=== PATIENT | female | born 1980 | race Two or more races ===

== ENCOUNTER 2019-06-02 17:50 | Emergency (ER) | payer SELFPAY ==
[~2019-06-02] VITALS: Ht 165.1 cm; Wt 113.4 kg
[2019-06-02 18:50] VITALS: BP 181/98
[2019-06-02] MEDS ORDERED: BENZ100C PO (19:03)
--- NOTE | 2019-06-02 19:04 | PHYS DOC ---
Past Medical History Past Medical History: No Pertinent History (KENYA BOYKIN APRN) Past Surgical History: , Other Additional Past Surgical Histo: right foot has hardware (KENYA BOYKIN APRN) Alcohol Use: None Drug Use: None (KENYA BOYKIN APRN) Adult General Chief Complaint Chief Complaint: COUGH HPI HPI Patient is a 39 year old [female] who presents with [cough for the past 4 days. States she has had a dry, unproductive cough for the past few days, states children at home had similar recently. States she has not had any fevers, denies nausea or vomiting. States she has tried some dayquil once and had no improvement. Reports she is more bothered by the coughing than anything else, States she also feels her ears seem a little congested. ] (KENYA BOYKIN APRN) Review of Systems Review of Systems Constitutional: Denies fever or chills [] HENT: reports nasal congestion denies sore throat [] Respiratory: Reports cough, denies shortness of breath [] Cardiovascular: No additional information not addressed in HPI [] GI: Denies abdominal pain, nausea, vomiting, bloody stools or diarrhea [] Musculoskeletal: Denies back pain or joint pain [] Integument: Denies rash or skin lesions [] Neurologic: Denies headache, focal weakness or sensory changes [] Endocrine: Denies polyuria or polydipsia [] All other systems were reviewed and found to be within normal limits, except as documented in this note. (KENYA BOYKIN APRN) Allergies Allergies Allergies Coded Allergies Type Severity Reaction Last Updated Verified No Known Drug Allergies 12/08/13 No (NGHIA HOUSTON MD) Physical Exam Physical Exam Constitutional: Well developed, well nourished, no acute distress, non-toxic appearance. [] HENT: Normocephalic, atraumatic, bilateral external ears normal, oropharynx moist, no oral exudates, nose normal. [] Cardiovascular:Heart rate regular rhythm, no murmur [] Lungs & Thorax: Bilateral breath sounds clear to auscultation, frequent hoarse coughing noted. [] Abdomen: Bowel sounds normal, soft, no tenderness, no masses, no pulsatile masses. [] Skin: Warm, dry, no erythema, no rash. [] Extremities: No tenderness, no cyanosis, no clubbing, ROM intact, no edema. [] Neurologic: Alert and oriented X 3, normal motor function, normal sensory function, no focal deficits noted. [] Psychologic: Affect normal, judgement normal, mood normal. [] (KENYA BOYKIN APRN) Current Patient Data Vital Signs Vital Signs Date Time Temp Pulse Resp B/P (MAP) Pulse Ox O2 Delivery O2 Flow Rate FiO2 06/02/19 18:50 98.3 106 14 181/98 (125) 97 Room Air 98.3 (NGHIA HOUSTON MD) EKG EKG [] (KENYA BOYKIN APRN) Radiology/Procedures Radiology/Procedures [] (KENYA BOYKIN APRN) Course & Med Decision Making Course & Med Decision Making Pertinent Labs and Imaging studies reviewed. (See chart for details) [Discussed findings likely viral URI, as children have similar symptoms. Discussed hydration, rest, follow up, use of tessalon perles. ] (KENYA BOYKIN APRN) Course & Med Decision Making Staff Physician Addendum: I was working in the ER during the course of this patient's visit. I was available for consultation as needed, but I was not directly involved in the care of this patient. (NGHIA HOUSTON MD) Dragon Disclaimer Dragon Disclaimer This electronic medical record was generated, in whole or in part, using a voice recognition dictation system. (KENYA BOYKIN APRN) Departure Departure Impression: Primary Impression: Upper respiratory infection Additional Impression: Cough Disposition: 01 HOME, SELF-CARE Condition: STABLE Referrals: NO PCP (PCP) Patient Instructions: Cough, Adult, Upper Respiratory Infection, Adult, [id number] Additional Instructions: As we discussed, you can continue to take Dayquil at home or at work. Ensure you are drinking plenty of fluids If your ears continue to have pressure, you can try Flonase Nasal spray You can take the Tessalon perles for your cough. You should medication with Dextromethorphan, which will help your cough, and Guaifenasin, which will help you cough out mucous in your chest. These are in several combination products, like Mucinex or Cough and Cold medications, often with Tylenol. You can take these per the package directions. Scripts Benzonatate (TESSALON PERLE) 100 Mg Capsule 100 MG PO TID PRN for COUGH, #15 CAP Prov: KENYA BOYKIN APRN 06/02/19 Problem Qualifiers Primary Impression: Upper respiratory infection URI type: acute nasopharyngitis (common cold) Qualified Codes: J00 - Acute nasopharyngitis [common cold] KENYA BOYKIN APRN Jun 02, 2019 19:04 NGHIA HOUSTON MD Jun 02, 2019 21:21
== END 2019-06-02 19:10 | disposition home or self-care (01) ==
LOC: ER 17:50
DX: J00 Acute nasopharyngitis [common cold] (principal)
CPT/HCPCS: 99283

== ENCOUNTER 2019-06-13 15:53 | Inpatient (IN) | payer SELFPAY ==
[~2019-06-13] VITALS: Ht 162.6 cm; Wt 170.6 kg
[~2019-06-13 15:53] MED LIST: BENZ100C PO
[2019-06-13] MEDS ORDERED: IV NORMAL SALINE 1000ML BAG 1,000 ML IV SCH (16:12)
[2019-06-13] MEDS ORDERED: IPRATRPIUM/ALBUTEROL 0.5/2.5MG 3 ML NEBU. NEB ONE (16:15)
--- NOTE | 2019-06-13 16:26 | EKG ---
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
[2019-06-13 16:31] LABS: BASO # 0.1 x10^3/uL (0.0-0.2); BASO % 0 % (0-3); EOS # 0.2 x10^3/uL (0.0-0.7); EOS % 1 % (0-3); HEMATOCRIT 33.2 % (36.0-47.0); HEMOGLOBIN 10.4 g/dL (12.0-15.5); LYMPH # 1.1 x10^3/uL (1.0-4.8); LYMPH % 3 % (24-48); MEAN CORPUSCULAR HEMOGLOBIN 25 pg (25-35); MEAN CORPUSCULAR HGB CONC 31 g/dL (31-37); MEAN CORPUSCULAR VOLUME 80 fL (79-100); MONO # 1.5 x10^3/uL (0.0-1.1); MONO % 3 % (0-9); NEUT # 41.3 x10^3/uL (1.8-7.7); NEUT % 93 % (31-73); PLATELET COUNT 620 x10^3/uL (140-400); RED BLOOD COUNT 4.14 x10^6/uL (3.50-5.40); RED CELL DISTRIBUTION WIDTH 16.4 % (11.5-14.5)
[2019-06-13 16:36] LABS: BARBITURATES NEG (NEG); BENZODIAZEPINES NEG (NEG); CANNABINOIDS NEG (NEG); COCAINE NEG (NEG); METHADONE NEG (NEG); OPIATES NEG (NEG); PHENCYCLIDINE NEG (NEG); WHITE BLOOD COUNT 44.3 x10^3/uL (4.0-11.0)
[2019-06-13 16:38] LABS: AMPHETAMINE/METHAMPHETAMINE POS (NEG)
[2019-06-13 16:39] LABS: BILIRUBIN,URINE LARGE (NEG); CLARITY,URINE TURBID; COLOR,URINE ORANGE; NITRITE,URINE POSITIVE (NEG); PH,URINE 5.5; PROTEIN,URINE 100 mg/dL (NEG-TRACE)
[2019-06-13 16:43] LABS: CALCIUM 9.1 mg/dL (8.5-10.1); CREATININE 1.8 mg/dL (0.6-1.0); GFR 31.7
[2019-06-13 16:45] LABS: PROTHROMBIN TIME PATIENT 14.2 SEC (11.7-14.0)
[2019-06-13] MEDS ORDERED: VANCOMYCIN 2 GM in IV NORMAL SALINE 500ML BAG 500 ML IV ONE (16:45)
[2019-06-13] MEDS ORDERED: IV NORMAL SALINE 1000ML BAG 1,000 ML IV ONE ×2 (16:45→17:15)
[2019-06-13] MEDS ORDERED: VANCOMYCIN 1GM IVPB FOR OMNI 250 ML IV ONE ×2 (16:45)
[2019-06-13] MEDS ORDERED: PIPERACILLIN/TAZOBACTAM 4.5 GM in IV NORMAL SALINE 100ML 100 ML IV ONE (16:45)
--- NOTE | 2019-06-13 16:45 | PHYS DOC ---
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 Central Line Indications: Monitor CVP Maximal sterile barriers used: Mask, Sterile gown, Sterile gloves, Large sterile drape, Cap Skin Preperation: (Check all: Chlorhexidine gluconate Was skin prep dry at time of s: Yes Patient has documented/known a: Yes Facility restrictions/safety c: No Insertion Site: Jugular Antimicrobial catheter used?: No Central Line catheter type: Non-tunneled Did this insertion attempt res: No (PROSPER ALCANTARA MD) Adult General Chief Complaint Chief Complaint: SHORTNESS OF BREATH HPI HPI Patient is a 39 year old female patient with history of morbid obesity and BMI of more than 60 who presents with complaining of shortness of breath. Patient states she was administered at [facility] 3 days ago because of cellulitis and sepsis and left Hospital last night AMA as she was not happy with their care. Patient states she had shortness of breath since this morning without chest pain, fever and chills, focal neuro deficit. Patient complaining of cough. (MELISSA CHRISTIANSON MD) Review of Systems Review of Systems Constitutional: Denies fever or chills [] Eyes: Denies change in visual acuity, redness, or eye pain [] HENT: Denies nasal congestion or sore throat [] Respiratory: Reports cough and shortness of breath Cardiovascular: No additional information not addressed in HPI [] GI: Denies abdominal pain, nausea, vomiting, bloody stools or diarrhea [] : Denies dysuria or hematuria [] Musculoskeletal: Denies back pain or joint pain [] Integument: Denies rash or skin lesions [] Neurologic: Denies headache, focal weakness or sensory changes [] Endocrine: Denies polyuria or polydipsia [] All other systems were reviewed and found to be within normal limits, except as documented in this note. (MELISSA CHRISTIANSON MD) Current Medications Current Medications Current Medications Medications (Trade) Dose Ordered Sig/Ele Start Time Stop Time Status Last Admin Dose Admin Albuterol/ Ipratropium (Duoneb) 3 ml 1X ONCE 06/13/19 16:15 06/13/19 16:19 DC 06/13/19 16:31 3 ML Sodium Chloride 1,000 ml @ 1,000 mls/hr Q1H 06/13/19 16:12 06/13/19 17:11 DC 06/13/19 16:56 1,000 MLS/HR (PROSPER ALCANTARA MD) Allergies Allergies Allergies Coded Allergies Type Severity Reaction Last Updated Verified No Known Drug Allergies 12/08/13 No (PROSPER ALCANTARA MD) Physical Exam Physical Exam Constitutional: Well nourished, moderate distress, anxious, afebrile] HENT: Normocephalic, atraumatic, dry oral mucosa Eyes: PERRLA, EOMI, conjunctiva normal, no discharge. [] Neck: Normal range of motion, no tenderness, supple, no stridor. [] Cardiovascular: Tachycardia Lungs & Thorax: respiratory distress with hyperventilation, no rales or rhonchi, upper respiratory stridor Abdomen: Bowel sounds normal, soft, no tenderness, no masses, no pulsatile masses. [] Skin: Warm, dry, no erythema, no rash. [] Back: No tenderness, no CVA tenderness. 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 [] Psychologic: Affect anxious (MELISSA CHRISTIANSON MD) Current Patient Data Vital Signs Vital Signs Date Time Temp Pulse Resp B/P (MAP) Pulse Ox O2 Delivery O2 Flow Rate FiO2 06/13/19 16:35 96 Nasal Cannula 4.0 06/13/19 15:54 97.9 124 52 140/72 (94) 97.9 (PROSPER ALCANTARA MD) Lab Values Laboratory Tests Test 06/13/19 16:12 06/13/19 16:16 Prothrombin Time 14.2 SEC (11.7-14.0) H Prothrombin Time INR 1.1 (0.8-1.1) D-Dimer (Janet) 3.80 ug/mlFEU (0.00-0.50) H White Blood Count 44.3 x10^3/uL (4.0-11.0) *H Red Blood Count 4.14 x10^6/uL (3.50-5.40) Hemoglobin 10.4 g/dL (12.0-15.5) L Hematocrit 33.2 % (36.0-47.0) L Mean Corpuscular Volume 80 fL (79-100) Mean Corpuscular Hemoglobin 25 pg (25-35) Mean Corpuscular Hemoglobin Concent 31 g/dL (31-37) Red Cell Distribution Width 16.4 % (11.5-14.5) H Platelet Count 620 x10^3/uL (140-400) H Neutrophils (%) (Auto) 93 % (31-73) H Lymphocytes (%) (Auto) 3 % (24-48) L Monocytes (%) (Auto) 3 % (0-9) Eosinophils (%) (Auto) 1 % (0-3) Basophils (%) (Auto) 0 % (0-3) Neutrophils # (Auto) 41.3 x10^3/uL (1.8-7.7) H Lymphocytes # (Auto) 1.1 x10^3/uL (1.0-4.8) Monocytes # (Auto) 1.5 x10^3/uL (0.0-1.1) H Eosinophils # (Auto) 0.2 x10^3/uL (0.0-0.7) Basophils # (Auto) 0.1 x10^3/uL (0.0-0.2) Platelet Estimate Pending Urine Collection Type U cath Urine Color [place] Urine Clarity Turbid Urine pH 5.5 Urine Specific [place] >=1.030 Urine Protein 100 mg/dL (NEG-TRACE) Urine Glucose (UA) Negative mg/dL (NEG) Urine Ketones (Stick) Trace mg/dL (NEG) Urine Blood Negative (NEG) Urine Nitrite Positive (NEG) Urine Bilirubin Large (NEG) Urine Urobilinogen Dipstick 4.0 mg/dL (0.2 mg/dL) Urine Leukocyte Esterase Small (NEG) Urine RBC 0 /HPF (0-2) Urine WBC 5-10 /HPF (0-4) Urine Squamous Epithelial Cells Occ /LPF Urine Amorphous Sediment Present /HPF Urine Bacteria Few /HPF (0-FEW) Sodium Level 132 mmol/L (136-145) L Potassium Level 3.0 mmol/L (3.5-5.1) L Chloride Level 93 mmol/L (98-107) L Carbon Dioxide Level 18 mmol/L (21-32) L Anion Gap 21 (6-14) H Blood Urea Nitrogen 16 mg/dL (7-20) Creatinine 1.8 mg/dL (0.6-1.0) H Estimated GFR (Cockcroft-Gault) 31.7 BUN/Creatinine Ratio 9 (6-20) Glucose Level 233 mg/dL (70-99) H Lactic Acid Level 10.8 mmol/L (0.4-2.0) *H Calcium Level 9.1 mg/dL (8.5-10.1) Magnesium Level 2.5 mg/dL (1.8-2.4) H Total Bilirubin 2.9 mg/dL (0.2-1.0) H Aspartate Amino Transferase (AST) 158 U/L (15-37) H Alanine Aminotransferase (ALT) 77 U/L (14-59) H Alkaline Phosphatase 346 U/L (46-116) H Creatine Kinase 156 U/L (26-192) Troponin I Quantitative < 0.017 ng/mL (0.000-0.055) NW-Rvy-U-Type Natriuretic Peptide 1110 pg/mL (0-124) H Total Protein 7.8 g/dL (6.4-8.2) Albumin 2.6 g/dL (3.4-5.0) L Albumin/Globulin Ratio 0.5 (1.0-1.7) L Lipase 1861 U/L (73-393) H Urine Opiates Screen Neg (NEG) Urine Methadone Screen Neg (NEG) Urine Barbiturates Neg (NEG) Urine Phencyclidine Screen Neg (NEG) Urine Amphetamine/Methamphetamine Pos (NEG) Urine Benzodiazepines Screen Neg (NEG) Urine Cocaine Screen Neg (NEG) Urine Cannabinoids Screen Neg (NEG) Urine Ethyl Alcohol Neg (NEG) Laboratory Tests 06/13/19 16:16 Laboratory Tests 06/13/19 16:16 (PROSPER ALCANTARA MD) EKG EKG EKG interpreted by me. EKG at 1608 showed sinus tachycardia at rate of 124, no acute distress and T-wave abnormalities. (MELISSA CHRISTIANSON MD) Radiology/Procedures Radiology/Procedures [][facility] [address] [place] [address] IMAGING REPORT Signed PATIENT: JEEVAN LINDSAY ACCOUNT: [id number] : 1980 LOCATION: ER AGE: 39 SEX: F EXAM STATUS: REG ER ORD. PHYSICIAN: MELISSA CHRISTIANSON MD REASON: sepsis PROCEDURE: PORTABLE CHEST 1V EXAM: Chest, single view. HISTORY: Sepsis. COMPARISON: None. FINDINGS: A frontal view of the chest is obtained. There is bilateral central interstitial prominence with suspected superimposed left lower lobe infiltrate. There is no pleural effusion or pneumothorax. The heart is normal in size. There are decreased lung volumes. IMPRESSION: Suspected left lower lobe infiltrate superimposed on diffuse central interstitial prominence. Electronically signed by: Samanta Lunsford MD (06/13/2019 4:59 PM) [facility] DICTATED and SIGNED BY: SAMANTA LUNSFORD MD DATE: 06/13/191658 (MELISSA CHRISTIANSON MD) Course & Med Decision Making Course & Med Decision Making Pertinent Labs and Imaging studies reviewed. (See chart for details) Evaluation of patient in ER showed 39-year-old female patient presented to ER with complaining of chest pain with O2 sat of 88% at room air that increased with the starting nasal cannula. Patient had blood pressure of 140 and tachycardia at arrival with intermittently drop of blood pressure. Sepsis protocol was started. Patient treated with antibiotic and IV fluid. Patient had increase of shortness of breath and intubated at 1744. Patient had coffee-ground material in NG tube that was placed after intubation.. Patient had elevation of d-dimer. Dr Zafar was consulted at 1758 did not recommend treatment for possible PE.Levophed and Versed drip was started.Patient requiring admission for further evaluation and treatment. Discussed with Dr. Mckeon who is in agreement with admission. Discussed findings and plan with patient and family, who acknowledge understanding and agreement. Sign out given to at 1800 for further evaluation and final disposition. Discussed current findings and plan with patient and family, who acknowledge understanding and agreement. (MELISSA CHRISTIANSON MD) Course & Med Decision Making Patient difficult sedation, precedex ordered. Patient given etomidate and sux for sedation until able to titrate precedex and versed as able. BP 130's systolically. Patient will be transferred to ICU (PROSPER ALCANTARA MD) Dragon Disclaimer Dragon Disclaimer This electronic medical record was generated, in whole or in part, using a voice recognition dictation system. (MELISSA CHRISTIANSON MD) Departure Departure Impression: Primary Impression: Severe sepsis Additional Impressions: Acute respiratory failure Elevated liver function tests Renal insufficiency Hypokalemia Elevated lipase Hyponatremia GI bleeding Lower extremity cellulitis Morbid obesity with BMI of 60.0-69.9, adult Metabolic acidosis Hyperglycemia Hypoalbuminemia Hypermagnesuria Methamphetamine abuse Elevated d-dimer Elevated brain natriuretic peptide (BNP) level Disposition: ADMITTED INPATIENT (at 1645) Admitting Physician: BARB (Dr. Mckeon accepted admission at 1644) (MELISSA CHRISTIANSON MD) Condition: CRITICAL Referrals: NO PCP (PCP) Critical Care Time Critical care time was 120 minutes exclusive of procedures. (MELISSA CHRISTIANSON MD) Critical Care Time Additional critical care 40 min (PROSPER ALCANTARA MD) Date and Time of Reassessment Date: Jun 13, 2019 Time: 18:25 (MELISSA CHRISTIANSON MD) Fluid Challenge Is the fluid challenge complet: No IBW Target Volume Used: No BMI > 30: Yes (MELISSA CHRISTIANSON MD) Vital Signs Vital Signs: Vital Signs Date Time Temp Pulse Resp B/P (MAP) Pulse Ox O2 Delivery O2 Flow Rate FiO2 06/13/19 16:35 96 Nasal Cannula 4.0 06/13/19 15:54 97.9 124 52 140/72 (94) 97.9 (PROSPER ALCANTARA MD) Temperature Source: Oral (MELISSA CHRISTIANSON MD) Respirations Respiratory Pattern: Tachypnea (MELISSA CHRISTIANSON MD) Cardiovascular Pulse Rhythm: Regular Heart: Nml S1, S2, no murmurs (MELISSA CHRISTIANSON MD) Lung Sounds Breath Sounds: Crackles (MELISSA CHRISTIANSON MD) Capillary Refil Capillary Refill: Rt Hand > 3 seconds (MELISSA CHRISTIANSON MD) Peripheral Pulse Pulse Location: Radial Pulse Strength: Weak (1+) Pulse Assessment Method: Cuff (manual) (MELISSA CHRISTIANSON MD) Integumentary Skin: Dry Skin Moisture: Dry (MELISSA CHRISTIANSON MD) Intubation Procedure Intubation Procedure Intub Indication: Respiratory failure Consent: Unable to give consent due to emergent nature. Medications Used: see nursing note Procedure: The patient was placed in the appropriate position. Intubation was performed with direct visualization of vocal cords with insertion of 7.5 T tube after giving 20 mg of etomidate and 100 mg of succinylcholine and endotracheal tube was secured with device. Initial confirmation of placement included bilateral breath sounds, tube fogging, adequate chest rise, adequate pulse oximetry reading. A chest x-ray to verify correct placement of the tube showed appropriate tube position. The patient tolerated the procedure well. Complications: none. (MELISSA CHRISTIANSON MD) Problem Qualifiers Additional Impressions: Acute respiratory failure Respiratory failure complication: unspecified whether with hypoxia or hypercapnia Qualified Codes: J96.00 - Acute respiratory failure, unspecifi ed whether with hypoxia or hypercapnia GI bleeding GI bleed type/associated pathology: unspecified gastrointestinal hemorrhage type Qualified Codes: K92.2 - Gastrointestinal hemorrhage, unspecified Lower extremity cellulitis Laterality: left Qualified Codes: L03.116 - Cellulitis of left lower limb MELISSA CHRISTIANSON MD Jun 13, 2019 16:45 PROSPER ALCANTARA MD Jun 13, 2019 18:54
[2019-06-13 16:55] LABS: ALBUMIN 2.6 g/dL (3.4-5.0); ALBUMIN/GLOBULIN RATIO 0.5 (1.0-1.7); MAGNESIUM 2.5 mg/dL (1.8-2.4); TOTAL BILIRUBIN 2.9 mg/dL (0.2-1.0); TOTAL PROTEIN 7.8 g/dL (6.4-8.2)
[2019-06-13 16:56] LABS: D-DIMER 3.8 ug/mlFEU (0.00-0.50)
[2019-06-13 16:58] LABS: AMORPHOUS SEDIMENT,UR PRESENT /HPF; BACTERIA,URINE FEW /HPF (0-FEW); RBC,URINE 0 /HPF (0-2); SQUAMOUS EPITHELIAL CELL,UR OCC /LPF
--- NOTE | 2019-06-13 17:02 | RAD ---
EXAM: Chest, single view. HISTORY: Sepsis. COMPARISON: None. FINDINGS: A frontal view of the chest is obtained. There is bilateral central interstitial prominence with suspected superimposed left lower lobe infiltrate. There is no pleural effusion or pneumothorax. The heart is normal in size. There are decreased lung volumes. IMPRESSION: Suspected left lower lobe infiltrate superimposed on diffuse central interstitial prominence. Electronically signed by: Mona Phillips MD (06/13/2019 4:59 PM) [place] [id number]
[2019-06-13 17:05] LABS: BASE EXCESS ABG -10 mmol/L (-3-3); HCO3 ABG 15 mmol/L (21-28); PCO2 ABG 31 mmHg (35-46); PO2 ABG 68 mmHg (85-108); SAT O2 ABG 92 % (92-99)
[2019-06-13 17:07] LABS: FIO2 ABG 36
[2019-06-13] MEDS ORDERED: MIDAZOLAM 100mg/100ml NS BAG 100 ML IV ONE (17:45)
[2019-06-13] MEDS ORDERED: NOREPINEPHRIN 8MG/250ML PREMIX 250 ML IV ONE (17:45)
[2019-06-13] MEDS ORDERED: fentaNYL PF VIAL 100 MCG/2 ML VIAL ONE (18:06)
[2019-06-13] MEDS ORDERED: PANTOPRAZOLE IV PUSH 40 MG VIAL. IVP ONE (18:15)
[2019-06-13] MEDS ORDERED: fentaNYL PF VIAL 100 MCG/2 ML VIAL IVP ONE (18:15)
[2019-06-13] MEDS ORDERED: PANTOPRAZOLE SODIUM IV DRIP 80 MG in IV NORMAL SALINE 100ML 100 ML IV ONE (18:15)
[2019-06-13] MEDS ORDERED: IV NORMAL SALINE 500ML BAG 500 ML IV PRN ×2 (18:30→21:30)
[2019-06-13] MEDS ORDERED: MIDAZOLAM HCL/PF 5 MG/5 ML VIAL. IV ONE (18:30)
[2019-06-13] MEDS ORDERED: ATROPINE 0.5 MG/5 ML DISP.SYRINGE. IV PRN ×2 (18:30→21:30)
--- NOTE | 2019-06-13 18:31 | RAD ---
PORTABLE CHEST 1V History: Post intubation. Comparison: June 13, 2019 Findings: Interval intubation with endotracheal tube tip 4 cm above the guy. Low lung volumes. Patchy central and bibasilar opacities. Interval placement of enteric tube with tip projecting over the mid gastric body. Surgical clips right upper quadrant. Impression: 1. Interval intubation and placement of enteric tube. 2. Low lung volumes with increased central and bibasilar opacities, may represent atelectasis and/or consolidations. Electronically signed by: Rogelio Michaels DO (06/13/2019 6:28 PM) [facility]
[2019-06-13] MEDS ORDERED: ETOMIDATE 20 MG/10 ML VIAL. IV ONE (18:45)
[2019-06-13] MEDS ORDERED: SUCCINYLCHOLINE 200 MG/10 ML VIAL. IV ONE (18:45)
[2019-06-13 19:05] LABS: % BANDS 3 % (0-9); % LYMPHS 4 % (24-48); % MONOS 4 % (0-10); % SEGS 89 % (35-66); ANISOCYTOSIS SLIGHT; PLT ESTIMATE INCREASED (ADEQUATE); POLYCHROMASIA SLIGHT
--- NOTE | 2019-06-13 19:32 | RAD ---
CHEST AP ONLY History: Post central line placement. Comparison: June 13, 2019. Findings: Interval placement left IJ central line with tip projecting over the cavoatrial junction. Unchanged endotracheal tube and enteric tube. Surgical clips right upper quadrant. Low lung volumes with central and bibasilar opacities, similar compared to prior. No pneumothorax. Impression: 1. Interval placement left IJ central line with tip projecting over the cavoatrial junction. No pneumothorax. Electronically signed by: Rogelio Michaels DO (06/13/2019 7:30 PM) [facility]
[2019-06-13 19:33] LABS: BASE EXCESS ABG -11 mmol/L (-3-3); HCO3 ABG 13 mmol/L (21-28); PCO2 ABG 27 mmHg (35-46); PO2 ABG 259 mmHg (85-108); SAT O2 ABG 99 % (92-99)
[2019-06-13 20:00] VITALS: BP 63/32
[2019-06-13] MEDS: IV NORMAL SALINE 1000ML BAG 1,000 ML IV SCH ×2 (20:00→21:00)
[2019-06-13] MEDS: DEXMEDETOMIDINE 400 MCG in IV NORMAL SALINE 100ML 96 ML IV PRN ×2 (20:00→22:00)
--- NOTE | 2019-06-13 20:27 | HP ---
ADMIT DATE: 06/13/2019 CHIEF COMPLAINT: Lower extremity swelling and shortness of breath. HISTORY OF PRESENT ILLNESS: The patient is a pleasant, morbidly obese female who presented with shortness of breath and swelling. She apparently left [facility] within the past few days. At that time, she was being treated for some cellulitis. Now, the lower extremities are extremely, extremely swollen, very tight. They are red, they are weeping. Her white count is 44,000. She is satting in the 80s. She appears to be quite septic. I discussed the case with the ER physician. We agreed to admit the patient with IV antibiotics and consultation with Infectious Disease. Since then, the patient has now decompensated, had to be intubated as well. She is now being examined in the ER where she is on the vent with 100% FiO2 and on norepinephrine drip. Her prognosis is extremely guarded. She is critically ill. PAST MEDICAL AND SURGICAL HISTORY: Super morbid obesity, cholecystectomy, , previous cellulitis, tonsillectomy, right foot surgery with hardware. ALLERGIES: None. FAMILY HISTORY: Diabetes. SOCIAL HISTORY: She does not drink, smoke, or take drugs. MEDICATIONS: Reviewed. She is on Tessalon Perles. REVIEW OF SYSTEMS: Unable to obtain. The patient is on the ventilator. PHYSICAL EXAMINATION: VITAL SIGNS: Temperature is 97.9, pulse is 110, respirations 20, blood pressure is 110/57, and pulse oximetry is 90%, she is on 100% oxygen. GENERAL: She is sedated. HEENT: Normal cephalic atraumatic, external auditory canals are patent EYES: Extraocular muscles are intact, pupils are equally round and reactive to light and accommodation. MUSCULOSKELETAL: Well developed, well nourished, good range of motion ENDOCRINE: No thyromegaly was palpated LYMPHATICS: No cervical chain or axillary nodes were noted HEMATOPOIETIC: No bruising NECK: Supple, no JVD, no thyromegaly was noted. LUNGS: Coarse. HEART: She is tachycardic. ABDOMEN: Soft, but morbidly obese. EXTREMITIES: 5+ edema with weeping. NEUROLOGIC: Unable to obtain. The patient is sedated. PSYCHIATRIC: Normal affect, normal mood. Stable. SKIN: Very thin ____ skin. VASCULAR: Good capillary refill, neurovascular bundle appears to be intact. RADIOLOGICAL DATA: Chest x-ray shows a left IJ central line placement and a left lower lobe infiltrate. ASSESSMENT AND PLAN: Severe sepsis, respiratory failure, and pneumonia. The patient has been admitted. I have consulted Dr. Tristin Kelly of the Infectious Disease Service. We have started IV antibiotics. Consult Pulmonary Medicine. Norepinephrine drip, IV vancomycin, IV Zosyn. PROGNOSIS: Extremely guarded. TOTAL TIME: 32 minutes. JAVED JASMINE DO DR: DANIELLA/ivet JOB#: [id number] / [id number]
[2019-06-13 20:30] VITALS: BP 72/34
[2019-06-13 21:00] VITALS: BP 64/45
[2019-06-13] MEDS ORDERED: DEXMEDETOMIDINE 400 MCG in IV NORMAL SALINE 100ML 96 ML IV PRN (21:30)
[2019-06-13] MEDS ORDERED: NOREPINEPHRIN 8MG/250ML PREMIX 250 ML IV PRN ×2 (21:30→23:45)
[2019-06-13 22:00] VITALS: BP 80/40
[2019-06-13 23:00] VITALS: BP 96/50
[2019-06-13] MEDS: MIDAZOLAM 100mg/100ml NS BAG 100 ML IV PRN (23:20)
[2019-06-13] MEDS ORDERED: INFLUENZA VAX SCREEN BY RX. MC PRN (23:45)
[2019-06-14] VITALS (25 sets, daily range): BP systolic 80–125; BP diastolic 42–71
[2019-06-14] MEDS ORDERED: PHENYLEPHRINE INJ 20 MG in IV NORMAL SALINE 250ML 250 ML IV PRN ×2
[2019-06-14] MEDS: NORMAL SALINE IV PRN ×3 (00:18→19:45)
[2019-06-14] MEDS: PHENYLEPHRINE IV PRN ×3 (00:18→19:45)
[2019-06-14] MEDS ORDERED: IV NORMAL SALINE 500ML BAG 500 ML IV SCH (01:30)
[2019-06-14] MEDS: VASOPRESSIN 40 UNIT in IV DEXTROSE 5% 100ML 100 ML IV PRN ×2 (02:08→15:48)
[2019-06-14] MEDS: SODIUM BICARBONATE VIAL 150 MEQ in IV DEXTROSE 5% 1,000 ML IV SCH ×2 (02:08→15:47)
[2019-06-14] MEDS: DEXMEDETOMIDINE 400 MCG in IV NORMAL SALINE 100ML 96 ML IV PRN ×11 (02:29→23:40)
[2019-06-14] MEDS: IV NORMAL SALINE 1000ML BAG 1,000 ML IV SCH ×3 (02:29→11:51)
[2019-06-14] MEDS: PANTOPRAZOLE SODIUM IV DRIP 80 MG in IV NORMAL SALINE 100ML 100 ML IV SCH ×2 (03:45→14:59)
[2019-06-14] MEDS: NOREPINEPHRINE VIAL 32 MG in IV NORMAL SALINE 250ML IV PRN ×3 (04:09→23:41)
--- NOTE | 2019-06-14 05:27 | NUR ---
Pt admitted to room 110 at 1940 in obvious distress. All monitors and vent hooked up to patient. NS, Versed, Levo, Protonix, and Precedex started. Unable to obtain NIBP except by manual. Art line placed per SURGICAL TRAINING SPECIALIST at 2250. Levo titrated and kaur started per MD orders. Dr Aiken and Dr Mckeon called and updated on pt condition. Vasopressin started. Pt fighting vent at all times. Fentanyl added to sedation for vent management. Per Dr Zafar's orders, RT attempted to change pt to pressure control due to high peak pressures. Pt did not tolerate and returned to AC mode. Dr Aiken informed of change. Pt now resting comfortable, though continues to overbreathe vent slightly. Peak pressures improved. Pt has had no urine output since admission. Dr Aiken aware. Will see this am. Family updated on pt condition and pts mother is staying in waiting room. The rest of the family opted to go home for the night. Remains critically ill.
[2019-06-14 05:49] LABS: ALBUMIN 1.6 g/dL (3.4-5.0); ALBUMIN/GLOBULIN RATIO 0.4 (1.0-1.7); CALCIUM 7.6 mg/dL (8.5-10.1); CREATININE 2.3 mg/dL (0.6-1.0); GFR 23.9; POTASSIUM 3.3 mmol/L (3.5-5.1); TOTAL BILIRUBIN 3.6 mg/dL (0.2-1.0); TOTAL PROTEIN 5.8 g/dL (6.4-8.2)
[2019-06-14 07:30] LABS: BASE EXCESS ABG -8 mmol/L (-3-3); HCO3 ABG 17 mmol/L (21-28); PCO2 ABG 32 mmHg (35-46); PO2 ABG 85 mmHg (85-108); SAT O2 ABG 96 % (92-99)
[2019-06-14 07:33] LABS: FIO2 ABG 60%
[2019-06-14] MEDS ORDERED: ONDANSETRON PF 4 MG/2 ML VIAL. IVP PRN (08:45)
[2019-06-14] MEDS ORDERED: ACETAMINOPHEN/CODEINE 120/12MG 5 ML SOLUTION. PO PRN (08:45)
[2019-06-14] MEDS: MEROPENEM 1 GM in IV NORMAL SALINE 100ML 100 ML IV SCH ×2 (09:00→21:06)
--- NOTE | 2019-06-14 09:08 | NUR ---
Consult called to Dr. Huang's office.
[2019-06-14] MEDS: MIDAZOLAM 100mg/100ml NS BAG 100 ML IV PRN ×3 (09:14→22:04)
--- NOTE | 2019-06-14 09:29 | CONS ---
DATE OF CONSULTATION: 06/14/2019 REFERRING PHYSICIAN: Thompson Mckeon DO. REASON FOR CONSULTATION: Sepsis. HISTORY OF PRESENT ILLNESS: A 39-year-old female, morbidly obese, intubated and admitted to ICU last evening. History obtained from chart and medical staff. The patient was at [facility] a couple of days prior to admission here at which time she was being treated for cellulitis. She left [facility] as she was not happy with the care there and then per report, she was at [facility] and left there also. She presented due to her lower extremity extremely swollen, tight, weeping lesions, red, especially the left one. White count was elevated at 44,000. She was hypoxic. She was intubated. She is on 3 pressors currently. She received a dose of vancomycin, Zosyn and Levaquin for severe sepsis, lower extremity cellulitis and possible pneumonia. UDS was positive. The patient also had lactic acidosis with lactate of 10.8. Creatinine was elevated at 1.8. BNP was elevated, lipase was 1861, bilirubin of 2.9, LFT elevation, CK of 156. UDS positive for amphetamine. UA positive with 5-10 wbc's, positive nitrite, positive leukocyte esterase. Chest x-ray showed interval placement of left IJ, no pneumothorax. Chest x-ray on admission showed suspected left lower lobe infiltrate superimposed on diffuse central interstitial prominence. This morning, the patient's condition remains unchanged. She is on 3 pressors, sedated. PAST MEDICAL HISTORY: Obesity, right foot surgery with hardware, tonsillectomy, history of previous cellulitis, , cholecystectomy, venous stasis. ALLERGIES: None. FAMILY HISTORY: As per HPI. SOCIAL HISTORY: No smoking, no drinking, no drugs, though UDS is positive. CURRENT MEDICATIONS: One dose of IV vancomycin, Zosyn and Levaquin. Other medications reviewed in medication list. REVIEW OF SYSTEMS: Unable to obtain. PHYSICAL EXAMINATION: VITAL SIGNS: Temperature 98.6, pulse 87, respiratory rate 22, blood pressure 112/61, oxygen saturation 96% on FiO2 100%. GENERAL: Morbidly obese female, sedated and intubated. HEENT: Anicteric, no conjunctival petechiae. NECK: Supple. LUNGS: Decreased breath sounds at the bases. Coarse breath sounds. HEART: S1, S2, tachycardia. Distant heart sounds. No murmurs. ABDOMEN: Soft, morbidly obese, yeast in groin. Bowel sounds present. EXTREMITIES: Chronic venous stasis, edema with weeping lesions, redness, black eschar especially left lower extremity. GENITOURINARY: Gifford in place, left IJ line looks okay. CENTRAL NERVOUS SYSTEM: Intubated. DERMATOLOGIC: Warm, dry. No generalized rash except for above. LABORATORY DATA: WBC 44.3, hemoglobin 10.4, hematocrit 33.2, platelets 620, bands 3. Sodium 131, potassium 3.3, chloride 96, bicarbonate 18, BUN 21, creatinine 2.3, glucose 118. Lactate 4.8, was 10.8. Calcium 7.6, total bilirubin 3.6, AST 166, ALT 58, alkaline phosphatase 297, albumin 1.6. UDS positive for amphetamine, methamphetamine. UA was positive as above. IMAGING: Chest x-ray as above. MICROBIOLOGY: Blood cultures and urine cultures done, pending at this time. IMPRESSION: 1. Severe sepsis. 2. Acute hypoxic respiratory failure with pulmonary infiltrates, intubated. 3. Left lower extremity severe skin and soft tissue infection. 4. Leukocytosis. 5. Lactic acidosis. 6. Acute kidney injury. 7. Severe metabolic acidosis. 8. Hyperbilirubinemia with abnormal liver function tests. 9. Urine drug screen positive. 10. Morbid obesity. RECOMMENDATIONS: 1. We will start the patient on meropenem, daptomycin and micafungin. 2. The patient may need renal dosing. 3. Consult Vascular Surgery. 4. Obtain CT of left lower extremity. 5. Follow up labs and cultures. 6. Condition critical. 7. Prognosis guarded. 8. Discussed with nursing staff. Thank you for allowing me to participate in this patient's care. CCT time 35 minutes. NATE WALL MD DR: GUME/ivet JOB#: [id number] / [id number]
--- NOTE | 2019-06-14 09:30 | NUR ---
MAINTENANCE ASSISTANT for vascular surgery here to see patient. Asked about the SCDs and she instructed to hold on NANCY wraps and SCDs at this time. Is notifying vascular surgery for plan for left leg infection.
--- NOTE | 2019-06-14 10:12 | PDOC2 ---
CONSULT Date of Consult Date of Consult DATE: 06/14/19 TIME: 10:03 Source Source: Caregiver (mother, sister), Chart review, Unable to obtain due to (patient intubated) History of Present Illness Reason for Visit: Lola 39-year-old female admitted to the emergency room last night with severe sepsis. History was obtained from her mother and her sister in via chart review. The report the patient was [facility] on Monday was given antibiotics for cellulitis and left because was not happy with care, the mother was still concerned about the patient's condition and brought her to however they left prior to being seen due to the wait. Presented with a tight, swollen, discolored left lower leg. On arrival her lactic acid is 10.8 and was hypoxic, today lactic acid is 4.8. White blood cell count is 44,000, Cr. 2.3, platelets 620, RN reports she is not producing urine. She is on 3 pressors currently, intubated and sedated. UDS was positive for amphetamines. Her family reports her leg has been red for several days however the patient refused to come in. There may have been a period of time where the patient was sitting in the passenger seat of a car for 2 days, per sister report. Prior to coming in the patient informed the family of chest pain and abdominal pain which is what finally get her to come to the hospitals. Past Medical History Past Medical History obese, Unable to obtain otherwise, pt intubated Past Surgical History Past Surgical History right foot surgery with "3 plates and 19 screws" per mother, tonsillectomy, cholecystectomy, Family History Family History: Family History Unknown Social History Social History positive UDS for amphetamines - unable to obtain with pt intubated Current Problem List Problem List Problems Medical Problems: (1) Acute respiratory failure Status: Acute (2) Elevated brain natriuretic peptide (BNP) level Status: Acute (3) Elevated d-dimer Status: Acute (4) Elevated lipase Status: Acute (5) Elevated liver function tests Status: Acute (6) GI bleeding Status: Acute (7) Hyperglycemia Status: Acute (8) Hypermagnesuria Status: Acute (9) Hypoalbuminemia Status: Acute (10) Hypokalemia Status: Acute (11) Hyponatremia Status: Acute (12) Lower extremity cellulitis Status: Acute (13) Metabolic acidosis Status: Acute (14) Methamphetamine abuse Status: Acute (15) Morbid obesity with BMI of 60.0-69.9, adult Status: Acute (16) Renal insufficiency Status: Acute (17) Sepsis Status: Acute (18) Severe sepsis Status: Acute Current Medications Current Medications Current Medications Sodium Chloride 1,000 ml @ 1,000 mls/hr Q1H IV Last administered on 06/13/19at 16:56; Start 06/13/19 at 16:12; Stop 06/13/19 at 17:11; Status DC Albuterol/ Ipratropium (Duoneb) 3 ml 1X ONCE NEB Last administered on 06/13/19at 16:31; Start 06/13/19 at 16:15; Stop 06/13/19 at 16:19; Status DC Piperacillin Sod/ Tazobactam Sod 4.5 gm/Sodium Chloride 100 ml @ 200 mls/hr 1X ONCE IV Last administered on 06/13/19at 17:13; Start 06/13/19 at 16:45; Stop 06/13/19 at 17:14; Status DC Vancomycin HCl 250 ml @ 250 mls/hr 1X ONCE IV ; Start 06/13/19 at 16:45; Stop 06/13/19 at 17:44; Status UNV Levofloxacin/ Dextrose 150 ml @ 100 mls/hr 1X ONCE IV Last administered on 06/13/19at 18:48; Start 06/13/19 at 16:45; Stop 06/13/19 at 18:14; Status DC Vancomycin HCl 250 ml @ 250 mls/hr 1X ONCE IV ; Start 06/13/19 at 16:45; Stop 06/13/19 at 17:44; Status UNV Sodium Chloride 1,000 ml @ 1,000 mls/hr 1X ONCE IV Last administered on 06/13/19at 16:56; Start 06/13/19 at 16:45; Stop 06/13/19 at 17:44; Status DC Vancomycin HCl 2 gm/Sodium Chloride 500 ml @ 250 mls/hr 1X ONCE IV Last administered on 06/13/19at 21:15; Start 06/13/19 at 16:45; Stop 06/13/19 at 18:44; Status DC Sodium Chloride 1,000 ml @ 1,000 mls/hr 1X ONCE IV ; Start 06/13/19 at 17:15; Stop 06/13/19 at 18:14; Status DC Sodium Chloride 1,000 ml @ 200 mls/hr Q5H IV Last administered on 06/14/19at 07:35; Start 06/13/19 at 17:13; Stop 06/14/19 at 17:12 Lorazepam (Ativan Inj) 1 mg 1X ONCE IVP Last administered on 06/13/19at 17:26; Start 06/13/19 at 17:30; Stop 06/13/19 at 17:31; Status DC Lorazepam (Ativan Inj) 2 mg STK-MED ONCE .ROUTE ; Start 06/13/19 at 17:23; Stop 06/13/19 at 17:24; Status DC Norepinephrine Bitartrate 250 ml @ 29.974 mls/ hr 1X ONCE IV Last administered on 06/13/19at 17:47; Start 06/13/19 at 17:45; Stop 06/14/19 at 02:05; Status DC Midazolam HCl 100 ml @ 0 mls/hr 1X ONCE IV Last administered on 06/13/19at 17:54; Start 06/13/19 at 17:45; Stop 06/13/19 at 17:46; Status DC Fentanyl Citrate (Fentanyl 2ml Vial) 100 mcg STK-MED ONCE .ROUTE ; Start 06/13/19 at 18:06; Stop 06/13/19 at 18:06; Status DC Pantoprazole Sodium 80 mg/ Sodium Chloride 100 ml @ 10 mls/hr 1X ONCE IV Last administered on 06/13/19at 20:00; Start 06/13/19 at 18:15; Stop 06/14/19 at 04:14; Status DC Pantoprazole Sodium (PROTONIX VIAL for IV PUSH) 40 mg 1X ONCE IVP ; Start 06/13/19 at 18:15; Stop 06/13/19 at 18:25; Status DC Fentanyl Citrate (Fentanyl 2ml Vial) 25 mcg 1X ONCE IVP Last administered on 06/13/19at 18:24; Start 06/13/19 at 18:15; Stop 06/13/19 at 18:24; Status DC Midazolam HCl (Versed) 5 mg 1X ONCE IV Last administered on 06/13/19at 18:24; Start 06/13/19 at 18:30; Stop 06/13/19 at 18:31; Status DC Dexmedetomidine HCl 400 mcg/ Sodium Chloride 100 ml @ 0 mls/hr CONT PRN IV PER PROTOCOL Last administered on 06/14/19at 09:15; Start 06/13/19 at 18:30 Sodium Chloride 500 ml @ 500 mls/hr 1X PRN PRN IV HYPOTENSION; Start 06/13/19 at 18:30 Atropine Sulfate (ATROPINE 0.5mg SYRINGE) 0.5 mg PRN Q5MIN PRN IV SEE COMMENTS; Start 06/13/19 at 18:30 Etomidate (Amidate) 20 mg 1X ONCE IV Last administered on 06/13/19at 18:47; Start 06/13/19 at 18:45; Stop 06/13/19 at 18:48; Status DC Succinylcholine Chloride (Anectine) 100 mg 1X ONCE IV Last administered on 06/13/19at 18:47; Start 06/13/19 at 18:45; Stop 06/13/19 at 18:48; Status DC Norepinephrine Bitartrate 250 ml @ 30.495 mls/ hr CONT PRN IV SEE I/O RECORD Last administered on 06/13/19at 23:21; Start 06/13/19 at 21:30; Stop 06/14/19 at 00:00; Status DC Dexmedetomidine HCl 400 mcg/ Sodium Chloride 100 ml @ 0 mls/hr CONT PRN IV SEDATION; Start 06/13/19 at 21:30; Status UNV Sodium Chloride 500 ml @ 500 mls/hr 1X PRN PRN IV SEDATION; Start 06/13/19 at 21:30; Status UNV Atropine Sulfate (ATROPINE 0.5mg SYRINGE) 0.5 mg PRN Q5MIN PRN IV SEE COMMENTS; Start 06/13/19 at 21:30; Status UNV Midazolam HCl 100 ml @ 5 mls/hr CONT PRN IV SEE I/O RECORD Last administered on 06/14/19at 09:14; Start 06/13/19 at 21:45 Info (FLU VACCINE SCREEN per RX) 1 each PRN DAILY PRN MC SEE COMMENTS; Start 06/13/19 at 23:45 Norepinephrine Bitartrate 250 ml @ 30.495 mls/ hr CONT PRN IV SEE I/O RECORD; Start 06/13/19 at 23:45; Stop 06/14/19 at 00:00; Status DC Phenylephrine HCl 20 mg/Sodium Chloride 252 ml @ 61.478 mls/ hr CONT PRN IV SEE I/O RECORD; Start 06/14/19 at 00:00; Status UNV Phenylephrine HCl 80 mg/Sodium Chloride 258 ml @ 15.674 mls/ hr CONT PRN IV SEE I/O RECORD Last administered on 06/14/19at 00:18; Start 06/13/19 at 23:45 Norepinephrine Bitartrate 32 mg/ Sodium Chloride 250 ml @ 7.594 mls/ hr CONT PRN IV SEE I/O RECORD Last administered on 06/14/19at 04:09; Start 06/13/19 at 23:45 Sodium Chloride 500 ml @ 500 mls/hr Q1H IV Last administered on 06/14/19at 01:30; Start 06/14/19 at 01:30; Stop 06/14/19 at 02:29; Status DC Sodium Bicarbonate 150 meq/Dextrose 1,150 ml @ 75 mls/hr [id number] IV Last administered on 06/14/19at 02:08; Start 06/14/19 at 02:00 Vasopressin 40 unit/Dextrose 102 ml @ 6 mls/hr CONT PRN IV SEE I/O RECORD Last administered on 06/14/19at 02:08; Start 06/14/19 at 02:00 Fentanyl Citrate 30 ml @ 0 mls/hr CONT PRN IV SEE PROTOCOL Last administered on 06/14/19at 09:56; Start 06/14/19 at 02:45 Pantoprazole Sodium 80 mg/ Sodium Chloride 100 ml @ 10 mls/hr Q10H IV Last administered on 06/14/19at 03:45; Start 06/14/19 at 04:00 Meropenem 1 gm/ Sodium Chloride 100 ml @ 200 mls/hr Q12HR IV ; Start 06/14/19 at 09:00 Micafungin Sodium 100 mg/Dextrose 100 ml @ 100 mls/hr Q24H IV ; Start 06/14/19 at 10:00 Daptomycin 600 mg/ Sodium Chloride 50 ml @ 100 mls/hr Q24H IV ; Start 06/14/19 at 11:00 Heparin Sodium (Porcine) (Heparin Sodium) 5,000 unit Q8HRS SQ ; Start 06/14/19 at 14:00 Acetaminophen (Tylenol) 650 mg PRN Q6HRS PRN PEG MILD PAIN / TEMP; Start 06/14/19 at 08:45 Acetaminophen/ Codeine Phosphate (Tylenol/Codeine Soln) 5 ml PRN Q6HRS PRN PO MODERATE PAIN; Start 06/14/19 at 08:45 Ondansetron HCl (Zofran) 4 mg PRN Q6HRS PRN IVP NAUSEA/VOMITING; Start 06/14/19 at 08:45 Active Scripts Active Tessalon Perle (Benzonatate) 100 Mg Capsule 100 Mg PO TID PRN Allergies Allergies: Coded Allergies: No Known Drug Allergies (Unverified , 12/08/13) ROS Review of System Unable to obtain, intubated Physical Exam Physical Exam Intubated and sedated Lungs: Other (On ventilator) Extremities: Other (She is severly obese and body habitus makes exam more difficult. Hands in protective mittens. BL lower legs are very large with extensive tissue overlying skin creases. Right leg with minimal scattered red macules. No open wounds or sores. Pedal edema bilaterally. Left lower leg with extensive swelling, ecchymosis and purple discoloration and warmth. She has two small superficial open sores, one lateral lower leg and one medial/posterior lower leg. Cannot extract discharge from these. Leg is taught, there is no areas of fluctuance. She has fairly normal doppler signals present bilateral DP and PT, her feet are warm. Cannot assess motor function or sensation. ) Vitals VITALS Vital Signs Date Time Temp Pulse Resp B/P (MAP) Pulse Ox O2 Delivery O2 Flow Rate FiO2 06/14/19 09:56 25 97 Ventilator 06/14/19 09:00 89 105/54 (71) 06/14/19 07:00 99.6 99.6 06/14/19 04:00 4.0 Labs Labs REVIEWED Laboratory Tests Test 06/13/19 16:12 06/13/19 16:16 06/13/19 16:50 06/13/19 19:30 Prothrombin Time 14.2 SEC (11.7-14.0) Prothromb Time International Ratio 1.1 (0.8-1.1) D-Dimer (Jnaet) 3.80 ug/mlFEU (0.00-0.50) White Blood Count 44.3 x10^3/uL (4.0-11.0) Red Blood Count 4.14 x10^6/uL (3.50-5.40) Hemoglobin 10.4 g/dL (12.0-15.5) Hematocrit 33.2 % (36.0-47.0) Mean Corpuscular Volume 80 fL (79-100) Mean Corpuscular Hemoglobin 25 pg (25-35) Mean Corpuscular Hemoglobin Concent 31 g/dL (31-37) Red Cell Distribution Width 16.4 % (11.5-14.5) Platelet Count 620 x10^3/uL (140-400) Neutrophils (%) (Auto) 93 % (31-73) Lymphocytes (%) (Auto) 3 % (24-48) Monocytes (%) (Auto) 3 % (0-9) Eosinophils (%) (Auto) 1 % (0-3) Basophils (%) (Auto) 0 % (0-3) Neutrophils # (Auto) 41.3 x10^3/uL (1.8-7.7) Lymphocytes # (Auto) 1.1 x10^3/uL (1.0-4.8) Monocytes # (Auto) 1.5 x10^3/uL (0.0-1.1) Eosinophils # (Auto) 0.2 x10^3/uL (0.0-0.7) Basophils # (Auto) 0.1 x10^3/uL (0.0-0.2) Segmented Neutrophils % 89 % (35-66) Band Neutrophils % 3 % (0-9) Lymphocytes % 4 % (24-48) Monocytes % 4 % (0-10) Platelet Estimate Increased (ADEQUATE) Large Platelets Occ Polychromasia Slight Anisocytosis Slight Urine Collection Type U cath Urine Color [place] Urine Clarity Turbid Urine pH 5.5 Urine Specific [place] >=1.030 Urine Protein 100 mg/dL (NEG-TRACE) Urine Glucose (UA) Negative mg/dL (NEG) Urine Ketones (Stick) Trace mg/dL (NEG) Urine Blood Negative (NEG) Urine Nitrite Positive (NEG) Urine Bilirubin Large (NEG) Urine Urobilinogen Dipstick 4.0 mg/dL (0.2 mg/dL) Urine Leukocyte Esterase Small (NEG) Urine RBC 0 /HPF (0-2) Urine WBC 5-10 /HPF (0-4) Urine Squamous Epithelial Cells Occ /LPF Urine Amorphous Sediment Present /HPF Urine Bacteria Few /HPF (0-FEW) Sodium Level 132 mmol/L (136-145) Potassium Level 3.0 mmol/L (3.5-5.1) Chloride Level 93 mmol/L (98-107) Carbon Dioxide Level 18 mmol/L (21-32) Anion Gap 21 (6-14) Blood Urea Nitrogen 16 mg/dL (7-20) Creatinine 1.8 mg/dL (0.6-1.0) Estimated GFR (Cockcroft-Gault) 31.7 BUN/Creatinine Ratio 9 (6-20) Glucose Level 233 mg/dL (70-99) Lactic Acid Level 10.8 mmol/L (0.4-2.0) Calcium Level 9.1 mg/dL (8.5-10.1) Magnesium Level 2.5 mg/dL (1.8-2.4) Total Bilirubin 2.9 mg/dL (0.2-1.0) Aspartate Amino Transf (AST/SGOT) 158 U/L (15-37) Alanine Aminotransferase (ALT/SGPT) 77 U/L (14-59) Alkaline Phosphatase 346 U/L (46-116) Creatine Kinase 156 U/L (26-192) Troponin I Quantitative < 0.017 ng/mL (0.000-0.055) SS-Ayr-T-Type Natriuretic Peptide 1110 pg/mL (0-124) Total Protein 7.8 g/dL (6.4-8.2) Albumin 2.6 g/dL (3.4-5.0) Albumin/Globulin Ratio 0.5 (1.0-1.7) Lipase 1861 U/L (73-393) Urine Opiates Screen Neg (NEG) Urine Methadone Screen Neg (NEG) Urine Barbiturates Neg (NEG) Urine Phencyclidine Screen Neg (NEG) Urine Amphetamine/Methamphetamine Pos (NEG) Urine Benzodiazepines Screen Neg (NEG) Urine Cocaine Screen Neg (NEG) Urine Cannabinoids Screen Neg (NEG) Urine Ethyl Alcohol Neg (NEG) O2 Saturation 92 % (92-99) 99 % (92-99) Arterial Blood pH 7.30 (7.35-7.45) 7.31 (7.35-7.45) Arterial Blood pCO2 at Patient Temp 31 mmHg (35-46) 27 mmHg (35-46) Arterial Blood pO2 at Patient Temp 68 mmHg (85-108) 259 mmHg (85-108) Arterial Blood HCO3 15 mmol/L (21-28) 13 mmol/L (21-28) Arterial Blood Base Excess -10 mmol/L (-3-3) -11 mmol/L (-3-3) FiO2 36 Test 06/13/19 20:00 06/14/19 05:00 06/14/19 07:30 06/14/19 08:10 Lactic Acid Level 6.1 mmol/L (0.4-2.0) 4.8 mmol/L (0.4-2.0) 5.0 mmol/L (0.4-2.0) Sodium Level 131 mmol/L (136-145) Potassium Level 3.3 mmol/L (3.5-5.1) Chloride Level 96 mmol/L (98-107) Carbon Dioxide Level 18 mmol/L (21-32) Anion Gap 17 (6-14) Blood Urea Nitrogen 21 mg/dL (7-20) Creatinine 2.3 mg/dL (0.6-1.0) Estimated GFR (Cockcroft-Gault) 23.9 BUN/Creatinine Ratio 9 (6-20) Glucose Level 118 mg/dL (70-99) Calcium Level 7.6 mg/dL (8.5-10.1) Total Bilirubin 3.6 mg/dL (0.2-1.0) Aspartate Amino Transf (AST/SGOT) 168 U/L (15-37) Alanine Aminotransferase (ALT/SGPT) 58 U/L (14-59) Alkaline Phosphatase 297 U/L (46-116) Total Protein 5.8 g/dL (6.4-8.2) Albumin 1.6 g/dL (3.4-5.0) Albumin/Globulin Ratio 0.4 (1.0-1.7) O2 Saturation 96 % (92-99) Arterial Blood pH 7.33 (7.35-7.45) Arterial Blood pCO2 at Patient Temp 32 mmHg (35-46) Arterial Blood pO2 at Patient Temp 85 mmHg (85-108) Arterial Blood HCO3 17 mmol/L (21-28) Arterial Blood Base Excess -8 mmol/L (-3-3) FiO2 60% Laboratory Tests Test 06/13/19 16:12 06/13/19 16:16 06/13/19 16:50 06/13/19 19:30 Prothrombin Time 14.2 SEC (11.7-14.0) Prothromb Time International Ratio 1.1 (0.8-1.1) D-Dimer (Janet) 3.80 ug/mlFEU (0.00-0.50) White Blood Count 44.3 x10^3/uL (4.0-11.0) Red Blood Count 4.14 x10^6/uL (3.50-5.40) Hemoglobin 10.4 g/dL (12.0-15.5) Hematocrit 33.2 % (36.0-47.0) Mean Corpuscular Volume 80 fL (79-100) Mean Corpuscular Hemoglobin 25 pg (25-35) Mean Corpuscular Hemoglobin Concent 31 g/dL (31-37) Red Cell Distribution Width 16.4 % (11.5-14.5) Platelet Count 620 x10^3/uL (140-400) Neutrophils (%) (Auto) 93 % (31-73) Lymphocytes (%) (Auto) 3 % (24-48) Monocytes (%) (Auto) 3 % (0-9) Eosinophils (%) (Auto) 1 % (0-3) Basophils (%) (Auto) 0 % (0-3) Neutrophils # (Auto) 41.3 x10^3/uL (1.8-7.7) Lymphocytes # (Auto) 1.1 x10^3/uL (1.0-4.8) Monocytes # (Auto) 1.5 x10^3/uL (0.0-1.1) Eosinophils # (Auto) 0.2 x10^3/uL (0.0-0.7) Basophils # (Auto) 0.1 x10^3/uL (0.0-0.2) Segmented Neutrophils % 89 % (35-66) Band Neutrophils % 3 % (0-9) Lymphocytes % 4 % (24-48) Monocytes % 4 % (0-10) Platelet Estimate Increased (ADEQUATE) Large Platelets Occ Polychromasia Slight Anisocytosis Slight Urine Collection Type U cath Urine Color [place] Urine Clarity Turbid Urine pH 5.5 Urine Specific [place] >=1.030 Urine Protein 100 mg/dL (NEG-TRACE) Urine Glucose (UA) Negative mg/dL (NEG) Urine Ketones (Stick) Trace mg/dL (NEG) Urine Blood Negative (NEG) Urine Nitrite Positive (NEG) Urine Bilirubin Large (NEG) Urine Urobilinogen Dipstick 4.0 mg/dL (0.2 mg/dL) Urine Leukocyte Esterase Small (NEG) Urine RBC 0 /HPF (0-2) Urine WBC 5-10 /HPF (0-4) Urine Squamous Epithelial Cells Occ /LPF Urine Amorphous Sediment Present /HPF Urine Bacteria Few /HPF (0-FEW) Sodium Level 132 mmol/L (136-145) Potassium Level 3.0 mmol/L (3.5-5.1) Chloride Level 93 mmol/L (98-107) Carbon Dioxide Level 18 mmol/L (21-32) Anion Gap 21 (6-14) Blood Urea Nitrogen 16 mg/dL (7-20) Creatinine 1.8 mg/dL (0.6-1.0) Estimated GFR (Cockcroft-Gault) 31.7 BUN/Creatinine Ratio 9 (6-20) Glucose Level 233 mg/dL (70-99) Lactic Acid Level 10.8 mmol/L (0.4-2.0) Calcium Level 9.1 mg/dL (8.5-10.1) Magnesium Level 2.5 mg/dL (1.8-2.4) Total Bilirubin 2.9 mg/dL (0.2-1.0) Aspartate Amino Transf (AST/SGOT) 158 U/L (15-37) Alanine Aminotransferase (ALT/SGPT) 77 U/L (14-59) Alkaline Phosphatase 346 U/L (46-116) Creatine Kinase 156 U/L (26-192) Troponin I Quantitative < 0.017 ng/mL (0.000-0.055) [id number]-Type Natriuretic Peptide 1110 pg/mL (0-124) Total Protein 7.8 g/dL (6.4-8.2) Albumin 2.6 g/dL (3.4-5.0) Albumin/Globulin Ratio 0.5 (1.0-1.7) Lipase 1861 U/L (73-393) Urine Opiates Screen Neg (NEG) Urine Methadone Screen Neg (NEG) Urine Barbiturates Neg (NEG) Urine Phencyclidine Screen Neg (NEG) Urine Amphetamine/Methamphetamine Pos (NEG) Urine Benzodiazepines Screen Neg (NEG) Urine Cocaine Screen Neg (NEG) Urine Cannabinoids Screen Neg (NEG) Urine Ethyl Alcohol Neg (NEG) O2 Saturation 92 % (92-99) 99 % (92-99) Arterial Blood pH 7.30 (7.35-7.45) 7.31 (7.35-7.45) Arterial Blood pCO2 at Patient Temp 31 mmHg (35-46) 27 mmHg (35-46) Arterial Blood pO2 at Patient Temp 68 mmHg (85-108) 259 mmHg (85-108) Arterial Blood HCO3 15 mmol/L (21-28) 13 mmol/L (21-28) Arterial Blood Base Excess -10 mmol/L (-3-3) -11 mmol/L (-3-3) FiO2 36 Test 06/13/19 20:00 06/14/19 05:00 06/14/19 07:30 06/14/19 08:10 Lactic Acid Level 6.1 mmol/L (0.4-2.0) 4.8 mmol/L (0.4-2.0) 5.0 mmol/L (0.4-2.0) Sodium Level 131 mmol/L (136-145) Potassium Level 3.3 mmol/L (3.5-5.1) Chloride Level 96 mmol/L (98-107) Carbon Dioxide Level 18 mmol/L (21-32) Anion Gap 17 (6-14) Blood Urea Nitrogen 21 mg/dL (7-20) Creatinine 2.3 mg/dL (0.6-1.0) Estimated GFR (Cockcroft-Gault) 23.9 BUN/Creatinine Ratio 9 (6-20) Glucose Level 118 mg/dL (70-99) Calcium Level 7.6 mg/dL (8.5-10.1) Total Bilirubin 3.6 mg/dL (0.2-1.0) Aspartate Amino Transf (AST/SGOT) 168 U/L (15-37) Alanine Aminotransferase (ALT/SGPT) 58 U/L (14-59) Alkaline Phosphatase 297 U/L (46-116) Total Protein 5.8 g/dL (6.4-8.2) Albumin 1.6 g/dL (3.4-5.0) Albumin/Globulin Ratio 0.4 (1.0-1.7) O2 Saturation 96 % (92-99) Arterial Blood pH 7.33 (7.35-7.45) Arterial Blood pCO2 at Patient Temp 32 mmHg (35-46) Arterial Blood pO2 at Patient Temp 85 mmHg (85-108) Arterial Blood HCO3 17 mmol/L (21-28) Arterial Blood Base Excess -8 mmol/L (-3-3) FiO2 60% Images Images Reviewed venous duplex LLE - Severe lymphedema, without thrombus of what was visualized on US, superficial femoral vein not visualized. Assessment/Plan Assessment/Plan Severe sepsis Severe LLE skin infection Critically ill patient due to septic shock with what appears to be severe skin infection of LLE, unsure if this is sole source. I discussed the case with Dr. Huang who saw pictures of LLE. She has extensive skin changes with ecchymosis and purple discoloration with cellulitis and severe swelling of her lower leg, she does have two small superficial sores on her left leg without drainage or areas of fluctuance. Her distal circulation is intact, no concern for arterial compromise. Do not suspect phlegmasia as much as severe skin infection/fasciitis, venous duplex showed severe lymphedema without DVT's in veins visualized, they were unable to visualize superficial femoral vein on US. We would recommend stat consult to general surg for skin infection. Dr. Huang discussed with Dr. Orozco. A CT of her leg has been ordered, however due to cr itical condition, not sure when this will be obtained. I discussed with RN and with family members, mother and sister. No vascular intervention planned at this time. Vascular surgeon will see patient as well. Pt seen and examined. My impression is that the patient has bilateral lymphedema praecox with lymphangitis, diffuse cellulitis with ecchymosis left leg. The ultrasound exam is limited but no DVT. I could not visualize an abscess. She has adequate arterial flow. I recommend continued pressor support and IV broad spectrum antibx. We will continue to follow but no surgical indications exist presently. ANDERSON LAINEZ Jun 14, 2019 10:12 JESSICA ORDAZ II, MD Jun 14, 2019 16:55
--- NOTE | 2019-06-14 10:17 | PDOC2 ---
CONSULT Date of Consult Date of Consult DATE: 06/14/19 TIME: 10:16 Reason for Consult Reason for Consult: CATY Identification/Chief Complaint Chief Complaint Intubated Source Source: Chart review History of Present Illness Reason for Visit: Pt is 39-year-old CF morbidly obese, intubated and admitted to ICU last evening. History obtained from chart and RN She was at [facility] a couple of days prior to admission here at which time she was being treated for cellulitis , she left AMA as she was not happy with the care there and then per report, she was at [facility] and left there also. (No records found in [facility] by Dr. Saeed) She presented due to her lower extremity extremely swollen, tight, weeping lesions, red, especially the left one, elevated wbc at 44,000. She was hypoxic and intubated. Lactate of 10.8. Currently on 3 pressors ,On Abx for severe sepsis, lower extremity cellulitis and possible pneumonia. UDS was positive for amphetamine. PAST MEDICAL HISTORY: Obesity, right foot surgery with hardware, tonsillectomy,history of previous cellulitis, , cholecystectomy, venous stasis. Family History Family History Unable to obtain as she is intubated on MV Social History Social History Unable to Obtain as pt is Intubated on MV Current Problem List Problem List Problems Medical Problems: (1) Acute respiratory failure Status: Acute (2) Elevated brain natriuretic peptide (BNP) level Status: Acute (3) Elevated d-dimer Status: Acute (4) Elevated lipase Status: Acute (5) Elevated liver function tests Status: Acute (6) GI bleeding Status: Acute (7) Hyperglycemia Status: Acute (8) Hypermagnesuria Status: Acute (9) Hypoalbuminemia Status: Acute (10) Hypokalemia Status: Acute (11) Hyponatremia Status: Acute (12) Lower extremity cellulitis Status: Acute (13) Metabolic acidosis Status: Acute (14) Methamphetamine abuse Status: Acute (15) Morbid obesity with BMI of 60.0-69.9, adult Status: Acute (16) Renal insufficiency Status: Acute (17) Sepsis Status: Acute (18) Severe sepsis Status: Acute Current Medications Current Medications Current Medications Sodium Chloride 1,000 ml @ 1,000 mls/hr Q1H IV Last administered on 06/13/19at 16:56; Start 06/13/19 at 16:12; Stop 06/13/19 at 17:11; Status DC Albuterol/ Ipratropium (Duoneb) 3 ml 1X ONCE NEB Last administered on 06/13/19at 16:31; Start 06/13/19 at 16:15; Stop 06/13/19 at 16:19; Status DC Piperacillin Sod/ Tazobactam Sod 4.5 gm/Sodium Chloride 100 ml @ 200 mls/hr 1X ONCE IV Last administered on 06/13/19at 17:13; Start 06/13/19 at 16:45; Stop 06/13/19 at 17:14; Status DC Vancomycin HCl 250 ml @ 250 mls/hr 1X ONCE IV ; Start 06/13/19 at 16:45; Stop 06/13/19 at 17:44; Status UNV Levofloxacin/ Dextrose 150 ml @ 100 mls/hr 1X ONCE IV Last administered on 06/13/19at 18:48; Start 06/13/19 at 16:45; Stop 06/13/19 at 18:14; Status DC Vancomycin HCl 250 ml @ 250 mls/hr 1X ONCE IV ; Start 06/13/19 at 16:45; Stop 06/13/19 at 17:44; Status UNV Sodium Chloride 1,000 ml @ 1,000 mls/hr 1X ONCE IV Last administered on 06/13/19at 16:56; Start 06/13/19 at 16:45; Stop 06/13/19 at 17:44; Status DC Vancomycin HCl 2 gm/Sodium Chloride 500 ml @ 250 mls/hr 1X ONCE IV Last administered on 06/13/19at 21:15; Start 06/13/19 at 16:45; Stop 06/13/19 at 18:44; Status DC Sodium Chloride 1,000 ml @ 1,000 mls/hr 1X ONCE IV ; Start 06/13/19 at 17:15; Stop 06/13/19 at 18:14; Status DC Sodium Chloride 1,000 ml @ 200 mls/hr Q5H IV Last administered on 06/14/19at 07:35; Start 06/13/19 at 17:13; Stop 06/14/19 at 17:12 Lorazepam (Ativan Inj) 1 mg 1X ONCE IVP Last administered on 06/13/19at 17:26; Start 06/13/19 at 17:30; Stop 06/13/19 at 17:31; Status DC Lorazepam (Ativan Inj) 2 mg STK-MED ONCE .ROUTE ; Start 06/13/19 at 17:23; Stop 06/13/19 at 17:24; Status DC Norepinephrine Bitartrate 250 ml @ 29.974 mls/ hr 1X ONCE IV Last administered on 06/13/19at 17:47; Start 06/13/19 at 17:45; Stop 06/14/19 at 02 :05; Status DC Midazolam HCl 100 ml @ 0 mls/hr 1X ONCE IV Last administered on 06/13/19at 17:54; Start 06/13/19 at 17:45; Stop 06/13/19 at 17:46; Status DC Fentanyl Citrate (Fentanyl 2ml Vial) 100 mcg STK-MED ONCE .ROUTE ; Start 06/13/19 at 18:06; Stop 06/13/19 at 18:06; Status DC Pantoprazole Sodium 80 mg/ Sodium Chloride 100 ml @ 10 mls/hr 1X ONCE IV Last administered on 06/13/19at 20:00; Start 06/13/19 at 18:15; Stop 06/14/19 at 04:14; Status DC Pantoprazole Sodium (PROTONIX VIAL for IV PUSH) 40 mg 1X ONCE IVP ; Start 06/13/19 at 18:15; Stop 06/13/19 at 18:25; Status DC Fentanyl Citrate (Fentanyl 2ml Vial) 25 mcg 1X ONCE IVP Last administered on 06/13/19at 18:24; Start 06/13/19 at 18:15; Stop 06/13/19 at 18:24; Status DC Midazolam HCl (Versed) 5 mg 1X ONCE IV Last administered on 06/13/19at 18:24; Start 06/13/19 at 18:30; Stop 06/13/19 at 18:31; Status DC Dexmedetomidine HCl 400 mcg/ Sodium Chloride 100 ml @ 0 mls/hr CONT PRN IV PER PROTOCOL Last administered on 06/14/19at 09:15; Start 06/13/19 at 18:30 Sodium Chloride 500 ml @ 500 mls/hr 1X PRN PRN IV HYPOTENSION; Start 06/13/19 at 18:30 Atropine Sulfate (ATROPINE 0.5mg SYRINGE) 0.5 mg PRN Q5MIN PRN IV SEE COMMENTS; Start 06/13/19 at 18:30 Etomidate (Amidate) 20 mg 1X ONCE IV Last administered on 06/13/19at 18:47; Start 06/13/19 at 18:45; Stop 06/13/19 at 18:48; Status DC Succinylcholine Chloride (Anectine) 100 mg 1X ONCE IV Last administered on 06/13/19at 18:47; Start 06/13/19 at 18:45; Stop 06/13/19 at 18:48; Status DC Norepinephrine Bitartrate 250 ml @ 30.495 mls/ hr CONT PRN IV SEE I/O RECORD Last administered on 06/13/19at 23:21; Start 06/13/19 at 21:30; Stop 06/14/19 at 00:00; Status DC Dexmedetomidine HCl 400 mcg/ Sodium Chloride 100 ml @ 0 mls/hr CONT PRN IV SEDATION; Start 06/13/19 at 21:30; Status UNV Sodium Chloride 500 ml @ 500 mls/hr 1X PRN PRN IV SEDATION; Start 06/13/19 at 21:30; Status UNV Atropine Sulfate (ATROPINE 0.5mg SYRINGE) 0.5 mg PRN Q5MIN PRN IV SEE COMMENTS; Start 06/13/19 at 21:30; Status UNV Midazolam HCl 100 ml @ 5 mls/hr CONT PRN IV SEE I/O RECORD Last administered on 06/14/19at 09:14; Start 06/13/19 at 21:45 Info (FLU VACCINE SCREEN per RX) 1 each PRN DAILY PRN MC SEE COMMENTS; Start 06/13/19 at 23:45 Norepinephrine Bitartrate 250 ml @ 30.495 mls/ hr CONT PRN IV SEE I/O RECORD; Start 06/13/19 at 23:45; Stop 06/14/19 at 00:00; Status DC Phenylephrine HCl 20 mg/Sodium Chloride 252 ml @ 61.478 mls/ hr CONT PRN IV SEE I/O RECORD; Start 06/14/19 at 00:00; Status UNV Phenylephrine HCl 80 mg/Sodium Chloride 258 ml @ 15.674 mls/ hr CONT PRN IV SEE I/O RECORD Last administered on 06/14/19at 00:18; Start 06/13/19 at 23:45 Norepinephrine Bitartrate 32 mg/ Sodium Chloride 250 ml @ 7.594 mls/ hr CONT PRN IV SEE I/O RECORD Last administered on 06/14/19at 04:09; Start 06/13/19 at 23:45 Sodium Chloride 500 ml @ 500 mls/hr Q1H IV Last administered on 06/14/19at 01:30; Start 06/14/19 at 01:30; Stop 06/14/19 at 02:29; Status DC Sodium Bicarbonate 150 meq/Dextrose 1,150 ml @ 75 mls/hr [id number] IV Last administered on 06/14/19at 02:08; Start 06/14/19 at 02:00 Vasopressin 40 unit/Dextrose 102 ml @ 6 mls/hr CONT PRN IV SEE I/O RECORD Last administered on 06/14/19at 02:08; Start 06/14/19 at 02:00 Fentanyl Citrate 30 ml @ 0 mls/hr CONT PRN IV SEE PROTOCOL Last administered on 06/14/19at 09:56; Start 06/14/19 at 02:45 Pantoprazole Sodium 80 mg/ Sodium Chloride 100 ml @ 10 mls/hr Q10H IV Last a dministered on 06/14/19at 03:45; Start 06/14/19 at 04:00 Meropenem 1 gm/ Sodium Chloride 100 ml @ 200 mls/hr Q12HR IV ; Start 06/14/19 at 09:00 Micafungin Sodium 100 mg/Dextrose 100 ml @ 100 mls/hr Q24H IV ; Start 06/14/19 at 10:00 Daptomycin 600 mg/ Sodium Chloride 50 ml @ 100 mls/hr Q24H IV ; Start 06/14/19 at 11:00 Heparin Sodium (Porcine) (Heparin Sodium) 5,000 unit Q8HRS SQ ; Start 06/14/19 at 14:00 Acetaminophen (Tylenol) 650 mg PRN Q6HRS PRN PEG MILD PAIN / TEMP; Start 06/14/19 at 08:45 Acetaminophen/ Codeine Phosphate (Tylenol/Codeine Soln) 5 ml PRN Q6HRS PRN PO MODERATE PAIN; Start 06/14/19 at 08:45 Ondansetron HCl (Zofran) 4 mg PRN Q6HRS PRN IVP NAUSEA/VOMITING; Start 12/6/19 at 08:45 Active Scripts Active Tessalon Perle (Benzonatate) 100 Mg Capsule 100 Mg PO TID PRN Allergies Allergies: Coded Allergies: No Known Drug Allergies (Unverified , 12/08/13) ROS Review of System Unable to Obtain as pt is Intubated on MV Physical Exam Physical Exam GENERAL: Morbidly obese female, sedated and intubated. HEENT: Anicteric, Intubated NECK: Supple, thick LUNGS: Decreased breath sounds at the bases. HEART: S1, S2, tachycardia. Distant heart sounds. ABDOMEN: Soft, morbidly obese, EXTREMITIES: Chronic venous stasis, edema with weeping lesions, redness, black eschar left lower extremity > Rt GENITOURINARY: G[place] in place CENTRAL NERVOUS SYSTEM: Intubated. Vital Signs Vital Signs Date Time Temp Pulse Resp B/P (MAP) Pulse Ox O2 Delivery O2 Flow Rate FiO2 06/14/19 10:00 89 24 115/59 (77) 97 Ventilator 06/14/19 07:00 99.6 99.6 06/14/19 04:00 4.0 Assessment & Plan CATY- ATN sec to sepsis /Hypotensive Had some uop initially , currently anuric Will Start CRRT if tolerates- as currently on 3 pressors , No UF Hypokalemia- Mild Acute hypoxic respiratory failure with pulmonary infiltrates, intubated. Left lower extremity severe skin and soft tissue infection. On Abx per ID , vascular consulted, US results pending, CT pending Lactic acidosis. Severe metabolic acidosis- sec to sepsis /Lactic acidosis CRRT Abnormal liver function tests. with hyperbilirubinemia Urine drug screen positive for amphetamine Morbid obesity. 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, No family at bedside Labs Labs Laboratory Tests Test 06/13/19 16:12 06/13/19 16:16 06/13/19 16:50 06/13/19 19:30 Prothrombin Time 14.2 SEC (11.7-14.0) Prothromb Time International Ratio 1.1 (0.8-1.1) D-Dimer (Janet) 3.80 ug/mlFEU (0.00-0.50) White Blood Count 44.3 x10^3/uL (4.0-11.0) Red Blood Count 4.14 x10^6/uL (3.50-5.40) Hemoglobin 10.4 g/dL (12.0-15.5) Hematocrit 33.2 % (36.0-47.0) Mean Corpuscular Volume 80 fL (79-100) Mean Corpuscular Hemoglobin 25 pg (25-35) Mean Corpuscular Hemoglobin Concent 31 g/dL (31-37) Red Cell Distribution Width 16.4 % (11.5-14.5) Platelet Count 620 x10^3/uL (140-400) Neutrophils (%) (Auto) 93 % (31-73) Lymphocytes (%) (Auto) 3 % (24-48) Monocytes (%) (Auto) 3 % (0-9) Eosinophils (%) (Auto) 1 % (0-3) Basophils (%) (Auto) 0 % (0-3) Neutrophils # (Auto) 41.3 x10^3/uL (1.8-7.7) Lymphocytes # (Auto) 1.1 x10^3/uL (1.0-4.8) Monocytes # (Auto) 1.5 x10^3/uL (0.0-1.1) Eosinophils # (Auto) 0.2 x10^3/uL (0.0-0.7) Basophils # (Auto) 0.1 x10^3/uL (0.0-0.2) Segmented Neutrophils % 89 % (35-66) Band Neutrophils % 3 % (0-9) Lymphocytes % 4 % (24-48) Monocytes % 4 % (0-10) Platelet Estimate Increased (ADEQUATE) Large Platelets Occ Polychromasia Slight Anisocytosis Slight Urine Collection Type U cath Urine Color [place] Urine Clarity Turbid Urine pH 5.5 Urine Specific [place] >=1.030 Urine Protein 100 mg/dL (NEG-TRACE) Urine Glucose (UA) Negative mg/dL (NEG) Urine Ketones (Stick) Trace mg/dL (NEG) Urine Blood Negative (NEG) Urine Nitrite Positive (NEG) Urine Bilirubin Large (NEG) Urine Urobilinogen Dipstick 4.0 mg/dL (0.2 mg/dL) Urine Leukocyte Esterase Small (NEG) Urine RBC 0 /HPF (0-2) Urine WBC 5-10 /HPF (0-4) Urine Squamous Epithelial Cells Occ /LPF Urine Amorphous Sediment Present /HPF Urine Bacteria Few /HPF (0-FEW) Sodium Level 132 mmol/L (136-145) Potassium Level 3.0 mmol/L (3.5-5.1) Chloride Level 93 mmol/L (98-107) Carbon Dioxide Level 18 mmol/L (21-32) Anion Gap 21 (6-14) Blood Urea Nitrogen 16 mg/dL (7-20) Creatinine 1.8 mg/dL (0.6-1.0) Estimated GFR (Cockcroft-Gault) 31.7 BUN/Creatinine Ratio 9 (6-20) Glucose Level 233 mg/dL (70-99) Lactic Acid Level 10.8 mmol/L (0.4-2.0) Calcium Level 9.1 mg/dL (8.5-10.1) Magnesium Level 2.5 mg/dL (1.8-2.4) Total Bilirubin 2.9 mg/dL (0.2-1.0) Aspartate Amino Transf (AST/SGOT) 158 U/L (15-37) Alanine Aminotransferase (ALT/SGPT) 77 U/L (14-59) Alkaline Phosphatase 346 U/L (46-116) Creatine Kinase 156 U/L (26-192) Troponin I Quantitative < 0.017 ng/mL (0.000-0.055) RA-Wck-O-Type Natriuretic Peptide 1110 pg/mL (0-124) Total Protein 7.8 g/dL (6.4-8.2) Albumin 2.6 g/dL (3.4-5.0) Albumin/Globulin Ratio 0.5 (1.0-1.7) Lipase 1861 U/L (73-393) Urine Opiates Screen Neg (NEG) Urine Methadone Screen Neg (NEG) Urine Barbiturates Neg (NEG) Urine Phencyclidine Screen Neg (NEG) Urine Amphetamine/Methamphetamine Pos (NEG) Urine Benzodiazepines Screen Neg (NEG) Urine Cocaine Screen Neg (NEG) Urine Cannabinoids Screen Neg (NEG) Urine Ethyl Alcohol Neg (NEG) O2 Saturation 92 % (92-99) 99 % (92-99) Arterial Blood pH 7.30 (7.35-7.45) 7.31 (7.35-7.45) Arterial Blood pCO2 at Patient Temp 31 mmHg (35-46) 27 mmHg (35-46) Arterial Blood pO2 at Patient Temp 68 mmHg (85-108) 259 mmHg (85-108) Arterial Blood HCO3 15 mmol/L (21-28) 13 mmol/L (21-28) Arterial Blood Base Excess -10 mmol/L (-3-3) -11 mmol/L (-3-3) FiO2 36 Test 06/13/19 20:00 06/14/19 05:00 06/14/19 07:30 06/14/19 08:10 Lactic Acid Level 6.1 mmol/L (0.4-2.0) 4.8 mmol/L (0.4-2.0) 5.0 mmol/L (0.4-2.0) Sodium Level 131 mmol/L (136-145) Potassium Level 3.3 mmol/L (3.5-5.1) Chloride Level 96 mmol/L (98-107) Carbon Dioxide Level 18 mmol/L (21-32) Anion Gap 17 (6-14) Blood Urea Nitrogen 21 mg/dL (7-20) Creatinine 2.3 mg/dL (0.6-1.0) Estimated GFR (Cockcroft-Gault) 23.9 BUN/Creatinine Ratio 9 (6-20) Glucose Level 118 mg/dL (70-99) Calcium Level 7.6 mg/dL (8.5-10.1) Total Bilirubin 3.6 mg/dL (0.2-1.0) Aspartate Amino Transf (AST/SGOT) 168 U/L (15-37) Alanine Aminotransferase (ALT/SGPT) 58 U/L (14-59) Alkaline Phosphatase 297 U/L (46-116) Total Protein 5.8 g/dL (6.4-8.2) Albumin 1.6 g/dL (3.4-5.0) Albumin/Globulin Ratio 0.4 (1.0-1.7) O2 Saturation 96 % (92-99) Arterial Blood pH 7.33 (7.35-7.45) Arterial Blood pCO2 at Patient Temp 32 mmHg (35-46) Arterial Blood pO2 at Patient Temp 85 mmHg (85-108) Arterial Blood HCO3 17 mmol/L (21-28) Arterial Blood Base Excess -8 mmol/L (-3-3) FiO2 60% Laboratory Tests Test 06/13/19 16:12 06/13/19 16:16 06/13/19 16:50 06/13/19 19:30 Prothrombin Time 14.2 SEC (11.7-14.0) Prothromb Time International Ratio 1.1 (0.8-1.1) D-Dimer (Janet) 3.80 ug/mlFEU (0.00-0.50) White Blood Count 44.3 x10^3/uL (4.0-11.0) Red Blood Count 4.14 x10^6/uL (3.50-5.40) Hemoglobin 10.4 g/dL (12.0-15.5) Hematocrit 33.2 % (36.0-47.0) Mean Corpuscular Volume 80 fL (79-100) Mean Corpuscular Hemoglobin 25 pg (25-35) Mean Corpuscular Hemoglobin Concent 31 g/dL (31-37) Red Cell Distribution Width 16.4 % (11.5-14.5) Platelet Count 620 x10^3/uL (140-400) Neutrophils (%) (Auto) 93 % (31-73) Lymphocytes (%) (Auto) 3 % (24-48) Monocytes (%) (Auto) 3 % (0-9) Eosinophils (%) (Auto) 1 % (0-3) Basophils (%) (Auto) 0 % (0-3) Neutrophils # (Auto) 41.3 x10^3/uL (1.8-7.7) Lymphocytes # (Auto) 1.1 x10^3/uL (1.0-4.8) Monocytes # (Auto) 1.5 x10^3/uL (0.0-1.1) Eosinophils # (Auto) 0.2 x10^3/uL (0.0-0.7) Basophils # (Auto) 0.1 x10^3/uL (0.0-0.2) Segmented Neutrophils % 89 % (35-66) Band Neutrophils % 3 % (0-9) Lymphocytes % 4 % (24-48) Monocytes % 4 % (0-10) Platelet Estimate Increased (ADEQUATE) Large Platelets Occ Polychromasia Slight Anisocytosis Slight Urine Collection Type U cath Urine Color [place] Urine Clarity Turbid Urine pH 5.5 Urine Specific [place] >=1.030 Urine Protein 100 mg/dL (NEG-TRACE) Urine Glucose (UA) Negative mg/dL (NEG) Urine Ketones (Stick) Trace mg/dL (NEG) Urine Blood Negative (NEG) Urine Nitrite Positive (NEG) Urine Bilirubin Large (NEG) Urine Urobilinogen Dipstick 4.0 mg/dL (0.2 mg/dL) Urine Leukocyte Esterase Small (NEG) Urine RBC 0 /HPF (0-2) Urine WBC 5-10 /HPF (0-4) Urine Squamous Epithelial Cells Occ /LPF Urine Amorphous Sediment Present /HPF Urine Bacteria Few /HPF (0-FEW) Sodium Level 132 mmol/L (136-145) Potassium Level 3.0 mmol/L (3.5-5.1) Chloride Level 93 mmol/L (98-107) Carbon Dioxide Level 18 mmol/L (21-32) Anion Gap 21 (6-14) Blood Urea Nitrogen 16 mg/dL (7-20) Creatinine 1.8 mg/dL (0.6-1.0) Estimated GFR (Cockcroft-Gault) 31.7 BUN/Creatinine Ratio 9 (6-20) Glucose Level 233 mg/dL (70-99) Lactic Acid Level 10.8 mmol/L (0.4-2.0) Calcium Level 9.1 mg/dL (8.5-10.1) Magnesium Level 2.5 mg/dL (1.8-2.4) Total Bilirubin 2.9 mg/dL (0.2-1.0) Aspartate Amino Transf (AST/SGOT) 158 U/L (15-37) Alanine Aminotransferase (ALT/SGPT) 77 U/L (14-59) Alkaline Phosphatase 346 U/L (46-116) Creatine Kinase 156 U/L (26-192) Troponin I Quantitative < 0.017 ng/mL (0.000-0.055) BF-Qrx-A-Type Natriuretic Peptide 1110 pg/mL (0-124) Total Protein 7.8 g/dL (6.4-8.2) Albumin 2.6 g/dL (3.4-5.0) Albumin/Globulin Ratio 0.5 (1.0-1.7) Lipase 1861 U/L (73-393) Urine Opiates Screen Neg (NEG) Urine Methadone Screen Neg (NEG) Urine Barbiturates Neg (NEG) Urine Phencyclidine Screen Neg (NEG) Urine Amphetamine/Methamphetamine Pos (NEG) Urine Benzodiazepines Screen Neg (NEG) Urine Cocaine Screen Neg (NEG) Urine Cannabinoids Screen Neg (NEG) Urine Ethyl Alcohol Neg (NEG) O2 Saturation 92 % (92-99) 99 % (92-99) Arterial Blood pH 7.30 (7.35-7.45) 7.31 (7.35-7.45) Arterial Blood pCO2 at Patient Temp 31 mmHg (35-46) 27 mmHg (35-46) Arterial Blood pO2 at Patient Temp 68 mmHg (85-108) 259 mmHg (85-108) Arterial Blood HCO3 15 mmol/L (21-28) 13 mmol/L (21-28) Arterial Blood Base Excess -10 mmol/L (-3-3) -11 mmol/L (-3-3) FiO2 36 Test 06/13/19 20:00 06/14/19 05:00 06/14/19 07:30 06/14/19 08:10 Lactic Acid Level 6.1 mmol/L (0.4-2.0) 4.8 mmol/L (0.4-2.0) 5.0 mmol/L (0.4-2.0) Sodium Level 131 mmol/L (136-145) Potassium Level 3.3 mmol/L (3.5-5.1) Chloride Level 96 mmol/L (98-107) Carbon Dioxide Level 18 mmol/L (21-32) Anion Gap 17 (6-14) Blood Urea Nitrogen 21 mg/dL (7-20) Creatinine 2.3 mg/dL (0.6-1.0) Estimated GFR (Cockcroft-Gault) 23.9 BUN/Creatinine Ratio 9 (6-20) Glucose Level 118 mg/dL (70-99) Calcium Level 7.6 mg/dL (8.5-10.1) Total Bilirubin 3.6 mg/dL (0.2-1.0) Aspartate Amino Transf (AST/SGOT) 168 U/L (15-37) Alanine Aminotransferase (ALT/SGPT) 58 U/L (14-59) Alkaline Phosphatase 297 U/L (46-116) Total Protein 5.8 g/dL (6.4-8.2) Albumin 1.6 g/dL (3.4-5.0) Albumin/Globulin Ratio 0.4 (1.0-1.7) O2 Saturation 96 % (92-99) Arterial Blood pH 7.33 (7.35-7.45) Arterial Blood pCO2 at Patient Temp 32 mmHg (35-46) Arterial Blood pO2 at Patient Temp 85 mmHg (85-108) Arterial Blood HCO3 17 mmol/L (21-28) Arterial Blood Base Excess -8 mmol/L (-3-3) FiO2 60% Review All relevant outside records, renal labs, imaging studies, telemetry/EKG's were reviewed. Images Images US abdomen-- The liver is upper normal in size. There is hepatic steatosis. There may be hepatic surface nodularity. No focal hepatic lesion is seen. The gallbladder is not seen and may be surgically absent. The common bile duct is obscured due to body habitus and bowel gas. The kidneys are normal in size. There is no hydronephrosis or suspicious renal lesion. The spleen is upper normal in size. The pancreas, aorta and inferior vena cava are obscured. There is a small to moderate amount of abdominal ascites. IMPRESSION: 1. Upper normal liver size and suspected hepatic steatosis. There may also be hepatic surface nodularity due to cirrhosis. 2. Small moderate abdominal ascites. 3. Obscured midline structures and common bile duct. The gallbladder is not seen and may be contracted or surgically absent. CxR-- There has been placement of a right IJ hemodialysis catheter and the distal tip is located within the right atrium. Left IJ central line and ET tube and NG tube are unchanged in position. Elevation of the right hemidiaphragm is unchanged. Bilateral perihilar pulmonary edema or lung infiltrates are unchanged. No pneumothorax or pleural effusion is seen. Heart size and mediastinum are stable. Impression: Placement of right IJ hemodialysis catheter without pneumothorax. Unchanged bilateral perihilar lung infiltrates or pulmonary edema. Electronically signed by: Meet Fournier MD (06/14/2019 11:44 AM) [facility] NIKKY COTTO MD Jun 14, 2019 10:17
[2019-06-14] MEDS ORDERED: LIDOCAINE WITH 8.4% SOD BICARB 3 ML DISP.SYRIN. ONE (10:45)
[2019-06-14] MEDS ORDERED: HEPARIN for IV BOLUS 10,000 UNIT/10 ML VIAL. ONE (10:46)
[2019-06-14] MEDS: MICAFUNGIN 100 MG in IV DEXTROSE 5% 100ML 100 ML IV SCH (10:52)
--- NOTE | 2019-06-14 11:09 | PDOC2 ---
GI CONSULT Reason For Consult: elev TB 3 HPI: HPI: 39 y/o female admitted w/ sepsis, LLE infection, and resp failure - currently intubated/sedated in ICU, no family present, history from chart and staff. Apparently recently left another hospital AMA - was reportedly being treated for cellulitis. Multiple lab abnormalities as below. GI asked to see re: elevated bili. No liver history in chart, s/p cholecystectomy. No abd imaging here - nurse says not stable enough to leave ICU for CT of LE. PMH: PMH: per chart - sepsis/cellulitis, right foot surgery, tonsillectomy, cholecystectomy, FH: Family History: Other (unable to obtain) Social History: Drugs: Other (tox screen +amphetamines) ROS: unable to obtain Vitals: Vitals: Vital Signs Date Time Temp Pulse Resp B/P (MAP) Pulse Ox O2 Delivery O2 Flow Rate FiO2 06/14/19 10:00 89 24 115/59 (77) 97 Ventilator 06/14/19 07:00 99.6 99.6 06/14/19 04:00 4.0 Labs: Labs: Laboratory Tests Test 06/13/19 16:12 06/13/19 16:16 06/13/19 16:50 06/13/19 19:30 Prothrombin Time 14.2 SEC (11.7-14.0) Prothromb Time International Ratio 1.1 (0.8-1.1) D-Dimer (Janet) 3.80 ug/mlFEU (0.00-0.50) White Blood Count 44.3 x10^3/uL (4.0-11.0) Red Blood Count 4.14 x10^6/uL (3.50-5.40) Hemoglobin 10.4 g/dL (12.0-15.5) Hematocrit 33.2 % (36.0-47.0) Mean Corpuscular Volume 80 fL (79-100) Mean Corpuscular Hemoglobin 25 pg (25-35) Mean Corpuscular Hemoglobin Concent 31 g/dL (31-37) Red Cell Distribution Width 16.4 % (11.5-14.5) Platelet Count 620 x10^3/uL (140-400) Neutrophils (%) (Auto) 93 % (31-73) Lymphocytes (%) (Auto) 3 % (24-48) Monocytes (%) (Auto) 3 % (0-9) Eosinophils (%) (Auto) 1 % (0-3) Basophils (%) (Auto) 0 % (0-3) Neutrophils # (Auto) 41.3 x10^3/uL (1.8-7.7) Lymphocytes # (Auto) 1.1 x10^3/uL (1.0-4.8) Monocytes # (Auto) 1.5 x10^3/uL (0.0-1.1) Eosinophils # (Auto) 0.2 x10^3/uL (0.0-0.7) Basophils # (Auto) 0.1 x10^3/uL (0.0-0.2) Segmented Neutrophils % 89 % (35-66) Band Neutrophils % 3 % (0-9) Lymphocytes % 4 % (24-48) Monocytes % 4 % (0-10) Platelet Estimate Increased (ADEQUATE) Large Platelets Occ Polychromasia Slight Anisocytosis Slight Urine Collection Type U cath Urine Color Rice Urine Clarity Turbid Urine pH 5.5 Urine Specific [place] >=1.030 Urine Protein 100 mg/dL (NEG-TRACE) Urine Glucose (UA) Negative mg/dL (NEG) Urine Ketones (Stick) Trace mg/dL (NEG) Urine Blood Negative (NEG) Urine Nitrite Positive (NEG) Urine Bilirubin Large (NEG) Urine Urobilinogen Dipstick 4.0 mg/dL (0.2 mg/dL) Urine Leukocyte Esterase Small (NEG) Urine RBC 0 /HPF (0-2) Urine WBC 5-10 /HPF (0-4) Urine Squamous Epithelial Cells Occ /LPF Urine Amorphous Sediment Present /HPF Urine Bacteria Few /HPF (0-FEW) Sodium Level 132 mmol/L (136-145) Potassium Level 3.0 mmol/L (3.5-5.1) Chloride Level 93 mmol/L (98-107) Carbon Dioxide Level 18 mmol/L (21-32) Anion Gap 21 (6-14) Blood Urea Nitrogen 16 mg/dL (7-20) Creatinine 1.8 mg/dL (0.6-1.0) Estimated GFR (Cockcroft-Gault) 31.7 BUN/Creatinine Ratio 9 (6-20) Glucose Level 233 mg/dL (70-99) Lactic Acid Level 10.8 mmol/L (0.4-2.0) Calcium Level 9.1 mg/dL (8.5-10.1) Magnesium Level 2.5 mg/dL (1.8-2.4) Total Bilirubin 2.9 mg/dL (0.2-1.0) Aspartate Amino Transf (AST/SGOT) 158 U/L (15-37) Alanine Aminotransferase (ALT/SGPT) 77 U/L (14-59) Alkaline Phosphatase 346 U/L (46-116) Creatine Kinase 156 U/L (26-192) Troponin I Quantitative < 0.017 ng/mL (0.000-0.055) YP-Cqf-P-Type Natriuretic Peptide 1110 pg/mL (0-124) Total Protein 7.8 g/dL (6.4-8.2) Albumin 2.6 g/dL (3.4-5.0) Albumin/Globulin Ratio 0.5 (1.0-1.7) Lipase 1861 U/L (73-393) Urine Opiates Screen Neg (NEG) Urine Methadone Screen Neg (NEG) Urine Barbiturates Neg (NEG) Urine Phencyclidine Screen Neg (NEG) Urine Amphetamine/Methamphetamine Pos (NEG) Urine Benzodiazepines Screen Neg (NEG) Urine Cocaine Screen Neg (NEG) Urine Cannabinoids Screen Neg (NEG) Urine Ethyl Alcohol Neg (NEG) O2 Saturation 92 % (92-99) 99 % (92-99) Arterial Blood pH 7.30 (7.35-7.45) 7.31 (7.35-7.45) Arterial Blood pCO2 at Patient Temp 31 mmHg (35-46) 27 mmHg (35-46) Arterial Blood pO2 at Patient Temp 68 mmHg (85-108) 259 mmHg (85-108) Arterial Blood HCO3 15 mmol/L (21-28) 13 mmol/L (21-28) Arterial Blood Base Excess -10 mmol/L (-3-3) -11 mmol/L (-3-3) FiO2 36 Test 06/13/19 20:00 06/14/19 05:00 06/14/19 07:30 06/14/19 08:10 Lactic Acid Level 6.1 mmol/L (0.4-2.0) 4.8 mmol/L (0.4-2.0) 5.0 mmol/L (0.4-2.0) Sodium Level 131 mmol/L (136-145) Potassium Level 3.3 mmol/L (3.5-5.1) Chloride Level 96 mmol/L (98-107) Carbon Dioxide Level 18 mmol/L (21-32) Anion Gap 17 (6-14) Blood Urea Nitrogen 21 mg/dL (7-20) Creatinine 2.3 mg/dL (0.6-1.0) Estimated GFR (Cockcroft-Gault) 23.9 BUN/Creatinine Ratio 9 (6-20) Glucose Level 118 mg/dL (70-99) Calcium Level 7.6 mg/dL (8.5-10.1) Total Bilirubin 3.6 mg/dL (0.2-1.0) Aspartate Amino Transf (AST/SGOT) 168 U/L (15-37) Alanine Aminotransferase (ALT/SGPT) 58 U/L (14-59) Alkaline Phosphatase 297 U/L (46-116) Total Protein 5.8 g/dL (6.4-8.2) Albumin 1.6 g/dL (3.4-5.0) Albumin/Globulin Ratio 0.4 (1.0-1.7) O2 Saturation 96 % (92-99) Arterial Blood pH 7.33 (7.35-7.45) Arterial Blood pCO2 at Patient Temp 32 mmHg (35-46) Arterial Blood pO2 at Patient Temp 85 mmHg (85-108) Arterial Blood HCO3 17 mmol/L (21-28) Arterial Blood Base Excess -8 mmol/L (-3-3) FiO2 60% Allergies: Coded Allergies: No Known Drug Allergies (Unverified , 12/08/13) Medications: Current Medications Medications (Trade) Dose Ordered Sig/Ele Route PRN Reason Start Time Stop Time Status Last Admin Dose Admin Sodium Chloride 1,000 ml @ 1,000 mls/hr Q1H IV 06/13/19 16:12 06/13/19 17:11 DC 06/13/19 16:56 Albuterol/ Ipratropium (Duoneb) 3 ml 1X ONCE NEB 06/13/19 16:15 06/13/19 16:19 DC 06/13/19 16:31 Piperacillin Sod/ Tazobactam Sod 4.5 gm/Sodium Chloride 100 ml @ 200 mls/hr 1X ONCE IV 06/13/19 16:45 06/13/19 17:14 DC 06/13/19 17:13 Levofloxacin/ Dextrose 150 ml @ 100 mls/hr 1X ONCE IV 06/13/19 16:45 06/13/19 18:14 DC 06/13/19 18:48 Sodium Chloride 1,000 ml @ 1,000 mls/hr 1X ONCE IV 06/13/19 16:45 06/13/19 17:44 DC 06/13/19 16:56 Vancomycin HCl 2 gm/Sodium Chloride 500 ml @ 250 mls/hr 1X ONCE IV 06/13/19 16:45 06/13/19 18:44 DC 06/13/19 21:15 Sodium Chloride 1,000 ml @ 200 mls/hr Q5H IV 06/13/19 17:13 06/14/19 17:12 06/14/19 07:35 Lorazepam (Ativan Inj) 1 mg 1X ONCE IVP 06/13/19 17:30 06/13/19 17:31 DC 06/13/19 17:26 Norepinephrine Bitartrate 250 ml @ 29.974 mls/ hr 1X ONCE IV 06/13/19 17:45 06/14/19 02:05 DC 06/13/19 17:47 Midazolam HCl 100 ml @ 0 mls/hr 1X ONCE IV 06/13/19 17:45 06/13/19 17:46 DC 06/13/19 17:54 Pantoprazole Sodium 80 mg/ Sodium Chloride 100 ml @ 10 mls/hr 1X ONCE IV 06/13/19 18:15 06/14/19 04:14 DC 06/13/19 20:00 Fentanyl Citrate (Fentanyl 2ml Vial) 25 mcg 1X ONCE IVP 06/13/19 18:15 06/13/19 18:24 DC 06/13/19 18:24 Midazolam HCl (Versed) 5 mg 1X ONCE IV 06/13/19 18:30 06/13/19 18:31 DC 06/13/19 18:24 Dexmedetomidine HCl 400 mcg/ Sodium Chloride 100 ml @ 0 mls/hr CONT PRN IV PER PROTOCOL 06/13/19 18:30 06/14/19 09:15 Etomidate (Amidate) 20 mg 1X ONCE IV 06/13/19 18:45 06/13/19 18:48 DC 06/13/19 18:47 Succinylcholine Chloride (Anectine) 100 mg 1X ONCE IV 06/13/19 18:45 06/13/19 18:48 DC 06/13/19 18:47 Norepinephrine Bitartrate 250 ml @ 30.495 mls/ hr CONT PRN IV SEE I/O RECORD 06/13/19 21:30 06/14/19 00:00 DC 06/13/19 23:21 Midazolam HCl 100 ml @ 5 mls/hr CONT PRN IV SEE I/O RECORD 06/13/19 21:45 06/14/19 09:14 Phenylephrine HCl 80 mg/Sodium Chloride 258 ml @ 15.674 mls/ hr CONT PRN IV SEE I/O RECORD 06/13/19 23:45 06/14/19 10:52 Norepinephrine Bitartrate 32 mg/ Sodium Chloride 250 ml @ 7.594 mls/ hr CONT PRN IV SEE I/O RECORD 06/13/19 23:45 06/14/19 04:09 Sodium Chloride 500 ml @ 500 mls/hr Q1H IV 06/14/19 01:30 06/14/19 02:29 DC 06/14/19 01:30 Sodium Bicarbonate 150 meq/Dextrose 1,150 ml @ 75 mls/hr [id number] IV 06/14/19 02:00 06/14/19 02:08 Vasopressin 40 unit/Dextrose 102 ml @ 6 mls/hr CONT PRN IV SEE I/O RECORD 06/14/19 02:00 06/14/19 02:08 Fentanyl Citrate 30 ml @ 0 mls/hr CONT PRN IV SEE PROTOCOL 06/14/19 02:45 06/14/19 09:56 Pantoprazole Sodium 80 mg/ Sodium Chloride 100 ml @ 10 mls/hr Q10H IV 06/14/19 04:00 06/14/19 03:45 Micafungin Sodium 100 mg/Dextrose 100 ml @ 100 mls/hr Q24H IV 06/14/19 10:00 06/14/19 10:52 Imaging: Imaging: CXR 06/13 IMPRESSION: Suspected left lower lobe infiltrate superimposed on diffuse central interstitial prominence. CXR Impression: 1. Interval intubation and placement of enteric tube. 2. Low lung volumes with increased central and bibasilar opacities, may represent atelectasis and/or consolidations. CXR Impression: 1. Interval placement left IJ central line with tip projecting over the cavoatrial junction. No pneumothorax. LE US 06/14 pending PE: GEN: intubated, obese HEENT: OG w/ dark/thin output LUNGS: vent, coarse HEART: RRR ABD: large, soft, quiet EXTREMITY/SKIN: venous stasis, LE edema, weeping to LLE, purple appearance to skin NEURO/PSYCH: sedated A/P: A/P: Sepsis, LLE infection, elevated D-dimer, ?UTI Resp failure, CATY Anemia, elevated LFTs and lipase S/p cholecystectomy Obesity - BMI 62.6 +amphetamines -- Check Hep panel and abd US though suspect will be difficult w/ body habitus. Nurse says too unstable for CT. Monitor Hgb, will check anemia parameters. Continue PPI. TRISHA DUVALL Jun 14, 2019 11:09
[2019-06-14] MEDS ORDERED: LIDOCAINE WITH 8.4% SOD BICARB 3 ML DISP.SYRIN. INJ ONE (11:15)
--- NOTE | 2019-06-14 11:41 | RAD ---
LEFT LEG VENOUS DOPPLER STUDY: Clinical indications: Left leg swelling and discoloration. Findings: Duplex sonography (including zimmerman scale evaluation and color flow and waveform spectral analysis) of the proximal aspect of the greater saphenous vein and the proximal aspect of the profunda femoral vein and the entire length of the common femoral and superficial femoral and popliteal veins and the tibioperoneal trunk and the proximal aspect of the posterior tibial and peroneal veins of the left leg was attempted. Due to the severe lymphedema of the leg, evaluation of the mid and distal superficial femoral vein and popliteal vein is incomplete. The popliteal vein can only be visualized with color and therefore appears patent. Mid and distal superficial femoral vein cannot be visualized even with color. Therefore, occlusive thrombosis is certainly possible. The calf veins are not visualized. A reactive 4 cm left groin lymph node is present. Impression: Difficult study due to severe lymphedema. The left mid and distal superficial femoral vein cannot be visualized. Therefore, occlusive thrombosis is possible although not definite since this segment of the vein cannot be visualized. Electronically signed by: Meet Fournier MD (06/14/2019 11:38 AM) [facility]
--- NOTE | 2019-06-14 11:47 | RAD ---
CHEST AP ONLY Clinical indications: Placement of temporary hemodialysis catheter. COMPARISON: June 13, 2019. Findings: There has been placement of a right IJ hemodialysis catheter and the distal tip is located within the right atrium. Left IJ central line and ET tube and NG tube are unchanged in position. Elevation of the right hemidiaphragm is unchanged. Bilateral perihilar pulmonary edema or lung infiltrates are unchanged. No pneumothorax or pleural effusion is seen. Heart size and mediastinum are stable. Impression: Placement of right IJ hemodialysis catheter without pneumothorax. Unchanged bilateral perihilar lung infiltrates or pulmonary edema. Electronically signed by: Meet Fournier MD (06/14/2019 11:44 AM) [facility]
[2019-06-14] MEDS: DAPTOmycin (GENERIC) IVPB 600 MG in IV NORMAL SALINE 50ML 50 ML IV SCH (11:52)
--- NOTE | 2019-06-14 12:03 | PDOC ---
PROGRESS NOTES Chief Complaint Chief Complaint Severe sepsis Severe LLE skin infection Resp failure,on IPPV - intubated on arrival CATY Anemia, elevated LFTs and lipase S/p cholecystectomy Obesity - BMI 62.6 +amphetamines Severe metabolic acidosis full code Pulm infiltrates, recent [facility] - HCAP History of Present Illness History of Present Illness very sick, intubated at ER dw [facility] sx Dr Rainey, recommend GS or even plastic sx ([facility]) if needed - but too unst able or critical to do that now - unlikey surgical candidate for now give on pressors etc ON broard spectrum per ID NO family at bedside PUlm infiltrates, recent [facility] admit I added renal consult bec agap elevated, bicarb low (s.p dextrose bicarb gtt), caty high creat, ABG pH 7.5 Insert rodrigues and maintain Added GI consult bec elevated lFts, TB is 3 - recommend US as too unstable for CT, add PPI, monitor that anemia, transfuse if hgb < 7 LEgs are markedly swollen and infected, PLAN: Broad spectrum IV abx Full cod event bundle Add GS consult as recommended by [facility] sx PPI, MOnitor LFTs and TB US abd- cant do CT Pressors Full code HCAP coverage OT lymphedema DVT ppx - scds if US Neg? Critically ill WIll be intubated over the weekend STart TF c.o nutrition Vitals Vitals Vital Signs Date Time Temp Pulse Resp B/P (MAP) Pulse Ox O2 Delivery O2 Flow Rate FiO2 06/14/19 11:23 100 Ventilator 06/14/19 10:00 89 24 115/59 (77) 06/14/19 07:00 99.6 99.6 06/14/19 04:00 4.0 Physical Exam General: No acute distress, Other (intubated sedated) Heart: Regular rate, Normal S1, Normal S2 Lungs: Other (dec BS sec to inc ap and poor effort, transmitted BS from vent) Abdomen: Normal bowel sounds, Soft Extremities: No clubbing, No cyanosis, Normal pulses, Other (She is severly obese and body habitus makes exam more difficult. Hands in protective mittens. BL lower legs are very large with extensive tissue overlying skin creases. Right leg with minimal scattered red macules. No open wounds or sores. Pedal edema bilaterally. Left lower leg with extensive swelling, ecchymosis and purple discoloration and warmth. She has two small superficial open sores, one lateral lower leg and one medial/posterior lower leg. Cannot extract discharge from these. Leg is taught, there is no areas of fluctuance. She has fairly normal doppler signals present bilateral DP and PT, her feet are warm. Cannot assess motor function or sensation. ) Skin: Other (infected legs. :Left > RT) Labs LABS Laboratory Tests Test 06/13/19 16:12 06/13/19 16:16 06/13/19 16:50 06/13/19 19:30 Prothrombin Time 14.2 SEC (11.7-14.0) Prothromb Time International Ratio 1.1 (0.8-1.1) D-Dimer (Janet) 3.80 ug/mlFEU (0.00-0.50) White Blood Count 44.3 x10^3/uL (4.0-11.0) Red Blood Count 4.14 x10^6/uL (3.50-5.40) Hemoglobin 10.4 g/dL (12.0-15.5) Hematocrit 33.2 % (36.0-47.0) Mean Corpuscular Volume 80 fL (79-100) Mean Corpuscular Hemoglobin 25 pg (25-35) Mean Corpuscular Hemoglobin Concent 31 g/dL (31-37) Red Cell Distribution Width 16.4 % (11.5-14.5) Platelet Count 620 x10^3/uL (140-400) Neutrophils (%) (Auto) 93 % (31-73) Lymphocytes (%) (Auto) 3 % (24-48) Monocytes (%) (Auto) 3 % (0-9) Eosinophils (%) (Auto) 1 % (0-3) Basophils (%) (Auto) 0 % (0-3) Neutrophils # (Auto) 41.3 x10^3/uL (1.8-7.7) Lymphocytes # (Auto) 1.1 x10^3/uL (1.0-4.8) Monocytes # (Auto) 1.5 x10^3/uL (0.0-1.1) Eosinophils # (Auto) 0.2 x10^3/uL (0.0-0.7) Basophils # (Auto) 0.1 x10^3/uL (0.0-0.2) Segmented Neutrophils % 89 % (35-66) Band Neutrophils % 3 % (0-9) Lymphocytes % 4 % (24-48) Monocytes % 4 % (0-10) Platelet Estimate Increased (ADEQUATE) Large Platelets Occ Polychromasia Slight Anisocytosis Slight Urine Collection Type U cath Urine Color [place] Urine Clarity Turbid Urine pH 5.5 Urine Specific [place] >=1.030 Urine Protein 100 mg/dL (NEG-TRACE) Urine Glucose (UA) Negative mg/dL (NEG) Urine Ketones (Stick) Trace mg/dL (NEG) Urine Blood Negative (NEG) Urine Nitrite Positive (NEG) Urine Bilirubin Large (NEG) Urine Urobilinogen Dipstick 4.0 mg/dL (0.2 mg/dL) Urine Leukocyte Esterase Small (NEG) Urine RBC 0 /HPF (0-2) Urine WBC 5-10 /HPF (0-4) Urine Squamous Epithelial Cells Occ /LPF Urine Amorphous Sediment Present /HPF Urine Bacteria Few /HPF (0-FEW) Sodium Level 132 mmol/L (136-145) Potassium Level 3.0 mmol/L (3.5-5.1) Chloride Level 93 mmol/L (98-107) Carbon Dioxide Level 18 mmol/L (21-32) Anion Gap 21 (6-14) Blood Urea Nitrogen 16 mg/dL (7-20) Creatinine 1.8 mg/dL (0.6-1.0) Estimated GFR (Cockcroft-Gault) 31.7 BUN/Creatinine Ratio 9 (6-20) Glucose Level 233 mg/dL (70-99) Lactic Acid Level 10.8 mmol/L (0.4-2.0) Calcium Level 9.1 mg/dL (8.5-10.1) Magnesium Level 2.5 mg/dL (1.8-2.4) Total Bilirubin 2.9 mg/dL (0.2-1.0) Aspartate Amino Transf (AST/SGOT) 158 U/L (15-37) Alanine Aminotransferase (ALT/SGPT) 77 U/L (14-59) Alkaline Phosphatase 346 U/L (46-116) Creatine Kinase 156 U/L (26-192) Troponin I Quantitative < 0.017 ng/mL (0.000-0.055) VO-Wqb-[id number]-Type Natriuretic Peptide 1110 pg/mL (0-124) Total Protein 7.8 g/dL (6.4-8.2) Albumin 2.6 g/dL (3.4-5.0) Albumin/Globulin Ratio 0.5 (1.0-1.7) Lipase 1861 U/L (73-393) Urine Opiates Screen Neg (NEG) Urine Methadone Screen Neg (NEG) Urine Barbiturates Neg (NEG) Urine Phencyclidine Screen Neg (NEG) Urine Amphetamine/Methamphetamine Pos (NEG) Urine Benzodiazepines Screen Neg (NEG) Urine Cocaine Screen Neg (NEG) Urine Cannabinoids Screen Neg (NEG) Urine Ethyl Alcohol Neg (NEG) O2 Saturation 92 % (92-99) 99 % (92-99) Arterial Blood pH 7.30 (7.35-7.45) 7.31 (7.35-7.45) Arterial Blood pCO2 at Patient Temp 31 mmHg (35-46) 27 mmHg (35-46) Arterial Blood pO2 at Patient Temp 68 mmHg (85-108) 259 mmHg (85-108) Arterial Blood HCO3 15 mmol/L (21-28) 13 mmol/L (21-28) Arterial Blood Base Excess -10 mmol/L (-3-3) -11 mmol/L (-3-3) FiO2 36 Test 06/13/19 20:00 06/14/19 05:00 06/14/19 07:30 06/14/19 08:10 Lactic Acid Level 6.1 mmol/L (0.4-2.0) 4.8 mmol/L (0.4-2.0) 5.0 mmol/L (0.4-2.0) Sodium Level 131 mmol/L (136-145) Potassium Level 3.3 mmol/L (3.5-5.1) Chloride Level 96 mmol/L (98-107) Carbon Dioxide Level 18 mmol/L (21-32) Anion Gap 17 (6-14) Blood Urea Nitrogen 21 mg/dL (7-20) Creatinine 2.3 mg/dL (0.6-1.0) Estimated GFR (Cockcroft-Gault) 23.9 BUN/Creatinine Ratio 9 (6-20) Glucose Level 118 mg/dL (70-99) Calcium Level 7.6 mg/dL (8.5-10.1) Total Bilirubin 3.6 mg/dL (0.2-1.0) Aspartate Amino Transf (AST/SGOT) 168 U/L (15-37) Alanine Aminotransferase (ALT/SGPT) 58 U/L (14-59) Alkaline Phosphatase 297 U/L (46-116) Total Protein 5.8 g/dL (6.4-8.2) Albumin 1.6 g/dL (3.4-5.0) Albumin/Globulin Ratio 0.4 (1.0-1.7) O2 Saturation 96 % (92-99) Arterial Blood pH 7.33 (7.35-7.45) Arterial Blood pCO2 at Patient Temp 32 mmHg (35-46) Arterial Blood pO2 at Patient Temp 85 mmHg (85-108) Arterial Blood HCO3 17 mmol/L (21-28) Arterial Blood Base Excess -8 mmol/L (-3-3) FiO2 60% Review of Systems Review of Systems intubated, sedated Assessment and Plan Assessmemt and Plan Problems Medical Problems: (1) Acute respiratory failure Status: Acute (2) Elevated brain natriuretic peptide (BNP) level Status: Acute (3) Elevated d-dimer Status: Acute (4) Elevated lipase Status: Acute (5) Elevated liver function tests Status: Acute (6) GI bleeding Status: Acute (7) Hyperglycemia Status: Acute (8) Hypermagnesuria Status: Acute (9) Hypoalbuminemia Status: Acute (10) Hypokalemia Status: Acute (11) Hyponatremia Status: Acute (12) Lower extremity cellulitis Status: Acute (13) Metabolic acidosis Status: Acute (14) Methamphetamine abuse Status: Acute (15) Morbid obesity with BMI of 60.0-69.9, adult Status: Acute (16) Renal insufficiency Status: Acute (17) Sepsis Status: Acute (18) Severe sepsis Status: Acute Comment Review of Relevant I have reviewed the following items loreta (where applicable) has been applied. Labs Laboratory Tests Test 06/13/19 16:12 06/13/19 16:16 06/13/19 16:50 06/13/19 19:30 Prothrombin Time 14.2 SEC (11.7-14.0) Prothromb Time International Ratio 1.1 (0.8-1.1) D-Dimer (Janet) 3.80 ug/mlFEU (0.00-0.50) White Blood Count 44.3 x10^3/uL (4.0-11.0) Red Blood Count 4.14 x10^6/uL (3.50-5.40) Hemoglobin 10.4 g/dL (12.0-15.5) Hematocrit 33.2 % (36.0-47.0) Mean Corpuscular Volume 80 fL (79-100) Mean Corpuscular Hemoglobin 25 pg (25-35) Mean Corpuscular Hemoglobin Concent 31 g/dL (31-37) Red Cell Distribution Width 16.4 % (11.5-14.5) Platelet Count 620 x10^3/uL (140-400) Neutrophils (%) (Auto) 93 % (31-73) Lymphocytes (%) (Auto) 3 % (24-48) Monocytes (%) (Auto) 3 % (0-9) Eosinophils (%) (Auto) 1 % (0-3) Basophils (%) (Auto) 0 % (0-3) Neutrophils # (Auto) 41.3 x10^3/uL (1.8-7.7) Lymphocytes # (Auto) 1.1 x10^3/uL (1.0-4.8) Monocytes # (Auto) 1.5 x10^3/uL (0.0-1.1) Eosinophils # (Auto) 0.2 x10^3/uL (0.0-0.7) Basophils # (Auto) 0.1 x10^3/uL (0.0-0.2) Segmented Neutrophils % 89 % (35-66) Band Neutrophils % 3 % (0-9) Lymphocytes % 4 % (24-48) Monocytes % 4 % (0-10) Platelet Estimate Increased (ADEQUATE) Large Platelets Occ Polychromasia Slight Anisocytosis Slight Urine Collection Type U cath Urine Color [place] Urine Clarity Turbid Urine pH 5.5 Urine Specific [place] >=1.030 Urine Protein 100 mg/dL (NEG-TRACE) Urine Glucose (UA) Negative mg/dL (NEG) Urine Ketones (Stick) Trace mg/dL (NEG) Urine Blood Negative (NEG) Urine Nitrite Positive (NEG) Urine Bilirubin Large (NEG) Urine Urobilinogen Dipstick 4.0 mg/dL (0.2 mg/dL) Urine Leukocyte Esterase Small (NEG) Urine RBC 0 /HPF (0-2) Urine WBC 5-10 /HPF (0-4) Urine Squamous Epithelial Cells Occ /LPF Urine Amorphous Sediment Present /HPF Urine Bacteria Few /HPF (0-FEW) Sodium Level 132 mmol/L (136-145) Potassium Level 3.0 mmol/L (3.5-5.1) Chloride Level 93 mmol/L (98-107) Carbon Dioxide Level 18 mmol/L (21-32) Anion Gap 21 (6-14) Blood Urea Nitrogen 16 mg/dL (7-20) Creatinine 1.8 mg/dL (0.6-1.0) Estimated GFR (Cockcroft-Gault) 31.7 BUN/Creatinine Ratio 9 (6-20) Glucose Level 233 mg/dL (70-99) Lactic Acid Level 10.8 mmol/L (0.4-2.0) Calcium Level 9.1 mg/dL (8.5-10.1) Magnesium Level 2.5 mg/dL (1.8-2.4) Total Bilirubin 2.9 mg/dL (0.2-1.0) Aspartate Amino Transf (AST/SGOT) 158 U/L (15-37) Alanine Aminotransferase (ALT/SGPT) 77 U/L (14-59) Alkaline Phosphatase 346 U/L (46-116) Creatine Kinase 156 U/L (26-192) Troponin I Quantitative < 0.017 ng/mL (0.000-0.055) RW-Bvz-V-Type Natriuretic Peptide 1110 pg/mL (0-124) Total Protein 7.8 g/dL (6.4-8.2) Albumin 2.6 g/dL (3.4-5.0) Albumin/Globulin Ratio 0.5 (1.0-1.7) Lipase 1861 U/L (73-393) Urine Opiates Screen Neg (NEG) Urine Methadone Screen Neg (NEG) Urine Barbiturates Neg (NEG) Urine Phencyclidine Screen Neg (NEG) Urine Amphetamine/Methamphetamine Pos (NEG) Urine Benzodiazepines Screen Neg (NEG) Urine Cocaine Screen Neg (NEG) Urine Cannabinoids Screen Neg (NEG) Urine Ethyl Alcohol Neg (NEG) O2 Saturation 92 % (92-99) 99 % (92-99) Arterial Blood pH 7.30 (7.35-7.45) 7.31 (7.35-7.45) Arterial Blood pCO2 at Patient Temp 31 mmHg (35-46) 27 mmHg (35-46) Arterial Blood pO2 at Patient Temp 68 mmHg (85-108) 259 mmHg (85-108) Arterial Blood HCO3 15 mmol/L (21-28) 13 mmol/L (21-28) Arterial Blood Base Excess -10 mmol/L (-3-3) -11 mmol/L (-3-3) FiO2 36 Test 06/13/19 20:00 06/14/19 05:00 06/14/19 07:30 06/14/19 08:10 Lactic Acid Level 6.1 mmol/L (0.4-2.0) 4.8 mmol/L (0.4-2.0) 5.0 mmol/L (0.4-2.0) Sodium Level 131 mmol/L (136-145) Potassium Level 3.3 mmol/L (3.5-5.1) Chloride Level 96 mmol/L (98-107) Carbon Dioxide Level 18 mmol/L (21-32) Anion Gap 17 (6-14) Blood Urea Nitrogen 21 mg/dL (7-20) Creatinine 2.3 mg/dL (0.6-1.0) Estimated GFR (Cockcroft-Gault) 23.9 BUN/Creatinine Ratio 9 (6-20) Glucose Level 118 mg/dL (70-99) Calcium Level 7.6 mg/dL (8.5-10.1) Total Bilirubin 3.6 mg/dL (0.2-1.0) Aspartate Amino Transf (AST/SGOT) 168 U/L (15-37) Alanine Aminotransferase (ALT/SGPT) 58 U/L (14-59) Alkaline Phosphatase 297 U/L (46-116) Total Protein 5.8 g/dL (6.4-8.2) Albumin 1.6 g/dL (3.4-5.0) Albumin/Globulin Ratio 0.4 (1.0-1.7) O2 Saturation 96 % (92-99) Arterial Blood pH 7.33 (7.35-7.45) Arterial Blood pCO2 at Patient Temp 32 mmHg (35-46) Arterial Blood pO2 at Patient Temp 85 mmHg (85-108) Arterial Blood HCO3 17 mmol/L (21-28) Arterial Blood Base Excess -8 mmol/L (-3-3) FiO2 60% Laboratory Tests Test 06/13/19 16:12 06/13/19 16:16 06/13/19 16:50 06/13/19 19:30 Prothrombin Time 14.2 SEC (11.7-14.0) Prothromb Time International Ratio 1.1 (0.8-1.1) D-Dimer (Janet) 3.80 ug/mlFEU (0.00-0.50) White Blood Count 44.3 x10^3/uL (4.0-11.0) Red Blood Count 4.14 x10^6/uL (3.50-5.40) Hemoglobin 10.4 g/dL (12.0-15.5) Hematocrit 33.2 % (36.0-47.0) Mean Corpuscular Volume 80 fL (79-100) Mean Corpuscular Hemoglobin 25 pg (25-35) Mean Corpuscular Hemoglobin Concent 31 g/dL (31-37) Red Cell Distribution Width 16.4 % (11.5-14.5) Platelet Count 620 x10^3/uL (140-400) Neutrophils (%) (Auto) 93 % (31-73) Lymphocytes (%) (Auto) 3 % (24-48) Monocytes (%) (Auto) 3 % (0-9) Eosinophils (%) (Auto) 1 % (0-3) Basophils (%) (Auto) 0 % (0-3) Neutrophils # (Auto) 41.3 x10^3/uL (1.8-7.7) Lymphocytes # (Auto) 1.1 x10^3/uL (1.0-4.8) Monocytes # (Auto) 1.5 x10^3/uL (0.0-1.1) Eosinophils # (Auto) 0.2 x10^3/uL (0.0-0.7) Basophils # (Auto) 0.1 x10^3/uL (0.0-0.2) Segmented Neutrophils % 89 % (35-66) Band Neutrophils % 3 % (0-9) Lymphocytes % 4 % (24-48) Monocytes % 4 % (0-10) Platelet Estimate Increased (ADEQUATE) Large Platelets Occ Polychromasia Slight Anisocytosis Slight Urine Collection Type U cath Urine Color [place] Urine Clarity Turbid Urine pH 5.5 Urine Specific [place] >=1.030 Urine Protein 100 mg/dL (NEG-TRACE) Urine Glucose (UA) Negative mg/dL (NEG) Urine Ketones (Stick) Trace mg/dL (NEG) Urine Blood Negative (NEG) Urine Nitrite Positive (NEG) Urine Bilirubin Large (NEG) Urine Urobilinogen Dipstick 4.0 mg/dL (0.2 mg/dL) Urine Leukocyte Esterase Small (NEG) Urine RBC 0 /HPF (0-2) Urine WBC 5-10 /HPF (0-4) Urine Squamous Epithelial Cells Occ /LPF Urine Amorphous Sediment Present /HPF Urine Bacteria Few /HPF (0-FEW) Sodium Level 132 mmol/L (136-145) Potassium Level 3.0 mmol/L (3.5-5.1) Chloride Level 93 mmol/L (98-107) Carbon Dioxide Level 18 mmol/L (21-32) Anion Gap 21 (6-14) Blood Urea Nitrogen 16 mg/dL (7-20) Creatinine 1.8 mg/dL (0.6-1.0) Estimated GFR (Cockcroft-Gault) 31.7 BUN/Creatinine Ratio 9 (6-20) Glucose Level 233 mg/dL (70-99) Lactic Acid Level 10.8 mmol/L (0.4-2.0) Calcium Level 9.1 mg/dL (8.5-10.1) Magnesium Level 2.5 mg/dL (1.8-2.4) Total Bilirubin 2.9 mg/dL (0.2-1.0) Aspartate Amino Transf (AST/SGOT) 158 U/L (15-37) Alanine Aminotransferase (ALT/SGPT) 77 U/L (14-59) Alkaline Phosphatase 346 U/L (46-116) Creatine Kinase 156 U/L (26-192) Troponin I Quantitative < 0.017 ng/mL (0.000-0.055) AV-Cls-O-Type Natriuretic Peptide 1110 pg/mL (0-124) Total Protein 7.8 g/dL (6.4-8.2) Albumin 2.6 g/dL (3.4-5.0) Albumin/Globulin Ratio 0.5 (1.0-1.7) Lipase 1861 U/L (73-393) Urine Opiates Screen Neg (NEG) Urine Methadone Screen Neg (NEG) Urine Barbiturates Neg (NEG) Urine Phencyclidine Screen Neg (NEG) Urine Amphetamine/Methamphetamine Pos (NEG) Urine Benzodiazepines Screen Neg (NEG) Urine Cocaine Screen Neg (NEG) Urine Cannabinoids Screen Neg (NEG) Urine Ethyl Alcohol Neg (NEG) O2 Saturation 92 % (92-99) 99 % (92-99) Arterial Blood pH 7.30 (7.35-7.45) 7.31 (7.35-7.45) Arterial Blood pCO2 at Patient Temp 31 mmHg (35-46) 27 mmHg (35-46) Arterial Blood pO2 at Patient Temp 68 mmHg (85-108) 259 mmHg (85-108) Arterial Blood HCO3 15 mmol/L (21-28) 13 mmol/L (21-28) Arterial Blood Base Excess -10 mmol/L (-3-3) -11 mmol/L (-3-3) FiO2 36 Test 06/13/19 20:00 06/14/19 05:00 06/14/19 07:30 06/14/19 08:10 Lactic Acid Level 6.1 mmol/L (0.4-2.0) 4.8 mmol/L (0.4-2.0) 5.0 mmol/L (0.4-2.0) Sodium Level 131 mmol/L (136-145) Potassium Level 3.3 mmol/L (3.5-5.1) Chloride Level 96 mmol/L (98-107) Carbon Dioxide Level 18 mmol/L (21-32) Anion Gap 17 (6-14) Blood Urea Nitrogen 21 mg/dL (7-20) Creatinine 2.3 mg/dL (0.6-1.0) Estimated GFR (Cockcroft-Gault) 23.9 BUN/Creatinine Ratio 9 (6-20) Glucose Level 118 mg/dL (70-99) Calcium Level 7.6 mg/dL (8.5-10.1) Total Bilirubin 3.6 mg/dL (0.2-1.0) Aspartate Amino Transf (AST/SGOT) 168 U/L (15-37) Alanine Aminotransferase (ALT/SGPT) 58 U/L (14-59) Alkaline Phosphatase 297 U/L (46-116) Total Protein 5.8 g/dL (6.4-8.2) Albumin 1.6 g/dL (3.4-5.0) Albumin/Globulin Ratio 0.4 (1.0-1.7) O2 Saturation 96 % (92-99) Arterial Blood pH 7.33 (7.35-7.45) Arterial Blood pCO2 at Patient Temp 32 mmHg (35-46) Arterial Blood pO2 at Patient Temp 85 mmHg (85-108) Arterial Blood HCO3 17 mmol/L (21-28) Arterial Blood Base Excess -8 mmol/L (-3-3) FiO2 60% Medications Current Medications Sodium Chloride 1,000 ml @ 1,000 mls/hr Q1H IV Last administered on 06/13/19at 16:56; Start 06/13/19 at 16:12; Stop 06/13/19 at 17:11; Status DC Albuterol/ Ipratropium (Duoneb) 3 ml 1X ONCE NEB Last administered on 06/13/19at 16:31; Start 06/13/19 at 16:15; Stop 06/13/19 at 16:19; Status DC Piperacillin Sod/ Tazobactam Sod 4.5 gm/Sodium Chloride 100 ml @ 200 mls/hr 1X ONCE IV Last administered on 06/13/19at 17:13; Start 06/13/19 at 16:45; Stop 06/13/19 at 17:14; Status DC Vancomycin HCl 250 ml @ 250 mls/hr 1X ONCE IV ; Start 06/13/19 at 16:45; Stop 06/13/19 at 17:44; Status UNV Levofloxacin/ Dextrose 150 ml @ 100 mls/hr 1X ONCE IV Last administered on 06/13/19at 18:48; Start 06/13/19 at 16:45; Stop 06/13/19 at 18:14; Status DC Vancomycin HCl 250 ml @ 250 mls/hr 1X ONCE IV ; Start 06/13/19 at 16:45; Stop 06/13/19 at 17:44; Status UNV Sodium Chloride 1,000 ml @ 1,000 mls/hr 1X ONCE IV Last administered on 06/13/19at 16:56; Start 06/13/19 at 16:45; Stop 06/13/19 at 17:44; Status DC Vancomycin HCl 2 gm/Sodium Chloride 500 ml @ 250 mls/hr 1X ONCE IV Last administered on 06/13/19at 21:15; Start 06/13/19 at 16:45; Stop 06/13/19 at 18:44; Status DC Sodium Chloride 1,000 ml @ 1,000 mls/hr 1X ONCE IV ; Start 06/13/19 at 17:15; Stop 06/13/19 at 18:14; Status DC Sodium Chloride 1,000 ml @ 200 mls/hr Q5H IV Last administered on 06/14/19at 11:51; Start 06/13/19 at 17:13; Stop 06/14/19 at 17:12 Lorazepam (Ativan Inj) 1 mg 1X ONCE IVP Last administered on 06/13/19at 17:26; Start 06/13/19 at 17:30; Stop 06/13/19 at 17:31; Status DC Lorazepam (Ativan Inj) 2 mg STK-MED ONCE .ROUTE ; Start 06/13/19 at 17:23; Stop 06/13/19 at 17:24; Status DC Norepinephrine Bitartrate 250 ml @ 29.974 mls/ hr 1X ONCE IV Last administered on 06/13/19at 17:47; Start 06/13/19 at 17:45; Stop 06/14/19 at 02:05; Status DC Midazolam HCl 100 ml @ 0 mls/hr 1X ONCE IV Last administered on 06/13/19at 17:54; Start 06/13/19 at 17:45; Stop 06/13/19 at 17:46; Status DC Fentanyl Citrate (Fentanyl 2ml Vial) 100 mcg STK-MED ONCE .ROUTE ; Start 06/13/19 at 18:06; Stop 06/13/19 at 18:06; Status DC Pantoprazole Sodium 80 mg/ Sodium Chloride 100 ml @ 10 mls/hr 1X ONCE IV Last administered on 06/13/19at 20:00; Start 06/13/19 at 18:15; Stop 06/14/19 at 04:14; Status DC Pantoprazole Sodium (PROTONIX VIAL for IV PUSH) 40 mg 1X ONCE IVP ; Start 06/13/19 at 18:15; Stop 06/13/19 at 18:25; Status DC Fentanyl Citrate (Fentanyl 2ml Vial) 25 mcg 1X ONCE IVP Last administered on 06/13/19at 18:24; Start 06/13/19 at 18:15; Stop 06/13/19 at 18:24; Status DC Midazolam HCl (Versed) 5 mg 1X ONCE IV Last administered on 06/13/19at 18:24; Start 06/13/19 at 18:30; Stop 06/13/19 at 18:31; Status DC Dexmedetomidine HCl 400 mcg/ Sodium Chloride 100 ml @ 0 mls/hr CONT PRN IV PER PROTOCOL Last administered on 06/14/19at 11:50; Start 06/13/19 at 18:30 Sodium Chloride 500 ml @ 500 mls/hr 1X PRN PRN IV HYPOTENSION; Start 06/13/19 at 18:30 Atropine Sulfate (ATROPINE 0.5mg SYRINGE) 0.5 mg PRN Q5MIN PRN IV SEE COMMENTS; Start 06/13/19 at 18:30 Etomidate (Amidate) 20 mg 1X ONCE IV Last administered on 06/13/19at 18:47; Start 06/13/19 at 18:45; Stop 06/13/19 at 18:48; Status DC Succinylcholine Chloride (Anectine) 100 mg 1X ONCE IV Last administered on 06/13/19at 18:47; Start 06/13/19 at 18:45; Stop 06/13/19 at 18:48; Status DC Norepinephrine Bitartrate 250 ml @ 30.495 mls/ hr CONT PRN IV SEE I/O RECORD Last administered on 06/13/19at 23:21; Start 06/13/19 at 21:30; Stop 06/14/19 at 00:00; Status DC Dexmedetomidine HCl 400 mcg/ Sodium Chloride 100 ml @ 0 mls/hr CONT PRN IV SEDATION; Start 06/13/19 at 21:30; Status UNV Sodium Chloride 500 ml @ 500 mls/hr 1X PRN PRN IV SEDATION; Start 06/13/19 at 21:30; Status UNV Atropine Sulfate (ATROPINE 0.5mg SYRINGE) 0.5 mg PRN Q5MIN PRN IV SEE COMMENTS; Start 06/13/19 at 21:30; Status UNV Midazolam HCl 100 ml @ 5 mls/hr CONT PRN IV SEE I/O RECORD Last administered on 06/14/19at 09:14; Start 06/13/19 at 21:45 Info (FLU VACCINE SCREEN per RX) 1 each PRN DAILY PRN MC SEE COMMENTS; Start 06/13/19 at 23:45 Norepinephrine Bitartrate 250 ml @ 30.495 mls/ hr CONT PRN IV SEE I/O RECORD; Start 06/13/19 at 23:45; Stop 06/14/19 at 00:00; Status DC Phenylephrine HCl 20 mg/Sodium Chloride 252 ml @ 61.478 mls/ hr CONT PRN IV SEE I/O RECORD; Start 06/14/19 at 00:00; Status UNV Phenylephrine HCl 80 mg/Sodium Chloride 258 ml @ 15.674 mls/ hr CONT PRN IV SEE I/O RECORD Last administered on 06/14/19at 10:52; Start 06/13/19 at 23:45 Norepinephrine Bitartrate 32 mg/ Sodium Chloride 250 ml @ 7.594 mls/ hr CONT PRN IV SEE I/O RECORD Last administered on 06/14/19at 11:52; Start 06/13/19 at 23:45 Sodium Chloride 500 ml @ 500 mls/hr Q1H IV Last administered on 06/14/19at 01:30; Start 06/14/19 at 01:30; Stop 06/14/19 at 02:29; Status DC Sodium Bicarbonate 150 meq/Dextrose 1,150 ml @ 75 mls/hr [id number] IV Last administered on 06/14/19at 02:08; Start 06/14/19 at 02:00 Vasopressin 40 unit/Dextrose 102 ml @ 6 mls/hr CONT PRN IV SEE I/O RECORD Last administered on 06/14/19at 02:08; Start 06/14/19 at 02:00 Fentanyl Citrate 30 ml @ 0 mls/hr CONT PRN IV SEE PROTOCOL Last administered on 06/14/19at 09:56; Start 06/14/19 at 02:45 Pantoprazole Sodium 80 mg/ Sodium Chloride 100 ml @ 10 mls/hr Q10H IV Last administered on 06/14/19at 03:45; Start 06/14/19 at 04:00 Meropenem 1 gm/ Sodium Chloride 100 ml @ 200 mls/hr Q12HR IV Last administered on 06/14/19at 09:00; Start 06/14/19 at 09:00 Micafungin Sodium 100 mg/Dextrose 100 ml @ 100 mls/hr Q24H IV Last administered on 06/14/19at 10:52; Start 06/14/19 at 10:00 Daptomycin 600 mg/ Sodium Chloride 50 ml @ 100 mls/hr Q24H IV Last administered on 12/6/19at 11:52; Start 06/14/19 at 11:00 Heparin Sodium (Porcine) (Heparin Sodium) 5,000 unit Q8HRS SQ ; Start 06/14/19 at 14:00 Acetaminophen (Tylenol) 650 mg PRN Q6HRS PRN PEG MILD PAIN / TEMP; Start 06/14/19 at 08:45 Acetaminophen/ Codeine Phosphate (Tylenol/Codeine Soln) 5 ml PRN Q6HRS PRN PO MODERATE PAIN; Start 06/14/19 at 08:45 Ondansetron HCl (Zofran) 4 mg PRN Q6HRS PRN IVP NAUSEA/VOMITING; Start 06/14/19 at 08:45 Lidocaine HCl (Buffered Lidocaine 1%) 3 ml STK-MED ONCE .ROUTE ; Start 06/14/19 at 10:45; Stop 06/14/19 at 10:45; Status DC Heparin Sodium (Porcine) (Heparin Sodium) 10,000 unit STK-MED ONCE .ROUTE ; Start 06/14/19 at 10:46; Stop 06/14/19 at 10:46; Status DC Lidocaine HCl (Buffered Lidocaine 1%) 5 ml 1X ONCE INJ Last administered on 06/14/19at 11:23; Start 06/14/19 at 11:15; Stop 06/14/19 at 11:16; Status DC Active Scripts Active Tessalon Perle (Benzonatate) 100 Mg Capsule 100 Mg PO TID PRN Vitals/I & O Vital Sign - Last 24 Hours 06/13/19 06/13/19 06/13/19 06/13/19 15:54 16:00 16:15 16:30 Temp 97.9 97.9 Pulse 124 106 124 126 Resp 52 49 B/P (MAP) 140/72 (94) 140/72 (94) Pulse Ox 81 95 O2 Delivery Room Air Nasal Cannula O2 Flow Rate 4.0 06/13/19 06/13/19 06/13/19 06/13/19 16:35 16:46 17:18 17:28 Pulse 126 126 126 Resp 60 50 44 B/P (MAP) 153/94 (113) 39/17 (24) Pulse Ox 96 86 86 O2 Delivery Nasal Cannula Nasal Cannula Nasal Cannula O2 Flow Rate 4.0 4.0 4.0 06/13/19 06/13/19 06/13/19/5/19 17:31 17:46 17:51 17:58 Pulse 122 114 110 Resp 51 33 26 B/P (MAP) 36/11 (19) 149/80 (103) Pulse Ox 90 94 97 O2 Delivery Venturi Mask Ventilator Ventilator 06/13/19 06/13/19 06/13/19 06/13/19 17:58 18:18 18:24 18:30 Pulse 108 106 106 Resp 29 26 20 24 Pulse Ox 96 90 90 93 O2 Delivery Ventilator Ventilator Ventilator Ventilator 06/13/19 06/13/19 06/13/19 06/13/19 18:43 18:50 18:50 19:00 Pulse 109 107 108 106 Resp 20 20 B/P (MAP) 110/57 (74) 138/65 (89) 119/56 (77) Pulse Ox 90 96 90 O2 Delivery Ventilator Ventilator Ventilator 06/13/19 06/13/19 06/13/19 06/13/19 19:40 19:45 20:00 20:00 Temp 98.7 98.7 Pulse 120 Resp 20 39 B/P (MAP) 63/32 (42) Pulse Ox 100 92 O2 Delivery Ventilator Mechanical Ventilator Ventilator 06/13/19 06/13/19 06/13/19 06/13/19 20:30 21:00 21:00 22:00 Pulse 114 116 110 Resp 36 28 30 B/P (MAP) 72/34 (47) 64/45 (51) 80/40 (53) Pulse Ox 92 92 92 92 O2 Delivery Ventilator Ventilator Ventilator Ventilator 06/13/19 06/13/19 06/13/19 06/13/19 22:00 23:00 23:00 23:37 Pulse 98 Resp 34 B/P (MAP) 96/50 (65) Pulse Ox 92 92 99 O2 Delivery Ventilator Ventilator Ventilator Ventilator 06/14/19 06/14/19 06/14/19 06/14/19 00:00 00:00 00:00 00:00 Temp 98.8 98.8 Pulse 110 98 Resp 32 B/P (MAP) 105/67 (80) 96/50 (65) Pulse Ox 92 O2 Delivery Mechanical Ventilator Ventilator Ventilator O2 Flow Rate 4.0 06/14/19 06/14/19 06/14/19 06/14/19 01:00 01:00 01:05 02:00 Pulse 91 91 Resp 27 34 B/P (MAP) 112/64 (80) 113/62 (79) Pulse Ox 92 90 93 O2 Delivery Ventilator Ventilator Ventilator Ventilator 06/14/19 06/14/19 06/14/19 06/14/19 02:53 03:00 03:23 04:00 Pulse 90 Resp 28 32 26 B/P (MAP) 123/65 (84) Pulse Ox 98 O2 Delivery Ventilator Mechanical Ventilator O2 Flow Rate 4.0 06/14/19 06/14/19 06/14/19 06/14/19 04:00 04:00 04:10 05:00 Temp 98.6 98.6 Pulse 90 87 87 Resp 22 24 B/P (MAP) 103/58 (73) 110/60 (77) 112/61 (78) Pulse Ox 97 99 97 O2 Delivery Ventilator Ventilator Ventilator 06/14/19 06/14/19 06/14/19 06/14/19 05:19 06:00 07:00 07:16 Temp 99.6 99.6 Pulse 87 88 Resp 22 26 B/P (MAP) 112/61 (78) 125/64 (84) Pulse Ox 99 97 97 96 O2 Delivery Ventilator Ventilator Ventilator Ventilator 06/14/19 06/14/19 06/14/19 06/14/19 08:00 08:00 08:00 08:36 Pulse 88 88 Resp 24 B/P (MAP) 125/64 (84) 120/59 (79) Pulse Ox 98 98 O2 Delivery Mechanical Ventilator Ventilator Ventilator 06/14/19 06/14/19 06/14/19 06/14/19 09:00 09:56 10:00 11:23 Pulse 89 89 Resp 25 25 24 B/P (MAP) 105/54 (71) 115/59 (77) Pulse Ox 97 97 97 100 O2 Delivery Ventilator Ventilator Ventilator Ventilator Intake and Output 06/13/19 06/13/19 06/14/19 15:00 23:00 07:00 Intake Total 2200 ml 4834.5 ml Output Total 0 ml 500 ml Balance 2200 ml 4334.5 ml SAMUEL NICE MD Jun 14, 2019 12:03
[2019-06-14] MEDS ORDERED: HEPARIN for IV BOLUS 10,000 UNIT/10 ML VIAL. IV PRN (12:30)
[2019-06-14] MEDS: HEPARIN 25,000UTS/500ML PREMIX 500 ML IV PRN (12:34)
--- NOTE | 2019-06-14 12:56 | NUR ---
SS following for discharge planning. SS reviewed pt chart. Pt is self pay pt. HCFS following for self pay status. Pt is from home and is currently on the vent. SS will continue to follow for discharge planning.
--- NOTE | 2019-06-14 13:30 | RAD ---
EXAM: Abdomen sonogram. HISTORY: Elevated liver function laboratory values lipase. TECHNIQUE: Sonographic imaging of the abdomen was performed. COMPARISON: None. FINDINGS: The liver is upper normal in size. There is hepatic steatosis. There may be hepatic surface nodularity. No focal hepatic lesion is seen. The gallbladder is not seen and may be surgically absent. The common bile duct is obscured due to body habitus and bowel gas. The kidneys are normal in size. There is no hydronephrosis or suspicious renal lesion. The spleen is upper normal in size. The pancreas, aorta and inferior vena cava are obscured. There is a small to moderate amount of abdominal ascites. IMPRESSION: 1. Upper normal liver size and suspected hepatic steatosis. There may also be hepatic surface nodularity due to cirrhosis. 2. Small moderate abdominal ascites. 3. Obscured midline structures and common bile duct. The gallbladder is not seen and may be contracted or surgically absent. Electronically signed by: Mona Phillips MD (06/14/2019 1:27 PM) [email or web address]
[2019-06-14] MEDS: POTASSIUM CHLORIDE 20 MEQ in DIALYSIS SOLUTION BGK 0/2.5 5,000 ML IV SCH ×15 (13:36→23:51)
--- NOTE | 2019-06-14 13:36 | NUR ---
CRRT initiated by Willard SERVIN.
[2019-06-14] MEDS ORDERED: HEPARIN for SUB-Q USE 5,000 UNIT/ML VIAL. SQ SCH (14:00)
--- NOTE | 2019-06-14 14:44 | RAD ---
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 Informed consent was obtained. A timeout procedure was performed. All elements of maximal sterile barrier technique including the use of a cap, mask, sterile gown, sterile gloves, large sterile sheet, appropriate hand hygiene, and 2% chlorhexidine for cutaneous antisepsis (or acceptable alternative antiseptic per current guidelines) were followed for this procedure. The patient was prepped and draped in the usual sterile fashion. Ultrasound interrogation of the right neck revealed patency and compressibility of the right internal jugular vein. A 21-gauge micropuncture was then used to gain access to this vein under ultrasound guidance. A hard copy ultrasound image was recorded. A guidewire was advanced centrally. 5 [place] sheath was placed. Over a wire following dilatation, a triple-lumen central temporary dialysis catheter was advanced centrally. Catheter was found to flush and aspirate normally. Follow-up chest radiograph demonstrates tip at the proximal right atrium with the patient supine, with low inspiration. Catheter secured in place and a sterile dressing was applied. No immediate complications were identified. Impression: Ultrasound placement of right internal jugular triple-lumen temporary dialysis catheter
--- NOTE | 2019-06-14 15:22 | PDOC ---
PULMONARY PROGRESS NOTES Vitals Vital Signs Date Time Temp Pulse Resp B/P (MAP) Pulse Ox O2 Delivery O2 Flow Rate FiO2 06/14/19 14:58 85 28 90/47 (61) 100 Ventilator 06/14/19 13:00 100.7 100.7 06/14/19 04:00 4.0 Lungs: Other (dec BS sec to inc ap and poor effort, transmitted BS from vent) Skin: Dry Labs Laboratory Tests Test 06/13/19 16:12 06/13/19 16:16 06/13/19 16:50 06/13/19 19:30 Prothrombin Time 14.2 SEC (11.7-14.0) Prothromb Time International Ratio 1.1 (0.8-1.1) D-Dimer (Janet) 3.80 ug/mlFEU (0.00-0.50) White Blood Count 44.3 x10^3/uL (4.0-11.0) Red Blood Count 4.14 x10^6/uL (3.50-5.40) Hemoglobin 10.4 g/dL (12.0-15.5) Hematocrit 33.2 % (36.0-47.0) Mean Corpuscular Volume 80 fL (79-100) Mean Corpuscular Hemoglobin 25 pg (25-35) Mean Corpuscular Hemoglobin Concent 31 g/dL (31-37) Red Cell Distribution Width 16.4 % (11.5-14.5) Platelet Count 620 x10^3/uL (140-400) Neutrophils (%) (Auto) 93 % (31-73) Lymphocytes (%) (Auto) 3 % (24-48) Monocytes (%) (Auto) 3 % (0-9) Eosinophils (%) (Auto) 1 % (0-3) Basophils (%) (Auto) 0 % (0-3) Neutrophils # (Auto) 41.3 x10^3/uL (1.8-7.7) Lymphocytes # (Auto) 1.1 x10^3/uL (1.0-4.8) Monocytes # (Auto) 1.5 x10^3/uL (0.0-1.1) Eosinophils # (Auto) 0.2 x10^3/uL (0.0-0.7) Basophils # (Auto) 0.1 x10^3/uL (0.0-0.2) Segmented Neutrophils % 89 % (35-66) Band Neutrophils % 3 % (0-9) Lymphocytes % 4 % (24-48) Monocytes % 4 % (0-10) Platelet Estimate Increased (ADEQUATE) Large Platelets Occ Polychromasia Slight Anisocytosis Slight Urine Collection Type U cath Urine Color [place] Urine Clarity Turbid Urine pH 5.5 Urine Specific [place] >=1.030 Urine Protein 100 mg/dL (NEG-TRACE) Urine Glucose (UA) Negative mg/dL (NEG) Urine Ketones (Stick) Trace mg/dL (NEG) Urine Blood Negative (NEG) Urine Nitrite Positive (NEG) Urine Bilirubin Large (NEG) Urine Urobilinogen Dipstick 4.0 mg/dL (0.2 mg/dL) Urine Leukocyte Esterase Small (NEG) Urine RBC 0 /HPF (0-2) Urine WBC 5-10 /HPF (0-4) Urine Squamous Epithelial Cells Occ /LPF Urine Amorphous Sediment Present /HPF Urine Bacteria Few /HPF (0-FEW) Sodium Level 132 mmol/L (136-145) Potassium Level 3.0 mmol/L (3.5-5.1) Chloride Level 93 mmol/L (98-107) Carbon Dioxide Level 18 mmol/L (21-32) Anion Gap 21 (6-14) Blood Urea Nitrogen 16 mg/dL (7-20) Creatinine 1.8 mg/dL (0.6-1.0) Estimated GFR (Cockcroft-Gault) 31.7 BUN/Creatinine Ratio 9 (6-20) Glucose Level 233 mg/dL (70-99) Lactic Acid Level 10.8 mmol/L (0.4-2.0) Calcium Level 9.1 mg/dL (8.5-10.1) Magnesium Level 2.5 mg/dL (1.8-2.4) Total Bilirubin 2.9 mg/dL (0.2-1.0) Aspartate Amino Transf (AST/SGOT) 158 U/L (15-37) Alanine Aminotransferase (ALT/SGPT) 77 U/L (14-59) Alkaline Phosphatase 346 U/L (46-116) Creatine Kinase 156 U/L (26-192) Troponin I Quantitative < 0.017 ng/mL (0.000-0.055) [id number]-Type Natriuretic Peptide 1110 pg/mL (0-124) Total Protein 7.8 g/dL (6.4-8.2) Albumin 2.6 g/dL (3.4-5.0) Albumin/Globulin Ratio 0.5 (1.0-1.7) Lipase 1861 U/L (73-393) Urine Opiates Screen Neg (NEG) Urine Methadone Screen Neg (NEG) Urine Barbiturates Neg (NEG) Urine Phencyclidine Screen Neg (NEG) Urine Amphetamine/Methamphetamine Pos (NEG) Urine Benzodiazepines Screen Neg (NEG) Urine Cocaine Screen Neg (NEG) Urine Cannabinoids Screen Neg (NEG) Urine Ethyl Alcohol Neg (NEG) O2 Saturation 92 % (92-99) 99 % (92-99) Arterial Blood pH 7.30 (7.35-7.45) 7.31 (7.35-7.45) Arterial Blood pCO2 at Patient Temp 31 mmHg (35-46) 27 mmHg (35-46) Arterial Blood pO2 at Patient Temp 68 mmHg (85-108) 259 mmHg (85-108) Arterial Blood HCO3 15 mmol/L (21-28) 13 mmol/L (21-28) Arterial Blood Base Excess -10 mmol/L (-3-3) -11 mmol/L (-3-3) FiO2 36 Test 06/13/19 20:00 06/14/19 05:00 06/14/19 07:30 06/14/19 08:10 Lactic Acid Level 6.1 mmol/L (0.4-2.0) 4.8 mmol/L (0.4-2.0) 5.0 mmol/L (0.4-2.0) Sodium Level 131 mmol/L (136-145) Potassium Level 3.3 mmol/L (3.5-5.1) Chloride Level 96 mmol/L (98-107) Carbon Dioxide Level 18 mmol/L (21-32) Anion Gap 17 (6-14) Blood Urea Nitrogen 21 mg/dL (7-20) Creatinine 2.3 mg/dL (0.6-1.0) Estimated GFR (Cockcroft-Gault) 23.9 BUN/Creatinine Ratio 9 (6-20) Glucose Level 118 mg/dL (70-99) Calcium Level 7.6 mg/dL (8.5-10.1) Phosphorus Level 3.2 mg/dL (2.6-4.7) Magnesium Level 2.0 mg/dL (1.8-2.4) Iron Level 36 ug/dL (50-170) Total Iron Binding Capacity 133 ug/dL (250-450) Iron Saturation 27 % (15-34) Total Bilirubin 3.6 mg/dL (0.2-1.0) Aspartate Amino Transf (AST/SGOT) 168 U/L (15-37) Alanine Aminotransferase (ALT/SGPT) 58 U/L (14-59) Alkaline Phosphatase 297 U/L (46-116) Total Protein 5.8 g/dL (6.4-8.2) Albumin 1.6 g/dL (3.4-5.0) Albumin/Globulin Ratio 0.4 (1.0-1.7) Vitamin B12 Level 1490 pg/mL (247-911) Hepatitis A IgM Antibody Nonreactive (Nonreactive) Hepatitis B Surface Antigen Nonreactive (Nonreactive) Hepatitis B Core Total Antibody Nonreactive (Nonreactive) Hepatitis B Core IgM Antibody Nonreactive (Nonreactive) Hepatitis C IgG Antibody Nonreactive (Nonreactive) O2 Saturation 96 % (92-99) Arterial Blood pH 7.33 (7.35-7.45) Arterial Blood pCO2 at Patient Temp 32 mmHg (35-46) Arterial Blood pO2 at Patient Temp 85 mmHg (85-108) Arterial Blood HCO3 17 mmol/L (21-28) Arterial Blood Base Excess -8 mmol/L (-3-3) FiO2 60% Laboratory Tests Test 06/13/19 16:12 06/13/19 16:16 06/13/19 16:50 06/13/19 19:30 Prothrombin Time 14.2 SEC (11.7-14.0) Prothromb Time International Ratio 1.1 (0.8-1.1) D-Dimer (Janet) 3.80 ug/mlFEU (0.00-0.50) White Blood Count 44.3 x10^3/uL (4.0-11.0) Red Blood Count 4.14 x10^6/uL (3.50-5.40) Hemoglobin 10.4 g/dL (12.0-15.5) Hematocrit 33.2 % (36.0-47.0) Mean Corpuscular Volume 80 fL (79-100) Mean Corpuscular Hemoglobin 25 pg (25-35) Mean Corpuscular Hemoglobin Concent 31 g/dL (31-37) Red Cell Distribution Width 16.4 % (11.5-14.5) Platelet Count 620 x10^3/uL (140-400) Neutrophils (%) (Auto) 93 % (31-73) Lymphocytes (%) (Auto) 3 % (24-48) Monocytes (%) (Auto) 3 % (0-9) Eosinophils (%) (Auto) 1 % (0-3) Basophils (%) (Auto) 0 % (0-3) Neutrophils # (Auto) 41.3 x10^3/uL (1.8-7.7) Lymphocytes # (Auto) 1.1 x10^3/uL (1.0-4.8) Monocytes # (Auto) 1.5 x10^3/uL (0.0-1.1) Eosinophils # (Auto) 0.2 x10^3/uL (0.0-0.7) Basophils # (Auto) 0.1 x10^3/uL (0.0-0.2) Segmented Neutrophils % 89 % (35-66) Band Neutrophils % 3 % (0-9) Lymphocytes % 4 % (24-48) Monocytes % 4 % (0-10) Platelet Estimate Increased (ADEQUATE) Large Platelets Occ Polychromasia Slight Anisocytosis Slight Urine Collection Type U cath Urine Color [place] Urine Clarity Turbid Urine pH 5.5 Urine Specific [place] >=1.030 Urine Protein 100 mg/dL (NEG-TRACE) Urine Glucose (UA) Negative mg/dL (NEG) Urine Ketones (Stick) Trace mg/dL (NEG) Urine Blood Negative (NEG) Urine Nitrite Positive (NEG) Urine Bilirubin Large (NEG) Urine Urobilinogen Dipstick 4.0 mg/dL (0.2 mg/dL) Urine Leukocyte Esterase Small (NEG) Urine RBC 0 /HPF (0-2) Urine WBC 5-10 /HPF (0-4) Urine Squamous Epithelial Cells Occ /LPF Urine Amorphous Sediment Present /HPF Urine Bacteria Few /HPF (0-FEW) Sodium Level 132 mmol/L (136-145) Potassium Level 3.0 mmol/L (3.5-5.1) Chloride Level 93 mmol/L (98-107) Carbon Dioxide Level 18 mmol/L (21-32) Anion Gap 21 (6-14) Blood Urea Nitrogen 16 mg/dL (7-20) Creatinine 1.8 mg/dL (0.6-1.0) Estimated GFR (Cockcroft-Gault) 31.7 BUN/Creatinine Ratio 9 (6-20) Glucose Level 233 mg/dL (70-99) Lactic Acid Level 10.8 mmol/L (0.4-2.0) Calcium Level 9.1 mg/dL (8.5-10.1) Magnesium Level 2.5 mg/dL (1.8-2.4) Total Bilirubin 2.9 mg/dL (0.2-1.0) Aspartate Amino Transf (AST/SGOT) 158 U/L (15-37) Alanine Aminotransferase (ALT/SGPT) 77 U/L (14-59) Alkaline Phosphatase 346 U/L (46-116) Creatine Kinase 156 U/L (26-192) Troponin I Quantitative < 0.017 ng/mL (0.000-0.055) YS-Hto-Y-Type Natriuretic Peptide 1110 pg/mL (0-124) Total Protein 7.8 g/dL (6.4-8.2) Albumin 2.6 g/dL (3.4-5.0) Albumin/Globulin Ratio 0.5 (1.0-1.7) Lipase 1861 U/L (73-393) Urine Opiates Screen Neg (NEG) Urine Methadone Screen Neg (NEG) Urine Barbiturates Neg (NEG) Urine Phencyclidine Screen Neg (NEG) Urine Amphetamine/Methamphetamine Pos (NEG) Urine Benzodiazepines Screen Neg (NEG) Urine Cocaine Screen Neg (NEG) Urine Cannabinoids Screen Neg (NEG) Urine Ethyl Alcohol Neg (NEG) O2 Saturation 92 % (92-99) 99 % (92-99) Arterial Blood pH 7.30 (7.35-7.45) 7.31 (7.35-7.45) Arterial Blood pCO2 at Patient Temp 31 mmHg (35-46) 27 mmHg (35-46) Arterial Blood pO2 at Patient Temp 68 mmHg (85-108) 259 mmHg (85-108) Arterial Blood HCO3 15 mmol/L (21-28) 13 mmol/L (21-28) Arterial Blood Base Excess -10 mmol/L (-3-3) -11 mmol/L (-3-3) FiO2 36 Test 06/13/19 20:00 06/14/19 05:00 06/14/19 07:30 06/14/19 08:10 Lactic Acid Level 6.1 mmol/L (0.4-2.0) 4.8 mmol/L (0.4-2.0) 5.0 mmol/L (0.4-2.0) Sodium Level 131 mmol/L (136-145) Potassium Level 3.3 mmol/L (3.5-5.1) Chloride Level 96 mmol/L (98-107) Carbon Dioxide Level 18 mmol/L (21-32) Anion Gap 17 (6-14) Blood Urea Nitrogen 21 mg/dL (7-20) Creatinine 2.3 mg/dL (0.6-1.0) Estimated GFR (Cockcroft-Gault) 23.9 BUN/Creatinine Ratio 9 (6-20) Glucose Level 118 mg/dL (70-99) Calcium Level 7.6 mg/dL (8.5-10.1) Phosphorus Level 3.2 mg/dL (2.6-4.7) Magnesium Level 2.0 mg/dL (1.8-2.4) Iron Level 36 ug/dL (50-170) Total Iron Binding Capacity 133 ug/dL (250-450) Iron Saturation 27 % (15-34) Total Bilirubin 3.6 mg/dL (0.2-1.0) Aspartate Amino Transf (AST/SGOT) 168 U/L (15-37) Alanine Aminotransferase (ALT/SGPT) 58 U/L (14-59) Alkaline Phosphatase 297 U/L (46-116) Total Protein 5.8 g/dL (6.4-8.2) Albumin 1.6 g/dL (3.4-5.0) Albumin/Globulin Ratio 0.4 (1.0-1.7) Vitamin B12 Level 1490 pg/mL (247-911) Hepatitis A IgM Antibody Nonreactive (Nonreactive) Hepatitis B Surface Antigen Nonreactive (Nonreactive) Hepatitis B Core Total Antibody Nonreactive (Nonreactive) Hepatitis B Core IgM Antibody Nonreactive (Nonreactive) Hepatitis C IgG Antibody Nonreactive (Nonreactive) O2 Saturation 96 % (92-99) Arterial Blood pH 7.33 (7.35-7.45) Arterial Blood pCO2 at Patient Temp 32 mmHg (35-46) Arterial Blood pO2 at Patient Temp 85 mmHg (85-108) Arterial Blood HCO3 17 mmol/L (21-28) Arterial Blood Base Excess -8 mmol/L (-3-3) FiO2 60% Medications Active Scripts Medications Dose Route/Sig Max Daily Dose Days Date Category Tessalon Perle (Benzonatate) 100 Mg Capsule 100 Mg PO TID PRN 06/02/19 Rx Impression . NOTE DICTATED SEPTIC SHOCK RESP FAILURE ELENO MORLEY MD Jun 14, 2019 15:22
--- NOTE | 2019-06-14 16:57 | PDOC2 ---
CONSULT Date of Consult Date of Consult DATE: 06/14/19 TIME: 16:49 Reason for Consult Reason for Consult: Lower extremity massive edema Referring Physician Referring Physician: Mike Identification/Chief Complaint Chief Complaint Patient intubated on ventilator does not communicate Source Source: Chart review History of Present Illness Reason for Visit: 39-year-old female morbidly obese was admitted to the hospital through the emergency department with shortness of breath and lower extremity swelling prior to being transferred out of the emergency department she had to be intubated and ventilated transferred to the intensive care unit. She currently is intubated on maximum support with 4 pressor support, and on continuous dialysis currently. History is that she was seen initially at [facility] was treated for cellulitis unknown reason she left [facility] and went to to be evaluated the left before being evaluated emergency department came to [place] emergency room. Past Medical History Cardiovascular: No pertinent hx Pulmonary: No pertinent hx GI: No pertinent hx Heme/Onc: No pertinent hx Hepatobiliary: No pertinent hx Psych: Addictions (meth user), Other Rheumatologic: No pertinent hx Infectious disease: No pertinent hx, Other ENT: No pertinent hx Renal/: No pertinent hx Endocrine: No pertinent hx Past Surgical History Past Surgical History: Cholecystectomy, , Tonsillectomy Family History Family History: Family History Unknown Social History Drugs: Other (tox screen +amphetamines) Current Problem List Problem List Problems Medical Problems: (1) Acute respiratory failure Status: Acute (2) Elevated brain natriuretic peptide (BNP) level Status: Acute (3) Elevated d-dimer Status: Acute (4) Elevated lipase Status: Acute (5) Elevated liver function tests Status: Acute (6) GI bleeding Status: Acute (7) Hyperglycemia Status: Acute (8) Hypermagnesuria Status: Acute (9) Hypoalbuminemia Status: Acute (10) Hypokalemia Status: Acute (11) Hyponatremia Status: Acute (12) Lower extremity cellulitis Status: Acute (13) Metabolic acidosis Status: Acute (14) Methamphetamine abuse Status: Acute (15) Morbid obesity with BMI of 60.0-69.9, adult Status: Acute (16) Renal insufficiency Status: Acute (17) Sepsis Status: Acute (18) Severe sepsis Status: Acute Current Medications Current Medications Current Medications Sodium Chloride 1,000 ml @ 1,000 mls/hr Q1H IV Last administered on 06/13/19at 16:56; Start 06/13/19 at 16:12; Stop 06/13/19 at 17:11; Status DC Albuterol/ Ipratropium (Duoneb) 3 ml 1X ONCE NEB Last administered on 06/13/19a t 16:31; Start 06/13/19 at 16:15; Stop 06/13/19 at 16:19; Status DC Piperacillin Sod/ Tazobactam Sod 4.5 gm/Sodium Chloride 100 ml @ 200 mls/hr 1X ONCE IV Last administered on 06/13/19at 17:13; Start 06/13/19 at 16:45; Stop 06/13/19 at 17:14; Status DC Vancomycin HCl 250 ml @ 250 mls/hr 1X ONCE IV ; Start 06/13/19 at 16:45; Stop 06/13/19 at 17:44; Status UNV Levofloxacin/ Dextrose 150 ml @ 100 mls/hr 1X ONCE IV Last administered on 06/13/19at 18:48; Start 06/13/19 at 16:45; Stop 06/13/19 at 18:14; Status DC Vancomycin HCl 250 ml @ 250 mls/hr 1X ONCE IV ; Start 06/13/19 at 16:45; Stop 06/13/19 at 17:44; Status UNV Sodium Chloride 1,000 ml @ 1,000 mls/hr 1X ONCE IV Last administered on 06/13/19at 16:56; Start 06/13/19 at 16:45; Stop 06/13/19 at 17:44; Status DC Vancomycin HCl 2 gm/Sodium Chloride 500 ml @ 250 mls/hr 1X ONCE IV Last administered on 06/13/19at 21:15; Start 06/13/19 at 16:45; Stop 06/13/19 at 18:44; Status DC Sodium Chloride 1,000 ml @ 1,000 mls/hr 1X ONCE IV ; Start 06/13/19 at 17:15; Stop 06/13/19 at 18:14; Status DC Sodium Chloride 1,000 ml @ 200 mls/hr Q5H IV Last administered on 06/14/19at 11:51; Start 06/13/19 at 17:13; Stop 06/14/19 at 17:12 Lorazepam (Ativan Inj) 1 mg 1X ONCE IVP Last administered on 06/13/19at 17:26; Start 06/13/19 at 17:30; Stop 06/13/19 at 17:31; Status DC Lorazepam (Ativan Inj) 2 mg STK-MED ONCE .ROUTE ; Start 06/13/19 at 17:23; Stop 06/13/19 at 17:24; Status DC Norepinephrine Bitartrate 250 ml @ 29.974 mls/ hr 1X ONCE IV Last administered on 06/13/19at 17:47; Start 06/13/19 at 17:45; Stop 06/14/19 at 02:05; Status DC Midazolam HCl 100 ml @ 0 mls/hr 1X ONCE IV Last administered on 06/13/19at 17:54; Start 06/13/19 at 17:45; Stop 06/13/19 at 17:46; Status DC Fentanyl Citrate (Fentanyl 2ml Vial) 100 mcg STK-MED ONCE .ROUTE ; Start 06/13/19 at 18:06; Stop 06/13/19 at 18:06; Status DC Pantoprazole Sodium 80 mg/ Sodium Chloride 100 ml @ 10 mls/hr 1X ONCE IV Last administered on 06/13/19at 20:00; Start 06/13/19 at 18:15; Stop 06/14/19 at 04:14; Status DC Pantoprazole Sodium (PROTONIX VIAL for IV PUSH) 40 mg 1X ONCE IVP ; Start 06/13/19 at 18:15; Stop 06/13/19 at 18:25; Status DC Fentanyl Citrate (Fentanyl 2ml Vial) 25 mcg 1X ONCE IVP Last administered on 06/13/19at 18:24; Start 06/13/19 at 18:15; Stop 06/13/19 at 18:24; Status DC Midazolam HCl (Versed) 5 mg 1X ONCE IV Last administered on 06/13/19at 18:24; Start 06/13/19 at 18:30; Stop 06/13/19 at 18:31; Status DC Dexmedetomidine HCl 400 mcg/ Sodium Chloride 100 ml @ 0 mls/hr CONT PRN IV PER PROTOCOL Last administered on 06/14/19at 15:47; Start 06/13/19 at 18:30 Sodium Chloride 500 ml @ 500 mls/hr 1X PRN PRN IV HYPOTENSION; Start 06/13/19 at 18:30 Atropine Sulfate (ATROPINE 0.5mg SYRINGE) 0.5 mg PRN Q5MIN PRN IV SEE COMMENTS; Start 06/13/19 at 18:30 Etomidate (Amidate) 20 mg 1X ONCE IV Last administered on 06/13/19at 18:47; Start 06/13/19 at 18:45; Stop 06/13/19 at 18:48; Status DC Succinylcholine Chloride (Anectine) 100 mg 1X ONCE IV Last administered on 06/13/19at 18:47; Start 06/13/19 at 18:45; Stop 06/13/19 at 18:48; Status DC Norepinephrine Bitartrate 250 ml @ 30.495 mls/ hr CONT PRN IV SEE I/O RECORD Last administered on 06/13/19at 23:21; Start 06/13/19 at 21:30; Stop 06/14/19 at 00:00; Status DC Dexmedetomidine HCl 400 mcg/ Sodium Chloride 100 ml @ 0 mls/hr CONT PRN IV SEDATION; Start 06/13/19 at 21:30; Status UNV Sodium Chloride 500 ml @ 500 mls/hr 1X PRN PRN IV SEDATION; Start 06/13/19 at 21:30; Status UNV Atropine Sulfate (ATROPINE 0.5mg SYRINGE) 0.5 mg PRN Q5MIN PRN IV SEE COMMENTS; Start 06/13/19 at 21:30; Status UNV Midazolam HCl 100 ml @ 5 mls/hr CONT PRN IV SEE I/O RECORD Last administered on 06/14/19at 15:47; Start 06/13/19 at 21:45 Info (FLU VACCINE SCREEN per RX) 1 each PRN DAILY PRN MC SEE COMMENTS; Start 06/13/19 at 23:45 Norepinephrine Bitartrate 250 ml @ 30.495 mls/ hr CONT PRN IV SEE I/O RECORD; Start 06/13/19 at 23:45; Stop 06/14/19 at 00:00; Status DC Phenylephrine HCl 20 mg/Sodium Chloride 252 ml @ 61.478 mls/ hr CONT PRN IV SEE I/O RECORD; Start 06/14/19 at 00:00; Status UNV Phenylephrine HCl 80 mg/Sodium Chloride 258 ml @ 15.674 mls/ hr CONT PRN IV SEE I/O RECORD Last administered on 06/14/19at 10:52; Start 06/13/19 at 23:45 Norepinephrine Bitartrate 32 mg/ Sodium Chloride 250 ml @ 7.594 mls/ hr CONT PRN IV SEE I/O RECORD Last administered on 06/14/19at 11:52; Start 06/13/19 at 23:45 Sodium Chloride 500 ml @ 500 mls/hr Q1H IV Last administered on 06/14/19at 01:30; Start 06/14/19 at 01:30; Stop 06/14/19 at 02:29; Status DC Sodium Bicarbonate 150 meq/Dextrose 1,150 ml @ 75 mls/hr [id number] IV Last administered on 06/14/19at 15:47; Start 06/14/19 at 02:00 Vasopressin 40 unit/Dextrose 102 ml @ 6 mls/hr CONT PRN IV SEE I/O RECORD Last administered on 06/14/19at 15:48; Start 06/14/19 at 02:00 Fentanyl Citrate 30 ml @ 0 mls/hr CONT PRN IV SEE PROTOCOL Last administered on 06/14/19at 15:35; Start 06/14/19 at 02:45 Pantoprazole Sodium 80 mg/ Sodium Chloride 100 ml @ 10 mls/hr Q10H IV Last administered on 06/14/19at 14:59; Start 06/14/19 at 04:00 Meropenem 1 gm/ Sodium Chloride 100 ml @ 200 mls/hr Q12HR IV Last administered on 06/14/19at 09:00; Start 06/14/19 at 09:00 Micafungin Sodium 100 mg/Dextrose 100 ml @ 100 mls/hr Q24H IV Last administered on 06/14/19at 10:52; Start 06/14/19 at 10:00 Daptomycin 600 mg/ Sodium Chloride 50 ml @ 100 mls/hr Q24H IV Last administered on 06/14/19at 11:52; Start 06/14/19 at 11:00 Heparin Sodium (Porcine) (Heparin Sodium) 5,000 unit Q8HRS SQ ; Start 06/14/19 at 14:00; Stop 06/14/19 at 12:12; Status DC Acetaminophen (Tylenol) 650 mg PRN Q6HRS PRN PEG MILD PAIN / TEMP; Start 06/14/19 at 08:45 Acetaminophen/ Codeine Phosphate (Tylenol/Codeine Soln) 5 ml PRN Q6HRS PRN PO MODERATE PAIN; Start 06/14/19 at 08:45 Ondansetron HCl (Zofran) 4 mg PRN Q6HRS PRN IVP NAUSEA/VOMITING; Start 06/14/19 at 08:45 Lidocaine HCl (Buffered Lidocaine 1%) 3 ml STK-MED ONCE .ROUTE ; Start 06/14/19 at 10:45; Stop 06/14/19 at 10:45; Status DC Heparin Sodium (Porcine) (Heparin Sodium) 10,000 unit STK-MED ONCE .ROUTE ; Start 06/14/19 at 10:46; Stop 06/14/19 at 10:46; Status DC Lidocaine HCl (Buffered Lidocaine 1%) 5 ml 1X ONCE INJ Last administered on 06/14/19at 11:23; Start 06/14/19 at 11:15; Stop 06/14/19 at 11:16; Status DC Heparin Sodium/ Dextrose 500 ml @ 0 mls/hr CONT PRN IV PER PROTOCOL Last administered on 06/14/19at 12:34; Start 06/14/19 at 12:30 Heparin Sodium (Porcine) (Heparin Sodium) 4,150 unit PRN Q6HRS PRN IV FOR UFH LEVEL LESS THAN 0.2; Start 06/14/19 at 12:30 Potassium Chloride 20 meq/ Bicarbonate Dialysis Soln w/ out KCl 5,010 ml @ 1,500 mls/hr Q3H21M IV Last administered on 06/14/19at 13:36; Start 06/14/19 at 14:00 Potassium Chloride 20 meq/ Bicarbonate Dialysis Soln w/ out KCl 5,010 ml @ 1,500 mls/hr Q3H21M IV Last administered on 06/14/19at 13:37; Start 06/14/19 at 14:00 Potassium Chloride 20 meq/ Bicarbonate Dialysis Soln w/ out KCl 5,010 ml @ 1,500 mls/hr Q3H21M IV Last administered on 06/14/19at 13:36; Start 06/14/19 at 14:00 Active Scripts Active Tessalon Perle (Benzonatate) 100 Mg Capsule 100 Mg PO TID PRN Allergies Allergies: Coded Allergies: No Known Drug Allergies (Unverified , 12/08/13) Physical Exam General: Other (intubated sedated) HEENT: Other (tracheal tube in place) Lungs: Other (related) Heart: Regular rate, No murmurs Abdomen: Normal bowel sounds, Soft Extremities: Other (massive bilateral edema lower extremities left greater than right ecchymotic lesions both legs left greater than right no fluctuance or crepitance by palpation) Vitals VITALS Vital Signs Date Time Temp Pulse Resp B/P (MAP) Pulse Ox O2 Delivery O2 Flow Rate FiO2 06/14/19 16:00 95 100/49 (66) 06/14/19 16:00 Mechanical Ventilator 06/14/19 15:11 99 06/14/19 14:58 28 06/14/19 13:00 100.7 100.7 06/14/19 04:00 4.0 Labs Labs Laboratory Tests Test 06/13/19 16:12 06/13/19 16:16 06/13/19 16:50 06/13/19 19:30 Prothrombin Time 14.2 SEC (11.7-14.0) Prothromb Time International Ratio 1.1 (0.8-1.1) D-Dimer (Janet) 3.80 ug/mlFEU (0.00-0.50) White Blood Count 44.3 x10^3/uL (4.0-11.0) Red Blood Count 4.14 x10^6/uL (3.50-5.40) Hemoglobin 10.4 g/dL (12.0-15.5) Hematocrit 33.2 % (36.0-47.0) Mean Corpuscular Volume 80 fL (79-100) Mean Corpuscular Hemoglobin 25 pg (25-35) Mean Corpuscular Hemoglobin Concent 31 g/dL (31-37) Red Cell Distribution Width 16.4 % (11.5-14.5) Platelet Count 620 x10^3/uL (140-400) Neutrophils (%) (Auto) 93 % (31-73) Lymphocytes (%) (Auto) 3 % (24-48) Monocytes (%) (Auto) 3 % (0-9) Eosinophils (%) (Auto) 1 % (0-3) Basophils (%) (Auto) 0 % (0-3) Neutrophils # (Auto) 41.3 x10^3/uL (1.8-7.7) Lymphocytes # (Auto) 1.1 x10^3/uL (1.0-4.8) Monocytes # (Auto) 1.5 x10^3/uL (0.0-1.1) Eosinophils # (Auto) 0.2 x10^3/uL (0.0-0.7) Basophils # (Auto) 0.1 x10^3/uL (0.0-0.2) Segmented Neutrophils % 89 % (35-66) Band Neutrophils % 3 % (0-9) Lymphocytes % 4 % (24-48) Monocytes % 4 % (0-10) Platelet Estimate Increased (ADEQUATE) Large Platelets Occ Polychromasia Slight Anisocytosis Slight Urine Collection Type U cath Urine Color Riddle Urine Clarity Turbid Urine pH 5.5 Urine Specific [place] >=1.030 Urine Protein 100 mg/dL (NEG-TRACE) Urine Glucose (UA) Negative mg/dL (NEG) Urine Ketones (Stick) Trace mg/dL (NEG) Urine Blood Negative (NEG) Urine Nitrite Positive (NEG) Urine Bilirubin Large (NEG) Urine Urobilinogen Dipstick 4.0 mg/dL (0.2 mg/dL) Urine Leukocyte Esterase Small (NEG) Urine RBC 0 /HPF (0-2) Urine WBC 5-10 /HPF (0-4) Urine Squamous Epithelial Cells Occ /LPF Urine Amorphous Sediment Present /HPF Urine Bacteria Few /HPF (0-FEW) Sodium Level 132 mmol/L (136-145) Potassium Level 3.0 mmol/L (3.5-5.1) Chloride Level 93 mmol/L (98-107) Carbon Dioxide Level 18 mmol/L (21-32) Anion Gap 21 (6-14) Blood Urea Nitrogen 16 mg/dL (7-20) Creatinine 1.8 mg/dL (0.6-1.0) Estimated GFR (Cockcroft-Gault) 31.7 BUN/Creatinine Ratio 9 (6-20) Glucose Level 233 mg/dL (70-99) Lactic Acid Level 10.8 mmol/L (0.4-2.0) Calcium Level 9.1 mg/dL (8.5-10.1) Magnesium Level 2.5 mg/dL (1.8-2.4) Total Bilirubin 2.9 mg/dL (0.2-1.0) Aspartate Amino Transf (AST/SGOT) 158 U/L (15-37) Alanine Aminotransferase (ALT/SGPT) 77 U/L (14-59) Alkaline Phosphatase 346 U/L (46-116) Creatine Kinase 156 U/L (26-192) Troponin I Quantitative < 0.017 ng/mL (0.000-0.055) NC-Szi-K-Type Natriuretic Peptide 1110 pg/mL (0-124) Total Protein 7.8 g/dL (6.4-8.2) Albumin 2.6 g/dL (3.4-5.0) Albumin/Globulin Ratio 0.5 (1.0-1.7) Lipase 1861 U/L (73-393) Urine Opiates Screen Neg (NEG) Urine Methadone Screen Neg (NEG) Urine Barbiturates Neg (NEG) Urine Phencyclidine Screen Neg (NEG) Urine Amphetamine/Methamphetamine Pos (NEG) Urine Benzodiazepines Screen Neg (NEG) Urine Cocaine Screen Neg (NEG) Urine Cannabinoids Screen Neg (NEG) Urine Ethyl Alcohol Neg (NEG) O2 Saturation 92 % (92-99) 99 % (92-99) Arterial Blood pH 7.30 (7.35-7.45) 7.31 (7.35-7.45) Arterial Blood pCO2 at Patient Temp 31 mmHg (35-46) 27 mmHg (35-46) Arterial Blood pO2 at Patient Temp 68 mmHg (85-108) 259 mmHg (85-108) Arterial Blood HCO3 15 mmol/L (21-28) 13 mmol/L (21-28) Arterial Blood Base Excess -10 mmol/L (-3-3) -11 mmol/L (-3-3) FiO2 36 Test 06/13/19 20:00 06/14/19 05:00 06/14/19 07:30 06/14/19 08:10 Lactic Acid Level 6.1 mmol/L (0.4-2.0) 4.8 mmol/L (0.4-2.0) 5.0 mmol/L (0.4-2.0) Sodium Level 131 mmol/L (136-145) Potassium Level 3.3 mmol/L (3.5-5.1) Chloride Level 96 mmol/L (98-107) Carbon Dioxide Level 18 mmol/L (21-32) Anion Gap 17 (6-14) Blood Urea Nitrogen 21 mg/dL (7-20) Creatinine 2.3 mg/dL (0.6-1.0) Estimated GFR (Cockcroft-Gault) 23.9 BUN/Creatinine Ratio 9 (6-20) Glucose Level 118 mg/dL (70-99) Calcium Level 7.6 mg/dL (8.5-10.1) Phosphorus Level 3.2 mg/dL (2.6-4.7) Magnesium Level 2.0 mg/dL (1.8-2.4) Iron Level 36 ug/dL (50-170) Total Iron Binding Capacity 133 ug/dL (250-450) Iron Saturation 27 % (15-34) Total Bilirubin 3.6 mg/dL (0.2-1.0) Aspartate Amino Transf (AST/SGOT) 168 U/L (15-37) Alanine Aminotransferase (ALT/SGPT) 58 U/L (14-59) Alkaline Phosphatase 297 U/L (46-116) Total Protein 5.8 g/dL (6.4-8.2) Albumin 1.6 g/dL (3.4-5.0) Albumin/Globulin Ratio 0.4 (1.0-1.7) Vitamin B12 Level 1490 pg/mL (247-911) Hepatitis A IgM Antibody Nonreactive (Nonreactive) Hepatitis B Surface Antigen Nonreactive (Nonreactive) Hepatitis B Core Total Antibody Nonreactive (Nonreactive) Hepatitis B Core IgM Antibody Nonreactive (Nonreactive) Hepatitis C IgG Antibody Nonreactive (Nonreactive) O2 Saturation 96 % (92-99) Arterial Blood pH 7.33 (7.35-7.45) Arterial Blood pCO2 at Patient Temp 32 mmHg (35-46) Arterial Blood pO2 at Patient Temp 85 mmHg (85-108) Arterial Blood HCO3 17 mmol/L (21-28) Arterial Blood Base Excess -8 mmol/L (-3-3) FiO2 60% Laboratory Tests Test 06/13/19 16:50 06/13/19 19:30 06/13/19 20:00 06/14/19 05:00 O2 Saturation 92 % (92-99) 99 % (92-99) Arterial Blood pH 7.30 (7.35-7.45) 7.31 (7.35-7.45) Arterial Blood pCO2 at Patient Temp 31 mmHg (35-46) 27 mmHg (35-46) Arterial Blood pO2 at Patient Temp 68 mmHg (85-108) 259 mmHg (85-108) Arterial Blood HCO3 15 mmol/L (21-28) 13 mmol/L (21-28) Arterial Blood Base Excess -10 mmol/L (-3-3) -11 mmol/L (-3-3) FiO2 36 Lactic Acid Level 6.1 mmol/L (0.4-2.0) 4.8 mmol/L (0.4-2.0) Sodium Level 131 mmol/L (136-145) Potassium Level 3.3 mmol/L (3.5-5.1) Chloride Level 96 mmol/L (98-107) Carbon Dioxide Level 18 mmol/L (21-32) Anion Gap 17 (6-14) Blood Urea Nitrogen 21 mg/dL (7-20) Creatinine 2.3 mg/dL (0.6-1.0) Estimated GFR (Cockcroft-Gault) 23.9 BUN/Creatinine Ratio 9 (6-20) Glucose Level 118 mg/dL (70-99) Calcium Level 7.6 mg/dL (8.5-10.1) Phosphorus Level 3.2 mg/dL (2.6-4.7) Magnesium Level 2.0 mg/dL (1.8-2.4) Iron Level 36 ug/dL (50-170) Total Iron Binding Capacity 133 ug/dL (250-450) Iron Saturation 27 % (15-34) Total Bilirubin 3.6 mg/dL (0.2-1.0) Aspartate Amino Transf (AST/SGOT) 168 U/L (15-37) Alanine Aminotransferase (ALT/SGPT) 58 U/L (14-59) Alkaline Phosphatase 297 U/L (46-116) Total Protein 5.8 g/dL (6.4-8.2) Albumin 1.6 g/dL (3.4-5.0) Albumin/Globulin Ratio 0.4 (1.0-1.7) Vitamin B12 Level 1490 pg/mL (247-911) Hepatitis A IgM Antibody Nonreactive (Nonreactive) Hepatitis B Surface Antigen Nonreactive (Nonreactive) Hepatitis B Core Total Antibody Nonreactive (Nonreactive) Hepatitis B Core IgM Antibody Nonreactive (Nonreactive) Hepatitis C IgG Antibody Nonreactive (Nonreactive) Test 06/14/19 07:30 06/14/19 08:10 O2 Saturation 96 % (92-99) Arterial Blood pH 7.33 (7.35-7.45) Arterial Blood pCO2 at Patient Temp 32 mmHg (35-46) Arterial Blood pO2 at Patient Temp 85 mmHg (85-108) Arterial Blood HCO3 17 mmol/L (21-28) Arterial Blood Base Excess -8 mmol/L (-3-3) FiO2 60% Lactic Acid Level 5.0 mmol/L (0.4-2.0) Images Images Ultrasound lower extremities Limited no DVT noted Assessment/Plan Assessment/Plan Septic obtunded on maximal ventilatory and chemical support getting continuous dialysis Lower extremity massive edema possible cellulitis source of infectious sepsis unknown Early medically unstable not a surgical candidate prognosis grave No surgical plans at this time CHELSEA EDGE MD Jun 14, 2019 16:56
[2019-06-14 20:34] LABS: CALCIUM 7.1 mg/dL (8.5-10.1); PHOSPHORUS 2.9 mg/dL (2.6-4.7); POTASSIUM 3.4 mmol/L (3.5-5.1)
[2019-06-15] VITALS (23 sets, daily range): BP systolic 84–123; BP diastolic 49–65
[2019-06-15] MEDS: POTASSIUM CHLORIDE 20 MEQ in DIALYSIS SOLUTION BGK 0/2.5 5,000 ML IV SCH ×39 (00:03→23:30)
[2019-06-15] MEDS: HEPARIN 25,000UTS/500ML PREMIX 500 ML IV PRN (00:50)
[2019-06-15] MEDS: PHENYLEPHRINE IV PRN ×6 (00:56→22:42)
[2019-06-15] MEDS: NORMAL SALINE IV PRN ×6 (00:56→22:42)
[2019-06-15] MEDS: DEXMEDETOMIDINE 400 MCG in IV NORMAL SALINE 100ML 96 ML IV PRN ×11 (01:06→23:54)
[2019-06-15] MEDS: PANTOPRAZOLE SODIUM IV DRIP 80 MG in IV NORMAL SALINE 100ML 100 ML IV SCH ×3 (01:37→20:34)
--- NOTE | 2019-06-15 03:59 | CONS ---
DATE OF CONSULTATION: 06/14/2019 ATTENDING PHYSICIAN: Thompson Mckeon MD REASON FOR CONSULTATION: The patient seen in pulmonary consultation at the request of Dr. Mckeon for vent management. HISTORY OF PRESENT ILLNESS: The patient is a 39-year-old that was admitted yesterday. She was intubated. The patient was apparently at [facility] a couple of days prior to admission here. She was treated for cellulitis. Apparently, she left against medical advice. She presented to the Emergency Department with increasing lower extremity edema, swelling and pain. She had an elevated white count of 44,000. She was hypoxic. She appeared to be septic. She was intubated, placed on some pressors overnight. I received multiple phone calls regarding her condition. She has been seen by Infectious Disease Service and is on broad-spectrum antibiotics. She had a urine drug screen, which was positive. Her labs revealed urine drug screen positive for methamphetamine and amphetamine. Serology for hepatitis was negative. UA was noted. She had a lactic acidosis, which was initially elevated, it has come down since admission. Arterial blood gas revealed mostly metabolic acidosis. This morning, she had a pH of 7.33, PaCO2 of 32, pO2 of 85. Overnight, I placed her on multiple pressors along with D5W with bicarbonate. She is currently being evaluated by Nephrology and will initiate CRRT. PAST MEDICAL HISTORY: Remarkable for obesity, ____ lower lobe cellulitis and lymphangitis. She has had previous right foot surgery with hardware, cholecystectomy, chronic venous stasis ulcers, in the past, morbid obesity with body mass index of 62, history of prior drug use. ALLERGIES: No known drug allergies. FAMILY HISTORY: None listed. SOCIAL HISTORY: As indicated above. CURRENT MEDICATIONS: List was reviewed. REVIEW OF SYSTEMS: Unobtainable secondary to the patient's condition. PHYSICAL EXAMINATION: VITAL SIGNS: She continues to have fever. She had a T-max today of 100.7. HEENT: Eyes, the sclerae were nonicteric. Orally placed endotracheal tube. CHEST: Full expansion. LUNGS: Adequate airway flow with no wheezes. CARDIOVASCULAR: Regular rate and rhythm with S1, S2, no S3. ABDOMEN: Obese. EXTREMITIES: Marked obesity with changes compatible with chronic venous stasis. LABORATORY DATA: As indicated above. Chest x-ray revealed bilateral pulmonary infiltrates compatible with pulmonary edema. Lower extremity venous Doppler was a difficult study secondary to severe lymphedema. There was no significant thrombosis. IMPRESSION: 1. Acute hypoxemic respiratory failure. 2. Severe metabolic acidosis. 3. Septic shock. 4. Left lower extremity cellulitis and soft tissue infection. 5. Leukocytosis. 6. Acute kidney injury. 7. Shock liver. 8. Positive urine drug screen. 9. Morbid obesity. PLAN: 1. We will continue support with multiple pressors. 2. Consult Nephrology, already initiated. The patient is to start CRRT. 3. Broad-spectrum antibiotics per ID. The patient is currently on meropenem, daptomycin and micafungin. 4. Follow clinical course and make further recommendations. I do appreciate the privilege in sharing in the patient's care. Total cumulative critical care time of 40 minutes. ELENO MORLEY MD DR: VALENTIN/ivet JOB#: [id number] / [id number]
[2019-06-15 05:10] LABS: BASO # 0.1 x10^3/uL (0.0-0.2); BASO % 1 % (0-3); EOS # 0.6 x10^3/uL (0.0-0.7); EOS % 2 % (0-3); HEMATOCRIT 30.4 % (36.0-47.0); HEMOGLOBIN 9.8 g/dL (12.0-15.5); LYMPH # 1.2 x10^3/uL (1.0-4.8); LYMPH % 4 % (24-48); MEAN CORPUSCULAR HEMOGLOBIN 25 pg (25-35); MEAN CORPUSCULAR HGB CONC 32 g/dL (31-37); MEAN CORPUSCULAR VOLUME 78 fL (79-100); MONO # 0.2 x10^3/uL (0.0-1.1); MONO % 1 % (0-9); NEUT # 25.5 x10^3/uL (1.8-7.7); NEUT % 92 % (31-73); PLATELET COUNT 317 x10^3/uL (140-400); RED CELL DISTRIBUTION WIDTH 16.6 % (11.5-14.5); WHITE BLOOD COUNT 27.6 x10^3/uL (4.0-11.0)
--- NOTE | 2019-06-15 06:56 | PDOC ---
PULMONARY PROGRESS NOTES Subjective sedated on vent, on, precedex, versed, fentanyl, fio2 60%, on crrt, on akur, levo, vaso, mod to large ett secretion, Vitals Vital Signs Date Time Temp Pulse Resp B/P (MAP) Pulse Ox O2 Delivery O2 Flow Rate FiO2 06/15/19 06:15 100 4.0 06/15/19 06:00 72 20 110/63 (79) Ventilator 06/15/19 04:00 98.6 98.6 Comments ros as mentioned as above discussed w rn other sys otherwise neg sedated on vent HEENT: Other (nc at perrl nose clear orally intubated neck no lad no thyromegaly) Lungs: Other ( basilar crackles dull at bases ) Cardiovascular: S1, S2 Abdomen: Soft, Non-tender, Other (no mass) Extremities: Other (+++ edema, chronic changes) Skin: Dry Labs Laboratory Tests Test 06/13/19 16:12 06/13/19 16:16 06/13/19 16:50 06/13/19 19:30 Prothrombin Time 14.2 SEC (11.7-14.0) Prothromb Time International Ratio 1.1 (0.8-1.1) D-Dimer (Janet) 3.80 ug/mlFEU (0.00-0.50) White Blood Count 44.3 x10^3/uL (4.0-11.0) Red Blood Count 4.14 x10^6/uL (3.50-5.40) Hemoglobin 10.4 g/dL (12.0-15.5) Hematocrit 33.2 % (36.0-47.0) Mean Corpuscular Volume 80 fL (79-100) Mean Corpuscular Hemoglobin 25 pg (25-35) Mean Corpuscular Hemoglobin Concent 31 g/dL (31-37) Red Cell Distribution Width 16.4 % (11.5-14.5) Platelet Count 620 x10^3/uL (140-400) Neutrophils (%) (Auto) 93 % (31-73) Lymphocytes (%) (Auto) 3 % (24-48) Monocytes (%) (Auto) 3 % (0-9) Eosinophils (%) (Auto) 1 % (0-3) Basophils (%) (Auto) 0 % (0-3) Neutrophils # (Auto) 41.3 x10^3/uL (1.8-7.7) Lymphocytes # (Auto) 1.1 x10^3/uL (1.0-4.8) Monocytes # (Auto) 1.5 x10^3/uL (0.0-1.1) Eosinophils # (Auto) 0.2 x10^3/uL (0.0-0.7) Basophils # (Auto) 0.1 x10^3/uL (0.0-0.2) Segmented Neutrophils % 89 % (35-66) Band Neutrophils % 3 % (0-9) Lymphocytes % 4 % (24-48) Monocytes % 4 % (0-10) Platelet Estimate Increased (ADEQUATE) Large Platelets Occ Polychromasia Slight Anisocytosis Slight Urine Collection Type U cath Urine Color Carmen Urine Clarity Turbid Urine pH 5.5 Urine Specific [place] >=1.030 Urine Protein 100 mg/dL (NEG-TRACE) Urine Glucose (UA) Negative mg/dL (NEG) Urine Ketones (Stick) Trace mg/dL (NEG) Urine Blood Negative (NEG) Urine Nitrite Positive (NEG) Urine Bilirubin Large (NEG) Urine Urobilinogen Dipstick 4.0 mg/dL (0.2 mg/dL) Urine Leukocyte Esterase Small (NEG) Urine RBC 0 /HPF (0-2) Urine WBC 5-10 /HPF (0-4) Urine Squamous Epithelial Cells Occ /LPF Urine Amorphous Sediment Present /HPF Urine Bacteria Few /HPF (0-FEW) Sodium Level 132 mmol/L (136-145) Potassium Level 3.0 mmol/L (3.5-5.1) Chloride Level 93 mmol/L (98-107) Carbon Dioxide Level 18 mmol/L (21-32) Anion Gap 21 (6-14) Blood Urea Nitrogen 16 mg/dL (7-20) Creatinine 1.8 mg/dL (0.6-1.0) Estimated GFR (Cockcroft-Gault) 31.7 BUN/Creatinine Ratio 9 (6-20) Glucose Level 233 mg/dL (70-99) Lactic Acid Level 10.8 mmol/L (0.4-2.0) Calcium Level 9.1 mg/dL (8.5-10.1) Magnesium Level 2.5 mg/dL (1.8-2.4) Total Bilirubin 2.9 mg/dL (0.2-1.0) Aspartate Amino Transf (AST/SGOT) 158 U/L (15-37) Alanine Aminotransferase (ALT/SGPT) 77 U/L (14-59) Alkaline Phosphatase 346 U/L (46-116) Creatine Kinase 156 U/L (26-192) Troponin I Quantitative < 0.017 ng/mL (0.000-0.055) MV-Cxp-K-Type Natriuretic Peptide 1110 pg/mL (0-124) Total Protein 7.8 g/dL (6.4-8.2) Albumin 2.6 g/dL (3.4-5.0) Albumin/Globulin Ratio 0.5 (1.0-1.7) Lipase 1861 U/L (73-393) Urine Opiates Screen Neg (NEG) Urine Methadone Screen Neg (NEG) Urine Barbiturates Neg (NEG) Urine Phencyclidine Screen Neg (NEG) Urine Amphetamine/Methamphetamine Pos (NEG) Urine Benzodiazepines Screen Neg (NEG) Urine Cocaine Screen Neg (NEG) Urine Cannabinoids Screen Neg (NEG) Urine Ethyl Alcohol Neg (NEG) O2 Saturation 92 % (92-99) 99 % (92-99) Arterial Blood pH 7.30 (7.35-7.45) 7.31 (7.35-7.45) Arterial Blood pCO2 at Patient Temp 31 mmHg (35-46) 27 mmHg (35-46) Arterial Blood pO2 at Patient Temp 68 mmHg (85-108) 259 mmHg (85-108) Arterial Blood HCO3 15 mmol/L (21-28) 13 mmol/L (21-28) Arterial Blood Base Excess -10 mmol/L (-3-3) -11 mmol/L (-3-3) FiO2 36 Test 06/13/19 20:00 06/14/19 05:00 06/14/19 07:30 06/14/19 08:10 Lactic Acid Level 6.1 mmol/L (0.4-2.0) 4.8 mmol/L (0.4-2.0) 5.0 mmol/L (0.4-2.0) Sodium Level 131 mmol/L (136-145) Potassium Level 3.3 mmol/L (3.5-5.1) Chloride Level 96 mmol/L (98-107) Carbon Dioxide Level 18 mmol/L (21-32) Anion Gap 17 (6-14) Blood Urea Nitrogen 21 mg/dL (7-20) Creatinine 2.3 mg/dL (0.6-1.0) Estimated GFR (Cockcroft-Gault) 23.9 BUN/Creatinine Ratio 9 (6-20) Glucose Level 118 mg/dL (70-99) Calcium Level 7.6 mg/dL (8.5-10.1) Phosphorus Level 3.2 mg/dL (2.6-4.7) Magnesium Level 2.0 mg/dL (1.8-2.4) Iron Level 36 ug/dL (50-170) Total Iron Binding Capacity 133 ug/dL (250-450) Iron Saturation 27 % (15-34) Total Bilirubin 3.6 mg/dL (0.2-1.0) Aspartate Amino Transf (AST/SGOT) 168 U/L (15-37) Alanine Aminotransferase (ALT/SGPT) 58 U/L (14-59) Alkaline Phosphatase 297 U/L (46-116) Total Protein 5.8 g/dL (6.4-8.2) Albumin 1.6 g/dL (3.4-5.0) Albumin/Globulin Ratio 0.4 (1.0-1.7) Vitamin B12 Level 1490 pg/mL (247-911) Hepatitis A IgM Antibody Nonreactive (Nonreactive) Hepatitis B Surface Antigen Nonreactive (Nonreactive) Hepatitis B Surface Antibody, Quant <3.1 mIU/mL (Immunity>9.9) Hepatitis B Core Total Antibody Nonreactive (Nonreactive) Hepatitis B Core IgM Antibody Nonreactive (Nonreactive) Hepatitis C IgG Antibody Nonreactive (Nonreactive) O2 Saturation 96 % (92-99) Arterial Blood pH 7.33 (7.35-7.45) Arterial Blood pCO2 at Patient Temp 32 mmHg (35-46) Arterial Blood pO2 at Patient Temp 85 mmHg (85-108) Arterial Blood HCO3 17 mmol/L (21-28) Arterial Blood Base Excess -8 mmol/L (-3-3) FiO2 60% Test 06/14/19 18:19 06/14/19 20:15 06/15/19 00:45 06/15/19 05:00 Heparin Anti-Xa Act, Unfractionated 0.54 IU/mL (0.30-0.70) 0.54 IU/mL (0.30-0.70) Sodium Level 133 mmol/L (136-145) Potassium Level 3.4 mmol/L (3.5-5.1) Chloride Level 99 mmol/L (98-107) Carbon Dioxide Level 22 mmol/L (21-32) Anion Gap 12 (6-14) Blood Urea Nitrogen 17 mg/dL (7-20) Creatinine 2.0 mg/dL (0.6-1.0) Estimated GFR (Cockcroft-Gault) 28.0 Glucose Level 102 mg/dL (70-99) Calcium Level 7.1 mg/dL (8.5-10.1) Phosphorus Level 2.9 mg/dL (2.6-4.7) Magnesium Level 2.0 mg/dL (1.8-2.4) White Blood Count 27.6 x10^3/uL (4.0-11.0) Red Blood Count 3.90 x10^6/uL (3.50-5.40) Hemoglobin 9.8 g/dL (12.0-15.5) Hematocrit 30.4 % (36.0-47.0) Mean Corpuscular Volume 78 fL (79-100) Mean Corpuscular Hemoglobin 25 pg (25-35) Mean Corpuscular Hemoglobin Concent 32 g/dL (31-37) Red Cell Distribution Width 16.6 % (11.5-14.5) Platelet Count 317 x10^3/uL (140-400) Neutrophils (%) (Auto) 92 % (31-73) Lymphocytes (%) (Auto) 4 % (24-48) Monocytes (%) (Auto) 1 % (0-9) Eosinophils (%) (Auto) 2 % (0-3) Basophils (%) (Auto) 1 % (0-3) Neutrophils # (Auto) 25.5 x10^3/uL (1.8-7.7) Lymphocytes # (Auto) 1.2 x10^3/uL (1.0-4.8) Monocytes # (Auto) 0.2 x10^3/uL (0.0-1.1) Eosinophils # (Auto) 0.6 x10^3/uL (0.0-0.7) Basophils # (Auto) 0.1 x10^3/uL (0.0-0.2) Alkaline Phosphatase 280 U/L (46-116) Laboratory Tests Test 06/14/19 07:30 06/14/19 08:10 06/14/19 18:19 06/14/19 20:15 O2 Saturation 96 % (92-99) Arterial Blood pH 7.33 (7.35-7.45) Arterial Blood pCO2 at Patient Temp 32 mmHg (35-46) Arterial Blood pO2 at Patient Temp 85 mmHg (85-108) Arterial Blood HCO3 17 mmol/L (21-28) Arterial Blood Base Excess -8 mmol/L (-3-3) FiO2 60% Lactic Acid Level 5.0 mmol/L (0.4-2.0) Heparin Anti-Xa Act, Unfractionated 0.54 IU/mL (0.30-0.70) Sodium Level 133 mmol/L (136-145) Potassium Level 3.4 mmol/L (3.5-5.1) Chloride Level 99 mmol/L (98-107) Carbon Dioxide Level 22 mmol/L (21-32) Anion Gap 12 (6-14) Blood Urea Nitrogen 17 mg/dL (7-20) Creatinine 2.0 mg/dL (0.6-1.0) Estimated GFR (Cockcroft-Gault) 28.0 Glucose Level 102 mg/dL (70-99) Calcium Level 7.1 mg/dL (8.5-10.1) Phosphorus Level 2.9 mg/dL (2.6-4.7) Magnesium Level 2.0 mg/dL (1.8-2.4) Test 06/15/19 00:45 06/15/19 05:00 Heparin Anti-Xa Act, Unfractionated 0.54 IU/mL (0.30-0.70) White Blood Count 27.6 x10^3/uL (4.0-11.0) Red Blood Count 3.90 x10^6/uL (3.50-5.40) Hemoglobin 9.8 g/dL (12.0-15.5) Hematocrit 30.4 % (36.0-47.0) Mean Corpuscular Volume 78 fL (79-100) Mean Corpuscular Hemoglobin 25 pg (25-35) Mean Corpuscular Hemoglobin Concent 32 g/dL (31-37) Red Cell Distribution Width 16.6 % (11.5-14.5) Platelet Count 317 x10^3/uL (140-400) Neutrophils (%) (Auto) 92 % (31-73) Lymphocytes (%) (Auto) 4 % (24-48) Monocytes (%) (Auto) 1 % (0-9) Eosinophils (%) (Auto) 2 % (0-3) Basophils (%) (Auto) 1 % (0-3) Neutrophils # (Auto) 25.5 x10^3/uL (1.8-7.7) Lymphocytes # (Auto) 1.2 x10^3/uL (1.0-4.8) Monocytes # (Auto) 0.2 x10^3/uL (0.0-1.1) Eosinophils # (Auto) 0.6 x10^3/uL (0.0-0.7) Basophils # (Auto) 0.1 x10^3/uL (0.0-0.2) Alkaline Phosphatase 280 U/L (46-116) Medications Active Scripts Medications Dose Route/Sig Max Daily Dose Days Date Category Tessalon Perle (Benzonatate) 100 Mg Capsule 100 Mg PO TID PRN 06/02/19 Rx Comments cxr reviewed b lat infilt ett ok Impression . IMPRESSION: 1. Acute hypoxemic respiratory failure. 2. Severe metabolic acidosis, improving on crrt. 3. Septic shock. 4. Left lower extremity cellulitis and soft tissue infection. 5. Leukocytosis. 6. Acute kidney injury. 7. Shock liver. 8. Positive urine drug screen. 9. Morbid obesity prob kena. 10. abnl cxr Plan . PLAN: 1. We will continue support with multiple pressors to keep map >65. 2. CRRT per Nephrology, 3. Broad-spectrum antibiotics per ID. The patient is currently on meropenem, daptomycin and micafungin. zyvox added 4. cont vent support, setting reviewed, abg reviewed, titrate down fio2 to keep sat >94% 5. protonix for stress ulcer prophylaxis discussed w FOREIGN Foley MD Jun 15, 2019 06:56
[2019-06-15] MEDS: NOREPINEPHRINE VIAL 32 MG in IV NORMAL SALINE 250ML IV PRN ×3 (07:24→20:33)
--- NOTE | 2019-06-15 07:46 | RAD ---
Chest AP portable at 0634: Reason for examination: Follow-up infiltrates. Comparison is made to previous exam dated 06/14/2019. Double lumen catheter remains present on the right. Central venous catheter remains present on the left. Endotracheal tube and NG tube remain present. Heart and mediastinum are unchanged. Lung franklin show continued presence of patchy bilateral infiltrates, left greater than right which shows some interval progression. No gross pleural effusions are seen. No pneumothorax is seen. No acute bony abnormalities are present. IMPRESSION: Continued presence of bilateral infiltrates, left greater than right, with some interval progression. Electronically signed by: Emma Grande MD (06/15/2019 7:44 AM) [facility]
[2019-06-15] MEDS: MIDAZOLAM 100mg/100ml NS BAG 100 ML IV PRN ×2 (08:21→20:33)
[2019-06-15] MEDS: SODIUM BICARBONATE VIAL 150 MEQ in IV DEXTROSE 5% 1,000 ML IV SCH ×2 (08:23→23:54)
[2019-06-15] MEDS ORDERED: POTASSIUM BICARB 20 MEQ EFFERVESCENT TABLET. GT ONE (08:45)
[2019-06-15] MEDS: MEROPENEM 1 GM in IV NORMAL SALINE 100ML 100 ML IV SCH ×2 (09:04→21:09)
[2019-06-15 09:10] LABS: BASE EXCESS ABG -4 mmol/L (-3-3); HCO3 ABG 22 mmol/L (21-28); PCO2 ABG 42 mmHg (35-46); PO2 ABG 81 mmHg (85-108); SAT O2 ABG 95 % (92-99)
[2019-06-15 09:11] LABS: FIO2 ABG 55
--- NOTE | 2019-06-15 09:32 | PDOC ---
Infectious Disease Note Subjective Subjective Orally intubated and sedated Thick yellow secretions from ETT Satting 99% on FiO2 55% CRRT On kaur/vaso/levaphed No fevers last 24 hours ROS ROS unobtainable Vital Sign Vital Signs Vital Signs Date Time Temp Pulse Resp B/P (MAP) Pulse Ox O2 Delivery O2 Flow Rate FiO2 06/15/19 08:00 96.1 71 20 107/64 (78) 100 Ventilator 96.1 06/15/19 07:00 4.0 Physical Exam PHYSICAL EXAM GENERAL: Morbidly obese female, sedated and orally intubated. + mitts. CRRT HEENT: Pupils equal, ETT, OGT NECK: Supple. LUNGS: Improved aeration, anteriorly HEART: S1, S2, tachycardia. Distant heart sounds. No murmurs. ABDOMEN: Soft, morbidly obese, Hypoactive bowel sounds. EXTREMITIES: Chronic venous stasis, edema, marked purple discoloration L > R, no warmth. GENITOURINARY: Gifford in place, left IJ line looks okay. OUT PATIENT THERAPIST: Sedated SKIN: No signs generalized rash. + yeast skin folds Temp RIJ/HDC (06/14), LIJ and left art line without signs of complications Labs Lab Laboratory Tests Test 06/14/19 18:19 06/14/19 20:15 06/15/19 00:45 06/15/19 05:00 Heparin Anti-Xa Act, Unfractionated 0.54 IU/mL (0.30-0.70) 0.54 IU/mL (0.30-0.70) Sodium Level 133 mmol/L (136-145) Potassium Level 3.4 mmol/L (3.5-5.1) Chloride Level 99 mmol/L (98-107) Carbon Dioxide Level 22 mmol/L (21-32) Anion Gap 12 (6-14) Blood Urea Nitrogen 17 mg/dL (7-20) Creatinine 2.0 mg/dL (0.6-1.0) Estimated GFR (Cockcroft-Gault) 28.0 Glucose Level 102 mg/dL (70-99) Calcium Level 7.1 mg/dL (8.5-10.1) Phosphorus Level 2.9 mg/dL (2.6-4.7) Magnesium Level 2.0 mg/dL (1.8-2.4) White Blood Count 27.6 x10^3/uL (4.0-11.0) Red Blood Count 3.90 x10^6/uL (3.50-5.40) Hemoglobin 9.8 g/dL (12.0-15.5) Hematocrit 30.4 % (36.0-47.0) Mean Corpuscular Volume 78 fL (79-100) Mean Corpuscular Hemoglobin 25 pg (25-35) Mean Corpuscular Hemoglobin Concent 32 g/dL (31-37) Red Cell Distribution Width 16.6 % (11.5-14.5) Platelet Count 317 x10^3/uL (140-400) Neutrophils (%) (Auto) 92 % (31-73) Lymphocytes (%) (Auto) 4 % (24-48) Monocytes (%) (Auto) 1 % (0-9) Eosinophils (%) (Auto) 2 % (0-3) Basophils (%) (Auto) 1 % (0-3) Neutrophils # (Auto) 25.5 x10^3/uL (1.8-7.7) Lymphocytes # (Auto) 1.2 x10^3/uL (1.0-4.8) Monocytes # (Auto) 0.2 x10^3/uL (0.0-1.1) Eosinophils # (Auto) 0.6 x10^3/uL (0.0-0.7) Basophils # (Auto) 0.1 x10^3/uL (0.0-0.2) Alkaline Phosphatase 280 U/L (46-116) CXR, 06/15. Continued presence of bilateral infiltrates, left greater than right, with some interval progression. Micro Microbiology 06/13/19 Blood Culture - Preliminary, Resulted NO GROWTH AFTER 1 DAY Objective Assessment Severe sepsis w/ shock. On 3 pressors Acute hypoxic respiratory failure with pulmonary infiltrates, intubated. Left lower extremity severe skin and soft tissue infection. No surgical plans. No crepitus on palpation either LE Leukocytosis - improved Lactic acidosis. (10.8, down to 5.0 now) Acute kidney injury, on CRRT Severe metabolic acidosis. Hyperbilirubinemia with abnormal liver function tests. Substance abuse Morbid obesity. Elevated lipase Severe Protein Malnutrition Plan Plan of Care Dapto, merrem and micafungin add Zyvox for bacterial toxin binding and lung coverage Sputum culture BC neg so far from 06/[address] left leg at this time No surgical plans. Gen surg and vascular following spoke with [facility] micro no record of pt listed D/w nursing Critically ill CK in am Attending Co-Sign Attending Co-Sign The patient was seen and interviewed as well as examined at the bedside. The chart was reviewed. The case was discussed. Agree with the plan of care. CASEY PINEDA APRN Jun 15, 2019 09:32 JAY IWSE MD Jun 15, 2019 15:15
[2019-06-15 09:36] LABS: ALBUMIN 1.1 g/dL (3.4-5.0); ALBUMIN/GLOBULIN RATIO 0.3 (1.0-1.7); CALCIUM 7.2 mg/dL (8.5-10.1); CREATININE 1.4 mg/dL (0.6-1.0); GFR 42.3; MAGNESIUM 2.2 mg/dL (1.8-2.4); PHOSPHORUS 2.8 mg/dL (2.6-4.7); POTASSIUM 3.6 mmol/L (3.5-5.1); TOTAL BILIRUBIN 4.1 mg/dL (0.2-1.0); TOTAL PROTEIN 5.1 g/dL (6.4-8.2)
[2019-06-15] MEDS: MICAFUNGIN 100 MG in IV DEXTROSE 5% 100ML 100 ML IV SCH (10:15)
[2019-06-15] MEDS: VASOPRESSIN 40 UNIT in IV DEXTROSE 5% 100ML 100 ML IV PRN (10:37)
--- NOTE | 2019-06-15 10:41 | PDOC ---
PROGRESS NOTES Chief Complaint Chief Complaint Severe sepsis Severe LLE skin infection Resp failure,on IPPV - intubated on arrival CATY Anemia, elevated LFTs and lipase S/p cholecystectomy Obesity - BMI 62.6 +amphetamines Severe metabolic acidosis full code Pulm infiltrates, recent [facility] - HCAP NEw ESRD CCRT 06/15 Black NGT output History of Present Illness History of Present Illness very sick, intubated at ER On ppi gtt x 2 days per GI NOW ESRD on CRRT GS note reviewed, non surgical re legs, too medically unstable, poor surg candidate VASc sx also feels jaylyn same way She is sp Hospitalziation recent [facility] for the legs too NO family, INtubated sedated on 2 pressors LEgs examined MONDAY ENTRY: dw VAs sx Dr Rainey, recommend GS or even plastic sx (KU) if needed - but too unstable or critical to do that now - unlikey surgical candidate for now give on pressors etc ON broard spectrum per ID NO family at bedside PUlm infiltrates, recent [facility] admit I added renal consult bec agap elevated, bicarb low (s.p dextrose bicarb gtt), caty high creat, ABG pH 7.5 Insert rodrigues and maintain Added GI consult bec elevated lFts, TB is 3 - recommend US as too unstable for CT, add PPI, monitor that anemia, transfuse if hgb < 7 LEgs are markedly swollen and infected, PLAN: CRRT PRessors ICU care IOV abx broad spectrum s.p bicarb Broad spectrum IV abx Full code CHeck gastro occult PPI gtt [er cards MAybe check venous dopplers vent bundle MOnitor LFTs and TB US abd- cant do CT HCAP coverage OT lymphedema DVT ppx - scds if US Neg? 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 + mitts. CRRT HEENT: Pupils equal, ETT, OGT NECK: Supple. LUNGS: Improved aeration, anteriorly HEART: S1, S2, tachycardia. Distant heart sounds. No murmurs. ABDOMEN: Soft, morbidly obese, Hypoactive bowel sounds. EXTREMITIES: Chronic venous stasis, edema, marked purple discoloration L > R, no warmth. GENITOURINARY: Rodrigues in place, left IJ line looks okay. DIE MECHANIC: Sedated SKIN: No signs generalized rash. + yeast skin folds Temp RIJ/HDC (06/14), [facility] and left art line without signs of complications General: Other (intubated sedated) Heart: Regular rate, No murmurs Lungs: Other ( basilar crackles dull at bases ) Abdomen: Normal bowel sounds, Soft Extremities: Normal pulses, Other (massive bilateral edema lower extremities left greater than right ecchymotic lesions both legs left greater than right no fluctuance or crepitance by palpation) Skin: Other (infected legs. :Left > RT) Labs LABS Laboratory Tests Test 06/14/19 18:19 06/14/19 20:15 06/15/19 00:45 06/15/19 05:00 Heparin Anti-Xa Act, Unfractionated 0.54 IU/mL (0.30-0.70) 0.54 IU/mL (0.30-0.70) Sodium Level 133 mmol/L (136-145) Potassium Level 3.4 mmol/L (3.5-5.1) Chloride Level 99 mmol/L (98-107) Carbon Dioxide Level 22 mmol/L (21-32) Anion Gap 12 (6-14) Blood Urea Nitrogen 17 mg/dL (7-20) Creatinine 2.0 mg/dL (0.6-1.0) Estimated GFR (Cockcroft-Gault) 28.0 Glucose Level 102 mg/dL (70-99) Calcium Level 7.1 mg/dL (8.5-10.1) Phosphorus Level 2.9 mg/dL (2.6-4.7) Magnesium Level 2.0 mg/dL (1.8-2.4) White Blood Count 27.6 x10^3/uL (4.0-11.0) Red Blood Count 3.90 x10^6/uL (3.50-5.40) Hemoglobin 9.8 g/dL (12.0-15.5) Hematocrit 30.4 % (36.0-47.0) Mean Corpuscular Volume 78 fL (79-100) Mean Corpuscular Hemoglobin 25 pg (25-35) Mean Corpuscular Hemoglobin Concent 32 g/dL (31-37) Red Cell Distribution Width 16.6 % (11.5-14.5) Platelet Count 317 x10^3/uL (140-400) Neutrophils (%) (Auto) 92 % (31-73) Lymphocytes (%) (Auto) 4 % (24-48) Monocytes (%) (Auto) 1 % (0-9) Eosinophils (%) (Auto) 2 % (0-3) Basophils (%) (Auto) 1 % (0-3) Neutrophils # (Auto) 25.5 x10^3/uL (1.8-7.7) Lymphocytes # (Auto) 1.2 x10^3/uL (1.0-4.8) Monocytes # (Auto) 0.2 x10^3/uL (0.0-1.1) Eosinophils # (Auto) 0.6 x10^3/uL (0.0-0.7) Basophils # (Auto) 0.1 x10^3/uL (0.0-0.2) Alkaline Phosphatase 280 U/L (46-116) Test 06/15/19 08:00 06/15/19 08:45 O2 Saturation 95 % (92-99) Arterial Blood pH 7.33 (7.35-7.45) Arterial Blood pCO2 at Patient Temp 42 mmHg (35-46) Arterial Blood pO2 at Patient Temp 81 mmHg (85-108) Arterial Blood HCO3 22 mmol/L (21-28) Arterial Blood Base Excess -4 mmol/L (-3-3) FiO2 55 Sodium Level 135 mmol/L (136-145) Potassium Level 3.6 mmol/L (3.5-5.1) Chloride Level 100 mmol/L (98-107) Carbon Dioxide Level 23 mmol/L (21-32) Anion Gap 12 (6-14) Blood Urea Nitrogen 13 mg/dL (7-20) Creatinine 1.4 mg/dL (0.6-1.0) Estimated GFR (Cockcroft-Gault) 42.3 BUN/Creatinine Ratio 9 (6-20) Glucose Level 125 mg/dL (70-99) Calcium Level 7.2 mg/dL (8.5-10.1) Phosphorus Level 2.8 mg/dL (2.6-4.7) Magnesium Level 2.2 mg/dL (1.8-2.4) Total Bilirubin 4.1 mg/dL (0.2-1.0) Aspartate Amino Transf (AST/SGOT) 112 U/L (15-37) Alanine Aminotransferase (ALT/SGPT) 40 U/L (14-59) Alkaline Phosphatase 278 U/L (46-116) Total Protein 5.1 g/dL (6.4-8.2) Albumin 1.1 g/dL (3.4-5.0) Albumin/Globulin Ratio 0.3 (1.0-1.7) Review of Systems Review of Systems intubated, sedated Assessment and Plan Assessmemt and Plan Problems Medical Problems: (1) Acute respiratory failure Status: Acute (2) Elevated brain natriuretic peptide (BNP) level Status: Acute (3) Elevated d-dimer Status: Acute (4) Elevated lipase Status: Acute (5) Elevated liver function tests Status: Acute (6) GI bleeding Status: Acute (7) Hyperglycemia Status: Acute (8) Hypermagnesuria Status: Acute (9) Hypoalbuminemia Status: Acute (10) Hypokalemia Status: Acute (11) Hyponatremia Status: Acute (12) Lower extremity cellulitis Status: Acute (13) Metabolic acidosis Status: Acute (14) Methamphetamine abuse Status: Acute (15) Morbid obesity with BMI of 60.0-69.9, adult Status: Acute (16) Renal insufficiency Status: Acute (17) Sepsis Status: Acute (18) Severe sepsis Status: Acute Comment Review of Relevant I have reviewed the following items loreta (where applicable) has been applied. Labs Laboratory Tests Test 06/13/19 16:12 06/13/19 16:16 06/13/19 16:50 06/13/19 19:30 Prothrombin Time 14.2 SEC (11.7-14.0) Prothromb Time International Ratio 1.1 (0.8-1.1) D-Dimer (Janet) 3.80 ug/mlFEU (0.00-0.50) White Blood Count 44.3 x10^3/uL (4.0-11.0) Red Blood Count 4.14 x10^6/uL (3.50-5.40) Hemoglobin 10.4 g/dL (12.0-15.5) Hematocrit 33.2 % (36.0-47.0) Mean Corpuscular Volume 80 fL (79-100) Mean Corpuscular Hemoglobin 25 pg (25-35) Mean Corpuscular Hemoglobin Concent 31 g/dL (31-37) Red Cell Distribution Width 16.4 % (11.5-14.5) Platelet Count 620 x10^3/uL (140-400) Neutrophils (%) (Auto) 93 % (31-73) Lymphocytes (%) (Auto) 3 % (24-48) Monocytes (%) (Auto) 3 % (0-9) Eosinophils (%) (Auto) 1 % (0-3) Basophils (%) (Auto) 0 % (0-3) Neutrophils # (Auto) 41.3 x10^3/uL (1.8-7.7) Lymphocytes # (Auto) 1.1 x10^3/uL (1.0-4.8) Monocytes # (Auto) 1.5 x10^3/uL (0.0-1.1) Eosinophils # (Auto) 0.2 x10^3/uL (0.0-0.7) Basophils # (Auto) 0.1 x10^3/uL (0.0-0.2) Segmented Neutrophils % 89 % (35-66) Band Neutrophils % 3 % (0-9) Lymphocytes % 4 % (24-48) Monocytes % 4 % (0-10) Platelet Estimate Increased (ADEQUATE) Large Platelets Occ Polychromasia Slight Anisocytosis Slight Urine Collection Type U cath Urine Color Craig Urine Clarity Turbid Urine pH 5.5 Urine Specific [place] >=1.030 Urine Protein 100 mg/dL (NEG-TRACE) Urine Glucose (UA) Negative mg/dL (NEG) Urine Ketones (Stick) Trace mg/dL (NEG) Urine Blood Negative (NEG) Urine Nitrite Positive (NEG) Urine Bilirubin Large (NEG) Urine Urobilinogen Dipstick 4.0 mg/dL (0.2 mg/dL) Urine Leukocyte Esterase Small (NEG) Urine RBC 0 /HPF (0-2) Urine WBC 5-10 /HPF (0-4) Urine Squamous Epithelial Cells Occ /LPF Urine Amorphous Sediment Present /HPF Urine Bacteria Few /HPF (0-FEW) Sodium Level 132 mmol/L (136-145) Potassium Level 3.0 mmol/L (3.5-5.1) Chloride Level 93 mmol/L (98-107) Carbon Dioxide Level 18 mmol/L (21-32) Anion Gap 21 (6-14) Blood Urea Nitrogen 16 mg/dL (7-20) Creatinine 1.8 mg/dL (0.6-1.0) Estimated GFR (Cockcroft-Gault) 31.7 BUN/Creatinine Ratio 9 (6-20) Glucose Level 233 mg/dL (70-99) Lactic Acid Level 10.8 mmol/L (0.4-2.0) Calcium Level 9.1 mg/dL (8.5-10.1) Magnesium Level 2.5 mg/dL (1.8-2.4) Total Bilirubin 2.9 mg/dL (0.2-1.0) Aspartate Amino Transf (AST/SGOT) 158 U/L (15-37) Alanine Aminotransferase (ALT/SGPT) 77 U/L (14-59) Alkaline Phosphatase 346 U/L (46-116) Creatine Kinase 156 U/L (26-192) Troponin I Quantitative < 0.017 ng/mL (0.000-0.055) EA-Xaa-[id number]-Type Natriuretic Peptide 1110 pg/mL (0-124) Total Protein 7.8 g/dL (6.4-8.2) Albumin 2.6 g/dL (3.4-5.0) Albumin/Globulin Ratio 0.5 (1.0-1.7) Lipase 1861 U/L (73-393) Urine Opiates Screen Neg (NEG) Urine Methadone Screen Neg (NEG) Urine Barbiturates Neg (NEG) Urine Phencyclidine Screen Neg (NEG) Urine Amphetamine/Methamphetamine Pos (NEG) Urine Benzodiazepines Screen Neg (NEG) Urine Cocaine Screen Neg (NEG) Urine Cannabinoids Screen Neg (NEG) Urine Ethyl Alcohol Neg (NEG) O2 Saturation 92 % (92-99) 99 % (92-99) Arterial Blood pH 7.30 (7.35-7.45) 7.31 (7.35-7.45) Arterial Blood pCO2 at Patient Temp 31 mmHg (35-46) 27 mmHg (35-46) Arterial Blood pO2 at Patient Temp 68 mmHg (85-108) 259 mmHg (85-108) Arterial Blood HCO3 15 mmol/L (21-28) 13 mmol/L (21-28) Arterial Blood Base Excess -10 mmol/L (-3-3) -11 mmol/L (-3-3) FiO2 36 Test 06/13/19 20:00 06/14/19 05:00 06/14/19 07:30 06/14/19 08:10 Lactic Acid Level 6.1 mmol/L (0.4-2.0) 4.8 mmol/L (0.4-2.0) 5.0 mmol/L (0.4-2.0) Sodium Level 131 mmol/L (136-145) Potassium Level 3.3 mmol/L (3.5-5.1) Chloride Level 96 mmol/L (98-107) Carbon Dioxide Level 18 mmol/L (21-32) Anion Gap 17 (6-14) Blood Urea Nitrogen 21 mg/dL (7-20) Creatinine 2.3 mg/dL (0.6-1.0) Estimated GFR (Cockcroft-Gault) 23.9 BUN/Creatinine Ratio 9 (6-20) Glucose Level 118 mg/dL (70-99) Calcium Level 7.6 mg/dL (8.5-10.1) Phosphorus Level 3.2 mg/dL (2.6-4.7) Magnesium Level 2.0 mg/dL (1.8-2.4) Iron Level 36 ug/dL (50-170) Total Iron Binding Capacity 133 ug/dL (250-450) Iron Saturation 27 % (15-34) Total Bilirubin 3.6 mg/dL (0.2-1.0) Aspartate Amino Transf (AST/SGOT) 168 U/L (15-37) Alanine Aminotransferase (ALT/SGPT) 58 U/L (14-59) Alkaline Phosphatase 297 U/L (46-116) Total Protein 5.8 g/dL (6.4-8.2) Albumin 1.6 g/dL (3.4-5.0) Albumin/Globulin Ratio 0.4 (1.0-1.7) Vitamin B12 Level 1490 pg/mL (247-911) Hepatitis A IgM Antibody Nonreactive (Nonreactive) Hepatitis B Surface Antigen Nonreactive (Nonreactive) Hepatitis B Surface Antibody, Quant <3.1 mIU/mL (Immunity>9.9) Hepatitis B Core Total Antibody Nonreactive (Nonreactive) Hepatitis B Core IgM Antibody Nonreactive (Nonreactive) Hepatitis C IgG Antibody Nonreactive (Nonreactive) O2 Saturation 96 % (92-99) Arterial Blood pH 7.33 (7.35-7.45) Arterial Blood pCO2 at Patient Temp 32 mmHg (35-46) Arterial Blood pO2 at Patient Temp 85 mmHg (85-108) Arterial Blood HCO3 17 mmol/L (21-28) Arterial Blood Base Excess -8 mmol/L (-3-3) FiO2 60% Test 06/14/19 18:19 06/14/19 20:15 06/15/19 00:45 06/15/19 05:00 Heparin Anti-Xa Act, Unfractionated 0.54 IU/mL (0.30-0.70) 0.54 IU/mL (0.30-0.70) Sodium Level 133 mmol/L (136-145) Potassium Level 3.4 mmol/L (3.5-5.1) Chloride Level 99 mmol/L (98-107) Carbon Dioxide Level 22 mmol/L (21-32) Anion Gap 12 (6-14) Blood Urea Nitrogen 17 mg/dL (7-20) Creatinine 2.0 mg/dL (0.6-1.0) Estimated GFR (Cockcroft-Gault) 28.0 Glucose Level 102 mg/dL (70-99) Calcium Level 7.1 mg/dL (8.5-10.1) Phosphorus Level 2.9 mg/dL (2.6-4.7) Magnesium Level 2.0 mg/dL (1.8-2.4) White Blood Count 27.6 x10^3/uL (4.0-11.0) Red Blood Count 3.90 x10^6/uL (3.50-5.40) Hemoglobin 9.8 g/dL (12.0-15.5) Hematocrit 30.4 % (36.0-47.0) Mean Corpuscular Volume 78 fL (79-100) Mean Corpuscular Hemoglobin 25 pg (25-35) Mean Corpuscular Hemoglobin Concent 32 g/dL (31-37) Red Cell Distribution Width 16.6 % (11.5-14.5) Platelet Count 317 x10^3/uL (140-400) Neutrophils (%) (Auto) 92 % (31-73) Lymphocytes (%) (Auto) 4 % (24-48) Monocytes (%) (Auto) 1 % (0-9) Eosinophils (%) (Auto) 2 % (0-3) Basophils (%) (Auto) 1 % (0-3) Neutrophils # (Auto) 25.5 x10^3/uL (1.8-7.7) Lymphocytes # (Auto) 1.2 x10^3/uL (1.0-4.8) Monocytes # (Auto) 0.2 x10^3/uL (0.0-1.1) Eosinophils # (Auto) 0.6 x10^3/uL (0.0-0.7) Basophils # (Auto) 0.1 x10^3/uL (0.0-0.2) Alkaline Phosphatase 280 U/L (46-116) Test 06/15/19 08:00 06/15/19 08:45 O2 Saturation 95 % (92-99) Arterial Blood pH 7.33 (7.35-7.45) Arterial Blood pCO2 at Patient Temp 42 mmHg (35-46) Arterial Blood pO2 at Patient Temp 81 mmHg (85-108) Arterial Blood HCO3 22 mmol/L (21-28) Arterial Blood Base Excess -4 mmol/L (-3-3) FiO2 55 Sodium Level 135 mmol/L (136-145) Potassium Level 3.6 mmol/L (3.5-5.1) Chloride Level 100 mmol/L (98-107) Carbon Dioxide Level 23 mmol/L (21-32) Anion Gap 12 (6-14) Blood Urea Nitrogen 13 mg/dL (7-20) Creatinine 1.4 mg/dL (0.6-1.0) Estimated GFR (Cockcroft-Gault) 42.3 BUN/Creatinine Ratio 9 (6-20) Glucose Level 125 mg/dL (70-99) Calcium Level 7.2 mg/dL (8.5-10.1) Phosphorus Level 2.8 mg/dL (2.6-4.7) Magnesium Level 2.2 mg/dL (1.8-2.4) Total Bilirubin 4.1 mg/dL (0.2-1.0) Aspartate Amino Transf (AST/SGOT) 112 U/L (15-37) Alanine Aminotransferase (ALT/SGPT) 40 U/L (14-59) Alkaline Phosphatase 278 U/L (46-116) Total Protein 5.1 g/dL (6.4-8.2) Albumin 1.1 g/dL (3.4-5.0) Albumin/Globulin Ratio 0.3 (1.0-1.7) Laboratory Tests Test 06/14/19 18:19 06/14/19 20:15 06/15/19 00:45 06/15/19 05:00 Heparin Anti-Xa Act, Unfractionated 0.54 IU/mL (0.30-0.70) 0.54 IU/mL (0.30-0.70) Sodium Level 133 mmol/L (136-145) Potassium Level 3.4 mmol/L (3.5-5.1) Chloride Level 99 mmol/L (98-107) Carbon Dioxide Level 22 mmol/L (21-32) Anion Gap 12 (6-14) Blood Urea Nitrogen 17 mg/dL (7-20) Creatinine 2.0 mg/dL (0.6-1.0) Estimated GFR (Cockcroft-Gault) 28.0 Glucose Level 102 mg/dL (70-99) Calcium Level 7.1 mg/dL (8.5-10.1) Phosphorus Level 2.9 mg/dL (2.6-4.7) Magnesium Level 2.0 mg/dL (1.8-2.4) White Blood Count 27.6 x10^3/uL (4.0-11.0) Red Blood Count 3.90 x10^6/uL (3.50-5.40) Hemoglobin 9.8 g/dL (12.0-15.5) Hematocrit 30.4 % (36.0-47.0) Mean Corpuscular Volume 78 fL (79-100) Mean Corpuscular Hemoglobin 25 pg (25-35) Mean Corpuscular Hemoglobin Concent 32 g/dL (31-37) Red Cell Distribution Width 16.6 % (11.5-14.5) Platelet Count 317 x10^3/uL (140-400) Neutrophils (%) (Auto) 92 % (31-73) Lymphocytes (%) (Auto) 4 % (24-48) Monocytes (%) (Auto) 1 % (0-9) Eosinophils (%) (Auto) 2 % (0-3) Basophils (%) (Auto) 1 % (0-3) Neutrophils # (Auto) 25.5 x10^3/uL (1.8-7.7) Lymphocytes # (Auto) 1.2 x10^3/uL (1.0-4.8) Monocytes # (Auto) 0.2 x10^3/uL (0.0-1.1) Eosinophils # (Auto) 0.6 x10^3/uL (0.0-0.7) Basophils # (Auto) 0.1 x10^3/uL (0.0-0.2) Alkaline Phosphatase 280 U/L (46-116) Test 06/15/19 08:00 06/15/19 08:45 O2 Saturation 95 % (92-99) Arterial Blood pH 7.33 (7.35-7.45) Arterial Blood pCO2 at Patient Temp 42 mmHg (35-46) Arterial Blood pO2 at Patient Temp 81 mmHg (85-108) Arterial Blood HCO3 22 mmol/L (21-28) Arterial Blood Base Excess -4 mmol/L (-3-3) FiO2 55 Sodium Level 135 mmol/L (136-145) Potassium Level 3.6 mmol/L (3.5-5.1) Chloride Level 100 mmol/L (98-107) Carbon Dioxide Level 23 mmol/L (21-32) Anion Gap 12 (6-14) Blood Urea Nitrogen 13 mg/dL (7-20) Creatinine 1.4 mg/dL (0.6-1.0) Estimated GFR (Cockcroft-Gault) 42.3 BUN/Creatinine Ratio 9 (6-20) Glucose Level 125 mg/dL (70-99) Calcium Level 7.2 mg/dL (8.5-10.1) Phosphorus Level 2.8 mg/dL (2.6-4.7) Magnesium Level 2.2 mg/dL (1.8-2.4) Total Bilirubin 4.1 mg/dL (0.2-1.0) Aspartate Amino Transf (AST/SGOT) 112 U/L (15-37) Alanine Aminotransferase (ALT/SGPT) 40 U/L (14-59) Alkaline Phosphatase 278 U/L (46-116) Total Protein 5.1 g/dL (6.4-8.2) Albumin 1.1 g/dL (3.4-5.0) Albumin/Globulin Ratio 0.3 (1.0-1.7) Microbiology 06/13/19 Blood Culture - Preliminary, Resulted NO GROWTH AFTER 1 DAY Medications Current Medications Sodium Chloride 1,000 ml @ 1,000 mls/hr Q1H IV Last administered on 06/13/19at 16:56; Start 06/13/19 at 16:12; Stop 06/13/19 at 17:11; Status DC Albuterol/ Ipratropium (Duoneb) 3 ml 1X ONCE NEB Last administered on 06/13/19at 16:31; Start 06/13/19 at 16:15; Stop 06/13/19 at 16:19; Status DC Piperacillin Sod/ Tazobactam Sod 4.5 gm/Sodium Chloride 100 ml @ 200 mls/hr 1X ONCE IV Last administered on 06/13/19at 17:13; Start 06/13/19 at 16:45; Stop 06/13/19 at 17:14; Status DC Vancomycin HCl 250 ml @ 250 mls/hr 1X ONCE IV ; Start 06/13/19 at 16:45; Stop 06/13/19 at 17:44; Status UNV Levofloxacin/ Dextrose 150 ml @ 100 mls/hr 1X ONCE IV Last administered on 06/13/19at 18:48; Start 06/13/19 at 16:45; Stop 06/13/19 at 18:14; Status DC Vancomycin HCl 250 ml @ 250 mls/hr 1X ONCE IV ; Start 06/13/19 at 16:45; Stop 06/13/19 at 17:44; Status UNV Sodium Chloride 1,000 ml @ 1,000 mls/hr 1X ONCE IV Last administered on 06/13/19at 16:56; Start 06/13/19 at 16:45; Stop 06/13/19 at 17:44; Status DC Vancomycin HCl 2 gm/Sodium Chloride 500 ml @ 250 mls/hr 1X ONCE IV Last administered on 06/13/19at 21:15; Start 06/13/19 at 16:45; Stop 06/13/19 at 18:44; Status DC Sodium Chloride 1,000 ml @ 1,000 mls/hr 1X ONCE IV ; Start 06/13/19 at 17:15; Stop 06/13/19 at 18:14; Status DC Sodium Chloride 1,000 ml @ 200 mls/hr Q5H IV Last administered on 06/14/19at 11:51; Start 06/13/19 at 17:13; Stop 06/14/19 at 17:12; Status DC Lorazepam (Ativan Inj) 1 mg 1X ONCE IVP Last administered on 06/13/19at 17:26; Start 06/13/19 at 17:30; Stop 06/13/19 at 17:31; Status DC Lorazepam (Ativan Inj) 2 mg STK-MED ONCE .ROUTE ; Start 06/13/19 at 17:23; Stop 06/13/19 at 17:24; Status DC Norepinephrine Bitartrate 250 ml @ 29.974 mls/ hr 1X ONCE IV Last administered on 06/13/19at 17:47; Start 06/13/19 at 17:45; Stop 06/14/19 at 02:05; Status DC Midazolam HCl 100 ml @ 0 mls/hr 1X ONCE IV Last administered on 06/13/19at 17:54; Start 06/13/19 at 17:45; Stop 06/13/19 at 17:46; Status DC Fentanyl Citrate (Fentanyl 2ml Vial) 100 mcg STK-MED ONCE .ROUTE ; Start 9 at 18:06; Stop 06/13/19 at 18:06; Status DC Pantoprazole Sodium 80 mg/ Sodium Chloride 100 ml @ 10 mls/hr 1X ONCE IV Last administered on 06/13/19at 20:00; Start 06/13/19 at 18:15; Stop 06/14/19 at 04:14; Status DC Pantoprazole Sodium (PROTONIX VIAL for IV PUSH) 40 mg 1X ONCE IVP ; Start 06/13/19 at 18:15; Stop 06/13/19 at 18:25; Status DC Fentanyl Citrate (Fentanyl 2ml Vial) 25 mcg 1X ONCE IVP Last administered on 06/13/19at 18:24; Start 06/13/19 at 18:15; Stop 06/13/19 at 18:24; Status DC Midazolam HCl (Versed) 5 mg 1X ONCE IV Last administered on 06/13/19at 18:24; Start 06/13/19 at 18:30; Stop 06/13/19 at 18:31; Status DC Dexmedetomidine HCl 400 mcg/ Sodium Chloride 100 ml @ 0 mls/hr CONT PRN IV PER PROTOCOL Last administered on 06/15/19at 10:35; Start 06/13/19 at 18:30 Sodium Chloride 500 ml @ 500 mls/hr 1X PRN PRN IV HYPOTENSION; Start 06/13/19 at 18:30 Atropine Sulfate (ATROPINE 0.5mg SYRINGE) 0.5 mg PRN Q5MIN PRN IV SEE COMMENTS; Start 06/13/19 at 18:30 Etomidate (Amidate) 20 mg 1X ONCE IV Last administered on 06/13/19at 18:47; Start 06/13/19 at 18:45; Stop 06/13/19 at 18:48; Status DC Succinylcholine Chloride (Anectine) 100 mg 1X ONCE IV Last administered on 06/13/19at 18:47; Start 06/13/19 at 18:45; Stop 06/13/19 at 18:48; Status DC Norepinephrine Bitartrate 250 ml @ 30.495 mls/ hr CONT PRN IV SEE I/O RECORD Last administered on 06/13/19at 23:21; Start 06/13/19 at 21:30; Stop 06/14/19 at 00:00; Status DC Dexmedetomidine HCl 400 mcg/ Sodium Chloride 100 ml @ 0 mls/hr CONT PRN IV SE DATION; Start 06/13/19 at 21:30; Status UNV Sodium Chloride 500 ml @ 500 mls/hr 1X PRN PRN IV SEDATION; Start 06/13/19 at 21:30; Status UNV Atropine Sulfate (ATROPINE 0.5mg SYRINGE) 0.5 mg PRN Q5MIN PRN IV SEE COMMENTS; Start 06/13/19 at 21:30; Status UNV Midazolam HCl 100 ml @ 5 mls/hr CONT PRN IV SEE I/O RECORD Last administered on 06/15/19at 08:21; Start 06/13/19 at 21:45 Info (FLU VACCINE SCREEN per RX) 1 each PRN DAILY PRN MC SEE COMMENTS; Start 06/13/19 at 23:45 Norepinephrine Bitartrate 250 ml @ 30.495 mls/ hr CONT PRN IV SEE I/O RECORD; Start 06/13/19 at 23:45; Stop 06/14/19 at 00:00; Status DC Phenylephrine HCl 20 mg/Sodium Chloride 252 ml @ 61.478 mls/ hr CONT PRN IV SEE I/O RECORD; Start 06/14/19 at 00:00; Status UNV Phenylephrine HCl 80 mg/Sodium Chloride 258 ml @ 15.674 mls/ hr CONT PRN IV SEE I/O RECORD Last administered on 06/15/19at 07:24; Start 06/13/19 at 23:45 Norepinephrine Bitartrate 32 mg/ Sodium Chloride 250 ml @ 7.594 mls/ hr CONT PRN IV SEE I/O RECORD Last administered on 06/15/19at 09:02; Start 06/13/19 at 23:45 Sodium Chloride 500 ml @ 500 mls/hr Q1H IV Last administered on 06/14/19at 01:30; Start 06/14/19 at 01:30; Stop 06/14/19 at 02:29; Status DC Sodium Bicarbonate 150 meq/Dextrose 1,150 ml @ 75 mls/hr [id number] IV Last administered on 06/15/19at 08:23; Start 06/14/19 at 02:00 Vasopressin 40 unit/Dextrose 102 ml @ 6 mls/hr CONT PRN IV SEE I/O RECORD Last administered on 06/15/19at 10:37; Start 06/14/19 at 02:00 Fentanyl Citrate 30 ml @ 0 mls/hr CONT PRN IV SEE PROTOCOL Last administered on 06/15/19at 06:15; Start 06/14/19 at 02:45 Pantoprazole Sodium 80 mg/ Sodium Chloride 100 ml @ 10 mls/hr Q10H IV Last administered on 06/15/19at 01:37; Start 06/14/19 at 04:00 Meropenem 1 gm/ Sodium Chloride 100 ml @ 200 mls/hr Q12HR IV Last administered on 06/15/19at 09:04; Start 06/14/19 at 09:00 Micafungin Sodium 100 mg/Dextrose 100 ml @ 100 mls/hr Q24H IV Last administered on 06/15/19at 10:15; Start 06/14/19 at 10:00 Daptomycin 600 mg/ Sodium Chloride 50 ml @ 100 mls/hr Q24H IV Last administered on 12/6/19at 11:52; Start 06/14/19 at 11:00 Heparin Sodium (Porcine) (Heparin Sodium) 5,000 unit Q8HRS SQ ; Start 06/14/19 at 14:00; Stop 06/14/19 at 12:12; Status DC Acetaminophen (Tylenol) 650 mg PRN Q6HRS PRN PEG MILD PAIN / TEMP; Start 06/14/19 at 08:45 Acetaminophen/ Codeine Phosphate (Tylenol/Codeine Soln) 5 ml PRN Q6HRS PRN PO MODERATE PAIN; Start 06/14/19 at 08:45 Ondansetron HCl (Zofran) 4 mg PRN Q6HRS PRN IVP NAUSEA/VOMITING; Start 06/14/19 at 08:45 Lidocaine HCl (Buffered Lidocaine 1%) 3 ml STK-MED ONCE .ROUTE ; Start 06/14/19 at 10:45; Stop 06/14/19 at 10:45; Status DC Heparin Sodium (Porcine) (Heparin Sodium) 10,000 unit STK-MED ONCE .ROUTE ; Start 06/14/19 at 10:46; Stop 06/14/19 at 10:46; Status DC Lidocaine HCl (Buffered Lidocaine 1%) 5 ml 1X ONCE INJ Last administered on 06/14/19at 11:23; Start 06/14/19 at 11:15; Stop 06/14/19 at 11:16; Status DC Heparin Sodium/ Dextrose 500 ml @ 0 mls/hr CONT PRN IV PER PROTOCOL Last administered on 06/15/19at 00:50; Start 06/14/19 at 12:30 Heparin Sodium (Porcine) (Heparin Sodium) 4,150 unit PRN Q6HRS PRN IV FOR UFH LEVEL LESS THAN 0.2; Start 06/14/19 at 12:30 Potassium Chloride 20 meq/ Bicarbonate Dialysis Soln w/ out KCl 5,010 ml @ 1,500 mls/hr Q3H21M IV Last administered on 06/15/19at 07:47; Start 06/14/19 at 14:00 Potassium Chloride 20 meq/ Bicarbonate Dialysis Soln w/ out KCl 5,010 ml @ 1,500 mls/hr Q3H21M IV Last administered on 06/15/19at 07:47; Start 06/14/19 at 14:00 Potassium Chloride 20 meq/ Bicarbonate Dialysis Soln w/ out KCl 5,010 ml @ 1,500 mls/hr Q3H21M IV Last administered on 06/15/19at 07:47; Start 06/14/19 at 14:00 Potassium Bicarbonate (Potassium Effervescent Tablet) 40 meq 1X ONCE GT ; Start 06/15/19 at 08:45; Stop 06/15/19 at 08:46; Status DC Linezolid/Dextrose 300 ml @ 300 mls/hr Q12HR IV ; Start 06/15/19 at 10:00 Active Scripts Active Tessalon Perle (Benzonatate) 100 Mg Capsule 100 Mg PO TID PRN Vitals/I & O Vital Sign - Last 24 Hours 06/14/19 06/14/19 06/14/19 06/14/19 11:23 12:00 12:00 12:00 Temp 99.2 99.2 Pulse 95 94 Resp 28 B/P (MAP) 100/49 (66) 106/54 (71) Pulse Ox 100 98 O2 Delivery Ventilator Ventilator Mechanical Ventilator 06/14/19 06/14/19 06/14/19 06/14/19 12:26 12:49 13:00 14:04 Temp 100.7 100.7 Pulse 96 95 88 Resp 27 26 28 B/P (MAP) 80/42 (55) 107/71 (83) 93/47 (62) Pulse Ox 100 99 98 100 O2 Delivery Ventilator Ventilator Ventilator Ventilator 06/14/19 06/14/19 06/14/19 06/14/19 14:58 15:11 16:00 16:00 Pulse 85 95 Resp 28 B/P (MAP) 90/47 (61) 100/49 (66) Pulse Ox 100 99 O2 Delivery Ventilator Ventilator Mechanical Ventilator 06/14/19 06/14/19 06/14/19 06/14/19 16:00 16:49 17:00 18:00 Temp 98.4 98.4 Pulse 84 86 82 Resp 21 21 21 B/P (MAP) 97/48 (64) 101/51 (68) 92/47 (62) Pulse Ox 100 99 100 100 O2 Delivery Ventilator Ventilator Ventilator Ventilator 06/14/19 06/14/19 06/14/19 06/14/19 19:00 20:00 20:00 20:00 Pulse 80 95 Resp 21 B/P (MAP) 97/50 (66) 100/49 (66) Pulse Ox 100 99 O2 Delivery Ventilator Ventilator Mechanical Ventilator 06/14/19 06/14/19 06/14/19 06/14/19 20:00 21:00 22:00 22:53 Temp 98.5 98.5 Pulse 82 80 78 Resp 18 21 21 B/P (MAP) 99/52 (68) 100/51 (67) 102/53 (69) Pulse Ox 98 99 98 98 O2 Delivery Ventilator Ventilator Ventilator O2 Flow Rate 4.0 06/14/19 06/14/19 06/14/19 06/14/19 23:00 23:39 23:49 23:59 Temp 99.5 99.5 Pulse 76 77 Resp 21 21 B/P (MAP) 104/56 (72) 109/56 (73) Pulse Ox 98 98 99 99 O2 Delivery Ventilator Ventilator Ventilator O2 Flow Rate 4.0 06/14/19 06/14/19 06/15/19 06/15/19 23:59 23:59 01:00 01:22 Pulse 95 76 Resp 21 B/P (MAP) 100/49 (66) 106/57 (73) Pulse Ox 100 99 O2 Delivery Mechanical Ventilator Ventilator Ventilator 06/15/19 06/15/19 06/15/19 06/15/19 02:00 03:03 03:51 04:00 Pulse 73 74 95 Resp 20 20 B/P (MAP) 108/63 (78) 105/59 (74) 100/49 (66) Pulse Ox 100 100 99 O2 Delivery Ventilator Ventilator Ventilator 06/15/19 06/15/19 06/15/19 06/15/19 04:00 04:00 05:10 05:34 Temp 98.6 98.6 Pulse 71 72 Resp 21 20 B/P (MAP) 101/57 (72) 109/61 (77) Pulse Ox 99 100 99 O2 Delivery Mechanical Ventilator Ventilator Ventilator Ventilator 06/15/19 06/15/19 06/15/19 06/15/19 06:00 06:15 07:00 07:00 Pulse 72 68 Resp 20 20 20 B/P (MAP) 110/63 (79) 100/57 (71) Pulse Ox 100 100 100 100 O2 Delivery Ventilator Ventilator Ventilator O2 Flow Rate 4.0 4.0 06/15/19 06/15/19 06/15/19 06/15/19 07:34 08:00 08:00 08:00 Temp 96.1 96.1 Pulse 95 71 Resp 20 B/P (MAP) 112/65 (81) 107/64 (78) Pulse Ox 100 100 O2 Delivery Ventilator Mechanical Ventilator Ventilator 06/15/19 06/15/19 09:00 10:06 Pulse 70 Resp 20 B/P (MAP) 115/60 (78) Pulse Ox 100 100 O2 Delivery Ventilator Ventilator Intake and Output 06/14/19 06/14/19 06/15/19 15:00 23:00 07:00 Intake Total 1611 ml 4025.46 ml 2697 ml Output Total 0 ml 0 ml 0 ml Balance 1611 ml 4025.46 ml 2697 ml SAMUEL NICE MD Jun 15, 2019 10:41
[2019-06-15 10:50] LABS: GASTRIC OB PAT POSITIVE (NEG)
[2019-06-15 11:16] LABS: HEMATOCRIT 30.7 % (36.0-47.0); HEMOGLOBIN 9.9 g/dL (12.0-15.5); RED BLOOD COUNT 3.95 x10^6/uL (3.50-5.40); RED CELL DISTRIBUTION WIDTH 17.1 % (11.5-14.5); WHITE BLOOD COUNT 28.1 x10^3/uL (4.0-11.0)
--- NOTE | 2019-06-15 11:54 | PDOC ---
SUBJECTIVE ROS Intubated, sedated, multiple pressors OBJECTIVE Vital Signs Vital Signs Date Time Temp Pulse Resp B/P (MAP) Pulse Ox O2 Delivery O2 Flow Rate FiO2 06/15/19 11:18 100 Ventilator 06/15/19 11:00 68 20 107/58 (74) 06/15/19 08:00 96.1 96.1 06/15/19 07:00 4.0 I & 0 Intake and Output 06/15/19 07:00 Intake Total 8333.46 ml Output Total 0 ml Balance 8333.46 ml Intake IV Total 8333.46 ml Output Urine Total 0 ml PHYSICAL EXAM Physical Exam GENERAL: Morbidly obese female, sedated and intubated. HEENT: Anicteric, Intubated NECK: Supple, thick LUNGS: Decreased breath sounds at the bases. HEART: S1, S2, tachycardia. Distant heart sounds. ABDOMEN: Soft, morbidly obese, EXTREMITIES: Chronic venous stasis, edema with weeping lesions, redness, black eschar left lower extremity > Rt : Giff[place] in place NEURO Intubated. DIAGNOSIS/ASSESSMENT Assessment & Plan CATY- ATN sec to sepsis /Hypotensive Had some uop initially, anuric yesterday , has some UOP this am Initiated CRRT 06/14, currently on 3 pressors , supportive care, Monitor, avoid nephrotoxins Hypokalemia- low normal this am On 4 K with CRRT, replace IV per protocol Acute hypoxic respiratory failure with pulmonary infiltrates, intubated. Left lower extremity severe skin and soft tissue infection. On Abx per ID , vascular consulted, Lactic acidosis. Severe metabolic acidosis- sec to sepsis /Lactic acidosis improved with CRRT Abnormal liver function tests. with hyperbilirubinemia Urine drug screen positive for amphetamine Morbid obesity. Dw RN , No family at bedside Critically ill COMMENT/RELEVANT DATA Meds Current Medications Medications (Trade) Dose Ordered Sig/Ele Start Time Stop Time Status Last Admin Dose Admin Acetaminophen (Tylenol) 650 mg PRN Q6HRS PRN 06/14/19 08:45 Acetaminophen/ Codeine Phosphate (Tylenol/Codeine Soln) 5 ml PRN Q6HRS PRN 06/14/19 08:45 Albuterol/ Ipratropium (Duoneb) 3 ml 1X ONCE 06/13/19 16:15 06/13/19 16:19 DC 06/13/19 16:31 3 ML Atropine Sulfate (ATROPINE 0.5mg SYRINGE) 0.5 mg PRN Q5MIN PRN 06/13/19 21:30 UNV Daptomycin 600 mg/ Sodium Chloride 50 ml @ 100 mls/hr Q24H 06/14/19 11:00 06/14/19 11:52 100 MLS/HR Dexmedetomidine HCl 400 mcg/ Sodium Chloride 100 ml @ 0 mls/hr CONT PRN 06/13/19 21:30 UNV Etomidate (Amidate) 20 mg 1X ONCE 06/13/19 18:45 06/13/19 18:48 DC 06/13/19 18:47 20 MG Fentanyl Citrate 30 ml @ 0 mls/hr CONT PRN 06/14/19 02:45 06/15/19 06:15 3.75 MLS/HR Fentanyl Citrate (Fentanyl 2ml Vial) 25 mcg 1X ONCE 06/13/19 18:15 06/13/19 18:24 DC 06/13/19 18:24 25 MCG Heparin Sodium (Porcine) (Heparin Sodium) 4,150 unit PRN Q6HRS PRN 06/14/19 12:30 Heparin Sodium/ Dextrose 500 ml @ 0 mls/hr CONT PRN 06/14/19 12:30 06/15/19 00:50 39.7 MLS/HR Info (FLU VACCINE SCREEN per RX) 1 each PRN DAILY PRN 06/13/19 23:45 Levofloxacin/ Dextrose 150 ml @ 100 mls/hr 1X ONCE 06/13/19 16:45 06/13/19 18:14 DC 06/13/19 18:48 100 MLS/HR Lidocaine HCl (Buffered Lidocaine 1%) 5 ml 1X ONCE 06/14/19 11:15 06/14/19 11:16 DC 06/14/19 11:23 5 ML Linezolid/Dextrose 300 ml @ 300 mls/hr Q12HR 06/15/19 10:00 06/15/19 10:54 300 MLS/HR Lorazepam (Ativan Inj) 2 mg STK-MED ONCE 06/13/19 17:23 06/13/19 17:24 DC Meropenem 1 gm/ Sodium Chloride 100 ml @ 200 mls/hr Q12HR 06/14/19 09:00 06/15/19 09:04 200 MLS/HR Micafungin Sodium 100 mg/Dextrose 100 ml @ 100 mls/hr Q24H 06/14/19 10:00 06/15/19 10:15 100 MLS/HR Midazolam HCl 100 ml @ 5 mls/hr CONT PRN 06/13/19 21:45 06/15/19 08:21 10 MLS/HR Midazolam HCl (Versed) 5 mg 1X ONCE 06/13/19 18:30 06/13/19 18:31 DC 06/13/19 18:24 5 MG Norepinephrine Bitartrate 250 ml @ 30.495 mls/ hr CONT PRN 06/13/19 23:45 06/14/19 00:00 DC Norepinephrine Bitartrate 32 mg/ Sodium Chloride 250 ml @ 7.594 mls/ hr CONT PRN 06/13/19 23:45 06/15/19 09:02 23.4 MLS/HR Ondansetron HCl (Zofran) 4 mg PRN Q6HRS PRN 06/14/19 08:45 Pantoprazole Sodium (PROTONIX VIAL for IV PUSH) 40 mg 1X ONCE 06/13/19 18:15 06/13/19 18:25 DC Pantoprazole Sodium 80 mg/ Sodium Chloride 100 ml @ 10 mls/hr Q10H 06/14/19 04:00 06/15/19 10:53 10 MLS/HR Phenylephrine HCl 20 mg/Sodium Chloride 252 ml @ 61.478 mls/ hr CONT PRN 06/14/19 00:00 UNV Phenylephrine HCl 80 mg/Sodium Chloride 258 ml @ 15.674 mls/ hr CONT PRN 06/13/19 23:45 06/15/19 07:24 45.8 MLS/HR Piperacillin Sod/ Tazobactam Sod 4.5 gm/Sodium Chloride 100 ml @ 200 mls/hr 1X ONCE 06/13/19 16:45 06/13/19 17:14 DC 06/13/19 17:13 200 MLS/HR Potassium Bicarbonate (Potassium Effervescent Tablet) 40 meq 1X ONCE 06/15/19 08:45 06/15/19 08:46 DC Potassium Chloride 20 meq/ Bicarbonate Dialysis Soln w/ out KCl 5,010 ml @ 1,500 mls/hr [id number] 06/14/19 14:00 06/15/19 10:38 1,500 MLS/HR Sodium Bicarbonate 150 meq/Dextrose 1,150 ml @ 75 mls/hr [id number] 06/14/19 02:00 06/15/19 08:23 75 MLS/HR Sodium Chloride 500 ml @ 500 mls/hr Q1H 06/14/19 01:30 06/14/19 02:29 DC 06/14/19 01:30 500 MLS/HR Succinylcholine Chloride (Anectine) 100 mg 1X ONCE 06/13/19 18:45 06/13/19 18:48 DC 06/13/19 18:47 100 MG Vancomycin HCl 250 ml @ 250 mls/hr 1X ONCE 06/13/19 16:45 06/13/19 17:44 UNV Vancomycin HCl 2 gm/Sodium Chloride 500 ml @ 250 mls/hr 1X ONCE 06/13/19 16:45 06/13/19 18:44 DC 06/13/19 21:15 250 MLS/HR Vasopressin 40 unit/Dextrose 102 ml @ 6 mls/hr CONT PRN 06/14/19 02:00 06/15/19 10:37 6 MLS/HR Lab Laboratory Tests Test 06/14/19 18:19 06/14/19 20:15 06/15/19 00:45 06/15/19 05:00 Heparin Anti-Xa Act, Unfractionated 0.54 IU/mL (0.30-0.70) 0.54 IU/mL (0.30-0.70) Sodium Level 133 mmol/L (136-145) Potassium Level 3.4 mmol/L (3.5-5.1) Chloride Level 99 mmol/L (98-107) Carbon Dioxide Level 22 mmol/L (21-32) Anion Gap 12 (6-14) Blood Urea Nitrogen 17 mg/dL (7-20) Creatinine 2.0 mg/dL (0.6-1.0) Estimated GFR (Cockcroft-Gault) 28.0 Glucose Level 102 mg/dL (70-99) Calcium Level 7.1 mg/dL (8.5-10.1) Phosphorus Level 2.9 mg/dL (2.6-4.7) Magnesium Level 2.0 mg/dL (1.8-2.4) White Blood Count 27.6 x10^3/uL (4.0-11.0) Red Blood Count 3.90 x10^6/uL (3.50-5.40) Hemoglobin 9.8 g/dL (12.0-15.5) Hematocrit 30.4 % (36.0-47.0) Mean Corpuscular Volume 78 fL (79-100) Mean Corpuscular Hemoglobin 25 pg (25-35) Mean Corpuscular Hemoglobin Concent 32 g/dL (31-37) Red Cell Distribution Width 16.6 % (11.5-14.5) Platelet Count 317 x10^3/uL (140-400) Neutrophils (%) (Auto) 92 % (31-73) Lymphocytes (%) (Auto) 4 % (24-48) Monocytes (%) (Auto) 1 % (0-9) Eosinophils (%) (Auto) 2 % (0-3) Basophils (%) (Auto) 1 % (0-3) Neutrophils # (Auto) 25.5 x10^3/uL (1.8-7.7) Lymphocytes # (Auto) 1.2 x10^3/uL (1.0-4.8) Monocytes # (Auto) 0.2 x10^3/uL (0.0-1.1) Eosinophils # (Auto) 0.6 x10^3/uL (0.0-0.7) Basophils # (Auto) 0.1 x10^3/uL (0.0-0.2) Alkaline Phosphatase 280 U/L (46-116) Test 06/15/19 08:00 06/15/19 08:45 06/15/19 09:30 06/15/19 11:02 O2 Saturation 95 % (92-99) Arterial Blood pH 7.33 (7.35-7.45) Arterial Blood pCO2 at Patient Temp 42 mmHg (35-46) Arterial Blood pO2 at Patient Temp 81 mmHg (85-108) Arterial Blood HCO3 22 mmol/L (21-28) Arterial Blood Base Excess -4 mmol/L (-3-3) FiO2 55 Sodium Level 135 mmol/L (136-145) Potassium Level 3.6 mmol/L (3.5-5.1) Chloride Level 100 mmol/L (98-107) Carbon Dioxide Level 23 mmol/L (21-32) Anion Gap 12 (6-14) Blood Urea Nitrogen 13 mg/dL (7-20) Creatinine 1.4 mg/dL (0.6-1.0) Estimated GFR (Cockcroft-Gault) 42.3 BUN/Creatinine Ratio 9 (6-20) Glucose Level 125 mg/dL (70-99) Calcium Level 7.2 mg/dL (8.5-10.1) Phosphorus Level 2.8 mg/dL (2.6-4.7) Magnesium Level 2.2 mg/dL (1.8-2.4) Total Bilirubin 4.1 mg/dL (0.2-1.0) Aspartate Amino Transf (AST/SGOT) 112 U/L (15-37) Alanine Aminotransferase (ALT/SGPT) 40 U/L (14-59) Alkaline Phosphatase 278 U/L (46-116) Total Protein 5.1 g/dL (6.4-8.2) Albumin 1.1 g/dL (3.4-5.0) Albumin/Globulin Ratio 0.3 (1.0-1.7) Gastric Fluid Occult Blood Positive (NEG) White Blood Count 28.1 x10^3/uL (4.0-11.0) Red Blood Count 3.95 x10^6/uL (3.50-5.40) Hemoglobin 9.9 g/dL (12.0-15.5) Hematocrit 30.7 % (36.0-47.0) Mean Corpuscular Volume 78 fL (79-100) Mean Corpuscular Hemoglobin 25 pg (25-35) Mean Corpuscular Hemoglobin Concent 32 g/dL (31-37) Red Cell Distribution Width 17.1 % (11.5-14.5) Platelet Count 285 x10^3/uL (140-400) Results All relevant outside records, renal labs, imaging studies, telemetry/EKG's were reviewed. Other CxR-- Continued presence of bilateral infiltrates, left greater than right, with some interval progression. NIKKY COTTO MD Jun 15, 2019 11:53
[2019-06-15] MEDS: DAPTOmycin (GENERIC) IVPB 600 MG in IV NORMAL SALINE 50ML 50 ML IV SCH (12:03)
[2019-06-15 15:23] LABS: CALCIUM 7.1 mg/dL (8.5-10.1); CREATININE 1.3 mg/dL (0.6-1.0); GFR 46.1; MAGNESIUM 2.2 mg/dL (1.8-2.4); PHOSPHORUS 2.8 mg/dL (2.6-4.7); POTASSIUM 3.5 mmol/L (3.5-5.1)
[2019-06-15] MEDS: POTASSIUM CHL 20MEQ PREMIX 50 ML IV SCH ×2 (16:15→17:17)
[2019-06-15] MEDS ORDERED: ALBUMIN HUMAN 5% 500 ML IV ONE ×2 (16:15→17:15)
[2019-06-15 21:27] LABS: HEMATOCRIT 28.6 % (36.0-47.0); HEMOGLOBIN 9.1 g/dL (12.0-15.5); RED BLOOD COUNT 3.64 x10^6/uL (3.50-5.40); RED CELL DISTRIBUTION WIDTH 17.2 % (11.5-14.5); WHITE BLOOD COUNT 25.7 x10^3/uL (4.0-11.0)
[2019-06-15 21:39] LABS: CREATININE 1.2 mg/dL (0.6-1.0); GFR 50.6; MAGNESIUM 2.2 mg/dL (1.8-2.4); PHOSPHORUS 2.3 mg/dL (2.6-4.7); POTASSIUM 4.1 mmol/L (3.5-5.1)
--- NOTE | 2019-06-15 23:50 | NUR ---
air in line after line was flushed d/t increasing TMP values. rn bone marrow transplant Vanessa SERIVN notified, instructed this nurse to clamp lines to pt, flush HD lines with saline, clamp CRRT bags and he will be here to restring her in an hour and a half. mother at bedside and notified of plan of care, verbalizes understanding and questions answered. VSS on multiple pressors and on 50% FiO2 on vent. will pass on in report, will continue to closely monitor.
[2019-06-16] VITALS (24 sets, daily range): BP systolic 83–141; BP diastolic 42–57
[2019-06-16] MEDS: NORMAL SALINE IV PRN ×6 (00:52→18:22)
[2019-06-16] MEDS: PHENYLEPHRINE IV PRN ×6 (00:52→18:22)
[2019-06-16] MEDS: VASOPRESSIN 40 UNIT in IV DEXTROSE 5% 100ML 100 ML IV PRN ×2 (00:52→18:22)
--- NOTE | 2019-06-16 02:00 | NUR ---
[employer] subcontract[employer] Vanessa nurse in at this time to restring pt for continued CRRT. restrung at this time. will pass on in report, will continue to closely monitor.
[2019-06-16] MEDS: POTASSIUM CHLORIDE 20 MEQ in DIALYSIS SOLUTION BGK 0/2.5 5,000 ML IV SCH ×33 (02:45→21:03)
[2019-06-16] MEDS: DEXMEDETOMIDINE 400 MCG in IV NORMAL SALINE 100ML 96 ML IV PRN ×6 (04:09→21:01)
[2019-06-16] MEDS: PANTOPRAZOLE SODIUM IV DRIP 80 MG in IV NORMAL SALINE 100ML 100 ML IV SCH ×2 (04:09→17:44)
[2019-06-16] MEDS: MIDAZOLAM 100mg/100ml NS BAG 100 ML IV PRN ×2 (04:10→18:20)
[2019-06-16] MEDS: NOREPINEPHRINE VIAL 32 MG in IV NORMAL SALINE 250ML IV PRN ×2 (06:06→21:02)
[2019-06-16 06:27] LABS: BASO % 0 % (0-3); EOS # 0.5 x10^3/uL (0.0-0.7); EOS % 2 % (0-3); HEMATOCRIT 28.7 % (36.0-47.0); LYMPH # 2.7 x10^3/uL (1.0-4.8); LYMPH % 9 % (24-48); MEAN CORPUSCULAR HEMOGLOBIN 25 pg (25-35); MEAN CORPUSCULAR HGB CONC 31 g/dL (31-37); MEAN CORPUSCULAR VOLUME 79 fL (79-100); MONO # 0.7 x10^3/uL (0.0-1.1); MONO % 2 % (0-9); NEUT # 26.9 x10^3/uL (1.8-7.7); NEUT % 87 % (31-73); PLATELET COUNT 263 x10^3/uL (140-400); RED BLOOD COUNT 3.64 x10^6/uL (3.50-5.40); RED CELL DISTRIBUTION WIDTH 17.3 % (11.5-14.5); WHITE BLOOD COUNT 30.9 x10^3/uL (4.0-11.0)
--- NOTE | 2019-06-16 06:33 | PDOC ---
PULMONARY PROGRESS NOTES Subjective sedated on vent, on, precedex, versed, fentanyl, fio2 50%, on crrt, on kaur, levo, vaso, small ett secretion, Vitals Vital Signs Date Time Temp Pulse Resp B/P (MAP) Pulse Ox O2 Delivery O2 Flow Rate FiO2 06/16/19 06:00 98 24 97/47 (64) 99 Ventilator 06/16/19 04:00 97.6 97.6 06/15/19 07:00 4.0 Comments ros as mentioned as above discussed w rn other sys otherwise neg sedated on vent HEENT: Other (nc at perrl nose clear orally intubated neck no lad no thyromegaly) Lungs: Other ( basilar crackles dull at bases ) Cardiovascular: S1, S2 Abdomen: Soft, Non-tender, Other (no mass) Extremities: Other (+++ edema, chronic changes) Skin: Dry Labs Laboratory Tests Test 06/14/19 07:30 06/14/19 08:10 06/14/19 18:19 06/14/19 20:15 O2 Saturation 96 % (92-99) Arterial Blood pH 7.33 (7.35-7.45) Arterial Blood pCO2 at Patient Temp 32 mmHg (35-46) Arterial Blood pO2 at Patient Temp 85 mmHg (85-108) Arterial Blood HCO3 17 mmol/L (21-28) Arterial Blood Base Excess -8 mmol/L (-3-3) FiO2 60% Lactic Acid Level 5.0 mmol/L (0.4-2.0) Heparin Anti-Xa Act, Unfractionated 0.54 IU/mL (0.30-0.70) Sodium Level 133 mmol/L (136-145) Potassium Level 3.4 mmol/L (3.5-5.1) Chloride Level 99 mmol/L (98-107) Carbon Dioxide Level 22 mmol/L (21-32) Anion Gap 12 (6-14) Blood Urea Nitrogen 17 mg/dL (7-20) Creatinine 2.0 mg/dL (0.6-1.0) Estimated GFR (Cockcroft-Gault) 28.0 Glucose Level 102 mg/dL (70-99) Calcium Level 7.1 mg/dL (8.5-10.1) Phosphorus Level 2.9 mg/dL (2.6-4.7) Magnesium Level 2.0 mg/dL (1.8-2.4) Test 06/15/19 00:45 06/15/19 05:00 06/15/19 08:00 06/15/19 08:45 Heparin Anti-Xa Act, Unfractionated 0.54 IU/mL (0.30-0.70) White Blood Count 27.6 x10^3/uL (4.0-11.0) Red Blood Count 3.90 x10^6/uL (3.50-5.40) Hemoglobin 9.8 g/dL (12.0-15.5) Hematocrit 30.4 % (36.0-47.0) Mean Corpuscular Volume 78 fL (79-100) Mean Corpuscular Hemoglobin 25 pg (25-35) Mean Corpuscular Hemoglobin Concent 32 g/dL (31-37) Red Cell Distribution Width 16.6 % (11.5-14.5) Platelet Count 317 x10^3/uL (140-400) Neutrophils (%) (Auto) 92 % (31-73) Lymphocytes (%) (Auto) 4 % (24-48) Monocytes (%) (Auto) 1 % (0-9) Eosinophils (%) (Auto) 2 % (0-3) Basophils (%) (Auto) 1 % (0-3) Neutrophils # (Auto) 25.5 x10^3/uL (1.8-7.7) Lymphocytes # (Auto) 1.2 x10^3/uL (1.0-4.8) Monocytes # (Auto) 0.2 x10^3/uL (0.0-1.1) Eosinophils # (Auto) 0.6 x10^3/uL (0.0-0.7) Basophils # (Auto) 0.1 x10^3/uL (0.0-0.2) Alkaline Phosphatase 280 U/L (46-116) 278 U/L (46-116) O2 Saturation 95 % (92-99) Arterial Blood pH 7.33 (7.35-7.45) Arterial Blood pCO2 at Patient Temp 42 mmHg (35-46) Arterial Blood pO2 at Patient Temp 81 mmHg (85-108) Arterial Blood HCO3 22 mmol/L (21-28) Arterial Blood Base Excess -4 mmol/L (-3-3) FiO2 55 Sodium Level 135 mmol/L (136-145) Potassium Level 3.6 mmol/L (3.5-5.1) Chloride Level 100 mmol/L (98-107) Carbon Dioxide Level 23 mmol/L (21-32) Anion Gap 12 (6-14) Blood Urea Nitrogen 13 mg/dL (7-20) Creatinine 1.4 mg/dL (0.6-1.0) Estimated GFR (Cockcroft-Gault) 42.3 BUN/Creatinine Ratio 9 (6-20) Glucose Level 125 mg/dL (70-99) Calcium Level 7.2 mg/dL (8.5-10.1) Phosphorus Level 2.8 mg/dL (2.6-4.7) Magnesium Level 2.2 mg/dL (1.8-2.4) Total Bilirubin 4.1 mg/dL (0.2-1.0) Aspartate Amino Transf (AST/SGOT) 112 U/L (15-37) Alanine Aminotransferase (ALT/SGPT) 40 U/L (14-59) Total Protein 5.1 g/dL (6.4-8.2) Albumin 1.1 g/dL (3.4-5.0) Albumin/Globulin Ratio 0.3 (1.0-1.7) Test 06/15/19 09:30 06/15/19 11:02 06/15/19 15:05 06/15/19 21:15 Gastric Fluid Occult Blood Positive (NEG) White Blood Count 28.1 x10^3/uL (4.0-11.0) 25.7 x10^3/uL (4.0-11.0) Red Blood Count 3.95 x10^6/uL (3.50-5.40) 3.64 x10^6/uL (3.50-5.40) Hemoglobin 9.9 g/dL (12.0-15.5) 9.1 g/dL (12.0-15.5) Hematocrit 30.7 % (36.0-47.0) 28.6 % (36.0-47.0) Mean Corpuscular Volume 78 fL (79-100) 79 fL (79-100) Mean Corpuscular Hemoglobin 25 pg (25-35) 25 pg (25-35) Mean Corpuscular Hemoglobin Concent 32 g/dL (31-37) 32 g/dL (31-37) Red Cell Distribution Width 17.1 % (11.5-14.5) 17.2 % (11.5-14.5) Platelet Count 285 x10^3/uL (140-400) 236 x10^3/uL (140-400) Sodium Level 135 mmol/L (136-145) 135 mmol/L (136-145) Potassium Level 3.5 mmol/L (3.5-5.1) 4.1 mmol/L (3.5-5.1) Chloride Level 101 mmol/L (98-107) 101 mmol/L (98-107) Carbon Dioxide Level 25 mmol/L (21-32) 22 mmol/L (21-32) Anion Gap 9 (6-14) 12 (6-14) Blood Urea Nitrogen 10 mg/dL (7-20) 10 mg/dL (7-20) Creatinine 1.3 mg/dL (0.6-1.0) 1.2 mg/dL (0.6-1.0) Estimated GFR (Cockcroft-Gault) 46.1 50.6 Glucose Level 119 mg/dL (70-99) 108 mg/dL (70-99) Calcium Level 7.1 mg/dL (8.5-10.1) 7.0 mg/dL (8.5-10.1) Phosphorus Level 2.8 mg/dL (2.6-4.7) 2.3 mg/dL (2.6-4.7) Magnesium Level 2.2 mg/dL (1.8-2.4) 2.2 mg/dL (1.8-2.4) Test 06/16/19 06:15 White Blood Count 30.9 x10^3/uL (4.0-11.0) Red Blood Count 3.64 x10^6/uL (3.50-5.40) Hemoglobin 9.0 g/dL (12.0-15.5) Hematocrit 28.7 % (36.0-47.0) Mean Corpuscular Volume 79 fL (79-100) Mean Corpuscular Hemoglobin 25 pg (25-35) Mean Corpuscular Hemoglobin Concent 31 g/dL (31-37) Red Cell Distribution Width 17.3 % (11.5-14.5) Platelet Count 263 x10^3/uL (140-400) Neutrophils (%) (Auto) 87 % (31-73) Lymphocytes (%) (Auto) 9 % (24-48) Monocytes (%) (Auto) 2 % (0-9) Eosinophils (%) (Auto) 2 % (0-3) Basophils (%) (Auto) 0 % (0-3) Neutrophils # (Auto) 26.9 x10^3/uL (1.8-7.7) Lymphocytes # (Auto) 2.7 x10^3/uL (1.0-4.8) Monocytes # (Auto) 0.7 x10^3/uL (0.0-1.1) Eosinophils # (Auto) 0.5 x10^3/uL (0.0-0.7) Basophils # (Auto) 0.0 x10^3/uL (0.0-0.2) Laboratory Tests Test 06/15/19 08:00 06/15/19 08:45 06/15/19 09:30 06/15/19 11:02 O2 Saturation 95 % (92-99) Arterial Blood pH 7.33 (7.35-7.45) Arterial Blood pCO2 at Patient Temp 42 mmHg (35-46) Arterial Blood pO2 at Patient Temp 81 mmHg (85-108) Arterial Blood HCO3 22 mmol/L (21-28) Arterial Blood Base Excess -4 mmol/L (-3-3) FiO2 55 Sodium Level 135 mmol/L (136-145) Potassium Level 3.6 mmol/L (3.5-5.1) Chloride Level 100 mmol/L (98-107) Carbon Dioxide Level 23 mmol/L (21-32) Anion Gap 12 (6-14) Blood Urea Nitrogen 13 mg/dL (7-20) Creatinine 1.4 mg/dL (0.6-1.0) Estimated GFR (Cockcroft-Gault) 42.3 BUN/Creatinine Ratio 9 (6-20) Glucose Level 125 mg/dL (70-99) Calcium Level 7.2 mg/dL (8.5-10.1) Phosphorus Level 2.8 mg/dL (2.6-4.7) Magnesium Level 2.2 mg/dL (1.8-2.4) Total Bilirubin 4.1 mg/dL (0.2-1.0) Aspartate Amino Transf (AST/SGOT) 112 U/L (15-37) Alanine Aminotransferase (ALT/SGPT) 40 U/L (14-59) Alkaline Phosphatase 278 U/L (46-116) Total Protein 5.1 g/dL (6.4-8.2) Albumin 1.1 g/dL (3.4-5.0) Albumin/Globulin Ratio 0.3 (1.0-1.7) Gastric Fluid Occult Blood Positive (NEG) White Blood Count 28.1 x10^3/uL (4.0-11.0) Red Blood Count 3.95 x10^6/uL (3.50-5.40) Hemoglobin 9.9 g/dL (12.0-15.5) Hematocrit 30.7 % (36.0-47.0) Mean Corpuscular Volume 78 fL (79-100) Mean Corpuscular Hemoglobin 25 pg (25-35) Mean Corpuscular Hemoglobin Concent 32 g/dL (31-37) Red Cell Distribution Width 17.1 % (11.5-14.5) Platelet Count 285 x10^3/uL (140-400) Test 06/15/19 15:05 06/15/19 21:15 06/16/19 06:15 Sodium Level 135 mmol/L (136-145) 135 mmol/L (136-145) Potassium Level 3.5 mmol/L (3.5-5.1) 4.1 mmol/L (3.5-5.1) Chloride Level 101 mmol/L (98-107) 101 mmol/L (98-107) Carbon Dioxide Level 25 mmol/L (21-32) 22 mmol/L (21-32) Anion Gap 9 (6-14) 12 (6-14) Blood Urea Nitrogen 10 mg/dL (7-20) 10 mg/dL (7-20) Creatinine 1.3 mg/dL (0.6-1.0) 1.2 mg/dL (0.6-1.0) Estimated GFR (Cockcroft-Gault) 46.1 50.6 Glucose Level 119 mg/dL (70-99) 108 mg/dL (70-99) Calcium Level 7.1 mg/dL (8.5-10.1) 7.0 mg/dL (8.5-10.1) Phosphorus Level 2.8 mg/dL (2.6-4.7) 2.3 mg/dL (2.6-4.7) Magnesium Level 2.2 mg/dL (1.8-2.4) 2.2 mg/dL (1.8-2.4) White Blood Count 25.7 x10^3/uL (4.0-11.0) 30.9 x10^3/uL (4.0-11.0) Red Blood Count 3.64 x10^6/uL (3.50-5.40) 3.64 x10^6/uL (3.50-5.40) Hemoglobin 9.1 g/dL (12.0-15.5) 9.0 g/dL (12.0-15.5) Hematocrit 28.6 % (36.0-47.0) 28.7 % (36.0-47.0) Mean Corpuscular Volume 79 fL (79-100) 79 fL (79-100) Mean Corpuscular Hemoglobin 25 pg (25-35) 25 pg (25-35) Mean Corpuscular Hemoglobin Concent 32 g/dL (31-37) 31 g/dL (31-37) Red Cell Distribution Width 17.2 % (11.5-14.5) 17.3 % (11.5-14.5) Platelet Count 236 x10^3/uL (140-400) 263 x10^3/uL (140-400) Neutrophils (%) (Auto) 87 % (31-73) Lymphocytes (%) (Auto) 9 % (24-48) Monocytes (%) (Auto) 2 % (0-9) Eosinophils (%) (Auto) 2 % (0-3) Basophils (%) (Auto) 0 % (0-3) Neutrophils # (Auto) 26.9 x10^3/uL (1.8-7.7) Lymphocytes # (Auto) 2.7 x10^3/uL (1.0-4.8) Monocytes # (Auto) 0.7 x10^3/uL (0.0-1.1) Eosinophils # (Auto) 0.5 x10^3/uL (0.0-0.7) Basophils # (Auto) 0.0 x10^3/uL (0.0-0.2) Medications Active Scripts Medications Dose Route/Sig Max Daily Dose Days Date Category Jonel Glover (Benzonatate) 100 Mg Capsule 100 Mg PO TID PRN 06/02/19 Rx Comments cxr reviewed b lat infilt L>R ett ok Impression . IMPRESSION: 1. Acute hypoxemic respiratory failure. 2. Severe metabolic acidosis, improving on crrt. 3. Septic shock. 4. Left lower extremity cellulitis and soft tissue infection. 5. Leukocytosis. 6. Acute kidney injury. 7. Shock liver. 8. Positive urine drug screen. 9. Morbid obesity prob kena. 10. abnl cxr Plan . PLAN: 1. We will continue support with multiple pressors to keep map >65. 2. CRRT per Nephrology, 3. Broad-spectrum antibiotics per ID. The patient is currently on meropenem, daptomycin and micafungin and zyvox 4. cont vent support until more stable, setting reviewed, abg reviewed, titrate down fio2 to keep sat >94% 5. protonix for stress ulcer prophylaxis 6. Gen surg and vascular following discussed w FOREIGN Foley MD Jun 16, 2019 06:33
[2019-06-16 06:44] LABS: CALCIUM 7.2 mg/dL (8.5-10.1); CREATININE 1.1 mg/dL (0.6-1.0); GFR 55.9; POTASSIUM 3.7 mmol/L (3.5-5.1)
[2019-06-16] MEDS ORDERED: ALBUMIN HUMAN 5% 500 ML IV ONE (07:30)
[2019-06-16] MEDS: MEROPENEM 1 GM in IV NORMAL SALINE 100ML 100 ML IV SCH ×2 (07:44→21:01)
[2019-06-16 07:54] LABS: BASE EXCESS ABG -2 mmol/L (-3-3); HCO3 ABG 24 mmol/L (21-28); PCO2 ABG 48 mmHg (35-46); PO2 ABG 78 mmHg (85-108); SAT O2 ABG 95 % (92-99)
[2019-06-16 07:58] LABS: FIO2 ABG 50%
[2019-06-16] MEDS ORDERED: SODIUM PHOSPHATE 20 MMOL in IV DEXTROSE 5% 250 ML IV ONE (08:00)
--- NOTE | 2019-06-16 08:49 | PDOC ---
Infectious Disease Note Subjective Subjective Sedated Remains orally intubated, FiO2 50% kaur/vaso/levaphed at max Thick yellow secretions from ETT Blood-tinged secretions from OGT CRRT No fevers last 24 hours, WBCs increased Mother present, but sleeping in chair, I didn't awaken ROS ROS unobtainable Vital Sign Vital Signs Vital Signs Date Time Temp Pulse Resp B/P (MAP) Pulse Ox O2 Delivery O2 Flow Rate FiO2 06/16/19 08:00 95 121/50 (73) 06/16/19 08:00 97.8 21 99 Ventilator 97.8 06/15/19 07:00 4.0 Physical Exam PHYSICAL EXAM GENERAL: Morbidly obese female, sedated and orally intubated. + mitts. CRRT HEENT: Pupils equal, reactive, ETT, OGT NECK: Supple. LUNGS: Coarse right side HEART: S1, S2, tachycardia, regular, Distant heart sounds. ABDOMEN: Soft, morbidly obese, Hypoactive bowel sounds. GENITOURINARY: Giff[place] in place, EXTREMITIES: Lower extremities edematous, weeping, marked purple discoloration L > R, warm ETCHER ENAMELING: Sedated SKIN: No signs generalized rash. + yeast skin folds - improving Temp RIJ/HDC (06/14), LIJ and left art line without signs of complications Labs Lab Laboratory Tests Test 06/15/19 08:45 06/15/19 09:30 06/15/19 11:02 06/15/19 15:05 Sodium Level 135 mmol/L (136-145) 135 mmol/L (136-145) Potassium Level 3.6 mmol/L (3.5-5.1) 3.5 mmol/L (3.5-5.1) Chloride Level 100 mmol/L (98-107) 101 mmol/L (98-107) Carbon Dioxide Level 23 mmol/L (21-32) 25 mmol/L (21-32) Anion Gap 12 (6-14) 9 (6-14) Blood Urea Nitrogen 13 mg/dL (7-20) 10 mg/dL (7-20) Creatinine 1.4 mg/dL (0.6-1.0) 1.3 mg/dL (0.6-1.0) Estimated GFR (Cockcroft-Gault) 42.3 46.1 BUN/Creatinine Ratio 9 (6-20) Glucose Level 125 mg/dL (70-99) 119 mg/dL (70-99) Calcium Level 7.2 mg/dL (8.5-10.1) 7.1 mg/dL (8.5-10.1) Phosphorus Level 2.8 mg/dL (2.6-4.7) 2.8 mg/dL (2.6-4.7) Magnesium Level 2.2 mg/dL (1.8-2.4) 2.2 mg/dL (1.8-2.4) Total Bilirubin 4.1 mg/dL (0.2-1.0) Aspartate Amino Transf (AST/SGOT) 112 U/L (15-37) Alanine Aminotransferase (ALT/SGPT) 40 U/L (14-59) Alkaline Phosphatase 278 U/L (46-116) Total Protein 5.1 g/dL (6.4-8.2) Albumin 1.1 g/dL (3.4-5.0) Albumin/Globulin Ratio 0.3 (1.0-1.7) Gastric Fluid Occult Blood Positive (NEG) White Blood Count 28.1 x10^3/uL (4.0-11.0) Red Blood Count 3.95 x10^6/uL (3.50-5.40) Hemoglobin 9.9 g/dL (12.0-15.5) Hematocrit 30.7 % (36.0-47.0) Mean Corpuscular Volume 78 fL (79-100) Mean Corpuscular Hemoglobin 25 pg (25-35) Mean Corpuscular Hemoglobin Concent 32 g/dL (31-37) Red Cell Distribution Width 17.1 % (11.5-14.5) Platelet Count 285 x10^3/uL (140-400) Test 06/15/19 21:15 06/16/19 06:15 06/16/19 07:45 White Blood Count 25.7 x10^3/uL (4.0-11.0) 30.9 x10^3/uL (4.0-11.0) Red Blood Count 3.64 x10^6/uL (3.50-5.40) 3.64 x10^6/uL (3.50-5.40) Hemoglobin 9.1 g/dL (12.0-15.5) 9.0 g/dL (12.0-15.5) Hematocrit 28.6 % (36.0-47.0) 28.7 % (36.0-47.0) Mean Corpuscular Volume 79 fL (79-100) 79 fL (79-100) Mean Corpuscular Hemoglobin 25 pg (25-35) 25 pg (25-35) Mean Corpuscular Hemoglobin Concent 32 g/dL (31-37) 31 g/dL (31-37) Red Cell Distribution Width 17.2 % (11.5-14.5) 17.3 % (11.5-14.5) Platelet Count 236 x10^3/uL (140-400) 263 x10^3/uL (140-400) Sodium Level 135 mmol/L (136-145) 135 mmol/L (136-145) Potassium Level 4.1 mmol/L (3.5-5.1) 3.7 mmol/L (3.5-5.1) Chloride Level 101 mmol/L (98-107) 101 mmol/L (98-107) Carbon Dioxide Level 22 mmol/L (21-32) 24 mmol/L (21-32) Anion Gap 12 (6-14) 10 (6-14) Blood Urea Nitrogen 10 mg/dL (7-20) 10 mg/dL (7-20) Creatinine 1.2 mg/dL (0.6-1.0) 1.1 mg/dL (0.6-1.0) Estimated GFR (Cockcroft-Gault) 50.6 55.9 Glucose Level 108 mg/dL (70-99) 93 mg/dL (70-99) Calcium Level 7.0 mg/dL (8.5-10.1) 7.2 mg/dL (8.5-10.1) Phosphorus Level 2.3 mg/dL (2.6-4.7) Magnesium Level 2.2 mg/dL (1.8-2.4) Neutrophils (%) (Auto) 87 % (31-73) Lymphocytes (%) (Auto) 9 % (24-48) Monocytes (%) (Auto) 2 % (0-9) Eosinophils (%) (Auto) 2 % (0-3) Basophils (%) (Auto) 0 % (0-3) Neutrophils # (Auto) 26.9 x10^3/uL (1.8-7.7) Lymphocytes # (Auto) 2.7 x10^3/uL (1.0-4.8) Monocytes # (Auto) 0.7 x10^3/uL (0.0-1.1) Eosinophils # (Auto) 0.5 x10^3/uL (0.0-0.7) Basophils # (Auto) 0.0 x10^3/uL (0.0-0.2) Creatine Kinase 356 U/L (26-192) O2 Saturation 95 % (92-99) Arterial Blood pH 7.32 (7.35-7.45) Arterial Blood pCO2 at Patient Temp 48 mmHg (35-46) Arterial Blood pO2 at Patient Temp 78 mmHg (85-108) Arterial Blood HCO3 24 mmol/L (21-28) Arterial Blood Base Excess -2 mmol/L (-3-3) FiO2 50% Micro Microbiology 06/13/19 Blood Culture - Preliminary, Resulted NO GROWTH AFTER 2 DAY 06/13. URINE CULTURE RES 1 Final No growth Objective Assessment Severe sepsis w/ shock. On 3 pressors Acute hypoxic respiratory failure with pulmonary infiltrates, intubated. Left lower extremity severe skin and soft tissue infection. No surgical plans. (CK up to 356 from 156) Leukocytosis worsening Lactic acidosis. (10.8, down to 5.0) Acute kidney injury, on CRRT Severe metabolic acidosis. Hyperbilirubinemia with abnormal liver function tests. Substance abuse Morbid obesity. Elevated lipase Plan Plan of Care Dapto, merrem and micafungin Continue Zyvox for bacterial toxin binding and lung coverage Sputum culture pending BC neg so far from 06/[address] left leg at this time No surgical plans. Gen surg and vascular following spoke with [facility] again, pt listed under different name, BC were neg. D/w nursing Critically ill Improving with regard to pressors but critically ill and not a surgical candidate. D/w mother and with nursing Attending Co-Sign Attending Co-Sign The patient was seen and interviewed as well as examined at the bedside. The chart was reviewed. The case was discussed. Agree with the plan of care. CASEY PINEDA APRN Jun 16, 2019 08:48 JAY WISE MD Jun 16, 2019 17:35
--- NOTE | 2019-06-16 09:22 | PDOC ---
PROGRESS NOTES Chief Complaint Chief Complaint Severe sepsis Severe LLE skin infection Resp failure,on IPPV - intubated on arrival CATY Anemia, elevated LFTs and lipase S/p cholecystectomy Obesity - BMI 62.6 +amphetamines Severe metabolic acidosis full code Pulm infiltrates, recent [facility] - HCAP NEw ESRD CCRT 06/15 Black NGT output History of Present Illness History of Present Illness very sick, intubated at ER Mother at bedside this time, Pt was at [facility] - legs looked the same, they were treating her there with IV abx and for meth abuse LEgs look worse, but vasc sx and GS will not touch bec TOO CRITICAL/unstable On 2 pressors NOW CRRRT initaited too bec of gap met acidosis PT remains intubated, on 2 pressors, morbidly obese, with bullae both legs and discoloration [facility] s[facility] Dr Huang., monday, good flow though VEnous dopplers limited for DVT But mom says at [facility]< DVT and PE was rulws out NO fevers,. on IV abx per ID On PPI gtt q10 hrs per GI Also heparin gtt? - during CRRT NA 135, Creat 1,.1 hgb 9 WBC 30s - not on steroids, hypothermic actually on bare hugger CPK 360 On ppi gtt x 3 days per GI MONDAY ENTRY: dw [facility] sx Dr Huang, recommend GS or even plastic sx ([facility]U) if needed - but too unstable or critical to do that now - unlikey surgical candidate for now give on pressors etc ON broard spectrum per ID mom at bedside this time PUlm infiltrates, recent [facility] admit maintain rodrigues Added GI consult bec elevated lFts, TB is 3 - recommend US as too unstable for CT, add PPI, monitor that anemia, transfuse if hgb < 7 LEgs are markedly swollen and infected, Self pay vent bundle CC 32 dw mom Vitals Vitals Vital Signs Date Time Temp Pulse Resp B/P (MAP) Pulse Ox O2 Delivery O2 Flow Rate FiO2 06/16/19 08:52 100 Ventilator 06/16/19 08:00 95 121/50 (73) 06/16/19 08:00 97.8 21 97.8 06/15/19 07:00 4.0 Physical Exam Physical Exam GENERAL: Morbidly obese female, sedated and orally intubated. + mitts. CRRT HEENT: Pupils equal, reactive, ETT, OGT NECK: Supple. LUNGS: Coarse right side HEART: S1, S2, tachycardia, regular, Distant heart sounds. ABDOMEN: Soft, morbidly obese, Hypoactive bowel sounds. GENITOURINARY: Rodrigues in place, EXTREMITIES: Lower extremities edematous, weeping, marked purple discoloration L > R, warm [employer]: Sedated SKIN: No signs generalized rash. + yeast skin folds - improving Temp RIJ/HDC (06/14), LIJ and left art line without signs of complications General: No acute distress, Other (intubated sedated) Heart: Regular rate, No murmurs Lungs: Other ( basilar crackles dull at bases ) Abdomen: Normal bowel sounds, Soft Extremities: Normal pulses, Other (massive bilateral edema lower extremities left greater than right ecchymotic lesions both legs left greater than right no fluctuance or crepitance by palpation) Skin: Other (infected legs. :Left > RT) Labs LABS Laboratory Tests Test 06/15/19 09:30 06/15/19 11:02 06/15/19 15:05 06/15/19 21:15 Gastric Fluid Occult Blood Positive (NEG) White Blood Count 28.1 x10^3/uL (4.0-11.0) 25.7 x10^3/uL (4.0-11.0) Red Blood Count 3.95 x10^6/uL (3.50-5.40) 3.64 x10^6/uL (3.50-5.40) Hemoglobin 9.9 g/dL (12.0-15.5) 9.1 g/dL (12.0-15.5) Hematocrit 30.7 % (36.0-47.0) 28.6 % (36.0-47.0) Mean Corpuscular Volume 78 fL (79-100) 79 fL (79-100) Mean Corpuscular Hemoglobin 25 pg (25-35) 25 pg (25-35) Mean Corpuscular Hemoglobin Concent 32 g/dL (31-37) 32 g/dL (31-37) Red Cell Distribution Width 17.1 % (11.5-14.5) 17.2 % (11.5-14.5) Platelet Count 285 x10^3/uL (140-400) 236 x10^3/uL (140-400) Sodium Level 135 mmol/L (136-145) 135 mmol/L (136-145) Potassium Level 3.5 mmol/L (3.5-5.1) 4.1 mmol/L (3.5-5.1) Chloride Level 101 mmol/L (98-107) 101 mmol/L (98-107) Carbon Dioxide Level 25 mmol/L (21-32) 22 mmol/L (21-32) Anion Gap 9 (6-14) 12 (6-14) Blood Urea Nitrogen 10 mg/dL (7-20) 10 mg/dL (7-20) Creatinine 1.3 mg/dL (0.6-1.0) 1.2 mg/dL (0.6-1.0) Estimated GFR (Cockcroft-Gault) 46.1 50.6 Glucose Level 119 mg/dL (70-99) 108 mg/dL (70-99) Calcium Level 7.1 mg/dL (8.5-10.1) 7.0 mg/dL (8.5-10.1) Phosphorus Level 2.8 mg/dL (2.6-4.7) 2.3 mg/dL (2.6-4.7) Magnesium Level 2.2 mg/dL (1.8-2.4) 2.2 mg/dL (1.8-2.4) Test 06/16/19 06:15 06/16/19 07:45 White Blood Count 30.9 x10^3/uL (4.0-11.0) Red Blood Count 3.64 x10^6/uL (3.50-5.40) Hemoglobin 9.0 g/dL (12.0-15.5) Hematocrit 28.7 % (36.0-47.0) Mean Corpuscular Volume 79 fL (79-100) Mean Corpuscular Hemoglobin 25 pg (25-35) Mean Corpuscular Hemoglobin Concent 31 g/dL (31-37) Red Cell Distribution Width 17.3 % (11.5-14.5) Platelet Count 263 x10^3/uL (140-400) Neutrophils (%) (Auto) 87 % (31-73) Lymphocytes (%) (Auto) 9 % (24-48) Monocytes (%) (Auto) 2 % (0-9) Eosinophils (%) (Auto) 2 % (0-3) Basophils (%) (Auto) 0 % (0-3) Neutrophils # (Auto) 26.9 x10^3/uL (1.8-7.7) Lymphocytes # (Auto) 2.7 x10^3/uL (1.0-4.8) Monocytes # (Auto) 0.7 x10^3/uL (0.0-1.1) Eosinophils # (Auto) 0.5 x10^3/uL (0.0-0.7) Basophils # (Auto) 0.0 x10^3/uL (0.0-0.2) Sodium Level 135 mmol/L (136-145) Potassium Level 3.7 mmol/L (3.5-5.1) Chloride Level 101 mmol/L (98-107) Carbon Dioxide Level 24 mmol/L (21-32) Anion Gap 10 (6-14) Blood Urea Nitrogen 10 mg/dL (7-20) Creatinine 1.1 mg/dL (0.6-1.0) Estimated GFR (Cockcroft-Gault) 55.9 Glucose Level 93 mg/dL (70-99) Calcium Level 7.2 mg/dL (8.5-10.1) Creatine Kinase 356 U/L (26-192) O2 Saturation 95 % (92-99) Arterial Blood pH 7.32 (7.35-7.45) Arterial Blood pCO2 at Patient Temp 48 mmHg (35-46) Arterial Blood pO2 at Patient Temp 78 mmHg (85-108) Arterial Blood HCO3 24 mmol/L (21-28) Arterial Blood Base Excess -2 mmol/L (-3-3) FiO2 50% Review of Systems Review of Systems intubated, sedated Assessment and Plan Assessmemt and Plan Problems Medical Problems: (1) Acute respiratory failure Status: Acute (2) Elevated brain natriuretic peptide (BNP) level Status: Acute (3) Elevated d-dimer Status: Acute (4) Elevated lipase Status: Acute (5) Elevated liver function tests Status: Acute (6) GI bleeding Status: Acute (7) Hyperglycemia Status: Acute (8) Hypermagnesuria Status: Acute (9) Hypoalbuminemia Status: Acute (10) Hypokalemia Status: Acute (11) Hyponatremia Status: Acute (12) Lower extremity cellulitis Status: Acute (13) Metabolic acidosis Status: Acute (14) Methamphetamine abuse Status: Acute (15) Morbid obesity with BMI of 60.0-69.9, adult Status: Acute (16) Renal insufficiency Status: Acute (17) Sepsis Status: Acute (18) Severe sepsis Status: Acute Comment Review of Relevant I have reviewed the following items loreta (where applicable) has been applied. Labs Laboratory Tests Test 06/14/19 18:19 06/14/19 20:15 06/15/19 00:45 06/15/19 05:00 Heparin Anti-Xa Act, Unfractionated 0.54 IU/mL (0.30-0.70) 0.54 IU/mL (0.30-0.70) Sodium Level 133 mmol/L (136-145) Potassium Level 3.4 mmol/L (3.5-5.1) Chloride Level 99 mmol/L (98-107) Carbon Dioxide Level 22 mmol/L (21-32) Anion Gap 12 (6-14) Blood Urea Nitrogen 17 mg/dL (7-20) Creatinine 2.0 mg/dL (0.6-1.0) Estimated GFR (Cockcroft-Gault) 28.0 Glucose Level 102 mg/dL (70-99) Calcium Level 7.1 mg/dL (8.5-10.1) Phosphorus Level 2.9 mg/dL (2.6-4.7) Magnesium Level 2.0 mg/dL (1.8-2.4) White Blood Count 27.6 x10^3/uL (4.0-11.0) Red Blood Count 3.90 x10^6/uL (3.50-5.40) Hemoglobin 9.8 g/dL (12.0-15.5) Hematocrit 30.4 % (36.0-47.0) Mean Corpuscular Volume 78 fL (79-100) Mean Corpuscular Hemoglobin 25 pg (25-35) Mean Corpuscular Hemoglobin Concent 32 g/dL (31-37) Red Cell Distribution Width 16.6 % (11.5-14.5) Platelet Count 317 x10^3/uL (140-400) Neutrophils (%) (Auto) 92 % (31-73) Lymphocytes (%) (Auto) 4 % (24-48) Monocytes (%) (Auto) 1 % (0-9) Eosinophils (%) (Auto) 2 % (0-3) Basophils (%) (Auto) 1 % (0-3) Neutrophils # (Auto) 25.5 x10^3/uL (1.8-7.7) Lymphocytes # (Auto) 1.2 x10^3/uL (1.0-4.8) Monocytes # (Auto) 0.2 x10^3/uL (0.0-1.1) Eosinophils # (Auto) 0.6 x10^3/uL (0.0-0.7) Basophils # (Auto) 0.1 x10^3/uL (0.0-0.2) Alkaline Phosphatase 280 U/L (46-116) Test 06/15/19 08:00 06/15/19 08:45 06/15/19 09:30 06/15/19 11:02 O2 Saturation 95 % (92-99) Arterial Blood pH 7.33 (7.35-7.45) Arterial Blood pCO2 at Patient Temp 42 mmHg (35-46) Arterial Blood pO2 at Patient Temp 81 mmHg (85-108) Arterial Blood HCO3 22 mmol/L (21-28) Arterial Blood Base Excess -4 mmol/L (-3-3) FiO2 55 Sodium Level 135 mmol/L (136-145) Potassium Level 3.6 mmol/L (3.5-5.1) Chloride Level 100 mmol/L (98-107) Carbon Dioxide Level 23 mmol/L (21-32) Anion Gap 12 (6-14) Blood Urea Nitrogen 13 mg/dL (7-20) Creatinine 1.4 mg/dL (0.6-1.0) Estimated GFR (Cockcroft-Gault) 42.3 BUN/Creatinine Ratio 9 (6-20) Glucose Level 125 mg/dL (70-99) Calcium Level 7.2 mg/dL (8.5-10.1) Phosphorus Level 2.8 mg/dL (2.6-4.7) Magnesium Level 2.2 mg/dL (1.8-2.4) Total Bilirubin 4.1 mg/dL (0.2-1.0) Aspartate Amino Transf (AST/SGOT) 112 U/L (15-37) Alanine Aminotransferase (ALT/SGPT) 40 U/L (14-59) Alkaline Phosphatase 278 U/L (46-116) Total Protein 5.1 g/dL (6.4-8.2) Albumin 1.1 g/dL (3.4-5.0) Albumin/Globulin Ratio 0.3 (1.0-1.7) Gastric Fluid Occult Blood Positive (NEG) White Blood Count 28.1 x10^3/uL (4.0-11.0) Red Blood Count 3.95 x10^6/uL (3.50-5.40) Hemoglobin 9.9 g/dL (12.0-15.5) Hematocrit 30.7 % (36.0-47.0) Mean Corpuscular Volume 78 fL (79-100) Mean Corpuscular Hemoglobin 25 pg (25-35) Mean Corpuscular Hemoglobin Concent 32 g/dL (31-37) Red Cell Distribution Width 17.1 % (11.5-14.5) Platelet Count 285 x10^3/uL (140-400) Test 06/15/19 15:05 06/15/19 21:15 06/16/19 06:15 06/16/19 07:45 Sodium Level 135 mmol/L (136-145) 135 mmol/L (136-145) 135 mmol/L (136-145) Potassium Level 3.5 mmol/L (3.5-5.1) 4.1 mmol/L (3.5-5.1) 3.7 mmol/L (3.5-5.1) Chloride Level 101 mmol/L (98-107) 101 mmol/L (98-107) 101 mmol/L (98-107) Carbon Dioxide Level 25 mmol/L (21-32) 22 mmol/L (21-32) 24 mmol/L (21-32) Anion Gap 9 (6-14) 12 (6-14) 10 (6-14) Blood Urea Nitrogen 10 mg/dL (7-20) 10 mg/dL (7-20) 10 mg/dL (7-20) Creatinine 1.3 mg/dL (0.6-1.0) 1.2 mg/dL (0.6-1.0) 1.1 mg/dL (0.6-1.0) Estimated GFR (Cockcroft-Gault) 46.1 50.6 55.9 Glucose Level 119 mg/dL (70-99) 108 mg/dL (70-99) 93 mg/dL (70-99) Calcium Level 7.1 mg/dL (8.5-10.1) 7.0 mg/dL (8.5-10.1) 7.2 mg/dL (8.5-10.1) Phosphorus Level 2.8 mg/dL (2.6-4.7) 2.3 mg/dL (2.6-4.7) Magnesium Level 2.2 mg/dL (1.8-2.4) 2.2 mg/dL (1.8-2.4) White Blood Count 25.7 x10^3/uL (4.0-11.0) 30.9 x10^3/uL (4.0-11.0) Red Blood Count 3.64 x10^6/uL (3.50-5.40) 3.64 x10^6/uL (3.50-5.40) Hemoglobin 9.1 g/dL (12.0-15.5) 9.0 g/dL (12.0-15.5) Hematocrit 28.6 % (36.0-47.0) 28.7 % (36.0-47.0) Mean Corpuscular Volume 79 fL (79-100) 79 fL (79-100) Mean Corpuscular Hemoglobin 25 pg (25-35) 25 pg (25-35) Mean Corpuscular Hemoglobin Concent 32 g/dL (31-37) 31 g/dL (31-37) Red Cell Distribution Width 17.2 % (11.5-14.5) 17.3 % (11.5-14.5) Platelet Count 236 x10^3/uL (140-400) 263 x10^3/uL (140-400) Neutrophils (%) (Auto) 87 % (31-73) Lymphocytes (%) (Auto) 9 % (24-48) Monocytes (%) (Auto) 2 % (0-9) Eosinophils (%) (Auto) 2 % (0-3) Basophils (%) (Auto) 0 % (0-3) Neutrophils # (Auto) 26.9 x10^3/uL (1.8-7.7) Lymphocytes # (Auto) 2.7 x10^3/uL (1.0-4.8) Monocytes # (Auto) 0.7 x10^3/uL (0.0-1.1) Eosinophils # (Auto) 0.5 x10^3/uL (0.0-0.7) Basophils # (Auto) 0.0 x10^3/uL (0.0-0.2) Creatine Kinase 356 U/L (26-192) O2 Saturation 95 % (92-99) Arterial Blood pH 7.32 (7.35-7.45) Arterial Blood pCO2 at Patient Temp 48 mmHg (35-46) Arterial Blood pO2 at Patient Temp 78 mmHg (85-108) Arterial Blood HCO3 24 mmol/L (21-28) Arterial Blood Base Excess -2 mmol/L (-3-3) FiO2 50% Laboratory Tests Test 06/15/19 09:30 06/15/19 11:02 06/15/19 15:05 06/15/19 21:15 Gastric Fluid Occult Blood Positive (NEG) White Blood Count 28.1 x10^3/uL (4.0-11.0) 25.7 x10^3/uL (4.0-11.0) Red Blood Count 3.95 x10^6/uL (3.50-5.40) 3.64 x10^6/uL (3.50-5.40) Hemoglobin 9.9 g/dL (12.0-15.5) 9.1 g/dL (12.0-15.5) Hematocrit 30.7 % (36.0-47.0) 28.6 % (36.0-47.0) Mean Corpuscular Volume 78 fL (79-100) 79 fL (79-100) Mean Corpuscular Hemoglobin 25 pg (25-35) 25 pg (25-35) Mean Corpuscular Hemoglobin Concent 32 g/dL (31-37) 32 g/dL (31-37) Red Cell Distribution Width 17.1 % (11.5-14.5) 17.2 % (11.5-14.5) Platelet Count 285 x10^3/uL (140-400) 236 x10^3/uL (140-400) Sodium Level 135 mmol/L (136-145) 135 mmol/L (136-145) Potassium Level 3.5 mmol/L (3.5-5.1) 4.1 mmol/L (3.5-5.1) Chloride Level 101 mmol/L (98-107) 101 mmol/L (98-107) Carbon Dioxide Level 25 mmol/L (21-32) 22 mmol/L (21-32) Anion Gap 9 (6-14) 12 (6-14) Blood Urea Nitrogen 10 mg/dL (7-20) 10 mg/dL (7-20) Creatinine 1.3 mg/dL (0.6-1.0) 1.2 mg/dL (0.6-1.0) Estimated GFR (Cockcroft-Gault) 46.1 50.6 Glucose Level 119 mg/dL (70-99) 108 mg/dL (70-99) Calcium Level 7.1 mg/dL (8.5-10.1) 7.0 mg/dL (8.5-10.1) Phosphorus Level 2.8 mg/dL (2.6-4.7) 2.3 mg/dL (2.6-4.7) Magnesium Level 2.2 mg/dL (1.8-2.4) 2.2 mg/dL (1.8-2.4) Test 06/16/19 06:15 06/16/19 07:45 White Blood Count 30.9 x10^3/uL (4.0-11.0) Red Blood Count 3.64 x10^6/uL (3.50-5.40) Hemoglobin 9.0 g/dL (12.0-15.5) Hematocrit 28.7 % (36.0-47.0) Mean Corpuscular Volume 79 fL (79-100) Mean Corpuscular Hemoglobin 25 pg (25-35) Mean Corpuscular Hemoglobin Concent 31 g/dL (31-37) Red Cell Distribution Width 17.3 % (11.5-14.5) Platelet Count 263 x10^3/uL (140-400) Neutrophils (%) (Auto) 87 % (31-73) Lymphocytes (%) (Auto) 9 % (24-48) Monocytes (%) (Auto) 2 % (0-9) Eosinophils (%) (Auto) 2 % (0-3) Basophils (%) (Auto) 0 % (0-3) Neutrophils # (Auto) 26.9 x10^3/uL (1.8-7.7) Lymphocytes # (Auto) 2.7 x10^3/uL (1.0-4.8) Monocytes # (Auto) 0.7 x10^3/uL (0.0-1.1) Eosinophils # (Auto) 0.5 x10^3/uL (0.0-0.7) Basophils # (Auto) 0.0 x10^3/uL (0.0-0.2) Sodium Level 135 mmol/L (136-145) Potassium Level 3.7 mmol/L (3.5-5.1) Chloride Level 101 mmol/L (98-107) Carbon Dioxide Level 24 mmol/L (21-32) Anion Gap 10 (6-14) Blood Urea Nitrogen 10 mg/dL (7-20) Creatinine 1.1 mg/dL (0.6-1.0) Estimated GFR (Cockcroft-Gault) 55.9 Glucose Level 93 mg/dL (70-99) Calcium Level 7.2 mg/dL (8.5-10.1) Creatine Kinase 356 U/L (26-192) O2 Saturation 95 % (92-99) Arterial Blood pH 7.32 (7.35-7.45) Arterial Blood pCO2 at Patient Temp 48 mmHg (35-46) Arterial Blood pO2 at Patient Temp 78 mmHg (85-108) Arterial Blood HCO3 24 mmol/L (21-28) Arterial Blood Base Excess -2 mmol/L (-3-3) FiO2 50% Microbiology 06/13/19 Urine Culture - Final, Complete 06/13/19 Urine Culture Result 1 (ABEBE) - Final, Complete 06/13/19 Blood Culture - Preliminary, Resulted NO GROWTH AFTER 2 DAYS Medications Current Medications Sodium Chloride 1,000 ml @ 1,000 mls/hr Q1H IV Last administered on 06/13/19at 16:56; Start 06/13/19 at 16:12; Stop 06/13/19 at 17:11; Status DC Albuterol/ Ipratropium (Duoneb) 3 ml 1X ONCE NEB Last administered on 06/13/19at 16:31; Start 06/13/19 at 16:15; Stop 06/13/19 at 16:19; Status DC Piperacillin Sod/ Tazobactam Sod 4.5 gm/Sodium Chloride 100 ml @ 200 mls/hr 1X ONCE IV Last administered on 06/13/19at 17:13; Start 06/13/19 at 16:45; Stop 06/13/19 at 17:14; Status DC Vancomycin HCl 250 ml @ 250 mls/hr 1X ONCE IV ; Start 06/13/19 at 16:45; Stop 06/13/19 at 17:44; Status UNV Levofloxacin/ Dextrose 150 ml @ 100 mls/hr 1X ONCE IV Last administered on 06/13/19at 18:48; Start 06/13/19 at 16:45; Stop 06/13/19 at 18:14; Status DC Vancomycin HCl 250 ml @ 250 mls/hr 1X ONCE IV ; Start 06/13/19 at 16:45; Stop 06/13/19 at 17:44; Status UNV Sodium Chloride 1,000 ml @ 1,000 mls/hr 1X ONCE IV Last administered on 08/14/18at 16:56; Start 06/13/19 at 16:45; Stop 06/13/19 at 17:44; Status DC Vancomycin HCl 2 gm/Sodium Chloride 500 ml @ 250 mls/hr 1X ONCE IV Last administered on 06/13/19at 21:15; Start 06/13/19 at 16:45; Stop 06/13/19 at 18:44; Status DC Sodium Chloride 1,000 ml @ 1,000 mls/hr 1X ONCE IV ; Start 06/13/19 at 17:15; Stop 06/13/19 at 18:14; Status DC Sodium Chloride 1,000 ml @ 200 mls/hr Q5H IV Last administered on 06/14/19at 11:51; Start 06/13/19 at 17:13; Stop 06/14/19 at 17:12; Status DC Lorazepam (Ativan Inj) 1 mg 1X ONCE IVP Last administered on 06/13/19at 17:26; Start 06/13/19 at 17:30; Stop 06/13/19 at 17:31; Status DC Lorazepam (Ativan Inj) 2 mg STK-MED ONCE .ROUTE ; Start 06/13/19 at 17:23; Stop 06/13/19 at 17:24; Status DC Norepinephrine Bitartrate 250 ml @ 29.974 mls/ hr 1X ONCE IV Last administered on 06/13/19at 17:47; Start 06/13/19 at 17:45; Stop 06/14/19 at 02:05; Status DC Midazolam HCl 100 ml @ 0 mls/hr 1X ONCE IV Last administered on 06/13/19at 17:54; Start 06/13/19 at 17:45; Stop 06/13/19 at 17:46; Status DC Fentanyl Citrate (Fentanyl 2ml Vial) 100 mcg STK-MED ONCE .ROUTE ; Start 06/13/19 at 18:06; Stop 06/13/19 at 18:06; Status DC Pantoprazole Sodium 80 mg/ Sodium Chloride 100 ml @ 10 mls/hr 1X ONCE IV Last administered on 06/13/19at 20:00; Start 06/13/19 at 18:15; Stop 06/14/19 at 04:14; Status DC Pantoprazole Sodium (PROTONIX VIAL for IV PUSH) 40 mg 1X ONCE IVP ; Start 06/13/19 at 18:15; Stop 06/13/19 at 18:25; Status DC Fentanyl Citrate (Fentanyl 2ml Vial) 25 mcg 1X ONCE IVP Last administered on 06/13/19at 18:24; Start 06/13/19 at 18:15; Stop 06/13/19 at 18:24; Status DC Midazolam HCl (Versed) 5 mg 1X ONCE IV Last administered on 06/13/19at 18:24; Start 06/13/19 at 18:30; Stop 06/13/19 at 18:31; Status DC Dexmedetomidine HCl 400 mcg/ Sodium Chloride 100 ml @ 0 mls/hr CONT PRN IV PER PROTOCOL Last administered on 06/16/19at 06:06; Start 06/13/19 at 18:30 Sodium Chloride 500 ml @ 500 mls/hr 1X PRN PRN IV HYPOTENSION; Start 06/13/19 at 18:30 Atropine Sulfate (ATROPINE 0.5mg SYRINGE) 0.5 mg PRN Q5MIN PRN IV SEE COMMENTS; Start 06/13/19 at 18:30 Etomidate (Amidate) 20 mg 1X ONCE IV Last administered on 06/13/19at 18:47; Start 06/13/19 at 18:45; Stop 06/13/19 at 18:48; Status DC Succinylcholine Chloride (Anectine) 100 mg 1X ONCE IV Last administered on 06/13/19at 18:47; Start 06/13/19 at 18:45; Stop 06/13/19 at 18:48; Status DC Norepinephrine Bitartrate 250 ml @ 30.495 mls/ hr CONT PRN IV SEE I/O RECORD Last administered on 06/13/19at 23:21; Start 06/13/19 at 21:30; Stop 06/14/19 at 00:00; Status DC Dexmedetomidine HCl 400 mcg/ Sodium Chloride 100 ml @ 0 mls/hr CONT PRN IV SEDATION; Start 06/13/19 at 21:30; Status UNV Sodium Chloride 500 ml @ 500 mls/hr 1X PRN PRN IV SEDATION; Start 06/13/19 at 21:30; Status UNV Atropine Sulfate (ATROPINE 0.5mg SYRINGE) 0.5 mg PRN Q5MIN PRN IV SEE COMMENTS; Start 06/13/19 at 21:30; Status UNV Midazolam HCl 100 ml @ 5 mls/hr CONT PRN IV SEE I/O RECORD Last administered on 06/16/19at 04:10; Start 06/13/19 at 21:45 Info (FLU VACCINE SCREEN per RX) 1 each PRN DAILY PRN MC SEE COMMENTS; Start 06/13/19 at 23:45 Norepinephrine Bitartrate 250 ml @ 30.495 mls/ hr CONT PRN IV SEE I/O RECORD; Start 06/13/19 at 23:45; Stop 06/14/19 at 00:00; Status DC Phenylephrine HCl 20 mg/Sodium Chloride 252 ml @ 61.478 mls/ hr CONT PRN IV SEE I/O RECORD; Start 06/14/19 at 00:00; Status UNV Phenylephrine HCl 80 mg/Sodium Chloride 258 ml @ 15.674 mls/ hr CONT PRN IV SEE I/O RECORD Last administered on 06/16/19at 06:40; Start 06/13/19 at 23:45 Norepinephrine Bitartrate 32 mg/ Sodium Chloride 250 ml @ 7.594 mls/ hr CONT PRN IV SEE I/O RECORD Last administered on 06/16/19at 06:06; Start 06/13/19 at 23:45 Sodium Chloride 500 ml @ 500 mls/hr Q1H IV Last administered on 06/14/19at 01:30; Start 06/14/19 at 01:30; Stop 06/14/19 at 02:29; Status DC Sodium Bicarbonate 150 meq/Dextrose 1,150 ml @ 75 mls/hr [id number] IV Last administered on 06/15/19at 23:54; Start 06/14/19 at 02:00 Vasopressin 40 unit/Dextrose 102 ml @ 6 mls/hr CONT PRN IV SEE I/O RECORD Last administered on 06/16/19at 00:52; Start 06/14/19 at 02:00 Fentanyl Citrate 30 ml @ 0 mls/hr CONT PRN IV SEE PROTOCOL Last administered on 06/16/19at 00:54; Start 06/14/19 at 02:45 Pantoprazole Sodium 80 mg/ Sodium Chloride 100 ml @ 10 mls/hr Q10H IV Last administered on 06/16/19at 04:09; Start 06/14/19 at 04:00 Meropenem 1 gm/ Sodium Chloride 100 ml @ 200 mls/hr Q12HR IV Last administered on 06/16/19at 07:44; Start 06/14/19 at 09:00 Micafungin Sodium 100 mg/Dextrose 100 ml @ 100 mls/hr Q24H IV Last ad ministered on 06/15/19at 10:15; Start 06/14/19 at 10:00 Daptomycin 600 mg/ Sodium Chloride 50 ml @ 100 mls/hr Q24H IV Last admi nistered on 06/15/19at 12:03; Start 06/14/19 at 11:00 Heparin Sodium (Porcine) (Heparin Sodium) 5,000 unit Q8HRS SQ ; Start 06/14/19 at 14:00; Stop 06/14/19 at 12:12; Status DC Acetaminophen (Tylenol) 650 mg PRN Q6HRS PRN PEG MILD PAIN / TEMP; Start 06/14 at 08:45 Acetaminophen/ Codeine Phosphate (Tylenol/Codeine Soln) 5 ml PRN Q6HRS PRN PO MODERATE PAIN; Start 06/14/19 at 08:45 Ondansetron HCl (Zofran) 4 mg PRN Q6HRS PRN IVP NAUSEA/VOMITING; Start 06/14/19 at 08:45 Lidocaine HCl (Buffered Lidocaine 1%) 3 ml STK-MED ONCE .ROUTE ; Start 06/14/19 at 10:45; Stop 06/14/19 at 10:45; Status DC Heparin Sodium (Porcine) (Heparin Sodium) 10,000 unit STK-MED ONCE .ROUTE ; Start 06/14/19 at 10:46; Stop 06/14/19 at 10:46; Status DC Lidocaine HCl (Buffered Lidocaine 1%) 5 ml 1X ONCE INJ Last administered on 06/14/19at 11:23; Start 06/14/19 at 11:15; Stop 06/14/19 at 11:16; Status DC Heparin Sodium/ Dextrose 500 ml @ 0 mls/hr CONT PRN IV PER PROTOCOL Last administered on 06/15/19at 00:50; Start 06/14/19 at 12:30; Stop 06/16/19 at 07:41; Status DC Heparin Sodium (Porcine) (Heparin Sodium) 4,150 unit PRN Q6HRS PRN IV FOR UFH LEVEL LESS THAN 0.2; Start 06/14/19 at 12:30; Stop 06/16/19 at 07:41; Status DC Potassium Chloride 20 meq/ Bicarbonate Dialysis Soln w/ out KCl 5,010 ml @ 1,500 mls/hr Q3H21M IV Last administered on 06/16/19at 06:10; Start 06/14/19 at 14:00 Potassium Chloride 20 meq/ Bicarbonate Dialysis Soln w/ out KCl 5,010 ml @ 1,500 mls/hr Q3H21M IV Last administered on 06/16/19at 06:10; Start 06/14/19 at 14:00 Potassium Chloride 20 meq/ Bicarbonate Dialysis Soln w/ out KCl 5,010 ml @ 1,500 mls/hr Q3H21M IV Last administered on 06/16/19at 06:10; Start 06/14/19 at 14:00 Potassium Bicarbonate (Potassium Effervescent Tablet) 40 meq 1X ONCE GT ; Start 06/15/19 at 08:45; Stop 06/15/19 at 08:46; Status DC Linezolid/Dextrose 300 ml @ 300 mls/hr Q12HR IV Last administered on 06/16/19at 08:22; Start 06/15/19 at 10:00 Potassium Chloride/Water 50 ml @ 50 mls/hr Q1H IV Last administered on 06/15/19at 17:17; Start 06/15/19 at 16:00; Stop 06/15/19 at 17:59; Status DC Albumin Human 500 ml @ 125 mls/hr 1X ONCE IV Last administered on 06/15/19at 16:39; Start 06/15/19 at 16:15; Stop 06/15/19 at 20:14; Status DC Albumin Human 500 ml @ 125 mls/hr 1X ONCE IV Last administered on 06/15/19at 17:17; Start 06/15/19 at 17:15; Stop 06/15/19 at 21:14; Status DC Albumin Human 500 ml @ 125 mls/hr 1X ONCE IV Last administered on 06/16/19at 07:17; Start 06/16/19 at 07:30; Stop 06/16/19 at 11:29 Sodium Phosphate 20 mmol/Dextrose 256.6667 ml @ 63.158 m... 1X ONCE IV Last administered on 06/16/19at 08:22; Start 06/16/19 at 08:00; Stop 06/16/19 at 12:03 Active Scripts Active Tessalon Perle (Benzonatate) 100 Mg Capsule 100 Mg PO TID PRN Vitals/I & O Vital Sign - Last 24 Hours 06/15/19 06/15/19 06/15/19 06/15/19 10:00 10:06 11:00 11:18 Pulse 70 68 Resp 20 20 B/P (MAP) 112/55 (74) 107/58 (74) Pulse Ox 100 100 99 100 O2 Delivery Ventilator Ventilator Ventilator Ventilator 06/15/19 06/15/19 06/15/19 06/15/19 12:00 12:00 12:00 13:00 Temp 95.1 95.1 Pulse 72 72 74 Resp 20 20 B/P (MAP) 122/64 (83) 123/65 (84) 107/59 (75) Pulse Ox 100 100 O2 Delivery Mechanical Ventilator Ventilator Ventilator 06/15/19 06/15/19 06/15/19 06/15/19 13:49 14:00 14:07 14:19 Pulse 76 Resp 20 20 20 B/P (MAP) 102/56 (71) Pulse Ox 100 97 97 97 O2 Delivery Ventilator Ventilator Ventilator Ventilator 06/15/19 06/15/19 06/15/19 06/15/19 15:00 15:48 16:00 16:00 Temp 95.8 95.8 Pulse 79 77 77 Resp 20 20 B/P (MAP) 91/52 (65) 84/49 (61) 84/51 (62) Pulse Ox 80 99 99 O2 Delivery Ventilator Ventilator Ventilator 06/15/19 06/15/19 06/15/19 06/15/19 16:00 17:00 17:50 18:00 Pulse 81 79 Resp 20 20 B/P (MAP) 101/53 (69) 111/58 (75) Pulse Ox 100 97 99 O2 Delivery Mechanical Ventilator Ventilator Ventilator Ventilator 06/15/19 06/15/19 06/15/19 06/15/19 19:00 20:00 20:00 20:00 Temp 95.9 95.9 Pulse 81 85 Resp 22 22 B/P (MAP) 115/60 (78) 116/61 (79) Pulse Ox 100 100 O2 Delivery Ventilator Ventilator Mechanical Ventilator 06/15/19 06/15/19 06/15/19 06/15/19 20:06 21:00 22:00 23:00 Pulse 90 90 90 Resp 22 22 20 B/P (MAP) 94/50 (65) 120/60 (80) 91/49 (63) Pulse Ox 100 100 100 100 O2 Delivery Ventilator Ventilator Ventilator Ventilator 06/15/19 06/16/19 06/16/19 06/16/19 23:44 00:00 00:00 00:00 Temp 96.8 96.8 Pulse 89 Resp 20 B/P (MAP) 95/52 (66) Pulse Ox 100 100 O2 Delivery Ventilator Mechanical Ventilator Ventilator 06/16/19 06/16/19 06/16/19 06/16/19 00:54 01:00 01:25 02:00 Pulse 90 91 Resp 20 20 20 20 B/P (MAP) 97/50 (66) 83/42 (56) Pulse Ox 100 100 100 100 O2 Delivery Ventilator Ventilator Ventilator Ventilator 06/16/19 06/16/19 06/16/19 06/16/19 02:10 03:00 03:48 04:00 Temp 97.6 97.6 Pulse 94 95 Resp 20 20 B/P (MAP) 95/44 (61) 100/47 (64) Pulse Ox 100 100 100 98 O2 Delivery Ventilator Ventilator Ventilator Ventilator 06/16/19 06/16/19 06/16/19 06/16/19 04:00 04:00 05:00 05:43 Pulse 97 Resp 24 B/P (MAP) 99/47 (64) Pulse Ox 99 100 O2 Delivery Mechanical Ventilator Ventilator Ventilator 06/16/19 06/16/19 06/16/19 06/16/19 06:00 07:00 07:46 08:00 Pulse 98 97 Resp 24 22 B/P (MAP) 97/47 (64) 96/44 (61) Pulse Ox 99 99 100 O2 Delivery Ventilator Ventilator Ventilator Mechanical Ventilator 06/16/19 06/16/19 06/16/19 08:00 08:00 08:52 Temp 97.8 97.8 Pulse 95 95 Resp 21 B/P (MAP) 122/52 (75) 121/50 (73) Pulse Ox 99 100 O2 Delivery Ventilator Ventilator Intake and Output 06/15/19 06/15/19 06/16/19 15:00 23:00 07:00 Intake Total 4350 ml 3647.8 ml Output Total 395 ml 1845 ml 1650 ml Balance -395 ml 2505 ml 1997.8 ml SAMUEL NICE MD Jun 16, 2019 09:22
[2019-06-16] MEDS: MICAFUNGIN 100 MG in IV DEXTROSE 5% 100ML 100 ML IV SCH (09:34)
[2019-06-16] MEDS: DAPTOmycin (GENERIC) IVPB 600 MG in IV NORMAL SALINE 50ML 50 ML IV SCH (10:49)
--- NOTE | 2019-06-16 11:58 | PDOC ---
SUBJECTIVE ROS Intubated, sedated, multiple pressors Still hypotensive last evening- good response to IV albumin , UOP improved OBJECTIVE Vital Signs Vital Signs Date Time Temp Pulse Resp B/P (MAP) Pulse Ox O2 Delivery O2 Flow Rate FiO2 06/16/19 11:00 85 20 96/47 (63) 98 Ventilator 06/16/19 08:00 97.8 97.8 06/15/19 07:00 4.0 I & 0 Intake and Output 06/16/19 07:00 Intake Total 7997.8 ml Output Total 3890 ml Balance 4107.8 ml Intake IV Total 7997.8 ml Output Urine Total 3190 ml Gastric Drainage Total 700 ml PHYSICAL EXAM Physical Exam GENERAL: Morbidly obese female, sedated and intubated. HEENT: Anicteric, Intubated NECK: Supple, thick LUNGS: Decreased breath sounds at the bases. HEART: S1, S2, tachycardia. Distant heart sounds. ABDOMEN: Soft, morbidly obese, EXTREMITIES: Chronic venous stasis, edema with weeping lesions, redness, black eschar left lower extremity > Rt : Gifford in place NEURO Intubated. DIAGNOSIS/ASSESSMENT Assessment & Plan CATY- ATN sec to sepsis /Hypotensive/ Anuric initially,Now Non Oliguric- excellent uop Initiated CRRT 06/14, was on 3 pressors , supportive care, Monitor, avoid nep hrotoxins IV NS boluses and Albumin for BP support as needed Hypokalemia- Normal this am On 4 K with CRRT, replace IV per protocol Acute hypoxic respiratory failure with pulmonary infiltrates, intubated. Left lower extremity severe skin and soft tissue infection. On Abx per ID , vascular consulted, Lactic acidosis. Severe metabolic acidosis- sec to sepsis /Lactic acidosis Normalized with CRRT Abnormal liver function tests. with hyperbilirubinemia Urine drug screen positive for amphetamine Morbid obesity. Dw RN , No family at bedside Critically ill COMMENT/RELEVANT DATA Meds Current Medications Medications (Trade) Dose Ordered Sig/Ele Start Time Stop Time Status Last Admin Dose Admin Acetaminophen (Tylenol) 650 mg PRN Q6HRS PRN 06/14/19 08:45 Acetaminophen/ Codeine Phosphate (Tylenol/Codeine Soln) 5 ml PRN Q6HRS PRN 06/14/19 08:45 Albumin Human 500 ml @ 125 mls/hr 1X ONCE 06/16/19 07:30 06/16/19 11:29 DC 06/16/19 07:17 125 MLS/HR Albuterol/ Ipratropium (Duoneb) 3 ml 1X ONCE 06/13/19 16:15 06/13/19 16:19 DC 06/13/19 16:31 3 ML Atropine Sulfate (ATROPINE 0.5mg SYRINGE) 0.5 mg PRN Q5MIN PRN 06/13/19 21:30 UNV Daptomycin 600 mg/ Sodium Chloride 50 ml @ 100 mls/hr Q24H 06/14/19 11:00 06/16/19 10:49 100 MLS/HR Dexmedetomidine HCl 400 mcg/ Sodium Chloride 100 ml @ 0 mls/hr CONT PRN 06/13/19 21:30 UNV Etomidate (Amidate) 20 mg 1X ONCE 06/13/19 18:45 06/13/19 18:48 DC 06/13/19 18:47 20 MG Fentanyl Citrate 30 ml @ 0 mls/hr CONT PRN 06/14/19 02:45 06/16/19 10:17 3.75 MLS/HR Fentanyl Citrate (Fentanyl 2ml Vial) 25 mcg 1X ONCE 06/13/19 18:15 06/13/19 18:24 DC 06/13/19 18:24 25 MCG Heparin Sodium (Porcine) (Heparin Sodium) 4,150 unit PRN Q6HRS PRN 06/14/19 12:30 06/16/19 07:41 DC Heparin Sodium/ Dextrose 500 ml @ 0 mls/hr CONT PRN 06/14/19 12:30 06/16/19 07:41 DC 06/15/19 00:50 39.7 MLS/HR Info (FLU VACCINE SCREEN per RX) 1 each PRN DAILY PRN 06/13/19 23:45 Levofloxacin/ Dextrose 150 ml @ 100 mls/hr 1X ONCE 06/13/19 16:45 06/13/19 18:14 DC 06/13/19 18:48 100 MLS/HR Lidocaine HCl (Buffered Lidocaine 1%) 5 ml 1X ONCE 06/14/19 11:15 06/14/19 11:16 DC 06/14/19 11:23 5 ML Linezolid/Dextrose 300 ml @ 300 mls/hr Q12HR 06/15/19 10:00 06/16/19 08:22 300 MLS/HR Lorazepam (Ativan Inj) 2 mg STK-MED ONCE 06/13/19 17:23 06/13/19 17:24 DC Meropenem 1 gm/ Sodium Chloride 100 ml @ 200 mls/hr Q12HR 06/14/19 09:00 06/16/19 07:44 200 MLS/HR Micafungin Sodium 100 mg/Dextrose 100 ml @ 100 mls/hr Q24H 06/14/19 10:00 06/16/19 09:34 100 MLS/HR Midazolam HCl 100 ml @ 5 mls/hr CONT PRN 06/13/19 21:45 06/16/19 04:10 10 MLS/HR Midazolam HCl (Versed) 5 mg 1X ONCE 06/13/19 18:30 06/13/19 18:31 DC 06/13/19 18:24 5 MG Norepinephrine Bitartrate 250 ml @ 30.495 mls/ hr CONT PRN 06/13/19 23:45 06/14/19 00:00 DC Norepinephrine Bitartrate 32 mg/ Sodium Chloride 250 ml @ 7.594 mls/ hr CONT PRN 06/13/19 23:45 06/16/19 06:06 34.172 MLS/HR Ondansetron HCl (Zofran) 4 mg PRN Q6HRS PRN 06/14/19 08:45 Pantoprazole Sodium (PROTONIX VIAL for IV PUSH) 40 mg 1X ONCE 06/13/19 18:15 06/13/19 18:25 DC Pantoprazole Sodium 80 mg/ Sodium Chloride 100 ml @ 10 mls/hr Q10H 06/14/19 04:00 06/16/19 04:09 10 MLS/HR Phenylephrine HCl 20 mg/Sodium Chloride 252 ml @ 61.478 mls/ hr CONT PRN 06/14/19 00:00 UNV Phenylephrine HCl 80 mg/Sodium Chloride 258 ml @ 15.674 mls/ hr CONT PRN 06/13/19 23:45 06/16/19 09:59 78.368 MLS/HR Piperacillin Sod/ Tazobactam Sod 4.5 gm/Sodium Chloride 100 ml @ 200 mls/hr 1X ONCE 06/13/19 16:45 06/13/19 17:14 DC 06/13/19 17:13 200 MLS/HR Potassium Bicarbonate (Potassium Effervescent Tablet) 40 meq 1X ONCE 06/15/19 08:45 06/15/19 08:46 DC Potassium Chloride 20 meq/ Bicarbonate Dialysis Soln w/ out KCl 5,010 ml @ 1,500 mls/hr [id number] 06/14/19 14:00 06/16/19 09:33 1,500 MLS/HR Potassium Chloride/Water 50 ml @ 50 mls/hr Q1H 06/15/19 16:00 06/15/19 17:59 DC 06/15/19 17:17 50 MLS/HR Sodium Bicarbonate 150 meq/Dextrose 1,150 ml @ 75 mls/hr [id number] 06/14/19 02:00 06/15/19 23:54 75 MLS/HR Sodium Chloride 500 ml @ 500 mls/hr Q1H 06/14/19 01:30 06/14/19 02:29 DC 06/14/19 01:30 500 MLS/HR Sodium Phosphate 20 mmol/Dextrose 256.6667 ml @ 63.158 m... 1X ONCE 06/16/19 08:00 06/16/19 12:03 06/16/19 08:22 63.158 MLS/HR Succinylcholine Chloride (Anectine) 100 mg 1X ONCE 06/13/19 18:45 06/13/19 18:48 DC 06/13/19 18:47 100 MG Vancomycin HCl 250 ml @ 250 mls/hr 1X ONCE 06/13/19 16:45 06/13/19 17:44 UNV Vancomycin HCl 2 gm/Sodium Chloride 500 ml @ 250 mls/hr 1X ONCE 06/13/19 16:45 06/13/19 18:44 DC 06/13/19 21:15 250 MLS/HR Vasopressin 40 unit/Dextrose 102 ml @ 6 mls/hr CONT PRN 06/14/19 02:00 06/16/19 00:52 6 MLS/HR Lab Laboratory Tests Test 06/15/19 15:05 06/15/19 21:15 06/16/19 06:15 06/16/19 07:45 Sodium Level 135 mmol/L (136-145) 135 mmol/L (136-145) 135 mmol/L (136-145) Potassium Level 3.5 mmol/L (3.5-5.1) 4.1 mmol/L (3.5-5.1) 3.7 mmol/L (3.5-5.1) Chloride Level 101 mmol/L (98-107) 101 mmol/L (98-107) 101 mmol/L (98-107) Carbon Dioxide Level 25 mmol/L (21-32) 22 mmol/L (21-32) 24 mmol/L (21-32) Anion Gap 9 (6-14) 12 (6-14) 10 (6-14) Blood Urea Nitrogen 10 mg/dL (7-20) 10 mg/dL (7-20) 10 mg/dL (7-20) Creatinine 1.3 mg/dL (0.6-1.0) 1.2 mg/dL (0.6-1.0) 1.1 mg/dL (0.6-1.0) Estimated GFR (Cockcroft-Gault) 46.1 50.6 55.9 Glucose Level 119 mg/dL (70-99) 108 mg/dL (70-99) 93 mg/dL (70-99) Calcium Level 7.1 mg/dL (8.5-10.1) 7.0 mg/dL (8.5-10.1) 7.2 mg/dL (8.5-10.1) Phosphorus Level 2.8 mg/dL (2.6-4.7) 2.3 mg/dL (2.6-4.7) Magnesium Level 2.2 mg/dL (1.8-2.4) 2.2 mg/dL (1.8-2.4) White Blood Count 25.7 x10^3/uL (4.0-11.0) 30.9 x10^3/uL (4.0-11.0) Red Blood Count 3.64 x10^6/uL (3.50-5.40) 3.64 x10^6/uL (3.50-5.40) Hemoglobin 9.1 g/dL (12.0-15.5) 9.0 g/dL (12.0-15.5) Hematocrit 28.6 % (36.0-47.0) 28.7 % (36.0-47.0) Mean Corpuscular Volume 79 fL (79-100) 79 fL (79-100) Mean Corpuscular Hemoglobin 25 pg (25-35) 25 pg (25-35) Mean Corpuscular Hemoglobin Concent 32 g/dL (31-37) 31 g/dL (31-37) Red Cell Distribution Width 17.2 % (11.5-14.5) 17.3 % (11.5-14.5) Platelet Count 236 x10^3/uL (140-400) 263 x10^3/uL (140-400) Neutrophils (%) (Auto) 87 % (31-73) Lymphocytes (%) (Auto) 9 % (24-48) Monocytes (%) (Auto) 2 % (0-9) Eosinophils (%) (Auto) 2 % (0-3) Basophils (%) (Auto) 0 % (0-3) Neutrophils # (Auto) 26.9 x10^3/uL (1.8-7.7) Lymphocytes # (Auto) 2.7 x10^3/uL (1.0-4.8) Monocytes # (Auto) 0.7 x10^3/uL (0.0-1.1) Eosinophils # (Auto) 0.5 x10^3/uL (0.0-0.7) Basophils # (Auto) 0.0 x10^3/uL (0.0-0.2) Creatine Kinase 356 U/L (26-192) O2 Saturation 95 % (92-99) Arterial Blood pH 7.32 (7.35-7.45) Arterial Blood pCO2 at Patient Temp 48 mmHg (35-46) Arterial Blood pO2 at Patient Temp 78 mmHg (85-108) Arterial Blood HCO3 24 mmol/L (21-28) Arterial Blood Base Excess -2 mmol/L (-3-3) FiO2 50% Results All relevant outside records, renal labs, imaging studies, telemetry/EKG's were reviewed. NIKKY COTTO MD Jun 16, 2019 11:58
[2019-06-16 12:12] LABS: ALBUMIN 1.8 g/dL (3.4-5.0); ALBUMIN/GLOBULIN RATIO 0.5 (1.0-1.7); CALCIUM 6.8 mg/dL (8.5-10.1); CREATININE 1.1 mg/dL (0.6-1.0); GFR 55.9; MAGNESIUM 2.1 mg/dL (1.8-2.4); PHOSPHORUS 2.3 mg/dL (2.6-4.7); POTASSIUM 3.6 mmol/L (3.5-5.1); TOTAL BILIRUBIN 4.4 mg/dL (0.2-1.0); TOTAL PROTEIN 5.2 g/dL (6.4-8.2)
[2019-06-16] MEDS: SODIUM BICARBONATE VIAL 150 MEQ in IV DEXTROSE 5% 1,000 ML IV SCH (13:36)
[2019-06-16 14:02] LABS: HEMATOCRIT 26.2 % (36.0-47.0); HEMOGLOBIN 8.3 g/dL (12.0-15.5); RED BLOOD COUNT 3.33 x10^6/uL (3.50-5.40); RED CELL DISTRIBUTION WIDTH 17.6 % (11.5-14.5); WHITE BLOOD COUNT 30.3 x10^3/uL (4.0-11.0)
--- NOTE | 2019-06-16 14:42 | NUR ---
APPROXIMATELY 1230, CRRT FREQUENTLY ALARMING WITH FLOW AND FILTER CLOTTING ALARMS. SIXTO NARAYANAN NOTIFIED AND WAS HERE TO RESTRING SYSTEM BY 1330.
[2019-06-16] MEDS ORDERED: ALBUMIN HUMAN 5% 250 ML IV ONE (15:00)
--- NOTE | 2019-06-16 17:41 | RAD ---
Study: PORTABLE CHEST 1V Indication: Respiratory failure. Comparison: 06/15/2019 Findings: Unchanged endotracheal tube positioning as well as positioning of a central venous catheter. Enteric tube descends below the inferior margin of the radiograph. No newly seen pneumothorax. The costophrenic angles are visualized. Haziness throughout the left more so than right lungs is redemonstrated in addition to a more localized opacity at the lower left lung. Impression: 1. Unchanged support device positioning. 2. Redemonstrated generalized haziness of the left more so than right lungs as well as a localized opacity at the lower left lung. No newly seen abnormality. Electronically signed by: CHUNG LA MD (06/16/2019 5:38 PM) [facility]
[2019-06-16 19:00] LABS: CALCIUM 6.9 mg/dL (8.5-10.1); CREATININE 0.9 mg/dL (0.6-1.0); GFR 70.5; MAGNESIUM 2.1 mg/dL (1.8-2.4); PHOSPHORUS 1.7 mg/dL (2.6-4.7); POTASSIUM 3.6 mmol/L (3.5-5.1)
[2019-06-17] VITALS (32 sets, daily range): BP systolic 80–111; BP diastolic 40–55
[2019-06-17] MEDS: POTASSIUM CHLORIDE 20 MEQ in DIALYSIS SOLUTION BGK 0/2.5 5,000 ML IV SCH ×36 (00:36→15:41)
[2019-06-17] MEDS: PHENYLEPHRINE IV PRN ×3 (00:36→17:38)
[2019-06-17] MEDS: NORMAL SALINE IV PRN ×3 (00:36→17:38)
[2019-06-17] MEDS: DEXMEDETOMIDINE 400 MCG in IV NORMAL SALINE 100ML 96 ML IV PRN ×4 (00:37→17:38)
[2019-06-17] MEDS: PANTOPRAZOLE SODIUM IV DRIP 80 MG in IV NORMAL SALINE 100ML 100 ML IV SCH ×2 (00:37→16:02)
[2019-06-17 01:44] LABS: MAGNESIUM 2.2 mg/dL (1.8-2.4); PHOSPHORUS 1.4 mg/dL (2.6-4.7); POTASSIUM 3.7 mmol/L (3.5-5.1)
--- NOTE | 2019-06-17 03:30 | NUR ---
TMP values increasing rapidly, CRRT machine alarming frequently d/t clotting as well. eventually, around 0325, flushing the line wasn't helping the clotting issue or decreasing the TMP values so the treatment was stopped, lines were flushes and capped. pt tolerating removal without difficulty. was told during shift report from day nurse that if pt were to clot off or need removed over the night after 2300, the contact manager dialysis nurse doesn't need notified and the plan is to keep her off CRRT on Monday and see how she tolerates it. will pass on in report, will continue to closely monitor.
[2019-06-17 06:19] LABS: BASO # 0.1 x10^3/uL (0.0-0.2); BASO % 0 % (0-3); EOS # 0.7 x10^3/uL (0.0-0.7); EOS % 2 % (0-3); HEMATOCRIT 26.2 % (36.0-47.0); HEMOGLOBIN 8.4 g/dL (12.0-15.5); LYMPH # 0.8 x10^3/uL (1.0-4.8); LYMPH % 2 % (24-48); MEAN CORPUSCULAR HEMOGLOBIN 25 pg (25-35); MEAN CORPUSCULAR HGB CONC 32 g/dL (31-37); MEAN CORPUSCULAR VOLUME 78 fL (79-100); MONO # 1.1 x10^3/uL (0.0-1.1); MONO % 3 % (0-9); NEUT # 34.5 x10^3/uL (1.8-7.7); NEUT % 93 % (31-73); PLATELET COUNT 192 x10^3/uL (140-400); RED BLOOD COUNT 3.36 x10^6/uL (3.50-5.40); RED CELL DISTRIBUTION WIDTH 17.2 % (11.5-14.5)
[2019-06-17] MEDS: MIDAZOLAM 100mg/100ml NS BAG 100 ML IV PRN (06:26)
[2019-06-17] MEDS: SODIUM BICARBONATE VIAL 150 MEQ in IV DEXTROSE 5% 1,000 ML IV SCH ×2 (06:27→21:25)
--- NOTE | 2019-06-17 07:19 | PDOC ---
Infectious Disease Note Subjective Subjective Sedated Remains orally intubated, FiO2 50% Thick yellow secretions from ETT Blood-tinged secretions from OGT CRRT No fevers last 24 hours, WBCs increased ROS ROS o/w neg Vital Sign Vital Signs Vital Signs Date Time Temp Pulse Resp B/P (MAP) Pulse Ox O2 Delivery O2 Flow Rate FiO2 06/17/19 06:29 20 99 Ventilator 06/17/19 06:00 70 93/45 (61) 06/17/19 04:00 97.4 97.4 Physical Exam PHYSICAL EXAM GENERAL: Morbidly obese female, sedated and orally intubated. + mitts. HEENT: Pupils equal, reactive, ETT, OGT NECK: Supple. LUNGS: Coarse right side HEART: S1, S2, tachycardia, regular, Distant heart sounds. ABDOMEN: Soft, morbidly obese, Hypoactive bowel sounds. 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 + yeast skin folds - improving Temp RIJ/HDC (06/14), LIJ and left art line without signs of complications Labs Lab Laboratory Tests Test 06/16/19 07:45 06/16/19 11:35 06/16/19 15:48 06/16/19 18:35 O2 Saturation 95 % (92-99) Arterial Blood pH 7.32 (7.35-7.45) Arterial Blood pCO2 at Patient Temp 48 mmHg (35-46) Arterial Blood pO2 at Patient Temp 78 mmHg (85-108) Arterial Blood HCO3 24 mmol/L (21-28) Arterial Blood Base Excess -2 mmol/L (-3-3) FiO2 50% White Blood Count 30.3 x10^3/uL (4.0-11.0) Red Blood Count 3.33 x10^6/uL (3.50-5.40) Hemoglobin 8.3 g/dL (12.0-15.5) Hematocrit 26.2 % (36.0-47.0) Mean Corpuscular Volume 79 fL (79-100) Mean Corpuscular Hemoglobin 25 pg (25-35) Mean Corpuscular Hemoglobin Concent 32 g/dL (31-37) Red Cell Distribution Width 17.6 % (11.5-14.5) Platelet Count 222 x10^3/uL (140-400) Sodium Level 136 mmol/L (136-145) 137 mmol/L (136-145) Potassium Level 3.6 mmol/L (3.5-5.1) 3.6 mmol/L (3.5-5.1) Chloride Level 100 mmol/L (98-107) 102 mmol/L (98-107) Carbon Dioxide Level 26 mmol/L (21-32) 28 mmol/L (21-32) Anion Gap 10 (6-14) 7 (6-14) Blood Urea Nitrogen 8 mg/dL (7-20) 7 mg/dL (7-20) Creatinine 1.1 mg/dL (0.6-1.0) 0.9 mg/dL (0.6-1.0) Estimated GFR (Cockcroft-Gault) 55.9 70.5 BUN/Creatinine Ratio 7 (6-20) Glucose Level 110 mg/dL (70-99) 95 mg/dL (70-99) Lactic Acid Level 4.3 mmol/L (0.4-2.0) 3.8 mmol/L (0.4-2.0) Calcium Level 6.8 mg/dL (8.5-10.1) 6.9 mg/dL (8.5-10.1) Phosphorus Level 2.3 mg/dL (2.6-4.7) 1.7 mg/dL (2.6-4.7) Magnesium Level 2.1 mg/dL (1.8-2.4) 2.1 mg/dL (1.8-2.4) Total Bilirubin 4.4 mg/dL (0.2-1.0) Aspartate Amino Transf (AST/SGOT) 74 U/L (15-37) Alanine Aminotransferase (ALT/SGPT) 27 U/L (14-59) Alkaline Phosphatase 314 U/L (46-116) Total Protein 5.2 g/dL (6.4-8.2) Albumin 1.8 g/dL (3.4-5.0) Albumin/Globulin Ratio 0.5 (1.0-1.7) Test 06/17/19 01:15 06/17/19 06:10 Sodium Level 135 mmol/L (136-145) Potassium Level 3.7 mmol/L (3.5-5.1) Chloride Level 102 mmol/L (98-107) Carbon Dioxide Level 27 mmol/L (21-32) Anion Gap 6 (6-14) Phosphorus Level 1.4 mg/dL (2.6-4.7) Magnesium Level 2.2 mg/dL (1.8-2.4) White Blood Count 37.0 x10^3/uL (4.0-11.0) Red Blood Count 3.36 x10^6/uL (3.50-5.40) Hemoglobin 8.4 g/dL (12.0-15.5) Hematocrit 26.2 % (36.0-47.0) Mean Corpuscular Volume 78 fL (79-100) Mean Corpuscular Hemoglobin 25 pg (25-35) Mean Corpuscular Hemoglobin Concent 32 g/dL (31-37) Red Cell Distribution Width 17.2 % (11.5-14.5) Platelet Count 192 x10^3/uL (140-400) Neutrophils (%) (Auto) 93 % (31-73) Lymphocytes (%) (Auto) 2 % (24-48) Monocytes (%) (Auto) 3 % (0-9) Eosinophils (%) (Auto) 2 % (0-3) Basophils (%) (Auto) 0 % (0-3) Neutrophils # (Auto) 34.5 x10^3/uL (1.8-7.7) Lymphocytes # (Auto) 0.8 x10^3/uL (1.0-4.8) Monocytes # (Auto) 1.1 x10^3/uL (0.0-1.1) Eosinophils # (Auto) 0.7 x10^3/uL (0.0-0.7) Basophils # (Auto) 0.1 x10^3/uL (0.0-0.2) Creatine Kinase 722 U/L (26-192) Micro Microbiology 06/13/19 Urine Culture - Final, Complete 06/13/19 Urine Culture Result 1 (ABEBE) - Final, Complete 06/13/19 Blood Culture - Preliminary, Resulted NO GROWTH AFTER 3 DAYS Objective Assessment Severe sepsis w/ shock. On 2 pressors - now Acute hypoxic respiratory failure with pulmonary infiltrates, intubated. Bilat LE infections Left lower extremity severe skin and soft tissue infection.worse than right. No surgical plans. No crepitus on palpation either LE Leukocytosis - up today Lactic acidosis. (10.8, down to 3.8 now) Acute kidney injury, on CRRT - clotted Severe metabolic acidosis. Hyperbilirubinemia with abnormal liver function tests. Substance abuse Morbid obesity. Elevated lipase Severe Protein Malnutrition Plan Plan of Care CRRT clotted - will adjust Abx. D/c Meropenem and begin Zosyn - CRRT not to be restarted per nursing Add lipase and LFTs to today's labs XRAY Left leg r/o gas given consistent rise in CK which could also be multifactorial Cont Dapto - adjust dose and cont micafungin Continue Zyvox for bacterial toxin binding and lung coverage Sputum culture pending BC neg so far from 06/[address] left leg at this time No surgical plans. Gen surg and vascular following spoke with [employer] again, pt listed under different name, BC were neg. D/w nursing Critically ill JAY WISE MD Jun 17, 2019 07:19
--- NOTE | 2019-06-17 07:52 | RAD ---
Examination: PORTABLE CHEST 1V History: Respiratory failure Comparison/Correlation: 06/16/2019 Portable Chest X-ray Exam Findings: Portable supine film of the chest was obtained. Endotracheal tube is in place. Left internal jugular catheter again seen. Enteric tube identified. Heart size is normal. Left basilar consolidation again identified. Right medial basilar infiltrates also seen. Interstitial infiltrate or/and atelectasis in the perihilar regions also noted. No definite pneumothorax. Hypoinflation noted. Bony structures are grossly unremarkable. Surgical clips involve the epigastric region. Impression: Slight improvement in left lower lung field infiltrate. Electronically signed by: Gómez Durant MD (06/17/2019 7:49 AM) [facility]
[2019-06-17 08:29] LABS: ALBUMIN 1.6 g/dL (3.4-5.0); DIRECT BILIRUBIN 3.9 mg/dL (0.0-0.2); TOTAL BILIRUBIN 4.7 mg/dL (0.2-1.0); TOTAL PROTEIN 4.9 g/dL (6.4-8.2)
[2019-06-17 08:36] LABS: BASE EXCESS ABG 1 mmol/L (-3-3); HCO3 ABG 26 mmol/L (21-28); PCO2 ABG 43 mmHg (35-46); PO2 ABG 81 mmHg (85-108); SAT O2 ABG 96 % (92-99)
[2019-06-17 08:39] LABS: FIO2 ABG 50
--- NOTE | 2019-06-17 09:07 | PDOC ---
PROGRESS NOTES Chief Complaint Chief Complaint Septic shock Severe LLE cellulitis Hypoxica Resp failure,on IPPV - intubated on arrival CATY now requiring dialysis Anemia, elevated LFTs and lipase S/p cholecystectomy Obesity - BMI 62.6 +amphetamines Severe metabolic acidosis Pulm infiltrates, recent [facility] - [facility]CAP Black NGT output History of Present Illness History of Present Illness Admitted due to confusion and respiratory distress at home per her mother, she was intubated in ED. Pt was at [facility] - legs looked the same, they were treating her there with IV abx and for meth abuse, she left last week. PT remains intubated, on 2 pressors, morbidly obese, with bullae both legs and discoloration. NOW CRRT initaited too bec of gap met acidosis NO fevers,. on IV abx per ID NA 135, Creat 1,.1 hgb 9 WBC 30s - not on steroids, hypothermic CPK 360 On ppi gtt x 3 days per GI MONDAY ENTRY: dw [facility] sx Dr Rainey, recommend GS or even plastic sx ([facility]) if needed - but too unstable or critical to do that now - unlikey surgical candidate for now give on pressors etc ON broard spectrum per ID mom at bedside this time PUlm infiltrates, recent [facility] admit maintain rodrigues Added GI consult bec elevated lFts, TB is 3 - recommend US as too unstable for CT, add PPI, monitor that anemia, transfuse if hgb < 7 LEgs are markedly swollen and infected, Self pay vent bundle CC 32 dw mother, bedside Vitals Vitals Vital Signs Date Time Temp Pulse Resp B/P (MAP) Pulse Ox O2 Delivery O2 Flow Rate FiO2 06/17/19 09:00 98.2 77 20 90/41 (57) 98 Ventilator 98.2 Physical Exam Physical Exam GENERAL: Morbidly obese female, sedated and orally intubated. + mitts. HEENT: Pupils equal, reactive, ETT, OGT NECK: Supple. LUNGS: Coarse right side HEART: S1, S2, tachycardia, regular, Distant heart sounds. ABDOMEN: Soft, morbidly obese, Hypoactive bowel sounds. GENITOURINARY: Rodrigues in place, EXTREMITIES: Lower extremities edematous, weeping, marked purple discoloration L > R, - mottling HOTEL OR MOTEL RECEPTIONIST: Sedated SKIN: No signs generalized rash. + yeast skin folds - improving Temp RIJ/HDC (06/14), LIJ and left art line without signs of complications General: No acute distress, Other (intubated sedated) Heart: Regular rate, No murmurs Lungs: Other ( basilar crackles dull at bases ) Abdomen: Normal bowel sounds, Soft Extremities: Normal pulses, Other (massive bilateral edema lower extremities left greater than right ecchymotic lesions both legs left greater than right no fluctuance or crepitance by palpation) Skin: Other (infected legs. :Left > RT) Labs LABS Laboratory Tests Test 06/16/19 11:35 06/16/19 15:48 06/16/19 18:35 06/17/19 01:15 White Blood Count 30.3 x10^3/uL (4.0-11.0) Red Blood Count 3.33 x10^6/uL (3.50-5.40) Hemoglobin 8.3 g/dL (12.0-15.5) Hematocrit 26.2 % (36.0-47.0) Mean Corpuscular Volume 79 fL (79-100) Mean Corpuscular Hemoglobin 25 pg (25-35) Mean Corpuscular Hemoglobin Concent 32 g/dL (31-37) Red Cell Distribution Width 17.6 % (11.5-14.5) Platelet Count 222 x10^3/uL (140-400) Sodium Level 136 mmol/L (136-145) 137 mmol/L (136-145) 135 mmol/L (136-145) Potassium Level 3.6 mmol/L (3.5-5.1) 3.6 mmol/L (3.5-5.1) 3.7 mmol/L (3.5-5.1) Chloride Level 100 mmol/L (98-107) 102 mmol/L (98-107) 102 mmol/L (98-107) Carbon Dioxide Level 26 mmol/L (21-32) 28 mmol/L (21-32) 27 mmol/L (21-32) Anion Gap 10 (6-14) 7 (6-14) 6 (6-14) Blood Urea Nitrogen 8 mg/dL (7-20) 7 mg/dL (7-20) Creatinine 1.1 mg/dL (0.6-1.0) 0.9 mg/dL (0.6-1.0) Estimated GFR (Cockcroft-Gault) 55.9 70.5 BUN/Creatinine Ratio 7 (6-20) Glucose Level 110 mg/dL (70-99) 95 mg/dL (70-99) Lactic Acid Level 4.3 mmol/L (0.4-2.0) 3.8 mmol/L (0.4-2.0) Calcium Level 6.8 mg/dL (8.5-10.1) 6.9 mg/dL (8.5-10.1) Phosphorus Level 2.3 mg/dL (2.6-4.7) 1.7 mg/dL (2.6-4.7) 1.4 mg/dL (2.6-4.7) Magnesium Level 2.1 mg/dL (1.8-2.4) 2.1 mg/dL (1.8-2.4) 2.2 mg/dL (1.8-2.4) Total Bilirubin 4.4 mg/dL (0.2-1.0) Aspartate Amino Transf (AST/SGOT) 74 U/L (15-37) Alanine Aminotransferase (ALT/SGPT) 27 U/L (14-59) Alkaline Phosphatase 314 U/L (46-116) Total Protein 5.2 g/dL (6.4-8.2) Albumin 1.8 g/dL (3.4-5.0) Albumin/Globulin Ratio 0.5 (1.0-1.7) Test 06/17/19 06:10 06/17/19 08:00 White Blood Count 37.0 x10^3/uL (4.0-11.0) Red Blood Count 3.36 x10^6/uL (3.50-5.40) Hemoglobin 8.4 g/dL (12.0-15.5) Hematocrit 26.2 % (36.0-47.0) Mean Corpuscular Volume 78 fL (79-100) Mean Corpuscular Hemoglobin 25 pg (25-35) Mean Corpuscular Hemoglobin Concent 32 g/dL (31-37) Red Cell Distribution Width 17.2 % (11.5-14.5) Platelet Count 192 x10^3/uL (140-400) Neutrophils (%) (Auto) 93 % (31-73) Lymphocytes (%) (Auto) 2 % (24-48) Monocytes (%) (Auto) 3 % (0-9) Eosinophils (%) (Auto) 2 % (0-3) Basophils (%) (Auto) 0 % (0-3) Neutrophils # (Auto) 34.5 x10^3/uL (1.8-7.7) Lymphocytes # (Auto) 0.8 x10^3/uL (1.0-4.8) Monocytes # (Auto) 1.1 x10^3/uL (0.0-1.1) Eosinophils # (Auto) 0.7 x10^3/uL (0.0-0.7) Basophils # (Auto) 0.1 x10^3/uL (0.0-0.2) Total Bilirubin 4.7 mg/dL (0.2-1.0) Direct Bilirubin 3.9 mg/dL (0.0-0.2) Aspartate Amino Transf (AST/SGOT) 90 U/L (15-37) Alanine Aminotransferase (ALT/SGPT) 30 U/L (14-59) Alkaline Phosphatase 365 U/L (46-116) Creatine Kinase 722 U/L (26-192) Total Protein 4.9 g/dL (6.4-8.2) Albumin 1.6 g/dL (3.4-5.0) Lipase 26 U/L (73-393) O2 Saturation 96 % (92-99) Arterial Blood pH 7.40 (7.35-7.45) Arterial Blood pCO2 at Patient Temp 43 mmHg (35-46) Arterial Blood pO2 at Patient Temp 81 mmHg (85-108) Arterial Blood HCO3 26 mmol/L (21-28) Arterial Blood Base Excess 1 mmol/L (-3-3) FiO2 50 Assessment and Plan Assessmemt and Plan Problems Medical Problems: (1) Acute respiratory failure Status: Acute (2) Elevated brain natriuretic peptide (BNP) level Status: Acute (3) Elevated d-dimer Status: Acute (4) Elevated lipase Status: Acute (5) Elevated liver function tests Status: Acute (6) GI bleeding Status: Acute (7) Hyperglycemia Status: Acute (8) Hypermagnesuria Status: Acute (9) Hypoalbuminemia Status: Acute (10) Hypokalemia Status: Acute (11) Hyponatremia Status: Acute (12) Lower extremity cellulitis Status: Acute (13) Metabolic acidosis Status: Acute (14) Methamphetamine abuse Status: Acute (15) Morbid obesity with BMI of 60.0-69.9, adult Status: Acute (16) Renal insufficiency Status: Acute (17) Sepsis Status: Acute (18) Severe sepsis Status: Acute Comment Review of Relevant I have reviewed the following items loreta (where applicable) has been applied. Labs Laboratory Tests Test 06/15/19 09:30 06/15/19 11:02 06/15/19 15:05 06/15/19 21:15 Gastric Fluid Occult Blood Positive (NEG) White Blood Count 28.1 x10^3/uL (4.0-11.0) 25.7 x10^3/uL (4.0-11.0) Red Blood Count 3.95 x10^6/uL (3.50-5.40) 3.64 x10^6/uL (3.50-5.40) Hemoglobin 9.9 g/dL (12.0-15.5) 9.1 g/dL (12.0-15.5) Hematocrit 30.7 % (36.0-47.0) 28.6 % (36.0-47.0) Mean Corpuscular Volume 78 fL (79-100) 79 fL (79-100) Mean Corpuscular Hemoglobin 25 pg (25-35) 25 pg (25-35) Mean Corpuscular Hemoglobin Concent 32 g/dL (31-37) 32 g/dL (31-37) Red Cell Distribution Width 17.1 % (11.5-14.5) 17.2 % (11.5-14.5) Platelet Count 285 x10^3/uL (140-400) 236 x10^3/uL (140-400) Sodium Level 135 mmol/L (136-145) 135 mmol/L (136-145) Potassium Level 3.5 mmol/L (3.5-5.1) 4.1 mmol/L (3.5-5.1) Chloride Level 101 mmol/L (98-107) 101 mmol/L (98-107) Carbon Dioxide Level 25 mmol/L (21-32) 22 mmol/L (21-32) Anion Gap 9 (6-14) 12 (6-14) Blood Urea Nitrogen 10 mg/dL (7-20) 10 mg/dL (7-20) Creatinine 1.3 mg/dL (0.6-1.0) 1.2 mg/dL (0.6-1.0) Estimated GFR (Cockcroft-Gault) 46.1 50.6 Glucose Level 119 mg/dL (70-99) 108 mg/dL (70-99) Calcium Level 7.1 mg/dL (8.5-10.1) 7.0 mg/dL (8.5-10.1) Phosphorus Level 2.8 mg/dL (2.6-4.7) 2.3 mg/dL (2.6-4.7) Magnesium Level 2.2 mg/dL (1.8-2.4) 2.2 mg/dL (1.8-2.4) Test 06/16/19 06:15 06/16/19 07:45 06/16/19 11:35 06/16/19 15:48 White Blood Count 30.9 x10^3/uL (4.0-11.0) 30.3 x10^3/uL (4.0-11.0) Red Blood Count 3.64 x10^6/uL (3.50-5.40) 3.33 x10^6/uL (3.50-5.40) Hemoglobin 9.0 g/dL (12.0-15.5) 8.3 g/dL (12.0-15.5) Hematocrit 28.7 % (36.0-47.0) 26.2 % (36.0-47.0) Mean Corpuscular Volume 79 fL (79-100) 79 fL (79-100) Mean Corpuscular Hemoglobin 25 pg (25-35) 25 pg (25-35) Mean Corpuscular Hemoglobin Concent 31 g/dL (31-37) 32 g/dL (31-37) Red Cell Distribution Width 17.3 % (11.5-14.5) 17.6 % (11.5-14.5) Platelet Count 263 x10^3/uL (140-400) 222 x10^3/uL (140-400) Neutrophils (%) (Auto) 87 % (31-73) Lymphocytes (%) (Auto) 9 % (24-48) Monocytes (%) (Auto) 2 % (0-9) Eosinophils (%) (Auto) 2 % (0-3) Basophils (%) (Auto) 0 % (0-3) Neutrophils # (Auto) 26.9 x10^3/uL (1.8-7.7) Lymphocytes # (Auto) 2.7 x10^3/uL (1.0-4.8) Monocytes # (Auto) 0.7 x10^3/uL (0.0-1.1) Eosinophils # (Auto) 0.5 x10^3/uL (0.0-0.7) Basophils # (Auto) 0.0 x10^3/uL (0.0-0.2) Sodium Level 135 mmol/L (136-145) 136 mmol/L (136-145) Potassium Level 3.7 mmol/L (3.5-5.1) 3.6 mmol/L (3.5-5.1) Chloride Level 101 mmol/L (98-107) 100 mmol/L (98-107) Carbon Dioxide Level 24 mmol/L (21-32) 26 mmol/L (21-32) Anion Gap 10 (6-14) 10 (6-14) Blood Urea Nitrogen 10 mg/dL (7-20) 8 mg/dL (7-20) Creatinine 1.1 mg/dL (0.6-1.0) 1.1 mg/dL (0.6-1.0) Estimated GFR (Cockcroft-Gault) 55.9 55.9 Glucose Level 93 mg/dL (70-99) 110 mg/dL (70-99) Calcium Level 7.2 mg/dL (8.5-10.1) 6.8 mg/dL (8.5-10.1) Creatine Kinase 356 U/L (26-192) O2 Saturation 95 % (92-99) Arterial Blood pH 7.32 (7.35-7.45) Arterial Blood pCO2 at Patient Temp 48 mmHg (35-46) Arterial Blood pO2 at Patient Temp 78 mmHg (85-108) Arterial Blood HCO3 24 mmol/L (21-28) Arterial Blood Base Excess -2 mmol/L (-3-3) FiO2 50% BUN/Creatinine Ratio 7 (6-20) Lactic Acid Level 4.3 mmol/L (0.4-2.0) 3.8 mmol/L (0.4-2.0) Phosphorus Level 2.3 mg/dL (2.6-4.7) Magnesium Level 2.1 mg/dL (1.8-2.4) Total Bilirubin 4.4 mg/dL (0.2-1.0) Aspartate Amino Transf (AST/SGOT) 74 U/L (15-37) Alanine Aminotransferase (ALT/SGPT) 27 U/L (14-59) Alkaline Phosphatase 314 U/L (46-116) Total Protein 5.2 g/dL (6.4-8.2) Albumin 1.8 g/dL (3.4-5.0) Albumin/Globulin Ratio 0.5 (1.0-1.7) Test 06/16/19 18:35 06/17/19 01:15 06/17/19 06:10 06/17/19 08:00 Sodium Level 137 mmol/L (136-145) 135 mmol/L (136-145) Potassium Level 3.6 mmol/L (3.5-5.1) 3.7 mmol/L (3.5-5.1) Chloride Level 102 mmol/L (98-107) 102 mmol/L (98-107) Carbon Dioxide Level 28 mmol/L (21-32) 27 mmol/L (21-32) Anion Gap 7 (6-14) 6 (6-14) Blood Urea Nitrogen 7 mg/dL (7-20) Creatinine 0.9 mg/dL (0.6-1.0) Estimated GFR (Cockcroft-Gault) 70.5 Glucose Level 95 mg/dL (70-99) Calcium Level 6.9 mg/dL (8.5-10.1) Phosphorus Level 1.7 mg/dL (2.6-4.7) 1.4 mg/dL (2.6-4.7) Magnesium Level 2.1 mg/dL (1.8-2.4) 2.2 mg/dL (1.8-2.4) White Blood Count 37.0 x10^3/uL (4.0-11.0) Red Blood Count 3.36 x10^6/uL (3.50-5.40) Hemoglobin 8.4 g/dL (12.0-15.5) Hematocrit 26.2 % (36.0-47.0) Mean Corpuscular Volume 78 fL (79-100) Mean Corpuscular Hemoglobin 25 pg (25-35) Mean Corpuscular Hemoglobin Concent 32 g/dL (31-37) Red Cell Distribution Width 17.2 % (11.5-14.5) Platelet Count 192 x10^3/uL (140-400) Neutrophils (%) (Auto) 93 % (31-73) Lymphocytes (%) (Auto) 2 % (24-48) Monocytes (%) (Auto) 3 % (0-9) Eosinophils (%) (Auto) 2 % (0-3) Basophils (%) (Auto) 0 % (0-3) Neutrophils # (Auto) 34.5 x10^3/uL (1.8-7.7) Lymphocytes # (Auto) 0.8 x10^3/uL (1.0-4.8) Monocytes # (Auto) 1.1 x10^3/uL (0.0-1.1) Eosinophils # (Auto) 0.7 x10^3/uL (0.0-0.7) Basophils # (Auto) 0.1 x10^3/uL (0.0-0.2) Total Bilirubin 4.7 mg/dL (0.2-1.0) Direct Bilirubin 3.9 mg/dL (0.0-0.2) Aspartate Amino Transf (AST/SGOT) 90 U/L (15-37) Alanine Aminotransferase (ALT/SGPT) 30 U/L (14-59) Alkaline Phosphatase 365 U/L (46-116) Creatine Kinase 722 U/L (26-192) Total Protein 4.9 g/dL (6.4-8.2) Albumin 1.6 g/dL (3.4-5.0) Lipase 26 U/L (73-393) O2 Saturation 96 % (92-99) Arterial Blood pH 7.40 (7.35-7.45) Arterial Blood pCO2 at Patient Temp 43 mmHg (35-46) Arterial Blood pO2 at Patient Temp 81 mmHg (85-108) Arterial Blood HCO3 26 mmol/L (21-28) Arterial Blood Base Excess 1 mmol/L (-3-3) FiO2 50 Laboratory Tests Test 06/16/19 11:35 06/16/19 15:48 06/16/19 18:35 06/17/19 01:15 White Blood Count 30.3 x10^3/uL (4.0-11.0) Red Blood Count 3.33 x10^6/uL (3.50-5.40) Hemoglobin 8.3 g/dL (12.0-15.5) Hematocrit 26.2 % (36.0-47.0) Mean Corpuscular Volume 79 fL (79-100) Mean Corpuscular Hemoglobin 25 pg (25-35) Mean Corpuscular Hemoglobin Concent 32 g/dL (31-37) Red Cell Distribution Width 17.6 % (11.5-14.5) Platelet Count 222 x10^3/uL (140-400) Sodium Level 136 mmol/L (136-145) 137 mmol/L (136-145) 135 mmol/L (136-145) Potassium Level 3.6 mmol/L (3.5-5.1) 3.6 mmol/L (3.5-5.1) 3.7 mmol/L (3.5-5.1) Chloride Level 100 mmol/L (98-107) 102 mmol/L (98-107) 102 mmol/L (98-107) Carbon Dioxide Level 26 mmol/L (21-32) 28 mmol/L (21-32) 27 mmol/L (21-32) Anion Gap 10 (6-14) 7 (6-14) 6 (6-14) Blood Urea Nitrogen 8 mg/dL (7-20) 7 mg/dL (7-20) Creatinine 1.1 mg/dL (0.6-1.0) 0.9 mg/dL (0.6-1.0) Estimated GFR (Cockcroft-Gault) 55.9 70.5 BUN/Creatinine Ratio 7 (6-20) Glucose Level 110 mg/dL (70-99) 95 mg/dL (70-99) Lactic Acid Level 4.3 mmol/L (0.4-2.0) 3.8 mmol/L (0.4-2.0) Calcium Level 6.8 mg/dL (8.5-10.1) 6.9 mg/dL (8.5-10.1) Phosphorus Level 2.3 mg/dL (2.6-4.7) 1.7 mg/dL (2.6-4.7) 1.4 mg/dL (2.6-4.7) Magnesium Level 2.1 mg/dL (1.8-2.4) 2.1 mg/dL (1.8-2.4) 2.2 mg/dL (1.8-2.4) Total Bilirubin 4.4 mg/dL (0.2-1.0) Aspartate Amino Transf (AST/SGOT) 74 U/L (15-37) Alanine Aminotransferase (ALT/SGPT) 27 U/L (14-59) Alkaline Phosphatase 314 U/L (46-116) Total Protein 5.2 g/dL (6.4-8.2) Albumin 1.8 g/dL (3.4-5.0) Albumin/Globulin Ratio 0.5 (1.0-1.7) Test 06/17/19 06:10 06/17/19 08:00 White Blood Count 37.0 x10^3/uL (4.0-11.0) Red Blood Count 3.36 x10^6/uL (3.50-5.40) Hemoglobin 8.4 g/dL (12.0-15.5) Hematocrit 26.2 % (36.0-47.0) Mean Corpuscular Volume 78 fL (79-100) Mean Corpuscular Hemoglobin 25 pg (25-35) Mean Corpuscular Hemoglobin Concent 32 g/dL (31-37) Red Cell Distribution Width 17.2 % (11.5-14.5) Platelet Count 192 x10^3/uL (140-400) Neutrophils (%) (Auto) 93 % (31-73) Lymphocytes (%) (Auto) 2 % (24-48) Monocytes (%) (Auto) 3 % (0-9) Eosinophils (%) (Auto) 2 % (0-3) Basophils (%) (Auto) 0 % (0-3) Neutrophils # (Auto) 34.5 x10^3/uL (1.8-7.7) Lymphocytes # (Auto) 0.8 x10^3/uL (1.0-4.8) Monocytes # (Auto) 1.1 x10^3/uL (0.0-1.1) Eosinophils # (Auto) 0.7 x10^3/uL (0.0-0.7) Basophils # (Auto) 0.1 x10^3/uL (0.0-0.2) Total Bilirubin 4.7 mg/dL (0.2-1.0) Direct Bilirubin 3.9 mg/dL (0.0-0.2) Aspartate Amino Transf (AST/SGOT) 90 U/L (15-37) Alanine Aminotransferase (ALT/SGPT) 30 U/L (14-59) Alkaline Phosphatase 365 U/L (46-116) Creatine Kinase 722 U/L (26-192) Total Protein 4.9 g/dL (6.4-8.2) Albumin 1.6 g/dL (3.4-5.0) Lipase 26 U/L (73-393) O2 Saturation 96 % (92-99) Arterial Blood pH 7.40 (7.35-7.45) Arterial Blood pCO2 at Patient Temp 43 mmHg (35-46) Arterial Blood pO2 at Patient Temp 81 mmHg (85-108) Arterial Blood HCO3 26 mmol/L (21-28) Arterial Blood Base Excess 1 mmol/L (-3-3) FiO2 50 Microbiology 06/13/19 Urine Culture - Final, Complete 06/13/19 Urine Culture Result 1 (ABEBE) - Final, Complete 06/13/19 Blood Culture - Preliminary, Resulted NO GROWTH AFTER 3 DAYS Medications Current Medications Sodium Chloride 1,000 ml @ 1,000 mls/hr Q1H IV Last administered on 06/13/19at 16:56; Start 06/13/19 at 16:12; Stop 06/13/19 at 17:11; Status DC Albuterol/ Ipratropium (Duoneb) 3 ml 1X ONCE NEB Last administered on 06/13/19at 16:31; Start 06/13/19 at 16:15; Stop 06/13/19 at 16:19; Status DC Piperacillin Sod/ Tazobactam Sod 4.5 gm/Sodium Chloride 100 ml @ 200 mls/hr 1X ONCE IV Last administered on 06/13/19at 17:13; Start 06/13/19 at 16:45; Stop 06/13/19 at 17:14; Status DC Vancomycin HCl 250 ml @ 250 mls/hr 1X ONCE IV ; Start 06/13/19 at 16:45; Stop 06/13/19 at 17:44; Status UNV Levofloxacin/ Dextrose 150 ml @ 100 mls/hr 1X ONCE IV Last administered on 06/13/19at 18:48; Start 06/13/19 at 16:45; Stop 06/13/19 at 18:14; Status DC Vancomycin HCl 250 ml @ 250 mls/hr 1X ONCE IV ; Start 06/13/19 at 16:45; Stop 06/13/19 at 17:44; Status UNV Sodium Chloride 1,000 ml @ 1,000 mls/hr 1X ONCE IV Last administered on 06/13/19at 16:56; Start 06/13/19 at 16:45; Stop 06/13/19 at 17:44; Status DC Vancomycin HCl 2 gm/Sodium Chloride 500 ml @ 250 mls/hr 1X ONCE IV Last administered on 06/13/19at 21:15; Start 06/13/19 at 16:45; Stop 06/13/19 at 18:44; Status DC Sodium Chloride 1,000 ml @ 1,000 mls/hr 1X ONCE IV ; Start 06/13/19 at 17:15; Stop 06/13/19 at 18:14; Status DC Sodium Chloride 1,000 ml @ 200 mls/hr Q5H IV Last administered on 06/14/19at 11:51; Start 06/13/19 at 17:13; Stop 06/14/19 at 17:12; Status DC Lorazepam (Ativan Inj) 1 mg 1X ONCE IVP Last administered on 06/13/19at 17:26; Start 06/13/19 at 17:30; Stop 06/13/19 at 17:31; Status DC Lorazepam (Ativan Inj) 2 mg STK-MED ONCE .ROUTE ; Start 06/13/19 at 17:23; Stop 06/13/19 at 17:24; Status DC Norepinephrine Bitartrate 250 ml @ 29.974 mls/ hr 1X ONCE IV Last administered on 06/13/19at 17:47; Start 06/13/19 at 17:45; Stop 06/14/19 at 02:05; Status DC Midazolam HCl 100 ml @ 0 mls/hr 1X ONCE IV Last administered on 06/13/19at 17:54; Start 06/13/19 at 17:45; Stop 06/13/19 at 17:46; Status DC Fentanyl Citrate (Fentanyl 2ml Vial) 100 mcg STK-MED ONCE .ROUTE ; Start 06/13/19 at 18:06; Stop 06/13/19 at 18:06; Status DC Pantoprazole Sodium 80 mg/ Sodium Chloride 100 ml @ 10 mls/hr 1X ONCE IV Last administered on 06/13/19at 20:00; Start 06/13/19 at 18:15; Stop 06/14/19 at 04:14; Status DC Pantoprazole Sodium (PROTONIX VIAL for IV PUSH) 40 mg 1X ONCE IVP ; Start 06/13/19 at 18:15; Stop 06/13/19 at 18:25; Status DC Fentanyl Citrate (Fentanyl 2ml Vial) 25 mcg 1X ONCE IVP Last administered on 06/13/19at 18:24; Start 06/13/19 at 18:15; Stop 06/13/19 at 18:24; Status DC Midazolam HCl (Versed) 5 mg 1X ONCE IV Last administered on 06/13/19at 18:24; Start 06/13/19 at 18:30; Stop 06/13/19 at 18:31; Status DC Dexmedetomidine HCl 400 mcg/ Sodium Chloride 100 ml @ 0 mls/hr CONT PRN IV PER PROTOCOL Last administered on 06/17/19at 06:26; Start 06/13/19 at 18:30 Sodium Chloride 500 ml @ 500 mls/hr 1X PRN PRN IV HYPOTENSION; Start 06/13/19 at 18:30 Atropine Sulfate (ATROPINE 0.5mg SYRINGE) 0.5 mg PRN Q5MIN PRN IV SEE COMMENTS; Start 06/13/19 at 18:30 Etomidate (Amidate) 20 mg 1X ONCE IV Last administered on 06/13/19at 18:47; Start 06/13/19 at 18:45; Stop 06/13/19 at 18:48; Status DC Succinylcholine Chloride (Anectine) 100 mg 1X ONCE IV Last administered on 06/13/19at 18:47; Start 06/13/19 at 18:45; Stop 06/13/19 at 18:48; Status DC Norepinephrine Bitartrate 250 ml @ 30.495 mls/ hr CONT PRN IV SEE I/O RECORD Last administered on 06/13/19at 23:21; Start 06/13/19 at 21:30; Stop 06/14/19 at 00:00; Status DC Dexmedetomidine HCl 400 mcg/ Sodium Chloride 100 ml @ 0 mls/hr CONT PRN IV SEDATION; Start 06/13/19 at 21:30; Status UNV Sodium Chloride 500 ml @ 500 mls/hr 1X PRN PRN IV SEDATION; Start 06/13/19 at 21:30; Status UNV Atropine Sulfate (ATROPINE 0.5mg SYRINGE) 0.5 mg PRN Q5MIN PRN IV SEE COMMENTS; Start 06/13/19 at 21:30; Status UNV Midazolam HCl 100 ml @ 5 mls/hr CONT PRN IV SEE I/O RECORD Last administered on 06/17/19at 06:26; Start 06/13/19 at 21:45 Info (FLU VACCINE SCREEN per RX) 1 each PRN DAILY PRN MC SEE COMMENTS; Start 06/13/19 at 23:45 Norepinephrine Bitartrate 250 ml @ 30.495 mls/ hr CONT PRN IV SEE I/O RECORD; Start 06/13/19 at 23:45; Stop 06/14/19 at 00:00; Status DC Phenylephrine HCl 20 mg/Sodium Chloride 252 ml @ 61.478 mls/ hr CONT PRN IV SEE I/O RECORD; Start 06/14/19 at 00:00; Status UNV Phenylephrine HCl 80 mg/Sodium Chloride 258 ml @ 15.674 mls/ hr CONT PRN IV SEE I/O RECORD Last administered on 06/17/19at 06:26; Start 06/13/19 at 23:45 Norepinephrine Bitartrate 32 mg/ Sodium Chloride 250 ml @ 7.594 mls/ hr CONT PRN IV SEE I/O RECORD Last administered on 06/16/19at 21:02; Start 06/13/19 at 23:45 Sodium Chloride 500 ml @ 500 mls/hr Q1H IV Last administered on 06/14/19at 01:30; Start 06/14/19 at 01:30; Stop 06/14/19 at 02:29; Status DC Sodium Bicarbonate 150 meq/Dextrose 1,150 ml @ 75 mls/hr [id number] IV Last administered on 06/17/19at 06:27; Start 06/14/19 at 02:00 Vasopressin 40 unit/Dextrose 102 ml @ 6 mls/hr CONT PRN IV SEE I/O RECORD Last administered on 06/16/19at 18:22; Start 06/14/19 at 02:00 Fentanyl Citrate 30 ml @ 0 mls/hr CONT PRN IV SEE PROTOCOL Last administered on 06/17/19at 06:29; Start 06/14/19 at 02:45 Pantoprazole Sodium 80 mg/ Sodium Chloride 100 ml @ 10 mls/hr Q10H IV Last administered on 06/17/19at 00:37; Start 06/14/19 at 04:00 Meropenem 1 gm/ Sodium Chloride 100 ml @ 200 mls/hr Q12HR IV Last administered on 06/16/19at 21:01; Start 06/14/19 at 09:00; Stop 06/17/19 at 08:05; Status DC Micafungin Sodium 100 mg/Dextrose 100 ml @ 100 mls/hr Q24H IV Last administered on 06/16/19at 09:34; Start 06/14/19 at 10:00 Daptomycin 600 mg/ Sodium Chloride 50 ml @ 100 mls/hr Q24H IV Last administered on 06/16/19at 10:49; Start 06/14/19 at 11:00; Stop 06/17/19 at 08:08; Status DC Heparin Sodium (Porcine) (Heparin Sodium) 5,000 unit Q8HRS SQ ; Start 06/14/19 at 14:00; Stop 06/14/19 at 12:12; Status DC Acetaminophen (Tylenol) 650 mg PRN Q6HRS PRN PEG MILD PAIN / TEMP; Start 06/14/19 at 08:45 Acetaminophen/ Codeine Phosphate (Tylenol/Codeine Soln) 5 ml PRN Q6HRS PRN PO MODERATE PAIN; Start 06/14/19 at 08:45 Ondansetron HCl (Zofran) 4 mg PRN Q6HRS PRN IVP NAUSEA/VOMITING; Start 06/14/19 at 08:45 Lidocaine HCl (Buffered Lidocaine 1%) 3 ml STK-MED ONCE .ROUTE ; Start 06/14/19 at 10:45; Stop 06/14/19 at 10:45; Status DC Heparin Sodium (Porcine) (Heparin Sodium) 10,000 unit STK-MED ONCE .ROUTE ; Start 06/14/19 at 10:46; Stop 06/14/19 at 10:46; Status DC Lidocaine HCl (Buffered Lidocaine 1%) 5 ml 1X ONCE INJ Last administered on 06/14/19at 11:23; Start 06/14/19 at 11:15; Stop 06/14/19 at 11:16; Status DC Heparin Sodium/ Dextrose 500 ml @ 0 mls/hr CONT PRN IV PER PROTOCOL Last administered on 06/15/19at 00:50; Start 06/14/19 at 12:30; Stop 06/16/19 at 07:41; Status DC Heparin Sodium (Porcine) (Heparin Sodium) 4,150 unit PRN Q6HRS PRN IV FOR UFH LEVEL LESS THAN 0.2; Start 06/14/19 at 12:30; Stop 06/16/19 at 07:41; Status DC Potassium Chloride 20 meq/ Bicarbonate Dialysis Soln w/ out KCl 5,010 ml @ 1,500 mls/hr Q3H21M IV Last administered on 06/17/19at 00:36; Start 06/14/19 at 14:00 Potassium Chloride 20 meq/ Bicarbonate Dialysis Soln w/ out KCl 5,010 ml @ 1,500 mls/hr Q3H21M IV Last administered on 06/17/19at 00:36; Start 06/14/19 at 14:00 Potassium Chloride 20 meq/ Bicarbonate Dialysis Soln w/ out KCl 5,010 ml @ 1,500 mls/hr Q3H21M IV Last administered on 06/17/19at 00:36; Start 06/14/19 at 14:00 Potassium Bicarbonate (Potassium Effervescent Tablet) 40 meq 1X ONCE GT ; Start 06/15/19 at 08:45; Stop 06/15/19 at 08:46; Status DC Linezolid/Dextrose 300 ml @ 300 mls/hr Q12HR IV Last administered on 06/17/19at 08:57; Start 06/15/19 at 10:00 Potassium Chloride/Water 50 ml @ 50 mls/hr Q1H IV Last administered on 06/15/19at 17:17; Start 06/15/19 at 16:00; Stop 06/15/19 at 17:59; Status DC Albumin Human 500 ml @ 125 mls/hr 1X ONCE IV Last administered on 06/15/19at 1 6:39; Start 06/15/19 at 16:15; Stop 06/15/19 at 20:14; Status DC Albumin Human 500 ml @ 125 mls/hr 1X ONCE IV Last administered on 06/15/19at 17:17; Start 06/15/19 at 17:15; Stop 06/15/19 at 21:14; Status DC Albumin Human 500 ml @ 125 mls/hr 1X ONCE IV Last administered on 06/16/19at 07:17; Start 06/16/19 at 07:30; Stop 06/16/19 at 11:29; Status DC Sodium Phosphate 20 mmol/Dextrose 256.6667 ml @ 63.158 m... 1X ONCE IV Last administered on 06/16/19at 08:22; Start 06/16/19 at 08:00; Stop 06/16/19 at 12:03; Status DC Albumin Human 250 ml @ 62.5 mls/hr 1X ONCE IV Last administered on 06/16/19at 14:58; Start 06/16/19 at 15:00; Stop 06/16/19 at 18:59; Status DC Daptomycin 600 mg/ Sodium Chloride 50 ml @ 100 mls/hr Q48H IV ; Start 06/18/19 at 11:00 Piperacillin Sod/ Tazobactam Sod 2.25 gm/Sodium Chloride 50 ml @ 100 mls/hr Q8HRS IV ; Start 06/17/19 at 14:00 Multi-Ingred Cream/Lotion/Oil/ Oint (Artificial Tears Eye Ointment) 1 cass PRN Q1HR PRN OU DRY EYE; Start 06/17/19 at 09:15; Status UNV Active Scripts Active Tessalon Perle (Benzonatate) 100 Mg Capsule 100 Mg PO TID PRN Vitals/I & O Vital Sign - Last 24 Hours 06/16/19 06/16/19 06/16/19 06/16/19 10:00 10:17 10:48 10:55 Pulse 97 Resp 23 23 21 B/P (MAP) 114/53 (73) Pulse Ox 98 97 99 98 O2 Delivery Ventilator Ventilator Ventilator Ventilator 06/16/19 06/16/19 06/16/19 06/16/19 11:00 12:00 12:00 12:00 Temp 97.9 97.9 Pulse 85 87 86 Resp 20 20 B/P (MAP) 96/47 (63) 111/54 (73) 113/54 (73) Pulse Ox 98 99 O2 Delivery Ventilator Ventilator Mechanical Ventilator 06/16/19 06/16/19 06/16/19 06/16/19 12:55 12:55 14:00 15:00 Pulse 81 83 81 Resp 20 20 20 B/P (MAP) 101/54 (70) 95/48 (64) 109/55 (73) Pulse Ox 99 99 99 99 O2 Delivery Ventilator Ventilator Ventilator Ventilator 06/16/19 06/16/19 06/16/19 06/16/19 15:35 16:00 16:00 16:00 Temp 97.3 97.3 Pulse 77 74 Resp 20 B/P (MAP) 108/54 (72) 106/53 (70) Pulse Ox 99 99 O2 Delivery Ventilator Mechanical Ventilator Ventilator 06/16/19 06/16/19 06/16/19 06/16/19 17:00 17:20 18:00 18:30 Pulse 75 73 Resp 20 20 20 B/P (MAP) 106/54 (71) 99/51 (67) Pulse Ox 99 99 100 100 O2 Delivery Ventilator Ventilator Ventilator Ventilator 06/16/19 06/16/19 06/16/19 06/16/19 19:00 19:00 20:00 20:00 Temp 97.5 97.5 Pulse 69 67 Resp 20 20 20 B/P (MAP) 103/54 (70) 108/57 (74) Pulse Ox 100 100 100 O2 Delivery Ventilator Ventilator Ventilator Mechanical Ventilator 06/16/19 06/16/19 06/16/19 06/16/19 20:00 20:05 21:00 22:00 Pulse 68 73 Resp 20 20 B/P (MAP) 108/54 (72) 104/49 (67) Pulse Ox 99 99 99 O2 Delivery Ventilator Ventilator Ventilator 06/16/19 06/17/19 06/17/19 06/17/19 23:00 00:00 00:00 00:00 Temp 97.1 97.1 Pulse 70 67 Resp 20 20 B/P (MAP) 99/48 (65) 96/47 (63) Pulse Ox 99 99 O2 Delivery Ventilator Ventilator Mechanical Ventilator 06/17/19 06/17/19 06/17/19 06/17/19 00:07 01:00 01:21 01:31 Pulse 66 Resp 20 20 B/P (MAP) 96/47 (63) Pulse Ox 100 100 100 99 O2 Delivery Ventilator Ventilator Ventilator Ventilator 06/17/19 06/17/19 06/17/19 06/17/19 02:00 02:05 03:00 03:38 Pulse 65 65 Resp 20 20 20 B/P (MAP) 102/52 (69) 101/48 (65) Pulse Ox 100 100 100 100 O2 Delivery Ventilator Ventilator Ventilator Ventilator 06/17/19 06/17/19 06/17/19 06/17/19 04:00 04:00 04:00 05:00 Temp 97.4 97.4 Pulse 69 70 Resp 20 20 B/P (MAP) 94/44 (61) 92/43 (59) Pulse Ox 97 97 O2 Delivery Mechanical Ventilator Ventilator Ventilator 06/17/19 06/17/19 06/17/19 06/17/19 05:43 06:00 06:29 07:00 Pulse 70 72 Resp 20 20 20 B/P (MAP) 93/45 (61) 96/44 (61) Pulse Ox 100 99 99 98 O2 Delivery Ventilator Ventilator Ventilator Ventilator 06/17/19 06/17/19 06/17/19 06/17/19 08:00 08:00 08:00 08:00 Temp 97.6 97.6 Pulse 74 Resp 20 B/P (MAP) 102/40 (60) Pulse Ox 98 99 O2 Delivery Mechanical Ventilator Ventilator Ventilator 06/17/19 09:00 Temp 98.2 98.2 Pulse 77 Resp 20 B/P (MAP) 90/41 (57) Pulse Ox 98 O2 Delivery Ventilator Intake and Output 06/16/19 06/16/19 06/17/19 15:00 23:00 07:00 Intake Total 500 ml 3172.3 ml 23728.4 ml Output Total 1620 ml 925 ml 455 ml Balance -1120 ml 2247.3 ml 38729.4 ml WILLEM RESENDIZ MD Jun 17, 2019 09:07
[2019-06-17] MEDS ORDERED: POTASSIUM PHOSPHATE DIBASIC 20 MMOL in IV NORMAL SALINE 250ML 250 ML IV ONE (09:15)
[2019-06-17] MEDS ORDERED: MINERAL OIL/PETROLATUM,WHITE OPHTH OINT 3.5GM TUBE. OU PRN (09:15)
[2019-06-17] MEDS: MICAFUNGIN 100 MG in IV DEXTROSE 5% 100ML 100 ML IV SCH (10:02)
--- NOTE | 2019-06-17 10:16 | PDOC ---
Renal-Progress Notes Subjective Notes Notes INTUBATED History of Present Illness Hx of present illness NO CHANGE Vitals Vitals Vital Signs Date Time Temp Pulse Resp B/P (MAP) Pulse Ox O2 Delivery O2 Flow Rate FiO2 06/17/19 09:00 98.2 77 20 90/41 (57) 98 Ventilator 98.2 Weight Weight [ ] I.O. Intake and Output Intake and Output 06/17/19 07:00 Intake Total 36107.7 ml Output Total 3000 ml Balance 39730.7 [place] 45219.7 ml Output Urine Total 3000 ml Labs Labs Laboratory Tests Test 06/16/19 11:35 06/16/19 15:48 06/16/19 18:35 06/17/19 01:15 White Blood Count 30.3 x10^3/uL (4.0-11.0) Red Blood Count 3.33 x10^6/uL (3.50-5.40) Hemoglobin 8.3 g/dL (12.0-15.5) Hematocrit 26.2 % (36.0-47.0) Mean Corpuscular Volume 79 fL (79-100) Mean Corpuscular Hemoglobin 25 pg (25-35) Mean Corpuscular Hemoglobin Concent 32 g/dL (31-37) Red Cell Distribution Width 17.6 % (11.5-14.5) Platelet Count 222 x10^3/uL (140-400) Sodium Level 136 mmol/L (136-145) 137 mmol/L (136-145) 135 mmol/L (136-145) Potassium Level 3.6 mmol/L (3.5-5.1) 3.6 mmol/L (3.5-5.1) 3.7 mmol/L (3.5-5.1) Chloride Level 100 mmol/L (98-107) 102 mmol/L (98-107) 102 mmol/L (98-107) Carbon Dioxide Level 26 mmol/L (21-32) 28 mmol/L (21-32) 27 mmol/L (21-32) Anion Gap 10 (6-14) 7 (6-14) 6 (6-14) Blood Urea Nitrogen 8 mg/dL (7-20) 7 mg/dL (7-20) Creatinine 1.1 mg/dL (0.6-1.0) 0.9 mg/dL (0.6-1.0) Estimated GFR (Cockcroft-Gault) 55.9 70.5 BUN/Creatinine Ratio 7 (6-20) Glucose Level 110 mg/dL (70-99) 95 mg/dL (70-99) Lactic Acid Level 4.3 mmol/L (0.4-2.0) 3.8 mmol/L (0.4-2.0) Calcium Level 6.8 mg/dL (8.5-10.1) 6.9 mg/dL (8.5-10.1) Phosphorus Level 2.3 mg/dL (2.6-4.7) 1.7 mg/dL (2.6-4.7) 1.4 mg/dL (2.6-4.7) Magnesium Level 2.1 mg/dL (1.8-2.4) 2.1 mg/dL (1.8-2.4) 2.2 mg/dL (1.8-2.4) Total Bilirubin 4.4 mg/dL (0.2-1.0) Aspartate Amino Transf (AST/SGOT) 74 U/L (15-37) Alanine Aminotransferase (ALT/SGPT) 27 U/L (14-59) Alkaline Phosphatase 314 U/L (46-116) Total Protein 5.2 g/dL (6.4-8.2) Albumin 1.8 g/dL (3.4-5.0) Albumin/Globulin Ratio 0.5 (1.0-1.7) Test 06/17/19 06:10 06/17/19 08:00 White Blood Count 37.0 x10^3/uL (4.0-11.0) Red Blood Count 3.36 x10^6/uL (3.50-5.40) Hemoglobin 8.4 g/dL (12.0-15.5) Hematocrit 26.2 % (36.0-47.0) Mean Corpuscular Volume 78 fL (79-100) Mean Corpuscular Hemoglobin 25 pg (25-35) Mean Corpuscular Hemoglobin Concent 32 g/dL (31-37) Red Cell Distribution Width 17.2 % (11.5-14.5) Platelet Count 192 x10^3/uL (140-400) Neutrophils (%) (Auto) 93 % (31-73) Lymphocytes (%) (Auto) 2 % (24-48) Monocytes (%) (Auto) 3 % (0-9) Eosinophils (%) (Auto) 2 % (0-3) Basophils (%) (Auto) 0 % (0-3) Neutrophils # (Auto) 34.5 x10^3/uL (1.8-7.7) Lymphocytes # (Auto) 0.8 x10^3/uL (1.0-4.8) Monocytes # (Auto) 1.1 x10^3/uL (0.0-1.1) Eosinophils # (Auto) 0.7 x10^3/uL (0.0-0.7) Basophils # (Auto) 0.1 x10^3/uL (0.0-0.2) Total Bilirubin 4.7 mg/dL (0.2-1.0) Direct Bilirubin 3.9 mg/dL (0.0-0.2) Aspartate Amino Transf (AST/SGOT) 90 U/L (15-37) Alanine Aminotransferase (ALT/SGPT) 30 U/L (14-59) Alkaline Phosphatase 365 U/L (46-116) Creatine Kinase 722 U/L (26-192) Total Protein 4.9 g/dL (6.4-8.2) Albumin 1.6 g/dL (3.4-5.0) Lipase 26 U/L (73-393) O2 Saturation 96 % (92-99) Arterial Blood pH 7.40 (7.35-7.45) Arterial Blood pCO2 at Patient Temp 43 mmHg (35-46) Arterial Blood pO2 at Patient Temp 81 mmHg (85-108) Arterial Blood HCO3 26 mmol/L (21-28) Arterial Blood Base Excess 1 mmol/L (-3-3) FiO2 50 Micro Micro Microbiology 06/13/19 Urine Culture - Final, Complete 06/13/19 Urine Culture Result 1 (ABEBE) - Final, Complete 06/13/19 Blood Culture - Preliminary, Resulted NO GROWTH AFTER 3 DAYS Review of Systems Constitutional: yes: unresponsive Physical Exam General Appearance: other (SEDATED) Skin: warm Respiratory: decreased breath sounds Heart: S1S2 Abdomen: soft, bowel sounds present Genitourinary: bladder flat Extremities: edema, other (BILATERAL LE CELLULITS AND DRAINING WOUNDS) Neurology: other (SEDATED) Assessment Assessment IMP SEPSIS LEUCOCYTOSIS ACUTE RESP FAILURE ACUTE KIDNEY INJURY BILATERAL LE WOUNDS LACTIC ACIDOSIS-BETTER SUBSTANCE ABUSE HYPOPHOSPHATEMIA ELEVATED LIVER FUNCTION TESTS PLAN ANTIBIOTICS PRESSORS HCO3 GTT TO CONTINUE CRRT STOPPED THIS AM WILL PLAN FOR IHD TOMORROW REPLACE PO4 WILL CONT SUPPORTIVE CARE MILTON PARKER MD Jun 17, 2019 10:16
[2019-06-17] MEDS: POTASSIUM PHOSPHATE DIBASIC 13.6 MMOL in IV DEXTROSE 5% 100ML 100 ML IV SCH ×2 (10:55→12:43)
--- NOTE | 2019-06-17 10:56 | PDOC ---
PULMONARY PROGRESS NOTES Subjective sedated on vent, on, precedex, versed, fentanyl, fio2 40%, on crrt, on, levo, vaso, small ett secretion, Vitals Vital Signs Date Time Temp Pulse Resp B/P (MAP) Pulse Ox O2 Delivery O2 Flow Rate FiO2 06/17/19 10:00 98.7 82 20 98/45 (62) 97 Ventilator 98.7 Comments ros as mentioned as above discussed w rn other sys otherwise neg sedated on vent HEENT: Other (nc at perrl nose clear orally intubated neck no lad no thyromegaly) Lungs: Other ( basilar crackles dull at bases ) Cardiovascular: S1, S2 Abdomen: Soft, Non-tender, Other (no mass) Extremities: Other (+++ edema, chronic changes, echymosis) Skin: Dry Labs Laboratory Tests Test 06/15/19 11:02 06/15/19 15:05 06/15/19 21:15 06/16/19 06:15 White Blood Count 28.1 x10^3/uL (4.0-11.0) 25.7 x10^3/uL (4.0-11.0) 30.9 x10^3/uL (4.0-11.0) Red Blood Count 3.95 x10^6/uL (3.50-5.40) 3.64 x10^6/uL (3.50-5.40) 3.64 x10^6/uL (3.50-5.40) Hemoglobin 9.9 g/dL (12.0-15.5) 9.1 g/dL (12.0-15.5) 9.0 g/dL (12.0-15.5) Hematocrit 30.7 % (36.0-47.0) 28.6 % (36.0-47.0) 28.7 % (36.0-47.0) Mean Corpuscular Volume 78 fL (79-100) 79 fL (79-100) 79 fL (79-100) Mean Corpuscular Hemoglobin 25 pg (25-35) 25 pg (25-35) 25 pg (25-35) Mean Corpuscular Hemoglobin Concent 32 g/dL (31-37) 32 g/dL (31-37) 31 g/dL (31-37) Red Cell Distribution Width 17.1 % (11.5-14.5) 17.2 % (11.5-14.5) 17.3 % (11.5-14.5) Platelet Count 285 x10^3/uL (140-400) 236 x10^3/uL (140-400) 263 x10^3/uL (140-400) Sodium Level 135 mmol/L (136-145) 135 mmol/L (136-145) 135 mmol/L (136-145) Potassium Level 3.5 mmol/L (3.5-5.1) 4.1 mmol/L (3.5-5.1) 3.7 mmol/L (3.5-5.1) Chloride Level 101 mmol/L (98-107) 101 mmol/L (98-107) 101 mmol/L (98-107) Carbon Dioxide Level 25 mmol/L (21-32) 22 mmol/L (21-32) 24 mmol/L (21-32) Anion Gap 9 (6-14) 12 (6-14) 10 (6-14) Blood Urea Nitrogen 10 mg/dL (7-20) 10 mg/dL (7-20) 10 mg/dL (7-20) Creatinine 1.3 mg/dL (0.6-1.0) 1.2 mg/dL (0.6-1.0) 1.1 mg/dL (0.6-1.0) Estimated GFR (Cockcroft-Gault) 46.1 50.6 55.9 Glucose Level 119 mg/dL (70-99) 108 mg/dL (70-99) 93 mg/dL (70-99) Calcium Level 7.1 mg/dL (8.5-10.1) 7.0 mg/dL (8.5-10.1) 7.2 mg/dL (8.5-10.1) Phosphorus Level 2.8 mg/dL (2.6-4.7) 2.3 mg/dL (2.6-4.7) Magnesium Level 2.2 mg/dL (1.8-2.4) 2.2 mg/dL (1.8-2.4) Neutrophils (%) (Auto) 87 % (31-73) Lymphocytes (%) (Auto) 9 % (24-48) Monocytes (%) (Auto) 2 % (0-9) Eosinophils (%) (Auto) 2 % (0-3) Basophils (%) (Auto) 0 % (0-3) Neutrophils # (Auto) 26.9 x10^3/uL (1.8-7.7) Lymphocytes # (Auto) 2.7 x10^3/uL (1.0-4.8) Monocytes # (Auto) 0.7 x10^3/uL (0.0-1.1) Eosinophils # (Auto) 0.5 x10^3/uL (0.0-0.7) Basophils # (Auto) 0.0 x10^3/uL (0.0-0.2) Creatine Kinase 356 U/L (26-192) Test 06/16/19 07:45 06/16/19 11:35 06/16/19 15:48 06/16/19 18:35 O2 Saturation 95 % (92-99) Arterial Blood pH 7.32 (7.35-7.45) Arterial Blood pCO2 at Patient Temp 48 mmHg (35-46) Arterial Blood pO2 at Patient Temp 78 mmHg (85-108) Arterial Blood HCO3 24 mmol/L (21-28) Arterial Blood Base Excess -2 mmol/L (-3-3) FiO2 50% White Blood Count 30.3 x10^3/uL (4.0-11.0) Red Blood Count 3.33 x10^6/uL (3.50-5.40) Hemoglobin 8.3 g/dL (12.0-15.5) Hematocrit 26.2 % (36.0-47.0) Mean Corpuscular Volume 79 fL (79-100) Mean Corpuscular Hemoglobin 25 pg (25-35) Mean Corpuscular Hemoglobin Concent 32 g/dL (31-37) Red Cell Distribution Width 17.6 % (11.5-14.5) Platelet Count 222 x10^3/uL (140-400) Sodium Level 136 mmol/L (136-145) 137 mmol/L (136-145) Potassium Level 3.6 mmol/L (3.5-5.1) 3.6 mmol/L (3.5-5.1) Chloride Level 100 mmol/L (98-107) 102 mmol/L (98-107) Carbon Dioxide Level 26 mmol/L (21-32) 28 mmol/L (21-32) Anion Gap 10 (6-14) 7 (6-14) Blood Urea Nitrogen 8 mg/dL (7-20) 7 mg/dL (7-20) Creatinine 1.1 mg/dL (0.6-1.0) 0.9 mg/dL (0.6-1.0) Estimated GFR (Cockcroft-Gault) 55.9 70.5 BUN/Creatinine Ratio 7 (6-20) Glucose Level 110 mg/dL (70-99) 95 mg/dL (70-99) Lactic Acid Level 4.3 mmol/L (0.4-2.0) 3.8 mmol/L (0.4-2.0) Calcium Level 6.8 mg/dL (8.5-10.1) 6.9 mg/dL (8.5-10.1) Phosphorus Level 2.3 mg/dL (2.6-4.7) 1.7 mg/dL (2.6-4.7) Magnesium Level 2.1 mg/dL (1.8-2.4) 2.1 mg/dL (1.8-2.4) Total Bilirubin 4.4 mg/dL (0.2-1.0) Aspartate Amino Transf (AST/SGOT) 74 U/L (15-37) Alanine Aminotransferase (ALT/SGPT) 27 U/L (14-59) Alkaline Phosphatase 314 U/L (46-116) Total Protein 5.2 g/dL (6.4-8.2) Albumin 1.8 g/dL (3.4-5.0) Albumin/Globulin Ratio 0.5 (1.0-1.7) Test 06/17/19 01:15 06/17/19 06:10 06/17/19 08:00 Sodium Level 135 mmol/L (136-145) Potassium Level 3.7 mmol/L (3.5-5.1) Chloride Level 102 mmol/L (98-107) Carbon Dioxide Level 27 mmol/L (21-32) Anion Gap 6 (6-14) Phosphorus Level 1.4 mg/dL (2.6-4.7) Magnesium Level 2.2 mg/dL (1.8-2.4) White Blood Count 37.0 x10^3/uL (4.0-11.0) Red Blood Count 3.36 x10^6/uL (3.50-5.40) Hemoglobin 8.4 g/dL (12.0-15.5) Hematocrit 26.2 % (36.0-47.0) Mean Corpuscular Volume 78 fL (79-100) Mean Corpuscular Hemoglobin 25 pg (25-35) Mean Corpuscular Hemoglobin Concent 32 g/dL (31-37) Red Cell Distribution Width 17.2 % (11.5-14.5) Platelet Count 192 x10^3/uL (140-400) Neutrophils (%) (Auto) 93 % (31-73) Lymphocytes (%) (Auto) 2 % (24-48) Monocytes (%) (Auto) 3 % (0-9) Eosinophils (%) (Auto) 2 % (0-3) Basophils (%) (Auto) 0 % (0-3) Neutrophils # (Auto) 34.5 x10^3/uL (1.8-7.7) Lymphocytes # (Auto) 0.8 x10^3/uL (1.0-4.8) Monocytes # (Auto) 1.1 x10^3/uL (0.0-1.1) Eosinophils # (Auto) 0.7 x10^3/uL (0.0-0.7) Basophils # (Auto) 0.1 x10^3/uL (0.0-0.2) Total Bilirubin 4.7 mg/dL (0.2-1.0) Direct Bilirubin 3.9 mg/dL (0.0-0.2) Aspartate Amino Transf (AST/SGOT) 90 U/L (15-37) Alanine Aminotransferase (ALT/SGPT) 30 U/L (14-59) Alkaline Phosphatase 365 U/L (46-116) Creatine Kinase 722 U/L (26-192) Total Protein 4.9 g/dL (6.4-8.2) Albumin 1.6 g/dL (3.4-5.0) Lipase 26 U/L (73-393) O2 Saturation 96 % (92-99) Arterial Blood pH 7.40 (7.35-7.45) Arterial Blood pCO2 at Patient Temp 43 mmHg (35-46) Arterial Blood pO2 at Patient Temp 81 mmHg (85-108) Arterial Blood HCO3 26 mmol/L (21-28) Arterial Blood Base Excess 1 mmol/L (-3-3) FiO2 50 Laboratory Tests Test 06/16/19 11:35 06/16/19 15:48 06/16/19 18:35 06/17/19 01:15 White Blood Count 30.3 x10^3/uL (4.0-11.0) Red Blood Count 3.33 x10^6/uL (3.50-5.40) Hemoglobin 8.3 g/dL (12.0-15.5) Hematocrit 26.2 % (36.0-47.0) Mean Corpuscular Volume 79 fL (79-100) Mean Corpuscular Hemoglobin 25 pg (25-35) Mean Corpuscular Hemoglobin Concent 32 g/dL (31-37) Red Cell Distribution Width 17.6 % (11.5-14.5) Platelet Count 222 x10^3/uL (140-400) Sodium Level 136 mmol/L (136-145) 137 mmol/L (136-145) 135 mmol/L (136-145) Potassium Level 3.6 mmol/L (3.5-5.1) 3.6 mmol/L (3.5-5.1) 3.7 mmol/L (3.5-5.1) Chloride Level 100 mmol/L (98-107) 102 mmol/L (98-107) 102 mmol/L (98-107) Carbon Dioxide Level 26 mmol/L (21-32) 28 mmol/L (21-32) 27 mmol/L (21-32) Anion Gap 10 (6-14) 7 (6-14) 6 (6-14) Blood Urea Nitrogen 8 mg/dL (7-20) 7 mg/dL (7-20) Creatinine 1.1 mg/dL (0.6-1.0) 0.9 mg/dL (0.6-1.0) Estimated GFR (Cockcroft-Gault) 55.9 70.5 BUN/Creatinine Ratio 7 (6-20) Glucose Level 110 mg/dL (70-99) 95 mg/dL (70-99) Lactic Acid Level 4.3 mmol/L (0.4-2.0) 3.8 mmol/L (0.4-2.0) Calcium Level 6.8 mg/dL (8.5-10.1) 6.9 mg/dL (8.5-10.1) Phosphorus Level 2.3 mg/dL (2.6-4.7) 1.7 mg/dL (2.6-4.7) 1.4 mg/dL (2.6-4.7) Magnesium Level 2.1 mg/dL (1.8-2.4) 2.1 mg/dL (1.8-2.4) 2.2 mg/dL (1.8-2.4) Total Bilirubin 4.4 mg/dL (0.2-1.0) Aspartate Amino Transf (AST/SGOT) 74 U/L (15-37) Alanine Aminotransferase (ALT/SGPT) 27 U/L (14-59) Alkaline Phosphatase 314 U/L (46-116) Total Protein 5.2 g/dL (6.4-8.2) Albumin 1.8 g/dL (3.4-5.0) Albumin/Globulin Ratio 0.5 (1.0-1.7) Test 06/17/19 06:10 06/17/19 08:00 White Blood Count 37.0 x10^3/uL (4.0-11.0) Red Blood Count 3.36 x10^6/uL (3.50-5.40) Hemoglobin 8.4 g/dL (12.0-15.5) Hematocrit 26.2 % (36.0-47.0) Mean Corpuscular Volume 78 fL (79-100) Mean Corpuscular Hemoglobin 25 pg (25-35) Mean Corpuscular Hemoglobin Concent 32 g/dL (31-37) Red Cell Distribution Width 17.2 % (11.5-14.5) Platelet Count 192 x10^3/uL (140-400) Neutrophils (%) (Auto) 93 % (31-73) Lymphocytes (%) (Auto) 2 % (24-48) Monocytes (%) (Auto) 3 % (0-9) Eosinophils (%) (Auto) 2 % (0-3) Basophils (%) (Auto) 0 % (0-3) Neutrophils # (Auto) 34.5 x10^3/uL (1.8-7.7) Lymphocytes # (Auto) 0.8 x10^3/uL (1.0-4.8) Monocytes # (Auto) 1.1 x10^3/uL (0.0-1.1) Eosinophils # (Auto) 0.7 x10^3/uL (0.0-0.7) Basophils # (Auto) 0.1 x10^3/uL (0.0-0.2) Total Bilirubin 4.7 mg/dL (0.2-1.0) Direct Bilirubin 3.9 mg/dL (0.0-0.2) Aspartate Amino Transf (AST/SGOT) 90 U/L (15-37) Alanine Aminotransferase (ALT/SGPT) 30 U/L (14-59) Alkaline Phosphatase 365 U/L (46-116) Creatine Kinase 722 U/L (26-192) Total Protein 4.9 g/dL (6.4-8.2) Albumin 1.6 g/dL (3.4-5.0) Lipase 26 U/L (73-393) O2 Saturation 96 % (92-99) Arterial Blood pH 7.40 (7.35-7.45) Arterial Blood pCO2 at Patient Temp 43 mmHg (35-46) Arterial Blood pO2 at Patient Temp 81 mmHg (85-108) Arterial Blood HCO3 26 mmol/L (21-28) Arterial Blood Base Excess 1 mmol/L (-3-3) FiO2 50 Medications Active Scripts Medications Dose Route/Sig Max Daily Dose Days Date Category Tessalon Perle (Benzonatate) 100 Mg Capsule 100 Mg PO TID PRN 06/02/19 Rx Comments cxr reviewed 06/17 b lat infilt L>R ett ok, mild improvement on L Impression . IMPRESSION: 1. Acute hypoxemic respiratory failure. 2. Severe metabolic acidosis, improving on crrt. 3. Septic shock. 4. Left lower extremity cellulitis and soft tissue infection. 5. Leukocytosis. 6. Acute kidney injury. 7. Shock liver. 8. Positive urine drug screen. 9. Morbid obesity prob kena. 10. abnl cxr Plan . PLAN: 1. We will continue support with multiple pressors to keep map >65. 2. CRRT per Nephrology, 3. Broad-spectrum antibiotics per ID. The patient is currently on meropenem, daptomycin and micafungin and zyvox 4. cont vent support until more stable, setting reviewed, abg reviewed, titrate down fio2 to keep sat >94% 5. protonix for stress ulcer prophylaxis 6. Gen surg and vascular following 7. Will start weaning sedation discussed w rn/ mother cct 30 min ARAMNDO HACKETT MD Jun 17, 2019 10:56
[2019-06-17 11:05] LABS: % BANDS 39 % (0-9); % EOS 2 % (0-5); % LYMPHS 3 % (24-48); % METAS 1 % (0-0); % MONOS 1 % (0-10); % MYELOS 1 % (0-0); % SEGS 53 % (35-66); PLT ESTIMATE ADEQUATE (ADEQUATE)
[2019-06-17 11:06] LABS: ANISOCYTOSIS SLIGHT; TOXIC GRANULATION MOD
--- NOTE | 2019-06-17 12:25 | PDOC ---
Provider Note Provider Note Vascular surgery f/u Pt intubated, vent. dependent O: Hemodynamics stable, now on 2 vasopressors WBC elevated still, lactate elevated bilateral lower extremity lymphedema; skin starting to demarcate left > right excellent flow both lower extremities; feet warm, ; biphasic doppler arterial flow A: sepsis resp insufficiency lymphedema with subcutaneous necrosis P: will sign off as the patient has no evidence of arterial insufficiency. she has severe lymphedema with subcutaneous skin necrosis, lymphangitis which may require debridement per general surgery with wound care follow-up. JESSICA ORDAZ II, MD Jun 17, 2019 12:25
--- NOTE | 2019-06-17 12:56 | RAD ---
Examination: TIBIA FIBULA LEFT History: Soft tissue gas. Comparison/Correlation: None Findings: Crosstable lateral and frontal views of the left tibia and fibula were obtained by portable technique. Bony structures are intact. No soft tissue gas is delineated. No fracture or bony destructive findings. No radiographic foreign body. Impression: No soft tissue gas identified. Consider further evaluation if necrotizing fasciitis is a persistent concern. Electronically signed by: Gómez Durant MD (06/17/2019 12:53 PM) [facility]
[2019-06-17] MEDS: PIPERACILLIN/TAZOBACTAM 2.25 GM in IV NORMAL SALINE 50ML 50 ML IV SCH ×2 (14:25→21:25)
--- NOTE | 2019-06-17 15:38 | NUR ---
SS following for discharge planning. SS reviewed pt chart. Pt is self pay pt. HCFS following for self pay status. Pt positive for Meth. SS will contact PAT team for assessment when appropriate. SS will continue to follow for discharge planning.
--- NOTE | 2019-06-17 15:49 | NUR ---
Pt sedation turned down this AM per Dr. Whitt to see how patient tolerates waking up. Pt has not awaken yet. Versed off, Fent @ 1.25ml/hr, Precedex @ 0.5. Will keep sedation turned down until patient awakens. UO very low.
--- NOTE | 2019-06-17 17:11 | NUR ---
Wound care: Patient seen per wound care consult. See wound assessment. There is an unknown origin of this wound to the left lower leg. General surgery has been consulted. Leg cleansed and assessed, and recommendations to continue using chux to catch the drainage at this time. Patient is medically unstable at this time to turn for full skin inspection. Wound care will continue to follow on patient's case and await surgical consult. Bed lowered and family in room at this time.
[2019-06-17] MEDS ORDERED: ALBUMIN HUMAN 5% 500 ML IV ONE (19:30)
[2019-06-17] MEDS: ALBUMIN HUMAN 5% 250 ML IV SCH ×2 (20:07→21:50)
[2019-06-18] VITALS (25 sets, daily range): BP systolic 82–120; BP diastolic 42–57
[2019-06-18] MEDS: PANTOPRAZOLE SODIUM IV DRIP 80 MG in IV NORMAL SALINE 100ML 100 ML IV SCH (00:05)
[2019-06-18] MEDS: DEXMEDETOMIDINE 400 MCG in IV NORMAL SALINE 100ML 96 ML IV PRN ×5 (00:06→23:20)
[2019-06-18] MEDS: PHENYLEPHRINE IV PRN ×2 (03:28→13:37)
[2019-06-18] MEDS: NORMAL SALINE IV PRN ×2 (03:28→13:37)
[2019-06-18] MEDS: PIPERACILLIN/TAZOBACTAM 2.25 GM in IV NORMAL SALINE 50ML 50 ML IV SCH ×3 (05:36→21:51)
[2019-06-18 05:42] LABS: BASO # 0.1 x10^3/uL (0.0-0.2); BASO % 0 % (0-3); EOS # 0.4 x10^3/uL (0.0-0.7); EOS % 1 % (0-3); HEMOGLOBIN 7.9 g/dL (12.0-15.5); LYMPH # 1.7 x10^3/uL (1.0-4.8); LYMPH % 4 % (24-48); MEAN CORPUSCULAR HEMOGLOBIN 25 pg (25-35); MEAN CORPUSCULAR HGB CONC 32 g/dL (31-37); MEAN CORPUSCULAR VOLUME 78 fL (79-100); MONO # 2.2 x10^3/uL (0.0-1.1); MONO % 5 % (0-9); NEUT # 41.2 x10^3/uL (1.8-7.7); NEUT % 90 % (31-73); PLATELET COUNT 223 x10^3/uL (140-400); RED CELL DISTRIBUTION WIDTH 17.2 % (11.5-14.5)
[2019-06-18 05:44] LABS: WHITE BLOOD COUNT 45.8 x10^3/uL (4.0-11.0)
[2019-06-18 05:54] LABS: ALBUMIN 1.8 g/dL (3.4-5.0); ALBUMIN/GLOBULIN RATIO 0.5 (1.0-1.7); CALCIUM 7.5 mg/dL (8.5-10.1); POTASSIUM 4.4 mmol/L (3.5-5.1); TOTAL BILIRUBIN 6.3 mg/dL (0.2-1.0); TOTAL PROTEIN 5.3 g/dL (6.4-8.2)
[2019-06-18] MEDS ORDERED: IV NORMAL SALINE 1000ML BAG 1,000 ML IV PRN ×2 (07:43)
[2019-06-18] MEDS ORDERED: ALBUMIN HUMAN 25% 100 ML IV ONE (08:00)
[2019-06-18] MEDS ORDERED: ALBUMIN HUMAN 25% 200 ML IV PRN (08:00)
--- NOTE | 2019-06-18 08:04 | PDOC ---
Infectious Disease Note Subjective Subjective Sedated/Intubated Vital Sign Vital Signs Vital Signs Date Time Temp Pulse Resp B/P (MAP) Pulse Ox O2 Delivery O2 Flow Rate FiO2 06/18/19 07:00 97 19 101/48 (65) 99 Ventilator 06/18/19 04:00 98.8 98.8 Physical Exam PHYSICAL EXAM GENERAL: Morbidly obese female, sedated and orally intubated. + mitts. HEENT: Pupils equal, reactive, ETT, OGT NECK: Supple. LUNGS: Coarse right side HEART: S1, S2, tachycardia, regular, Distant heart sounds. ABDOMEN: Soft, morbidly obese, Hypoactive bowel sounds. GENITOURINARY: Gifford in place, EXTREMITIES: Lower extremities edematous, weeping, marked purple discoloration L > R, - mottling [employer]: Sedated SKIN: No signs generalized rash. + yeast skin folds - improving Temp RIJ/HDC (06/14), LIJ and left art line without signs of complications Labs Lab Laboratory Tests Test 06/17/19 08:00 06/18/19 05:30 O2 Saturation 96 % (92-99) Arterial Blood pH 7.40 (7.35-7.45) Arterial Blood pCO2 at Patient Temp 43 mmHg (35-46) Arterial Blood pO2 at Patient Temp 81 mmHg (85-108) Arterial Blood HCO3 26 mmol/L (21-28) Arterial Blood Base Excess 1 mmol/L (-3-3) FiO2 50 White Blood Count 45.8 x10^3/uL (4.0-11.0) Red Blood Count 3.20 x10^6/uL (3.50-5.40) Hemoglobin 7.9 g/dL (12.0-15.5) Hematocrit 25.0 % (36.0-47.0) Mean Corpuscular Volume 78 fL (79-100) Mean Corpuscular Hemoglobin 25 pg (25-35) Mean Corpuscular Hemoglobin Concent 32 g/dL (31-37) Red Cell Distribution Width 17.2 % (11.5-14.5) Platelet Count 223 x10^3/uL (140-400) Neutrophils (%) (Auto) 90 % (31-73) Lymphocytes (%) (Auto) 4 % (24-48) Monocytes (%) (Auto) 5 % (0-9) Eosinophils (%) (Auto) 1 % (0-3) Basophils (%) (Auto) 0 % (0-3) Neutrophils # (Auto) 41.2 x10^3/uL (1.8-7.7) Lymphocytes # (Auto) 1.7 x10^3/uL (1.0-4.8) Monocytes # (Auto) 2.2 x10^3/uL (0.0-1.1) Eosinophils # (Auto) 0.4 x10^3/uL (0.0-0.7) Basophils # (Auto) 0.1 x10^3/uL (0.0-0.2) Sodium Level 137 mmol/L (136-145) Potassium Level 4.4 mmol/L (3.5-5.1) Chloride Level 100 mmol/L (98-107) Carbon Dioxide Level 27 mmol/L (21-32) Anion Gap 10 (6-14) Blood Urea Nitrogen 21 mg/dL (7-20) Creatinine 2.0 mg/dL (0.6-1.0) Estimated GFR (Cockcroft-Gault) 28.0 BUN/Creatinine Ratio 11 (6-20) Glucose Level 100 mg/dL (70-99) Calcium Level 7.5 mg/dL (8.5-10.1) Total Bilirubin 6.3 mg/dL (0.2-1.0) Aspartate Amino Transf (AST/SGOT) 89 U/L (15-37) Alanine Aminotransferase (ALT/SGPT) 28 U/L (14-59) Alkaline Phosphatase 515 U/L (46-116) Total Protein 5.3 g/dL (6.4-8.2) Albumin 1.8 g/dL (3.4-5.0) Albumin/Globulin Ratio 0.5 (1.0-1.7) Micro Microbiology 06/13/19 Urine Culture - Final, Complete 06/13/19 Urine Culture Result 1 (ABEBE) - Final, Complete 06/13/19 Blood Culture - Preliminary, Resulted NO GROWTH AFTER 3 DAYS Objective Assessment Severe sepsis w/ shock. On 2 pressors - needs increasing per nursing Acute hypoxic respiratory failure with pulmonary infiltrates, intubated. Bilat LE infections Left lower extremity severe skin and soft tissue infection.worse than right ? progression. No surgical plans. No crepitus on palpation either LE. XRAY of Left - no gas Leukocytosis - trending up Lactic acidosis. (10.8, down to 3.8 now) Acute kidney injury, on CRRT - clotted HD now Severe metabolic acidosis. Hyperbilirubinemia with abnormal liver function tests. Substance abuse Morbid obesity. Elevated lipase - corrected Severe Protein Malnutrition Plan Plan of Care CRRT clotted 06/17- adjusted Abx. D/c'd Meropenem and began Zosyn Cont Dapto - adjust dose and cont micafungin Repeat CK if increasing may need to Consider Dapto as a cause and stop - unable to elicit any painful response Continue Zyvox for bacterial toxin binding and lung coverage Sputum culture neg so BC neg so far from 06/[address] left leg at this time No surgical plans. Will have Gen surg f/u given increasing WBC and some advancement of necrosis vascular signed off Check Coags Anemia - - have GI followup Previously spoke with [email or web address] again, pt listed under different name, BC were neg. D/w nursing Critically ill JAY WISE MD Jun 18, 2019 08:04
[2019-06-18 08:36] LABS: BASE EXCESS ABG 2 mmol/L (-3-3); HCO3 ABG 27 mmol/L (21-28); PCO2 ABG 43 mmHg (35-46); PO2 ABG 77 mmHg (85-108); SAT O2 ABG 96 % (92-99)
--- NOTE | 2019-06-18 08:47 | RAD ---
Examination: PORTABLE CHEST 1V History: Respiratory failure Comparison/Correlation: 06/27/2019 portable chest x-ray exam Findings: Portable semierect frontal view of the chest was obtained. Bilateral jugular dialysis catheter terminates overlying the inferior aspect of the right atrium. Left internal jugular catheter is overlying the right atrium. No pneumothorax. Endotracheal tube is in place. Enteric tube is unremarkable. Limited pulmonary inflation is noted. Left basilar consolidation is evident. Right medial basilar infiltrate suspected but unchanged. No significant effusion. Impression: No change in infiltrates. Electronically signed by: Gómez Durant MD (06/18/2019 8:44 AM) [facility]
[2019-06-18 09:04] LABS: FIO2 ABG 40
--- NOTE | 2019-06-18 09:36 | PDOC ---
Renal-Progress Notes Subjective Notes Notes REMAINS CRITICALLY ILL AND INTUBATED History of Present Illness Hx of present illness NO CHANGES Vitals Vitals Vital Signs Date Time Temp Pulse Resp B/P (MAP) Pulse Ox O2 Delivery O2 Flow Rate FiO2 06/18/19 08:00 100 Ventilator 06/18/19 07:00 97 19 101/48 (65) 06/18/19 04:00 98.8 98.8 Weight Weight [ ] I.O. Intake and Output Intake and Output 06/18/19 07:00 Intake Total 4122 ml Output Total 567 ml Balance 3555 ml Intake IV Total 4122 ml Output Urine Total 167 ml Gastric Drainage Total 400 ml Labs Labs Laboratory Tests Test 06/18/19 05:30 06/18/19 08:00 White Blood Count 45.8 x10^3/uL (4.0-11.0) Red Blood Count 3.20 x10^6/uL (3.50-5.40) Hemoglobin 7.9 g/dL (12.0-15.5) Hematocrit 25.0 % (36.0-47.0) Mean Corpuscular Volume 78 fL (79-100) Mean Corpuscular Hemoglobin 25 pg (25-35) Mean Corpuscular Hemoglobin Concent 32 g/dL (31-37) Red Cell Distribution Width 17.2 % (11.5-14.5) Platelet Count 223 x10^3/uL (140-400) Neutrophils (%) (Auto) 90 % (31-73) Lymphocytes (%) (Auto) 4 % (24-48) Monocytes (%) (Auto) 5 % (0-9) Eosinophils (%) (Auto) 1 % (0-3) Basophils (%) (Auto) 0 % (0-3) Neutrophils # (Auto) 41.2 x10^3/uL (1.8-7.7) Lymphocytes # (Auto) 1.7 x10^3/uL (1.0-4.8) Monocytes # (Auto) 2.2 x10^3/uL (0.0-1.1) Eosinophils # (Auto) 0.4 x10^3/uL (0.0-0.7) Basophils # (Auto) 0.1 x10^3/uL (0.0-0.2) Sodium Level 137 mmol/L (136-145) Potassium Level 4.4 mmol/L (3.5-5.1) Chloride Level 100 mmol/L (98-107) Carbon Dioxide Level 27 mmol/L (21-32) Anion Gap 10 (6-14) Blood Urea Nitrogen 21 mg/dL (7-20) Creatinine 2.0 mg/dL (0.6-1.0) Estimated GFR (Cockcroft-Gault) 28.0 BUN/Creatinine Ratio 11 (6-20) Glucose Level 100 mg/dL (70-99) Calcium Level 7.5 mg/dL (8.5-10.1) Total Bilirubin 6.3 mg/dL (0.2-1.0) Aspartate Amino Transf (AST/SGOT) 89 U/L (15-37) Alanine Aminotransferase (ALT/SGPT) 28 U/L (14-59) Alkaline Phosphatase 515 U/L (46-116) Creatine Kinase 330 U/L (26-192) Total Protein 5.3 g/dL (6.4-8.2) Albumin 1.8 g/dL (3.4-5.0) Albumin/Globulin Ratio 0.5 (1.0-1.7) Prothrombin Time 18.0 SEC (11.7-14.0) Prothromb Time International Ratio 1.5 (0.8-1.1) Activated Partial Thromboplast Time 44 SEC (24-38) O2 Saturation 96 % (92-99) Arterial Blood pH 7.42 (7.35-7.45) Arterial Blood pCO2 at Patient Temp 43 mmHg (35-46) Arterial Blood pO2 at Patient Temp 77 mmHg (85-108) Arterial Blood HCO3 27 mmol/L (21-28) Arterial Blood Base Excess 2 mmol/L (-3-3) FiO2 40 Micro Micro Microbiology 06/15/19 - Final, Resulted 06/15/19 - Final, Resulted 06/15/19 - Preliminary, Resulted 06/15/19 - Preliminary, Resulted 06/15/19 - Preliminary, Resulted 06/15/19 - Preliminary, Resulted 06/15/19 Gram Stain Evaluation - Final, Resulted 06/15/19 Sputum Culture, Resulted Pending 06/13/19 Urine Culture - Final, Complete 06/13/19 Urine Culture Result 1 (ABEBE) - Final, Complete 06/13/19 Blood Culture - Preliminary, Resulted NO GROWTH AFTER 4 DAYS Review of Systems Constitutional: yes: unresponsive Physical Exam General Appearance: other (SEDATED) Skin: warm Respiratory: decreased breath sounds Heart: S1S2 Abdomen: soft, bowel sounds present Genitourinary: bladder flat Extremities: edema, other (BILATERAL LE CELLULITS AND DRAINING WOUNDS) Neurology: other (SEDATED) Assessment Assessment IMP SEPSIS-MSOF LEUCOCYTOSIS ACUTE RESP FAILURE ACUTE KIDNEY INJURY BILATERAL LE WOUNDS LACTIC ACIDOSIS-BETTER SUBSTANCE ABUSE HYPOPHOSPHATEMIA ELEVATED LIVER FUNCTION TESTS-WORSE PLAN ANTIBIOTICS PRESSORS HCO3 GTT TO CONTINUE IHD TODAY UF IF TOLERATED WILL GIVE ALBUMIN FOR BP SUPPORT REPLACE PO4 NEEDED WILL CONT SUPPORTIVE CARE POOR PROGNOSIS UPDATED MOTHER AT BEDSIDE MILTON PARKER MD Jun 18, 2019 09:36
--- NOTE | 2019-06-18 10:03 | PDOC ---
PROGRESS NOTES Chief Complaint Chief Complaint Septic shock Severe LLE cellulitis Hypoxic Resp failure,on IPPV - intubated on arrival CATY now requiring dialysis Anemia, elevated LFTs and lipase S/p cholecystectomy Obesity - BMI 62.6 +amphetamines Severe metabolic acidosis Pulm infiltrates, recent [facility] - [facility] Black NGT output History of Present Illness History of Present Illness Admitted due to confusion and respiratory distress at home per her mother, she was intubated in ED. Pt was at [facility] - legs looked the same, they were treating her there with IV abx and for meth abuse, she left last week. PT remains intubated, on 2 pressors, morbidly obese, with bullae both legs and discoloration. CRRT initaited too bec of gap met acidosis, clotted catheter. Now on HD this morning, has some hypotension with this NO fevers,. on IV abx per ID hgb 7.9 WBC 40s - not on steroids, hypothermic - severely septic CPK 360 - will decrease or hold daptomycin On ppi gtt x 3 days per GI Plan: vent bundle DIC panel D/w ID the potential benefit vs risk of IVIG CC 32 dw mother, bedside Vitals Vitals Vital Signs Date Time Temp Pulse Resp B/P (MAP) Pulse Ox O2 Delivery O2 Flow Rate FiO2 06/18/19 09:00 90 20 103/50 (67) 100 Ventilator 06/18/19 08:00 99.6 99.6 Physical Exam Physical Exam GENERAL: Morbidly obese female, sedated and orally intubated. + mitts. HEENT: Pupils equal, reactive, ETT, OGT NECK: Supple. LUNGS: Coarse right side HEART: S1, S2, tachycardia, regular, Distant heart sounds. ABDOMEN: Soft, morbidly obese, Hypoactive bowel sounds. GENITOURINARY: Gifford in place, EXTREMITIES: Lower extremities edematous, weeping, marked purple discoloration L > R, - mottling [employer]: Sedated SKIN: No signs generalized rash. + yeast skin folds - improving Temp RIJ/HDC (06/14), LIJ and left art line without signs of complications General: No acute distress, Other (intubated sedated) Heart: Regular rate, No murmurs Lungs: Other ( basilar crackles dull at bases ) Abdomen: Normal bowel sounds, Soft Extremities: Normal pulses, Other (massive bilateral edema lower extremities left greater than right ecchymotic lesions both legs left greater than right no fluctuance or crepitance by palpation) Skin: Other (infected legs. :Left > RT) Labs LABS Laboratory Tests Test 06/18/19 05:30 06/18/19 08:00 White Blood Count 45.8 x10^3/uL (4.0-11.0) Red Blood Count 3.20 x10^6/uL (3.50-5.40) Hemoglobin 7.9 g/dL (12.0-15.5) Hematocrit 25.0 % (36.0-47.0) Mean Corpuscular Volume 78 fL (79-100) Mean Corpuscular Hemoglobin 25 pg (25-35) Mean Corpuscular Hemoglobin Concent 32 g/dL (31-37) Red Cell Distribution Width 17.2 % (11.5-14.5) Platelet Count 223 x10^3/uL (140-400) Neutrophils (%) (Auto) 90 % (31-73) Lymphocytes (%) (Auto) 4 % (24-48) Monocytes (%) (Auto) 5 % (0-9) Eosinophils (%) (Auto) 1 % (0-3) Basophils (%) (Auto) 0 % (0-3) Neutrophils # (Auto) 41.2 x10^3/uL (1.8-7.7) Lymphocytes # (Auto) 1.7 x10^3/uL (1.0-4.8) Monocytes # (Auto) 2.2 x10^3/uL (0.0-1.1) Eosinophils # (Auto) 0.4 x10^3/uL (0.0-0.7) Basophils # (Auto) 0.1 x10^3/uL (0.0-0.2) Sodium Level 137 mmol/L (136-145) Potassium Level 4.4 mmol/L (3.5-5.1) Chloride Level 100 mmol/L (98-107) Carbon Dioxide Level 27 mmol/L (21-32) Anion Gap 10 (6-14) Blood Urea Nitrogen 21 mg/dL (7-20) Creatinine 2.0 mg/dL (0.6-1.0) Estimated GFR (Cockcroft-Gault) 28.0 BUN/Creatinine Ratio 11 (6-20) Glucose Level 100 mg/dL (70-99) Calcium Level 7.5 mg/dL (8.5-10.1) Total Bilirubin 6.3 mg/dL (0.2-1.0) Aspartate Amino Transf (AST/SGOT) 89 U/L (15-37) Alanine Aminotransferase (ALT/SGPT) 28 U/L (14-59) Alkaline Phosphatase 515 U/L (46-116) Creatine Kinase 330 U/L (26-192) Total Protein 5.3 g/dL (6.4-8.2) Albumin 1.8 g/dL (3.4-5.0) Albumin/Globulin Ratio 0.5 (1.0-1.7) Prothrombin Time 18.0 SEC (11.7-14.0) Prothromb Time International Ratio 1.5 (0.8-1.1) Activated Partial Thromboplast Time 44 SEC (24-38) O2 Saturation 96 % (92-99) Arterial Blood pH 7.42 (7.35-7.45) Arterial Blood pCO2 at Patient Temp 43 mmHg (35-46) Arterial Blood pO2 at Patient Temp 77 mmHg (85-108) Arterial Blood HCO3 27 mmol/L (21-28) Arterial Blood Base Excess 2 mmol/L (-3-3) FiO2 40 Assessment and Plan Assessmemt and Plan Problems Medical Problems: (1) Acute respiratory failure Status: Acute (2) Elevated brain natriuretic peptide (BNP) level Status: Acute (3) Elevated d-dimer Status: Acute (4) Elevated lipase Status: Acute (5) Elevated liver function tests Status: Acute (6) GI bleeding Status: Acute (7) Hyperglycemia Status: Acute (8) Hypermagnesuria Status: Acute (9) Hypoalbuminemia Status: Acute (10) Hypokalemia Status: Acute (11) Hyponatremia Status: Acute (12) Lower extremity cellulitis Status: Acute (13) Metabolic acidosis Status: Acute (14) Methamphetamine abuse Status: Acute (15) Morbid obesity with BMI of 60.0-69.9, adult Status: Acute (16) Renal insufficiency Status: Acute (17) Sepsis Status: Acute (18) Severe sepsis Status: Acute Comment Review of Relevant I have reviewed the following items loreta (where applicable) has been applied. Labs Laboratory Tests Test 06/16/19 11:35 06/16/19 15:48 06/16/19 18:35 06/17/19 01:15 White Blood Count 30.3 x10^3/uL (4.0-11.0) Red Blood Count 3.33 x10^6/uL (3.50-5.40) Hemoglobin 8.3 g/dL (12.0-15.5) Hematocrit 26.2 % (36.0-47.0) Mean Corpuscular Volume 79 fL (79-100) Mean Corpuscular Hemoglobin 25 pg (25-35) Mean Corpuscular Hemoglobin Concent 32 g/dL (31-37) Red Cell Distribution Width 17.6 % (11.5-14.5) Platelet Count 222 x10^3/uL (140-400) Sodium Level 136 mmol/L (136-145) 137 mmol/L (136-145) 135 mmol/L (136-145) Potassium Level 3.6 mmol/L (3.5-5.1) 3.6 mmol/L (3.5-5.1) 3.7 mmol/L (3.5-5.1) Chloride Level 100 mmol/L (98-107) 102 mmol/L (98-107) 102 mmol/L (98-107) Carbon Dioxide Level 26 mmol/L (21-32) 28 mmol/L (21-32) 27 mmol/L (21-32) Anion Gap 10 (6-14) 7 (6-14) 6 (6-14) Blood Urea Nitrogen 8 mg/dL (7-20) 7 mg/dL (7-20) Creatinine 1.1 mg/dL (0.6-1.0) 0.9 mg/dL (0.6-1.0) Estimated GFR (Cockcroft-Gault) 55.9 70.5 BUN/Creatinine Ratio 7 (6-20) Glucose Level 110 mg/dL (70-99) 95 mg/dL (70-99) Lactic Acid Level 4.3 mmol/L (0.4-2.0) 3.8 mmol/L (0.4-2.0) Calcium Level 6.8 mg/dL (8.5-10.1) 6.9 mg/dL (8.5-10.1) Phosphorus Level 2.3 mg/dL (2.6-4.7) 1.7 mg/dL (2.6-4.7) 1.4 mg/dL (2.6-4.7) Magnesium Level 2.1 mg/dL (1.8-2.4) 2.1 mg/dL (1.8-2.4) 2.2 mg/dL (1.8-2.4) Total Bilirubin 4.4 mg/dL (0.2-1.0) Aspartate Amino Transf (AST/SGOT) 74 U/L (15-37) Alanine Aminotransferase (ALT/SGPT) 27 U/L (14-59) Alkaline Phosphatase 314 U/L (46-116) Total Protein 5.2 g/dL (6.4-8.2) Albumin 1.8 g/dL (3.4-5.0) Albumin/Globulin Ratio 0.5 (1.0-1.7) Test 06/17/19 06:10 06/17/19 08:00 06/18/19 05:30 06/18/19 08:00 White Blood Count 37.0 x10^3/uL (4.0-11.0) 45.8 x10^3/uL (4.0-11.0) Red Blood Count 3.36 x10^6/uL (3.50-5.40) 3.20 x10^6/uL (3.50-5.40) Hemoglobin 8.4 g/dL (12.0-15.5) 7.9 g/dL (12.0-15.5) Hematocrit 26.2 % (36.0-47.0) 25.0 % (36.0-47.0) Mean Corpuscular Volume 78 fL (79-100) 78 fL (79-100) Mean Corpuscular Hemoglobin 25 pg (25-35) 25 pg (25-35) Mean Corpuscular Hemoglobin Concent 32 g/dL (31-37) 32 g/dL (31-37) Red Cell Distribution Width 17.2 % (11.5-14.5) 17.2 % (11.5-14.5) Platelet Count 192 x10^3/uL (140-400) 223 x10^3/uL (140-400) Neutrophils (%) (Auto) 93 % (31-73) 90 % (31-73) Lymphocytes (%) (Auto) 2 % (24-48) 4 % (24-48) Monocytes (%) (Auto) 3 % (0-9) 5 % (0-9) Eosinophils (%) (Auto) 2 % (0-3) 1 % (0-3) Basophils (%) (Auto) 0 % (0-3) 0 % (0-3) Neutrophils # (Auto) 34.5 x10^3/uL (1.8-7.7) 41.2 x10^3/uL (1.8-7.7) Lymphocytes # (Auto) 0.8 x10^3/uL (1.0-4.8) 1.7 x10^3/uL (1.0-4.8) Monocytes # (Auto) 1.1 x10^3/uL (0.0-1.1) 2.2 x10^3/uL (0.0-1.1) Eosinophils # (Auto) 0.7 x10^3/uL (0.0-0.7) 0.4 x10^3/uL (0.0-0.7) Basophils # (Auto) 0.1 x10^3/uL (0.0-0.2) 0.1 x10^3/uL (0.0-0.2) Segmented Neutrophils % 53 % (35-66) Band Neutrophils % 39 % (0-9) Lymphocytes % 3 % (24-48) Monocytes % 1 % (0-10) Eosinophils % 2 % (0-5) Metamyelocytes % 1 % (0-0) Myelocytes % 1 % (0-0) Toxic Granulation Mod Dohle Bodies Present Platelet Estimate Adequate (ADEQUATE) Poikilocytosis Anisocytosis Slight Total Bilirubin 4.7 mg/dL (0.2-1.0) 6.3 mg/dL (0.2-1.0) Direct Bilirubin 3.9 mg/dL (0.0-0.2) Aspartate Amino Transf (AST/SGOT) 90 U/L (15-37) 89 U/L (15-37) Alanine Aminotransferase (ALT/SGPT) 30 U/L (14-59) 28 U/L (14-59) Alkaline Phosphatase 365 U/L (46-116) 515 U/L (46-116) Creatine Kinase 722 U/L (26-192) 330 U/L (26-192) Total Protein 4.9 g/dL (6.4-8.2) 5.3 g/dL (6.4-8.2) Albumin 1.6 g/dL (3.4-5.0) 1.8 g/dL (3.4-5.0) Lipase 26 U/L (73-393) O2 Saturation 96 % (92-99) 96 % (92-99) Arterial Blood pH 7.40 (7.35-7.45) 7.42 (7.35-7.45) Arterial Blood pCO2 at Patient Temp 43 mmHg (35-46) 43 mmHg (35-46) Arterial Blood pO2 at Patient Temp 81 mmHg (85-108) 77 mmHg (85-108) Arterial Blood HCO3 26 mmol/L (21-28) 27 mmol/L (21-28) Arterial Blood Base Excess 1 mmol/L (-3-3) 2 mmol/L (-3-3) FiO2 50 40 Sodium Level 137 mmol/L (136-145) Potassium Level 4.4 mmol/L (3.5-5.1) Chloride Level 100 mmol/L (98-107) Carbon Dioxide Level 27 mmol/L (21-32) Anion Gap 10 (6-14) Blood Urea Nitrogen 21 mg/dL (7-20) Creatinine 2.0 mg/dL (0.6-1.0) Estimated GFR (Cockcroft-Gault) 28.0 BUN/Creatinine Ratio 11 (6-20) Glucose Level 100 mg/dL (70-99) Calcium Level 7.5 mg/dL (8.5-10.1) Albumin/Globulin Ratio 0.5 (1.0-1.7) Prothrombin Time 18.0 SEC (11.7-14.0) Prothromb Time International Ratio 1.5 (0.8-1.1) Activated Partial Thromboplast Time 44 SEC (24-38) Laboratory Tests Test 06/18/19 05:30 06/18/19 08:00 White Blood Count 45.8 x10^3/uL (4.0-11.0) Red Blood Count 3.20 x10^6/uL (3.50-5.40) Hemoglobin 7.9 g/dL (12.0-15.5) Hematocrit 25.0 % (36.0-47.0) Mean Corpuscular Volume 78 fL (79-100) Mean Corpuscular Hemoglobin 25 pg (25-35) Mean Corpuscular Hemoglobin Concent 32 g/dL (31-37) Red Cell Distribution Width 17.2 % (11.5-14.5) Platelet Count 223 x10^3/uL (140-400) Neutrophils (%) (Auto) 90 % (31-73) Lymphocytes (%) (Auto) 4 % (24-48) Monocytes (%) (Auto) 5 % (0-9) Eosinophils (%) (Auto) 1 % (0-3) Basophils (%) (Auto) 0 % (0-3) Neutrophils # (Auto) 41.2 x10^3/uL (1.8-7.7) Lymphocytes # (Auto) 1.7 x10^3/uL (1.0-4.8) Monocytes # (Auto) 2.2 x10^3/uL (0.0-1.1) Eosinophils # (Auto) 0.4 x10^3/uL (0.0-0.7) Basophils # (Auto) 0.1 x10^3/uL (0.0-0.2) Sodium Level 137 mmol/L (136-145) Potassium Level 4.4 mmol/L (3.5-5.1) Chloride Level 100 mmol/L (98-107) Carbon Dioxide Level 27 mmol/L (21-32) Anion Gap 10 (6-14) Blood Urea Nitrogen 21 mg/dL (7-20) Creatinine 2.0 mg/dL (0.6-1.0) Estimated GFR (Cockcroft-Gault) 28.0 BUN/Creatinine Ratio 11 (6-20) Glucose Level 100 mg/dL (70-99) Calcium Level 7.5 mg/dL (8.5-10.1) Total Bilirubin 6.3 mg/dL (0.2-1.0) Aspartate Amino Transf (AST/SGOT) 89 U/L (15-37) Alanine Aminotransferase (ALT/SGPT) 28 U/L (14-59) Alkaline Phosphatase 515 U/L (46-116) Creatine Kinase 330 U/L (26-192) Total Protein 5.3 g/dL (6.4-8.2) Albumin 1.8 g/dL (3.4-5.0) Albumin/Globulin Ratio 0.5 (1.0-1.7) Prothrombin Time 18.0 SEC (11.7-14.0) Prothromb Time International Ratio 1.5 (0.8-1.1) Activated Partial Thromboplast Time 44 SEC (24-38) O2 Saturation 96 % (92-99) Arterial Blood pH 7.42 (7.35-7.45) Arterial Blood pCO2 at Patient Temp 43 mmHg (35-46) Arterial Blood pO2 at Patient Temp 77 mmHg (85-108) Arterial Blood HCO3 27 mmol/L (21-28) Arterial Blood Base Excess 2 mmol/L (-3-3) FiO2 40 Microbiology 06/15/19 - Final, Resulted 06/15/19 - Final, Resulted 06/15/19 - Preliminary, Resulted 06/15/19 - Preliminary, Resulted 06/15/19 - Preliminary, Resulted 06/15/19 - Preliminary, Resulted 06/15/19 Gram Stain Evaluation - Final, Resulted 06/15/19 Sputum Culture, Resulted Pending 06/13/19 Urine Culture - Final, Complete 06/13/19 Urine Culture Result 1 (ABEBE) - Final, Complete 06/13/19 Blood Culture - Preliminary, Resulted NO GROWTH AFTER 4 DAYS Medications Current Medications Sodium Chloride 1,000 ml @ 1,000 mls/hr Q1H IV Last administered on 06/13/19at 16:56; Start 06/13/19 at 16:12; Stop 06/13/19 at 17:11; Status DC Albuterol/ Ipratropium (Duoneb) 3 ml 1X ONCE NEB Last administered on 06/13/19at 16:31; Start 06/13/19 at 16:15; Stop 06/13/19 at 16:19; Status DC Piperacillin Sod/ Tazobactam Sod 4.5 gm/Sodium Chloride 100 ml @ 200 mls/hr 1X ONCE IV Last administered on 06/13/19at 17:13; Start 06/13/19 at 16:45; Stop 06/13/19 at 17:14; Status DC Vancomycin HCl 250 ml @ 250 mls/hr 1X ONCE IV ; Start 06/13/19 at 16:45; Stop 06/13/19 at 17:44; Status UNV Levofloxacin/ Dextrose 150 ml @ 100 mls/hr 1X ONCE IV Last administered on 06/13/19at 18:48; Start 06/13/19 at 16:45; Stop 06/13/19 at 18:14; Status DC Vancomycin HCl 250 ml @ 250 mls/hr 1X ONCE IV ; Start 06/13/19 at 16:45; Stop 06/13/19 at 17:44; Status UNV Sodium Chloride 1,000 ml @ 1,000 mls/hr 1X ONCE IV Last administered on 06/13/19at 16:56; Start 06/13/19 at 16:45; Stop 06/13/19 at 17:44; Status DC Vancomycin HCl 2 gm/Sodium Chloride 500 ml @ 250 mls/hr 1X ONCE IV Last administered on 06/13/19at 21:15; Start 06/13/19 at 16:45; Stop 06/13/19 at 18:44; Status DC Sodium Chloride 1,000 ml @ 1,000 mls/hr 1X ONCE IV ; Start 06/13/19 at 17:15; Stop 06/13/19 at 18:14; Status DC Sodium Chloride 1,000 ml @ 200 mls/hr Q5H IV Last administered on 06/14/19at 11:51; Start 06/13/19 at 17:13; Stop 06/14/19 at 17:12; Status DC Lorazepam (Ativan Inj) 1 mg 1X ONCE IVP Last administered on 06/13/19at 17:26; Start 06/13/19 at 17:30; Stop 06/13/19 at 17:31; Status DC Lorazepam (Ativan Inj) 2 mg STK-MED ONCE .ROUTE ; Start 06/13/19 at 17:23; Stop 06/13/19 at 17:24; Status DC Norepinephrine Bitartrate 250 ml @ 29.974 mls/ hr 1X ONCE IV Last administered on 06/13/19at 17:47; Start 06/13/19 at 17:45; Stop 06/14/19 at 02:05; Status DC Midazolam HCl 100 ml @ 0 mls/hr 1X ONCE IV Last administered on 06/13/19at 17:54; Start 06/13/19 at 17:45; Stop 06/13/19 at 17:46; Status DC Fentanyl Citrate (Fentanyl 2ml Vial) 100 mcg STK-MED ONCE .ROUTE ; Start 06/13/19 at 18:06; Stop 06/13/19 at 18:06; Status DC Pantoprazole Sodium 80 mg/ Sodium Chloride 100 ml @ 10 mls/hr 1X ONCE IV Last administered on 06/13/19at 20:00; Start 06/13/19 at 18:15; Stop 06/14/19 at 04:14; Status DC Pantoprazole Sodium (PROTONIX VIAL for IV PUSH) 40 mg 1X ONCE IVP ; Start 06/13/19 at 18:15; Stop 06/13/19 at 18:25; Status DC Fentanyl Citrate (Fentanyl 2ml Vial) 25 mcg 1X ONCE IVP Last administered on 06/13/19at 18:24; Start 06/13/19 at 18:15; Stop 06/13/19 at 18:24; Status DC Midazolam HCl (Versed) 5 mg 1X ONCE IV Last administered on 06/13/19at 18:24; Start 06/13/19 at 18:30; Stop 06/13/19 at 18:31; Status DC Dexmedetomidine HCl 400 mcg/ Sodium Chloride 100 ml @ 0 mls/hr CONT PRN IV PER PROTOCOL Last administered on 06/18/19at 04:26; Start 06/13/19 at 18:30 Sodium Chloride 500 ml @ 500 mls/hr 1X PRN PRN IV HYPOTENSION; Start 06/13/19 at 18:30 Atropine Sulfate (ATROPINE 0.5mg SYRINGE) 0.5 mg PRN Q5MIN PRN IV SEE COMMENTS; Start 06/13/19 at 18:30 Etomidate (Amidate) 20 mg 1X ONCE IV Last administered on 06/13/19at 18:47; Start 06/13/19 at 18:45; Stop 06/13/19 at 18:48; Status DC Succinylcholine Chloride (Anectine) 100 mg 1X ONCE IV Last administered on 06/13/19at 18:47; Start 06/13/19 at 18:45; Stop 06/13/19 at 18:48; Status DC Norepinephrine Bitartrate 250 ml @ 30.495 mls/ hr CONT PRN IV SEE I/O RECORD Last administered on 06/13/19at 23:21; Start 06/13/19 at 21:30; Stop 06/14/19 at 00:00; Status DC Dexmedetomidine HCl 400 mcg/ Sodium Chloride 100 ml @ 0 mls/hr CONT PRN IV RANJEET TION; Start 06/13/19 at 21:30; Status UNV Sodium Chloride 500 ml @ 500 mls/hr 1X PRN PRN IV SEDATION; Start 06/13/19 at 21:30; Status UNV Atropine Sulfate (ATROPINE 0.5mg SYRINGE) 0.5 mg PRN Q5MIN PRN IV SEE COMMENTS; Start 06/13/19 at 21:30; Status UNV Midazolam HCl 100 ml @ 5 mls/hr CONT PRN IV SEE I/O RECORD Last administered on 06/17/19at 06:26; Start 06/13/19 at 21:45 Info (FLU VACCINE SCREEN per RX) 1 each PRN DAILY PRN MC SEE COMMENTS; Start 06/13/19 at 23:45 Norepinephrine Bitartrate 250 ml @ 30.495 mls/ hr CONT PRN IV SEE I/O RECORD; Start 06/13/19 at 23:45; Stop 06/14/19 at 00:00; Status DC Phenylephrine HCl 20 mg/Sodium Chloride 252 ml @ 61.478 mls/ hr CONT PRN IV SEE I/O RECORD; Start 06/14/19 at 00:00; Status UNV Phenylephrine HCl 80 mg/Sodium Chloride 258 ml @ 15.674 mls/ hr CONT PRN IV SEE I/O RECORD Last administered on 06/18/19at 03:28; Start 06/13/19 at 23:45 Norepinephrine Bitartrate 32 mg/ Sodium Chloride 250 ml @ 7.594 mls/ hr CONT PRN IV SEE I/O RECORD Last administered on 06/16/19at 21:02; Start 06/13/19 at 23:45 Sodium Chloride 500 ml @ 500 mls/hr Q1H IV Last administered on 06/14/19at 01:30; Start 06/14/19 at 01:30; Stop 06/14/19 at 02:29; Status DC Sodium Bicarbonate 150 meq/Dextrose 1,150 ml @ 75 mls/hr [id number] IV Last administered on 06/17/19at 21:25; Start 06/14/19 at 02:00 Vasopressin 40 unit/Dextrose 102 ml @ 6 mls/hr CONT PRN IV SEE I/O RECORD Last administered on 06/16/19at 18:22; Start 06/14/19 at 02:00 Fentanyl Citrate 30 ml @ 0 mls/hr CONT PRN IV SEE PROTOCOL Last administered on 06/17/19at 19:23; Start 06/14/19 at 02:45 Pantoprazole Sodium 80 mg/ Sodium Chloride 100 ml @ 10 mls/hr Q10H IV Last administered on 06/18/19at 00:05; Start 06/14/19 at 04:00 Meropenem 1 gm/ Sodium Chloride 100 ml @ 200 mls/hr Q12HR IV Last administered on 06/16/19at 21:01; Start 06/14/19 at 09:00; Stop 06/17/19 at 08:05; Status DC Micafungin Sodium 100 mg/Dextrose 100 ml @ 100 mls/hr Q24H IV Last administered on 06/17/19at 10:02; Start 06/14/19 at 10:00 Daptomycin 600 mg/ Sodium Chloride 50 ml @ 100 mls/hr Q24H IV Last administered on 06/16/19at 10:49; Start 06/14/19 at 11:00; Stop 06/17/19 at 08:08; Status DC Heparin Sodium (Porcine) (Heparin Sodium) 5,000 unit Q8HRS SQ ; Start 06/14/19 at 14:00; Stop 06/14/19 at 12:12; Status DC Acetaminophen (Tylenol) 650 mg PRN Q6HRS PRN PEG MILD PAIN / TEMP; Start 06/14/19 at 08:45 Acetaminophen/ Codeine Phosphate (Tylenol/Codeine Soln) 5 ml PRN Q6HRS PRN PO MODERATE PAIN; Start 06/14/19 at 08:45 Ondansetron HCl (Zofran) 4 mg PRN Q6HRS PRN IVP NAUSEA/VOMITING; Start 06/14/19 at 08:45 Lidocaine HCl (Buffered Lidocaine 1%) 3 ml STK-MED ONCE .ROUTE ; Start 06/14/19 at 10:45; Stop 06/14/19 at 10:45; Status DC Heparin Sodium (Porcine) (Heparin Sodium) 10,000 unit STK-MED ONCE .ROUTE ; Start 06/14/19 at 10:46; Stop 06/14/19 at 10:46; Status DC Lidocaine HCl (Buffered Lidocaine 1%) 5 ml 1X ONCE INJ Last administered on 06/14/19at 11:23; Start 06/14/19 at 11:15; Stop 06/14/19 at 11:16; Status DC Heparin Sodium/ Dextrose 500 ml @ 0 mls/hr CONT PRN IV PER PROTOCOL Last administered on 06/15/19at 00:50; Start 06/14/19 at 12:30; Stop 06/16/19 at 07:41; Status DC Heparin Sodium (Porcine) (Heparin Sodium) 4,150 unit PRN Q6HRS PRN IV FOR UFH LEVEL LESS THAN 0.2; Start 06/14/19 at 12:30; Stop 06/16/19 at 07:41; Status DC Potassium Chloride 20 meq/ Bicarbonate Dialysis Soln w/ out KCl 5,010 ml @ 1,500 mls/hr Q3H21M IV Last administered on 06/17/19at 00:36; Start 06/14/19 at 14:00; Stop 06/17/19 at 15:51; Status DC Potassium Chloride 20 meq/ Bicarbonate Dialysis Soln w/ out KCl 5,010 ml @ 1,500 mls/hr Q3H21M IV Last administered on 06/17/19at 00:36; Start 06/14/19 at 14:00; Stop 06/17/19 at 15:51; Status DC Potassium Chloride 20 meq/ Bicarbonate Dialysis Soln w/ out KCl 5,010 ml @ 1,500 mls/hr Q3H21M IV Last administered on 06/17/19at 00:36; Start 06/14/19 at 14:00; Stop 06/17/19 at 15:51; Status DC Potassium Bicarbonate (Potassium Effervescent Tablet) 40 meq 1X ONCE GT ; Start 06/15/19 at 08:45; Stop 06/15/19 at 08:46; Status DC Linezolid/Dextrose 300 ml @ 300 mls/hr Q12HR IV Last administered on 06/17/19at 21:24; Start 06/15/19 at 10:00 Potassium Chloride/Water 50 ml @ 50 mls/hr Q1H IV Last administered on 06/15/19at 17:17; Start 06/15/19 at 16:00; Stop 06/15/19 at 17:59; Status DC Albumin Human 500 ml @ 125 mls/hr 1X ONCE IV Last administered on 06/15/19at 16:39; Start 06/15/19 at 16:15; Stop 06/15/19 at 20:14; Status DC Albumin Human 500 ml @ 125 mls/hr 1X ONCE IV Last administered on 06/15/19at 17:17; Start 06/15/19 at 17:15; Stop 06/15/19 at 21:14; Status DC Albumin Human 500 ml @ 125 mls/hr 1X ONCE IV Last administered on 06/16/19at 07:17; Start 06/16/19 at 07:30; Stop 06/16/19 at 11:29; Status DC Sodium Phosphate 20 mmol/Dextrose 256.6667 ml @ 63.158 m... 1X ONCE IV Last administered on 06/16/19at 08:22; Start 06/16/19 at 08:00; Stop 06/16/19 at 12:03; Status DC Albumin Human 250 ml @ 62.5 mls/hr 1X ONCE IV Last administered on 06/16/19at 14:58; Start 06/16/19 at 15:00; Stop 06/16/19 at 18:59; Status DC Daptomycin 600 mg/ Sodium Chloride 50 ml @ 100 mls/hr Q48H IV ; Start 06/18/19 at 11:00 Piperacillin Sod/ Tazobactam Sod 2.25 gm/Sodium Chloride 50 ml @ 100 mls/hr Q8HRS IV Last administered on 06/18/19at 05:36; Start 06/17/19 at 14:00 Multi-Ingred Cream/Lotion/Oil/ Oint (Artificial Tears Eye Ointment) 1 cass PRN Q1HR PRN OU DRY EYE Last administered on 06/17/19at 10:55; Start 06/17/19 at 09:15 Potassium Phosphate 13.6 mmol/Dextrose 104.5333 ml @ 52.267 m... Q2H IV Last administered on 06/17/19at 12:43; Start 06/17/19 at 10:00; Stop 06/17/19 at 13:59; Status DC Potassium Phosphate 20 mmol/ Sodium Chloride 256.6667 ml @ 127.5 mls/hr 1X ONCE IV ; Start 06/17/19 at 09:15; Stop 06/17/19 at 11:15; Status UNV Albumin Human 500 ml @ 125 mls/hr 1X ONCE IV ; Start 06/17/19 at 19:30; Stop 06/17/19 at 23:29; Status Cancel Albumin Human 250 ml @ 125 mls/hr Q2H IV Last administered on 06/17/19at 21:50; Start 06/17/19 at 20:00; Stop 06/17/19 at 23:59; Status DC Sodium Chloride 1,000 ml @ 1,000 mls/hr Q1H PRN IV hypotension; Start 06/18/19 at 07:43; Stop 06/18/19 at 13:42 Sodium Chloride 1,000 ml @ 400 mls/hr Q2H30M PRN IV PATENCY; Start 06/18/19 at 07:43; Stop 06/18/19 at 19:42 Albumin Human 100 ml @ 100 mls/hr 1X ONCE IV Last administered on 06/18/19at 08:56; Start 06/18/19 at 08:00; Stop 06/18/19 at 08:59; Status DC Albumin Human 200 ml @ 200 mls/hr 1X PRN PRN IV Hypotension; Start 06/18/19 at 08:00; Stop 06/18/19 at 13:59 Active Scripts Active Tessalon Perle (Benzonatate) 100 Mg Capsule 100 Mg PO TID PRN Vitals/I & O Vital Sign - Last 24 Hours 06/17/19 06/17/19 06/17/19 06/17/19 11:00 12:00 12:00 12:00 Temp 98.5 98.5 Pulse 82 84 Resp 19 19 B/P (MAP) 94/46 (62) 88/44 (59) Pulse Ox 98 99 O2 Delivery Ventilator Mechanical Ventilator Ventilator 06/17/19 06/17/19 06/17/19 06/17/19 12:07 12:27 13:00 14:00 Pulse 86 86 Resp 20 20 B/P (MAP) 83/45 (58) 92/46 (61) 92/46 (61) Pulse Ox 98 99 99 O2 Delivery Ventilator Ventilator Ventilator 06/17/19 06/17/19 06/17/19 06/17/19 14:08 14:30 14:37 14:45 B/P (MAP) 84/40 (55) 88/40 (56) 94/42 (59) Pulse Ox 99 O2 Delivery Ventilator 06/17/19 06/17/19 06/17/19 06/17/19 15:00 16:00 16:00 16:00 Temp 98.8 98.8 Pulse 88 88 Resp 20 19 B/P (MAP) 95/42 (59) 90/42 (58) Pulse Ox 99 99 O2 Delivery Ventilator Ventilator Mechanical Ventilator 06/17/19 06/17/19 06/17/19 06/17/19 16:15 16:15 16:30 17:00 Pulse 86 Resp 19 B/P (MAP) 88/46 (60) 84/42 (56) 90/44 (59) Pulse Ox 99 99 O2 Delivery Ventilator Ventilator 06/17/19 06/17/19 06/17/19 06/17/19 17:42 17:53 18:00 18:15 Pulse 88 Resp 20 B/P (MAP) 80/40 (53) 84/40 (55) 86/42 (57) Pulse Ox 100 99 O2 Delivery Ventilator Ventilator 06/17/19 06/17/19 06/17/19 06/17/19 19:00 19:41 20:00 20:00 Temp 98.6 98.6 Pulse 92 94 Resp 20 20 B/P (MAP) 87/44 (58) 92/46 (61) Pulse Ox 99 100 O2 Delivery Ventilator Mechanical Ventilator Ventilator 06/17/19 06/17/19 06/17/19 06/17/19 20:00 21:00 22:00 22:14 Pulse 97 98 Resp 20 20 B/P (MAP) 91/45 (60) 104/50 (68) Pulse Ox 100 99 99 100 O2 Delivery Ventilator Ventilator Ventilator Ventilator 06/17/19 06/17/19 06/17/19 06/18/19 23:00 23:51 23:52 00:00 Temp 98.8 98.8 Pulse 100 99 Resp 20 20 B/P (MAP) 111/55 (73) 112/52 (72) Pulse Ox 99 98 O2 Delivery Ventilator Mechanical Ventilator Ventilator 06/18/19 06/18/19 06/18/19 06/18/19 00:26 01:00 02:00 02:12 Pulse 98 97 Resp 20 20 B/P (MAP) 116/54 (74) 104/49 (67) Pulse Ox 98 99 99 99 O2 Delivery Ventilator Ventilator Ventilator Ventilator 12/04/2706/18/19 06/18/19 06/18/19 03:00 04:00 04:00 04:00 Temp 98.8 98.8 Pulse 98 97 Resp 20 20 B/P (MAP) 116/53 (74) 101/52 (68) Pulse Ox 99 99 O2 Delivery Ventilator Ventilator Mechanical Ventilator 06/18/19 06/18/19 06/18/19 06/18/19 04:32 05:00 06:00 07:00 Pulse 97 97 97 Resp 20 20 19 B/P (MAP) 100/49 (66) 99/49 (66) 101/48 (65) Pulse Ox 99 99 99 99 O2 Delivery Ventilator Ventilator Ventilator Ventilator 06/18/19 06/18/19 06/18/19 06/18/19 08:00 08:00 08:00 08:00 Temp 99.6 99.6 Pulse 97 Resp 19 B/P (MAP) 100/51 (67) Pulse Ox 100 100 O2 Delivery Ventilator Mechanical Ventilator Ventilator 06/18/19 09:00 Pulse 90 Resp 20 B/P (MAP) 103/50 (67) Pulse Ox 100 O2 Delivery Ventilator Intake and Output 06/17/19 06/17/19 06/18/19 15:00 23:00 07:00 Intake Total 450 ml 1990 ml 1682 ml Output Total 85 ml 391 ml 106 ml Balance 365 ml 1599 ml 1576 ml WILLEM RESENDIZ MD Jun 18, 2019 10:03
--- NOTE | 2019-06-18 10:31 | PDOC ---
PULMONARY PROGRESS NOTES Subjective sedated on vent, on,, versed, fentanyl, fio2 40%, on, levo, kaur Vitals Vital Signs Date Time Temp Pulse Resp B/P (MAP) Pulse Ox O2 Delivery O2 Flow Rate FiO2 06/18/19 10:00 89 20 107/51 (69) 100 Ventilator 06/18/19 08:00 99.6 99.6 Comments ros as mentioned as above discussed w rn other sys otherwise neg sedated on vent HEENT: Other (nc at perrl nose clear orally intubated neck no lad no thyromegaly) Lungs: Other ( basilar crackles dull at bases ) Cardiovascular: S1, S2 Abdomen: Soft, Non-tender, Other (no mass) Extremities: Other (+++ edema, chronic changes, echymosis) Skin: Dry Labs Laboratory Tests Test 06/16/19 11:35 06/16/19 15:48 06/16/19 18:35 06/17/19 01:15 White Blood Count 30.3 x10^3/uL (4.0-11.0) Red Blood Count 3.33 x10^6/uL (3.50-5.40) Hemoglobin 8.3 g/dL (12.0-15.5) Hematocrit 26.2 % (36.0-47.0) Mean Corpuscular Volume 79 fL (79-100) Mean Corpuscular Hemoglobin 25 pg (25-35) Mean Corpuscular Hemoglobin Concent 32 g/dL (31-37) Red Cell Distribution Width 17.6 % (11.5-14.5) Platelet Count 222 x10^3/uL (140-400) Sodium Level 136 mmol/L (136-145) 137 mmol/L (136-145) 135 mmol/L (136-145) Potassium Level 3.6 mmol/L (3.5-5.1) 3.6 mmol/L (3.5-5.1) 3.7 mmol/L (3.5-5.1) Chloride Level 100 mmol/L (98-107) 102 mmol/L (98-107) 102 mmol/L (98-107) Carbon Dioxide Level 26 mmol/L (21-32) 28 mmol/L (21-32) 27 mmol/L (21-32) Anion Gap 10 (6-14) 7 (6-14) 6 (6-14) Blood Urea Nitrogen 8 mg/dL (7-20) 7 mg/dL (7-20) Creatinine 1.1 mg/dL (0.6-1.0) 0.9 mg/dL (0.6-1.0) Estimated GFR (Cockcroft-Gault) 55.9 70.5 BUN/Creatinine Ratio 7 (6-20) Glucose Level 110 mg/dL (70-99) 95 mg/dL (70-99) Lactic Acid Level 4.3 mmol/L (0.4-2.0) 3.8 mmol/L (0.4-2.0) Calcium Level 6.8 mg/dL (8.5-10.1) 6.9 mg/dL (8.5-10.1) Phosphorus Level 2.3 mg/dL (2.6-4.7) 1.7 mg/dL (2.6-4.7) 1.4 mg/dL (2.6-4.7) Magnesium Level 2.1 mg/dL (1.8-2.4) 2.1 mg/dL (1.8-2.4) 2.2 mg/dL (1.8-2.4) Total Bilirubin 4.4 mg/dL (0.2-1.0) Aspartate Amino Transf (AST/SGOT) 74 U/L (15-37) Alanine Aminotransferase (ALT/SGPT) 27 U/L (14-59) Alkaline Phosphatase 314 U/L (46-116) Total Protein 5.2 g/dL (6.4-8.2) Albumin 1.8 g/dL (3.4-5.0) Albumin/Globulin Ratio 0.5 (1.0-1.7) Test 06/17/19 06:10 06/17/19 08:00 06/18/19 05:30 06/18/19 08:00 White Blood Count 37.0 x10^3/uL (4.0-11.0) 45.8 x10^3/uL (4.0-11.0) Red Blood Count 3.36 x10^6/uL (3.50-5.40) 3.20 x10^6/uL (3.50-5.40) Hemoglobin 8.4 g/dL (12.0-15.5) 7.9 g/dL (12.0-15.5) Hematocrit 26.2 % (36.0-47.0) 25.0 % (36.0-47.0) Mean Corpuscular Volume 78 fL (79-100) 78 fL (79-100) Mean Corpuscular Hemoglobin 25 pg (25-35) 25 pg (25-35) Mean Corpuscular Hemoglobin Concent 32 g/dL (31-37) 32 g/dL (31-37) Red Cell Distribution Width 17.2 % (11.5-14.5) 17.2 % (11.5-14.5) Platelet Count 192 x10^3/uL (140-400) 223 x10^3/uL (140-400) Neutrophils (%) (Auto) 93 % (31-73) 90 % (31-73) Lymphocytes (%) (Auto) 2 % (24-48) 4 % (24-48) Monocytes (%) (Auto) 3 % (0-9) 5 % (0-9) Eosinophils (%) (Auto) 2 % (0-3) 1 % (0-3) Basophils (%) (Auto) 0 % (0-3) 0 % (0-3) Neutrophils # (Auto) 34.5 x10^3/uL (1.8-7.7) 41.2 x10^3/uL (1.8-7.7) Lymphocytes # (Auto) 0.8 x10^3/uL (1.0-4.8) 1.7 x10^3/uL (1.0-4.8) Monocytes # (Auto) 1.1 x10^3/uL (0.0-1.1) 2.2 x10^3/uL (0.0-1.1) Eosinophils # (Auto) 0.7 x10^3/uL (0.0-0.7) 0.4 x10^3/uL (0.0-0.7) Basophils # (Auto) 0.1 x10^3/uL (0.0-0.2) 0.1 x10^3/uL (0.0-0.2) Segmented Neutrophils % 53 % (35-66) Band Neutrophils % 39 % (0-9) Lymphocytes % 3 % (24-48) Monocytes % 1 % (0-10) Eosinophils % 2 % (0-5) Metamyelocytes % 1 % (0-0) Myelocytes % 1 % (0-0) Toxic Granulation Mod Dohle Bodies Present Platelet Estimate Adequate (ADEQUATE) Poikilocytosis Anisocytosis Slight Total Bilirubin 4.7 mg/dL (0.2-1.0) 6.3 mg/dL (0.2-1.0) Direct Bilirubin 3.9 mg/dL (0.0-0.2) Aspartate Amino Transf (AST/SGOT) 90 U/L (15-37) 89 U/L (15-37) Alanine Aminotransferase (ALT/SGPT) 30 U/L (14-59) 28 U/L (14-59) Alkaline Phosphatase 365 U/L (46-116) 515 U/L (46-116) Creatine Kinase 722 U/L (26-192) 330 U/L (26-192) Total Protein 4.9 g/dL (6.4-8.2) 5.3 g/dL (6.4-8.2) Albumin 1.6 g/dL (3.4-5.0) 1.8 g/dL (3.4-5.0) Lipase 26 U/L (73-393) O2 Saturation 96 % (92-99) 96 % (92-99) Arterial Blood pH 7.40 (7.35-7.45) 7.42 (7.35-7.45) Arterial Blood pCO2 at Patient Temp 43 mmHg (35-46) 43 mmHg (35-46) Arterial Blood pO2 at Patient Temp 81 mmHg (85-108) 77 mmHg (85-108) Arterial Blood HCO3 26 mmol/L (21-28) 27 mmol/L (21-28) Arterial Blood Base Excess 1 mmol/L (-3-3) 2 mmol/L (-3-3) FiO2 50 40 Sodium Level 137 mmol/L (136-145) Potassium Level 4.4 mmol/L (3.5-5.1) Chloride Level 100 mmol/L (98-107) Carbon Dioxide Level 27 mmol/L (21-32) Anion Gap 10 (6-14) Blood Urea Nitrogen 21 mg/dL (7-20) Creatinine 2.0 mg/dL (0.6-1.0) Estimated GFR (Cockcroft-Gault) 28.0 BUN/Creatinine Ratio 11 (6-20) Glucose Level 100 mg/dL (70-99) Calcium Level 7.5 mg/dL (8.5-10.1) Albumin/Globulin Ratio 0.5 (1.0-1.7) Prothrombin Time 18.0 SEC (11.7-14.0) Prothromb Time International Ratio 1.5 (0.8-1.1) Activated Partial Thromboplast Time 44 SEC (24-38) Laboratory Tests Test 06/18/19 05:30 06/18/19 08:00 White Blood Count 45.8 x10^3/uL (4.0-11.0) Red Blood Count 3.20 x10^6/uL (3.50-5.40) Hemoglobin 7.9 g/dL (12.0-15.5) Hematocrit 25.0 % (36.0-47.0) Mean Corpuscular Volume 78 fL (79-100) Mean Corpuscular Hemoglobin 25 pg (25-35) Mean Corpuscular Hemoglobin Concent 32 g/dL (31-37) Red Cell Distribution Width 17.2 % (11.5-14.5) Platelet Count 223 x10^3/uL (140-400) Neutrophils (%) (Auto) 90 % (31-73) Lymphocytes (%) (Auto) 4 % (24-48) Monocytes (%) (Auto) 5 % (0-9) Eosinophils (%) (Auto) 1 % (0-3) Basophils (%) (Auto) 0 % (0-3) Neutrophils # (Auto) 41.2 x10^3/uL (1.8-7.7) Lymphocytes # (Auto) 1.7 x10^3/uL (1.0-4.8) Monocytes # (Auto) 2.2 x10^3/uL (0.0-1.1) Eosinophils # (Auto) 0.4 x10^3/uL (0.0-0.7) Basophils # (Auto) 0.1 x10^3/uL (0.0-0.2) Sodium Level 137 mmol/L (136-145) Potassium Level 4.4 mmol/L (3.5-5.1) Chloride Level 100 mmol/L (98-107) Carbon Dioxide Level 27 mmol/L (21-32) Anion Gap 10 (6-14) Blood Urea Nitrogen 21 mg/dL (7-20) Creatinine 2.0 mg/dL (0.6-1.0) Estimated GFR (Cockcroft-Gault) 28.0 BUN/Creatinine Ratio 11 (6-20) Glucose Level 100 mg/dL (70-99) Calcium Level 7.5 mg/dL (8.5-10.1) Total Bilirubin 6.3 mg/dL (0.2-1.0) Aspartate Amino Transf (AST/SGOT) 89 U/L (15-37) Alanine Aminotransferase (ALT/SGPT) 28 U/L (14-59) Alkaline Phosphatase 515 U/L (46-116) Creatine Kinase 330 U/L (26-192) Total Protein 5.3 g/dL (6.4-8.2) Albumin 1.8 g/dL (3.4-5.0) Albumin/Globulin Ratio 0.5 (1.0-1.7) Prothrombin Time 18.0 SEC (11.7-14.0) Prothromb Time International Ratio 1.5 (0.8-1.1) Activated Partial Thromboplast Time 44 SEC (24-38) O2 Saturation 96 % (92-99) Arterial Blood pH 7.42 (7.35-7.45) Arterial Blood pCO2 at Patient Temp 43 mmHg (35-46) Arterial Blood pO2 at Patient Temp 77 mmHg (85-108) Arterial Blood HCO3 27 mmol/L (21-28) Arterial Blood Base Excess 2 mmol/L (-3-3) FiO2 40 Medications Active Scripts Medications Dose Route/Sig Max Daily Dose Days Date Category Jonel Perle (Benzonatate) 100 Mg Capsule 100 Mg PO TID PRN 06/02/19 Rx Comments cxr reviewed 06/18 b lat infilt L>R ett ok, mild improvement on L Impression . IMPRESSION: 1. Acute hypoxemic respiratory failure. 2. Severe metabolic acidosis, improving on crrt., now on HD 3. Septic shock. still on Levo 15 franco 4. lower extremity cellulitis and soft tissue infection. 5. Leukocytosis. 6. Acute kidney injury. 7. Shock liver. 8. Positive urine drug screen. 9. Morbid obesity prob kena. 10. abnl cxr Plan . PLAN: 1. We will continue support with multiple pressors to keep map >65.add vasopressin 2. HD per Nephrology, 3. Broad-spectrum antibiotics per ID. The patient is currently on meropenem, daptomycin and micafungin and zyvox 4. cont vent support until more stable, setting reviewed, abg reviewed, titrate down fio2 to keep sat >94% 5. protonix for stress ulcer prophylaxis 6. Gen surg and vascular following 7. not ready for weaning discussed w rn/ ARMANDO HACKETT MD Jun 18, 2019 10:31
[2019-06-18] MEDS: VASOPRESSIN 40 UNIT in IV DEXTROSE 5% 100ML 100 ML IV PRN ×2 (11:23→23:19)
[2019-06-18] MEDS: NOREPINEPHRINE VIAL 32 MG in IV NORMAL SALINE 250ML IV PRN (11:24)
--- NOTE | 2019-06-18 12:37 | PDOC ---
Objective: Objective: D/w nurse - dark (black w/ red tinge) output from OG yesterday, today more brown. Vital Signs: Vital Signs Date Time Temp Pulse Resp B/P (MAP) Pulse Ox O2 Delivery O2 Flow Rate FiO2 06/18/19 12:13 100 Ventilator 06/18/19 11:00 91 19 120/56 (77) 06/18/19 08:00 99.6 99.6 Labs: Laboratory Tests Test 06/18/19 05:30 06/18/19 08:00 White Blood Count 45.8 x10^3/uL Red Blood Count 3.20 x10^6/uL Hemoglobin 7.9 g/dL Hematocrit 25.0 % Mean Corpuscular Volume 78 fL Mean Corpuscular Hemoglobin 25 pg Mean Corpuscular Hemoglobin Concent 32 g/dL Red Cell Distribution Width 17.2 % Platelet Count 223 x10^3/uL Neutrophils (%) (Auto) 90 % Lymphocytes (%) (Auto) 4 % Monocytes (%) (Auto) 5 % Eosinophils (%) (Auto) 1 % Basophils (%) (Auto) 0 % Neutrophils # (Auto) 41.2 x10^3/uL Lymphocytes # (Auto) 1.7 x10^3/uL Monocytes # (Auto) 2.2 x10^3/uL Eosinophils # (Auto) 0.4 x10^3/uL Basophils # (Auto) 0.1 x10^3/uL Sodium Level 137 mmol/L Potassium Level 4.4 mmol/L Chloride Level 100 mmol/L Carbon Dioxide Level 27 mmol/L Anion Gap 10 Blood Urea Nitrogen 21 mg/dL Creatinine 2.0 mg/dL Estimated GFR (Cockcroft-Gault) 28.0 BUN/Creatinine Ratio 11 Glucose Level 100 mg/dL Calcium Level 7.5 mg/dL Total Bilirubin 6.3 mg/dL Aspartate Amino Transf (AST/SGOT) 89 U/L Alanine Aminotransferase (ALT/SGPT) 28 U/L Alkaline Phosphatase 515 U/L Creatine Kinase 330 U/L Total Protein 5.3 g/dL Albumin 1.8 g/dL Albumin/Globulin Ratio 0.5 Prothrombin Time 18.0 SEC Prothromb Time International Ratio 1.5 Activated Partial Thromboplast Time 44 SEC O2 Saturation 96 % Arterial Blood pH 7.42 Arterial Blood pCO2 at Patient Temp 43 mmHg Arterial Blood pO2 at Patient Temp 77 mmHg Arterial Blood HCO3 27 mmol/L Arterial Blood Base Excess 2 mmol/L FiO2 40 GRAM STAIN WHITE BLOOD CELLS Final Many GRAM STAIN EPITHELIAL CELLS Final None seen GRAM STAIN RESULT 1 Preliminary Test not performed Test not performed GRAM STAIN RESULT 2 Preliminary Test not performed GRAM STAIN RESULT 3 Preliminary Test not performed GRAM STAIN RESULT 4 Preliminary Test not performed GRAM STAIN EVALUATION Final Comment This specimen is of good quality and is acceptable for routine bacterial culture. Performed at: [facility] - [facility], [place], [place] [id number] [employer] Professor: JEANE Montejo MD, Phone: [phone] SPUTUM CULTURE-LC Preliminary Preliminary report SPUTUM CULT RES 1 Final Comment No growth in 36 - 48 hours. Imaging: Abd US IMPRESSION: 1. Upper normal liver size and suspected hepatic steatosis. There may also be hepatic surface nodularity due to cirrhosis. 2. Small moderate abdominal ascites. 3. Obscured midline structures and common bile duct. The gallbladder is not seen and may be contracted or surgically absent. CXR 06/18 Impression: No change in infiltrates. PE: GEN: intubated LUNGS: vent HEART: RRR ABD: obese, quiet, soft - OG w/ dark bilious material NEURO/PSYCH: sedated A/P: Sepsis, LLE infection/lymphedema/skin necrosis Resp failure, ACD, leukocytosis (worse), CATY, elevated LFTs (worse), coagulopathy Hepatic steatosis (?cirrhosis) -- Will review w/ Dr. Shrestha re: worsening LFTs - ?stable enough for CT Monitor Hgb, continue PPI. TRISHA DUVALL Jun 18, 2019 12:36
[2019-06-18] MEDS: MICAFUNGIN 100 MG in IV DEXTROSE 5% 100ML 100 ML IV SCH (12:39)
[2019-06-18] MEDS: SODIUM BICARBONATE VIAL 150 MEQ in IV DEXTROSE 5% 1,000 ML IV SCH (13:31)
[2019-06-18] MEDS: DAPTOmycin (GENERIC) IVPB 600 MG in IV NORMAL SALINE 50ML 50 ML IV SCH (13:37)
--- NOTE | 2019-06-18 17:02 | NUR ---
Wound Care: Follow up for multiple wounds. BLE continue to be excessively edematous, purple/red/yellow discoloration, macerated, diffuse blistering (open and intact). Cleansed and replaced chux to manage drainage, RN instructed to change as often as needed. D/t patient's critical condition 06/17/19, head to toe skin assessment was postponed until 06/18/19. DTI's noted to buttock/sacral area, and upper midline back. Both areas pictured and measured, covered with foam dressings for protection. Pt is on ICU bed, on vent, art line, and multiple running drips. returned to supine position (RN reports pt had just been placed in this position prior to wound team arrival), heels floated on pillows, pillows under elbows for comfort. Will follow up 06/20/19
[2019-06-19] VITALS (37 sets, daily range): BP systolic 87–188; BP diastolic 44–114
[2019-06-19] MEDS: MIDAZOLAM 100mg/100ml NS BAG 100 ML IV PRN ×3 (00:58→17:49)
[2019-06-19] MEDS: DEXMEDETOMIDINE 400 MCG in IV NORMAL SALINE 100ML 96 ML IV PRN ×4 (02:11→20:46)
[2019-06-19] MEDS: SODIUM BICARBONATE VIAL 150 MEQ in IV DEXTROSE 5% 1,000 ML IV SCH (02:11)
[2019-06-19] MEDS: NORMAL SALINE IV PRN (04:47)
[2019-06-19] MEDS: PHENYLEPHRINE IV PRN (04:47)
[2019-06-19] MEDS: PIPERACILLIN/TAZOBACTAM 2.25 GM in IV NORMAL SALINE 50ML 50 ML IV SCH ×3 (05:41→17:29)
[2019-06-19 05:57] LABS: BASO # 0.1 x10^3/uL (0.0-0.2); BASO % 1 % (0-3); EOS # 0.4 x10^3/uL (0.0-0.7); EOS % 1 % (0-3); HEMATOCRIT 22.4 % (36.0-47.0); HEMOGLOBIN 7.2 g/dL (12.0-15.5); LYMPH # 1.5 x10^3/uL (1.0-4.8); LYMPH % 5 % (24-48); MEAN CORPUSCULAR HEMOGLOBIN 25 pg (25-35); MEAN CORPUSCULAR HGB CONC 32 g/dL (31-37); MEAN CORPUSCULAR VOLUME 79 fL (79-100); MONO # 2.2 x10^3/uL (0.0-1.1); MONO % 7 % (0-9); NEUT # 26.1 x10^3/uL (1.8-7.7); NEUT % 86 % (31-73); PLATELET COUNT 170 x10^3/uL (140-400); RED BLOOD COUNT 2.84 x10^6/uL (3.50-5.40); RED CELL DISTRIBUTION WIDTH 16.9 % (11.5-14.5); WHITE BLOOD COUNT 30.4 x10^3/uL (4.0-11.0)
[2019-06-19 06:16] LABS: CALCIUM 8.2 mg/dL (8.5-10.1); CREATININE 2.3 mg/dL (0.6-1.0); GFR 23.9; PHOSPHORUS 2.2 mg/dL (2.6-4.7); POTASSIUM 4.1 mmol/L (3.5-5.1)
[2019-06-19] MEDS: NOREPINEPHRINE VIAL 32 MG in IV NORMAL SALINE 250ML IV PRN (06:17)
--- NOTE | 2019-06-19 07:56 | PDOC ---
SURGICAL PROGRESS NOTE Subjective Patient intubated and sedated on multiple pressors Vital Signs Vital Signs Date Time Temp Pulse Resp B/P (MAP) Pulse Ox O2 Delivery O2 Flow Rate FiO2 06/19/19 07:00 92 20 108/44 (65) 100 Ventilator 06/19/19 04:00 98.8 98.8 I&O Intake and Output 06/19/19 06:59 Intake Total 4161 ml Output Total 846 ml Balance 3315 ml Intake IV Total 4161 ml Output Urine Total 96 ml Gastric Drainage Total 750 ml PATIENT HAS A JEROME: Yes General: Other (Intubated sedated) Extremities: Other (severe LE edema with skin necrosis and serous drainage) Labs Laboratory Tests Test 06/17/19 08:00 06/18/19 05:30 06/18/19 08:00 06/19/19 05:40 O2 Saturation 96 % (92-99) 96 % (92-99) Arterial Blood pH 7.40 (7.35-7.45) 7.42 (7.35-7.45) Arterial Blood pCO2 at Patient Temp 43 mmHg (35-46) 43 mmHg (35-46) Arterial Blood pO2 at Patient Temp 81 mmHg (85-108) 77 mmHg (85-108) Arterial Blood HCO3 26 mmol/L (21-28) 27 mmol/L (21-28) Arterial Blood Base Excess 1 mmol/L (-3-3) 2 mmol/L (-3-3) FiO2 50 40 White Blood Count 45.8 x10^3/uL (4.0-11.0) 30.4 x10^3/uL (4.0-11.0) Red Blood Count 3.20 x10^6/uL (3.50-5.40) 2.84 x10^6/uL (3.50-5.40) Hemoglobin 7.9 g/dL (12.0-15.5) 7.2 g/dL (12.0-15.5) Hematocrit 25.0 % (36.0-47.0) 22.4 % (36.0-47.0) Mean Corpuscular Volume 78 fL (79-100) 79 fL (79-100) Mean Corpuscular Hemoglobin 25 pg (25-35) 25 pg (25-35) Mean Corpuscular Hemoglobin Concent 32 g/dL (31-37) 32 g/dL (31-37) Red Cell Distribution Width 17.2 % (11.5-14.5) 16.9 % (11.5-14.5) Platelet Count 223 x10^3/uL (140-400) 170 x10^3/uL (140-400) Neutrophils (%) (Auto) 90 % (31-73) 86 % (31-73) Lymphocytes (%) (Auto) 4 % (24-48) 5 % (24-48) Monocytes (%) (Auto) 5 % (0-9) 7 % (0-9) Eosinophils (%) (Auto) 1 % (0-3) 1 % (0-3) Basophils (%) (Auto) 0 % (0-3) 1 % (0-3) Neutrophils # (Auto) 41.2 x10^3/uL (1.8-7.7) 26.1 x10^3/uL (1.8-7.7) Lymphocytes # (Auto) 1.7 x10^3/uL (1.0-4.8) 1.5 x10^3/uL (1.0-4.8) Monocytes # (Auto) 2.2 x10^3/uL (0.0-1.1) 2.2 x10^3/uL (0.0-1.1) Eosinophils # (Auto) 0.4 x10^3/uL (0.0-0.7) 0.4 x10^3/uL (0.0-0.7) Basophils # (Auto) 0.1 x10^3/uL (0.0-0.2) 0.1 x10^3/uL (0.0-0.2) Sodium Level 137 mmol/L (136-145) 136 mmol/L (136-145) Potassium Level 4.4 mmol/L (3.5-5.1) 4.1 mmol/L (3.5-5.1) Chloride Level 100 mmol/L (98-107) 99 mmol/L (98-107) Carbon Dioxide Level 27 mmol/L (21-32) 29 mmol/L (21-32) Anion Gap 10 (6-14) 8 (6-14) Blood Urea Nitrogen 21 mg/dL (7-20) 20 mg/dL (7-20) Creatinine 2.0 mg/dL (0.6-1.0) 2.3 mg/dL (0.6-1.0) Estimated GFR (Cockcroft-Gault) 28.0 23.9 BUN/Creatinine Ratio 11 (6-20) Glucose Level 100 mg/dL (70-99) 118 mg/dL (70-99) Calcium Level 7.5 mg/dL (8.5-10.1) 8.2 mg/dL (8.5-10.1) Total Bilirubin 6.3 mg/dL (0.2-1.0) Aspartate Amino Transf (AST/SGOT) 89 U/L (15-37) Alanine Aminotransferase (ALT/SGPT) 28 U/L (14-59) Alkaline Phosphatase 515 U/L (46-116) Creatine Kinase 330 U/L (26-192) 150 U/L (26-192) Total Protein 5.3 g/dL (6.4-8.2) Albumin 1.8 g/dL (3.4-5.0) Albumin/Globulin Ratio 0.5 (1.0-1.7) Prothrombin Time 18.0 SEC (11.7-14.0) Prothromb Time International Ratio 1.5 (0.8-1.1) Activated Partial Thromboplast Time 44 SEC (24-38) Phosphorus Level 2.2 mg/dL (2.6-4.7) Magnesium Level 2.0 mg/dL (1.8-2.4) Laboratory Tests Test 06/18/19 08:00 06/19/19 05:40 Prothrombin Time 18.0 SEC (11.7-14.0) Prothromb Time International Ratio 1.5 (0.8-1.1) Activated Partial Thromboplast Time 44 SEC (24-38) O2 Saturation 96 % (92-99) Arterial Blood pH 7.42 (7.35-7.45) Arterial Blood pCO2 at Patient Temp 43 mmHg (35-46) Arterial Blood pO2 at Patient Temp 77 mmHg (85-108) Arterial Blood HCO3 27 mmol/L (21-28) Arterial Blood Base Excess 2 mmol/L (-3-3) FiO2 40 White Blood Count 30.4 x10^3/uL (4.0-11.0) Red Blood Count 2.84 x10^6/uL (3.50-5.40) Hemoglobin 7.2 g/dL (12.0-15.5) Hematocrit 22.4 % (36.0-47.0) Mean Corpuscular Volume 79 fL (79-100) Mean Corpuscular Hemoglobin 25 pg (25-35) Mean Corpuscular Hemoglobin Concent 32 g/dL (31-37) Red Cell Distribution Width 16.9 % (11.5-14.5) Platelet Count 170 x10^3/uL (140-400) Neutrophils (%) (Auto) 86 % (31-73) Lymphocytes (%) (Auto) 5 % (24-48) Monocytes (%) (Auto) 7 % (0-9) Eosinophils (%) (Auto) 1 % (0-3) Basophils (%) (Auto) 1 % (0-3) Neutrophils # (Auto) 26.1 x10^3/uL (1.8-7.7) Lymphocytes # (Auto) 1.5 x10^3/uL (1.0-4.8) Monocytes # (Auto) 2.2 x10^3/uL (0.0-1.1) Eosinophils # (Auto) 0.4 x10^3/uL (0.0-0.7) Basophils # (Auto) 0.1 x10^3/uL (0.0-0.2) Sodium Level 136 mmol/L (136-145) Potassium Level 4.1 mmol/L (3.5-5.1) Chloride Level 99 mmol/L (98-107) Carbon Dioxide Level 29 mmol/L (21-32) Anion Gap 8 (6-14) Blood Urea Nitrogen 20 mg/dL (7-20) Creatinine 2.3 mg/dL (0.6-1.0) Estimated GFR (Cockcroft-Gault) 23.9 Glucose Level 118 mg/dL (70-99) Calcium Level 8.2 mg/dL (8.5-10.1) Phosphorus Level 2.2 mg/dL (2.6-4.7) Magnesium Level 2.0 mg/dL (1.8-2.4) Creatine Kinase 150 U/L (26-192) Problem List Problems Medical Problems: (1) Acute respiratory failure Status: Acute (2) Elevated brain natriuretic peptide (BNP) level Status: Acute (3) Elevated d-dimer Status: Acute (4) Elevated lipase Status: Acute (5) Elevated liver function tests Status: Acute (6) GI bleeding Status: Acute (7) Hyperglycemia Status: Acute (8) Hypermagnesuria Status: Acute (9) Hypoalbuminemia Status: Acute (10) Hypokalemia Status: Acute (11) Hyponatremia Status: Acute (12) Lower extremity cellulitis Status: Acute (13) Metabolic acidosis Status: Acute (14) Methamphetamine abuse Status: Acute (15) Morbid obesity with BMI of 60.0-69.9, adult Status: Acute (16) Renal insufficiency Status: Acute (17) Sepsis Status: Acute (18) Severe sepsis Status: Acute Assessment/Plan Multisystem organ failure from sepsis No drainable abscess, infection soft tissue lower extimities, no roll for debridement and patient too high risk for surgery. CHELSEA EDGE MD Jun 19, 2019 07:56
[2019-06-19] MEDS ORDERED: ALBUMIN HUMAN 25% 200 ML IV STA (08:01)
[2019-06-19] MEDS ORDERED: IV NORMAL SALINE 1000ML BAG 1,000 ML IV PRN ×2 (08:01)
[2019-06-19] MEDS ORDERED: diphenhydrAMINE 50 MG/ML VIAL IV PRN ×2 (08:15)
[2019-06-19] MEDS ORDERED: DIALYSIS PATIENT. MC PRN (08:15)
[2019-06-19] MEDS ORDERED: 0.9 % SODIUM CHLORIDE 10 ML DISP.SYRIN. IV PRN ×2 (08:15)
[2019-06-19] MEDS ORDERED: ALBUMIN HUMAN 25% 100 ML IV PRN (08:15)
--- NOTE | 2019-06-19 08:25 | PDOC ---
Infectious Disease Note Subjective Subjective Sedated/Intubated Vital Sign Vital Signs Vital Signs Date Time Temp Pulse Resp B/P (MAP) Pulse Ox O2 Delivery O2 Flow Rate FiO2 06/19/19 07:00 92 20 108/44 (65) 100 Ventilator 06/19/19 04:00 98.8 98.8 Physical Exam PHYSICAL EXAM GENERAL: Morbidly obese female, sedated and orally intubated. + mitts. HEENT: Pupils equal, reactive, ETT, OGT NECK: Supple. LUNGS: Coarse right side HEART: S1, S2, tachycardia, regular, Distant heart sounds. ABDOMEN: Soft, morbidly obese, Hypoactive bowel sounds. - distended some GENITOURINARY: Gifford in place, EXTREMITIES: Lower extremities edematous, weeping, marked purple discoloration L > R, - mottling LLE cooler on skin JOB INTERVIEWER: Sedated SKIN: No signs generalized rash. + yeast skin folds - improving Temp RIJ/HDC (06/14), LIJ and left art line without signs of complications Labs Lab Laboratory Tests Test 06/19/19 05:40 White Blood Count 30.4 x10^3/uL (4.0-11.0) Red Blood Count 2.84 x10^6/uL (3.50-5.40) Hemoglobin 7.2 g/dL (12.0-15.5) Hematocrit 22.4 % (36.0-47.0) Mean Corpuscular Volume 79 fL (79-100) Mean Corpuscular Hemoglobin 25 pg (25-35) Mean Corpuscular Hemoglobin Concent 32 g/dL (31-37) Red Cell Distribution Width 16.9 % (11.5-14.5) Platelet Count 170 x10^3/uL (140-400) Neutrophils (%) (Auto) 86 % (31-73) Lymphocytes (%) (Auto) 5 % (24-48) Monocytes (%) (Auto) 7 % (0-9) Eosinophils (%) (Auto) 1 % (0-3) Basophils (%) (Auto) 1 % (0-3) Neutrophils # (Auto) 26.1 x10^3/uL (1.8-7.7) Lymphocytes # (Auto) 1.5 x10^3/uL (1.0-4.8) Monocytes # (Auto) 2.2 x10^3/uL (0.0-1.1) Eosinophils # (Auto) 0.4 x10^3/uL (0.0-0.7) Basophils # (Auto) 0.1 x10^3/uL (0.0-0.2) Sodium Level 136 mmol/L (136-145) Potassium Level 4.1 mmol/L (3.5-5.1) Chloride Level 99 mmol/L (98-107) Carbon Dioxide Level 29 mmol/L (21-32) Anion Gap 8 (6-14) Blood Urea Nitrogen 20 mg/dL (7-20) Creatinine 2.3 mg/dL (0.6-1.0) Estimated GFR (Cockcroft-Gault) 23.9 Glucose Level 118 mg/dL (70-99) Calcium Level 8.2 mg/dL (8.5-10.1) Phosphorus Level 2.2 mg/dL (2.6-4.7) Magnesium Level 2.0 mg/dL (1.8-2.4) Creatine Kinase 150 U/L (26-192) Micro Microbiology 06/13/19 Urine Culture - Final, Complete 06/13/19 Urine Culture Result 1 (ABEBE) - Final, Complete 06/13/19 Blood Culture - Preliminary, Resulted NO GROWTH AFTER 3 DAYS Objective Assessment Fever - 102 currently - ? etiology - WBC better Severe sepsis w/ shock. On 2 pressors - needs increasing per nursing Acute hypoxic respiratory failure with pulmonary infiltrates, intubated. Bilat LE infections Left lower extremity severe skin and soft tissue infection.worse than right ? progression. No surgical plans. No crepitus on palpation either LE. XRAY of Left - no gas Leukocytosis - better Elevated CPK - better Lactic acidosis. (10.8, down to 3.8 now) Acute kidney injury, on CRRT - clotted HD now Severe metabolic acidosis. Hyperbilirubinemia with abnormal liver function tests. Substance abuse Morbid obesity. Elevated lipase - corrected Severe Protein Malnutrition Anemia - GI following Plan Plan of Care With Fever - check blood cults/KUB and d/c artline Add Flagyl CRRT clotted 06/17- adjusted Abx. D/c'd Meropenem and began Zosyn Cont Dapto - adjust dose and cont micafungin Continue Zyvox for bacterial toxin binding and lung coverage Sputum culture neg so BC neg so far from 06/[address] left leg at this time No surgical plans. Nursing d/c gen surg 06/18 and this am evaluated by Dr. Tarun zhou vascular signed off Previously spoke with [facility] again, pt listed under different name, BC were neg. D/w nursing Critically ill JAY WISE MD Jun 19, 2019 08:25
--- NOTE | 2019-06-19 10:27 | PDOC ---
Renal-Progress Notes Subjective Notes Notes NOTHING NEW History of Present Illness Hx of present illness NOT ANY BETTER Vitals Vitals Vital Signs Date Time Temp Pulse Resp B/P (MAP) Pulse Ox O2 Delivery O2 Flow Rate FiO2 06/19/19 10:11 20 99 Ventilator 06/19/19 10:00 87 132/66 (88) 06/19/19 08:00 102.6 102.6 Weight Weight [ ] I.O. Intake and Output Intake and Output 06/19/19 06:59 Intake Total 4161 ml Output Total 846 ml Balance 3315 ml Intake IV Total 4161 ml Output Urine Total 96 ml Gastric Drainage Total 750 ml Labs Labs Laboratory Tests Test 06/19/19 05:40 White Blood Count 30.4 x10^3/uL (4.0-11.0) Red Blood Count 2.84 x10^6/uL (3.50-5.40) Hemoglobin 7.2 g/dL (12.0-15.5) Hematocrit 22.4 % (36.0-47.0) Mean Corpuscular Volume 79 fL (79-100) Mean Corpuscular Hemoglobin 25 pg (25-35) Mean Corpuscular Hemoglobin Concent 32 g/dL (31-37) Red Cell Distribution Width 16.9 % (11.5-14.5) Platelet Count 170 x10^3/uL (140-400) Neutrophils (%) (Auto) 86 % (31-73) Lymphocytes (%) (Auto) 5 % (24-48) Monocytes (%) (Auto) 7 % (0-9) Eosinophils (%) (Auto) 1 % (0-3) Basophils (%) (Auto) 1 % (0-3) Neutrophils # (Auto) 26.1 x10^3/uL (1.8-7.7) Lymphocytes # (Auto) 1.5 x10^3/uL (1.0-4.8) Monocytes # (Auto) 2.2 x10^3/uL (0.0-1.1) Eosinophils # (Auto) 0.4 x10^3/uL (0.0-0.7) Basophils # (Auto) 0.1 x10^3/uL (0.0-0.2) Sodium Level 136 mmol/L (136-145) Potassium Level 4.1 mmol/L (3.5-5.1) Chloride Level 99 mmol/L (98-107) Carbon Dioxide Level 29 mmol/L (21-32) Anion Gap 8 (6-14) Blood Urea Nitrogen 20 mg/dL (7-20) Creatinine 2.3 mg/dL (0.6-1.0) Estimated GFR (Cockcroft-Gault) 23.9 Glucose Level 118 mg/dL (70-99) Calcium Level 8.2 mg/dL (8.5-10.1) Phosphorus Level 2.2 mg/dL (2.6-4.7) Magnesium Level 2.0 mg/dL (1.8-2.4) Creatine Kinase 150 U/L (26-192) Micro Micro Microbiology 06/15/19 - Final, Resulted 06/15/19 - Final, Resulted 06/15/19 - Preliminary, Resulted 06/15/19 - Preliminary, Resulted 06/15/19 - Preliminary, Resulted 06/15/19 - Preliminary, Resulted 06/15/19 Gram Stain Evaluation - Final, Resulted 06/15/19 Sputum Culture - Preliminary, Resulted 06/15/19 Sputum Result 1 - Final, Resulted 06/13/19 Urine Culture - Final, Complete 06/13/19 Urine Culture Result 1 (ABEBE) - Final, Complete 06/13/19 Blood Culture - Final, Complete NO GROWTH AFTER 5 DAYS Review of Systems Constitutional: yes: unresponsive Physical Exam General Appearance: other (SEDATED) Skin: warm Respiratory: decreased breath sounds Heart: S1S2 Abdomen: soft, bowel sounds present Genitourinary: bladder flat Extremities: edema, other (BILATERAL LE CELLULITS AND DRAINING WOUNDS) Neurology: other (SEDATED) Assessment Assessment IMP SEPSIS-MSOF LEUCOCYTOSIS ACUTE RESP FAILURE ACUTE KIDNEY INJURY BILATERAL LE WOUNDS LACTIC ACIDOSIS-BETTER SUBSTANCE ABUSE HYPOPHOSPHATEMIA ELEVATED LIVER FUNCTION TESTS-WORSE PLAN ANTIBIOTICS PRESSORS STOP IVF'S IHD AGAIN TODAY UF 3.0-3.5 UF TOLERATED WILL GIVE ALBUMIN FOR BP SUPPORT REPLACE PO4 NEEDED WILL CONT SUPPORTIVE CARE POOR PROGNOSIS MILTON PARKER MD Jun 19, 2019 10:27
[2019-06-19 10:30] LABS: BASE EXCESS ABG 2 mmol/L (-3-3); HCO3 ABG 26 mmol/L (21-28); PCO2 ABG 35 mmHg (35-46); PO2 ABG 105 mmHg (85-108); SAT O2 ABG 98 % (92-99)
[2019-06-19 10:32] LABS: FIO2 ABG 40
--- NOTE | 2019-06-19 10:39 | PDOC ---
PROGRESS NOTES Chief Complaint Chief Complaint Septic shock Severe LLE cellulitis Hypoxic Resp failure,on IPPV - intubated on arrival CATY now requiring dialysis Anemia, elevated LFTs and lipase S/p cholecystectomy Obesity - BMI 62.6 +amphetamines Severe metabolic acidosis Pulm infiltrates, recent [facility] - [facility] Black NGT output History of Present Illness History of Present Illness Admitted due to confusion and respiratory distress at home per her mother, she was intubated in ED. Pt was at [facility] - legs looked the same, they were treating her there with IV abx and for meth abuse, she left last week. PT remains intubated, on 2 pressors, morbidly obese, with bullae both legs and discoloration. CRRT initaited too bec of gap met acidosis, clotted catheter. Now on HD this morning, has some hypotension with this Fever 102.6F. on IV abx per ID hgb 7.9 WBC 40s - not on steroids, hypothermic - severely septic CPK 360 - will decrease or hold daptomycin On ppi IV per GI Plan: Repeat cultures, KUB Bowel regimen if no obstruction vent bundle DIC panel D/w ID the potential benefit vs risk of IVIG CC 32 dw mother, bedside Vitals Vitals Vital Signs Date Time Temp Pulse Resp B/P (MAP) Pulse Ox O2 Delivery O2 Flow Rate FiO2 06/19/19 10:11 20 99 Ventilator 06/19/19 10:00 87 132/66 (88) 06/19/19 08:00 102.6 102.6 Physical Exam Physical Exam GENERAL: Morbidly obese female, sedated and orally intubated. + mitts. HEENT: Pupils equal, reactive, ETT, OGT NECK: Supple. LUNGS: Coarse right side HEART: S1, S2, tachycardia, regular, Distant heart sounds. ABDOMEN: Soft, morbidly obese, Hypoactive bowel sounds. - distended some GENITOURINARY: Gifford in place, EXTREMITIES: Lower extremities edematous, weeping, marked purple discoloration L > R, - mottling LLE cooler on skin IRON CUTTER: Sedated SKIN: No signs generalized rash. + yeast skin folds - improving Temp RIJ/HDC (06/14), [facility] and left art line without signs of complications General: Other (Intubated sedated) Heart: Regular rate, No murmurs Lungs: Other ( basilar crackles dull at bases ) Abdomen: Normal bowel sounds, Soft Extremities: Other (severe LE edema with skin necrosis and serous drainage) Skin: Other (infected legs. :Left > RT) Labs LABS Laboratory Tests Test 06/19/19 05:40 06/19/19 10:10 White Blood Count 30.4 x10^3/uL (4.0-11.0) Red Blood Count 2.84 x10^6/uL (3.50-5.40) Hemoglobin 7.2 g/dL (12.0-15.5) Hematocrit 22.4 % (36.0-47.0) Mean Corpuscular Volume 79 fL (79-100) Mean Corpuscular Hemoglobin 25 pg (25-35) Mean Corpuscular Hemoglobin Concent 32 g/dL (31-37) Red Cell Distribution Width 16.9 % (11.5-14.5) Platelet Count 170 x10^3/uL (140-400) Neutrophils (%) (Auto) 86 % (31-73) Lymphocytes (%) (Auto) 5 % (24-48) Monocytes (%) (Auto) 7 % (0-9) Eosinophils (%) (Auto) 1 % (0-3) Basophils (%) (Auto) 1 % (0-3) Neutrophils # (Auto) 26.1 x10^3/uL (1.8-7.7) Lymphocytes # (Auto) 1.5 x10^3/uL (1.0-4.8) Monocytes # (Auto) 2.2 x10^3/uL (0.0-1.1) Eosinophils # (Auto) 0.4 x10^3/uL (0.0-0.7) Basophils # (Auto) 0.1 x10^3/uL (0.0-0.2) Sodium Level 136 mmol/L (136-145) Potassium Level 4.1 mmol/L (3.5-5.1) Chloride Level 99 mmol/L (98-107) Carbon Dioxide Level 29 mmol/L (21-32) Anion Gap 8 (6-14) Blood Urea Nitrogen 20 mg/dL (7-20) Creatinine 2.3 mg/dL (0.6-1.0) Estimated GFR (Cockcroft-Gault) 23.9 Glucose Level 118 mg/dL (70-99) Calcium Level 8.2 mg/dL (8.5-10.1) Phosphorus Level 2.2 mg/dL (2.6-4.7) Magnesium Level 2.0 mg/dL (1.8-2.4) Creatine Kinase 150 U/L (26-192) O2 Saturation 98 % (92-99) Arterial Blood pH 7.48 (7.35-7.45) Arterial Blood pCO2 at Patient Temp 35 mmHg (35-46) Arterial Blood pO2 at Patient Temp 105 mmHg (85-108) Arterial Blood HCO3 26 mmol/L (21-28) Arterial Blood Base Excess 2 mmol/L (-3-3) FiO2 40 Assessment and Plan Assessmemt and Plan Problems Medical Problems: (1) Acute respiratory failure Status: Acute (2) Elevated brain natriuretic peptide (BNP) level Status: Acute (3) Elevated d-dimer Status: Acute (4) Elevated lipase Status: Acute (5) Elevated liver function tests Status: Acute (6) GI bleeding Status: Acute (7) Hyperglycemia Status: Acute (8) Hypermagnesuria Status: Acute (9) Hypoalbuminemia Status: Acute (10) Hypokalemia Status: Acute (11) Hyponatremia Status: Acute (12) Lower extremity cellulitis Status: Acute (13) Metabolic acidosis Status: Acute (14) Methamphetamine abuse Status: Acute (15) Morbid obesity with BMI of 60.0-69.9, adult Status: Acute (16) Renal insufficiency Status: Acute (17) Sepsis Status: Acute (18) Severe sepsis Status: Acute Comment Review of Relevant I have reviewed the following items loreta (where applicable) has been applied. Labs Laboratory Tests Test 06/18/19 05:30 06/18/19 08:00 06/19/19 05:40 06/19/19 10:10 White Blood Count 45.8 x10^3/uL (4.0-11.0) 30.4 x10^3/uL (4.0-11.0) Red Blood Count 3.20 x10^6/uL (3.50-5.40) 2.84 x10^6/uL (3.50-5.40) Hemoglobin 7.9 g/dL (12.0-15.5) 7.2 g/dL (12.0-15.5) Hematocrit 25.0 % (36.0-47.0) 22.4 % (36.0-47.0) Mean Corpuscular Volume 78 fL (79-100) 79 fL (79-100) Mean Corpuscular Hemoglobin 25 pg (25-35) 25 pg (25-35) Mean Corpuscular Hemoglobin Concent 32 g/dL (31-37) 32 g/dL (31-37) Red Cell Distribution Width 17.2 % (11.5-14.5) 16.9 % (11.5-14.5) Platelet Count 223 x10^3/uL (140-400) 170 x10^3/uL (140-400) Neutrophils (%) (Auto) 90 % (31-73) 86 % (31-73) Lymphocytes (%) (Auto) 4 % (24-48) 5 % (24-48) Monocytes (%) (Auto) 5 % (0-9) 7 % (0-9) Eosinophils (%) (Auto) 1 % (0-3) 1 % (0-3) Basophils (%) (Auto) 0 % (0-3) 1 % (0-3) Neutrophils # (Auto) 41.2 x10^3/uL (1.8-7.7) 26.1 x10^3/uL (1.8-7.7) Lymphocytes # (Auto) 1.7 x10^3/uL (1.0-4.8) 1.5 x10^3/uL (1.0-4.8) Monocytes # (Auto) 2.2 x10^3/uL (0.0-1.1) 2.2 x10^3/uL (0.0-1.1) Eosinophils # (Auto) 0.4 x10^3/uL (0.0-0.7) 0.4 x10^3/uL (0.0-0.7) Basophils # (Auto) 0.1 x10^3/uL (0.0-0.2) 0.1 x10^3/uL (0.0-0.2) Sodium Level 137 mmol/L (136-145) 136 mmol/L (136-145) Potassium Level 4.4 mmol/L (3.5-5.1) 4.1 mmol/L (3.5-5.1) Chloride Level 100 mmol/L (98-107) 99 mmol/L (98-107) Carbon Dioxide Level 27 mmol/L (21-32) 29 mmol/L (21-32) Anion Gap 10 (6-14) 8 (6-14) Blood Urea Nitrogen 21 mg/dL (7-20) 20 mg/dL (7-20) Creatinine 2.0 mg/dL (0.6-1.0) 2.3 mg/dL (0.6-1.0) Estimated GFR (Cockcroft-Gault) 28.0 23.9 BUN/Creatinine Ratio 11 (6-20) Glucose Level 100 mg/dL (70-99) 118 mg/dL (70-99) Calcium Level 7.5 mg/dL (8.5-10.1) 8.2 mg/dL (8.5-10.1) Total Bilirubin 6.3 mg/dL (0.2-1.0) Aspartate Amino Transf (AST/SGOT) 89 U/L (15-37) Alanine Aminotransferase (ALT/SGPT) 28 U/L (14-59) Alkaline Phosphatase 515 U/L (46-116) Creatine Kinase 330 U/L (26-192) 150 U/L (26-192) Total Protein 5.3 g/dL (6.4-8.2) Albumin 1.8 g/dL (3.4-5.0) Albumin/Globulin Ratio 0.5 (1.0-1.7) Prothrombin Time 18.0 SEC (11.7-14.0) Prothromb Time International Ratio 1.5 (0.8-1.1) Activated Partial Thromboplast Time 44 SEC (24-38) O2 Saturation 96 % (92-99) 98 % (92-99) Arterial Blood pH 7.42 (7.35-7.45) 7.48 (7.35-7.45) Arterial Blood pCO2 at Patient Temp 43 mmHg (35-46) 35 mmHg (35-46) Arterial Blood pO2 at Patient Temp 77 mmHg (85-108) 105 mmHg (85-108) Arterial Blood HCO3 27 mmol/L (21-28) 26 mmol/L (21-28) Arterial Blood Base Excess 2 mmol/L (-3-3) 2 mmol/L (-3-3) FiO2 40 40 Phosphorus Level 2.2 mg/dL (2.6-4.7) Magnesium Level 2.0 mg/dL (1.8-2.4) Laboratory Tests Test 06/19/19 05:40 06/19/19 10:10 White Blood Count 30.4 x10^3/uL (4.0-11.0) Red Blood Count 2.84 x10^6/uL (3.50-5.40) Hemoglobin 7.2 g/dL (12.0-15.5) Hematocrit 22.4 % (36.0-47.0) Mean Corpuscular Volume 79 fL (79-100) Mean Corpuscular Hemoglobin 25 pg (25-35) Mean Corpuscular Hemoglobin Concent 32 g/dL (31-37) Red Cell Distribution Width 16.9 % (11.5-14.5) Platelet Count 170 x10^3/uL (140-400) Neutrophils (%) (Auto) 86 % (31-73) Lymphocytes (%) (Auto) 5 % (24-48) Monocytes (%) (Auto) 7 % (0-9) Eosinophils (%) (Auto) 1 % (0-3) Basophils (%) (Auto) 1 % (0-3) Neutrophils # (Auto) 26.1 x10^3/uL (1.8-7.7) Lymphocytes # (Auto) 1.5 x10^3/uL (1.0-4.8) Monocytes # (Auto) 2.2 x10^3/uL (0.0-1.1) Eosinophils # (Auto) 0.4 x10^3/uL (0.0-0.7) Basophils # (Auto) 0.1 x10^3/uL (0.0-0.2) Sodium Level 136 mmol/L (136-145) Potassium Level 4.1 mmol/L (3.5-5.1) Chloride Level 99 mmol/L (98-107) Carbon Dioxide Level 29 mmol/L (21-32) Anion Gap 8 (6-14) Blood Urea Nitrogen 20 mg/dL (7-20) Creatinine 2.3 mg/dL (0.6-1.0) Estimated GFR (Cockcroft-Gault) 23.9 Glucose Level 118 mg/dL (70-99) Calcium Level 8.2 mg/dL (8.5-10.1) Phosphorus Level 2.2 mg/dL (2.6-4.7) Magnesium Level 2.0 mg/dL (1.8-2.4) Creatine Kinase 150 U/L (26-192) O2 Saturation 98 % (92-99) Arterial Blood pH 7.48 (7.35-7.45) Arterial Blood pCO2 at Patient Temp 35 mmHg (35-46) Arterial Blood pO2 at Patient Temp 105 mmHg (85-108) Arterial Blood HCO3 26 mmol/L (21-28) Arterial Blood Base Excess 2 mmol/L (-3-3) FiO2 40 Microbiology 06/15/19 - Final, Resulted 06/15/19 - Final, Resulted 06/15/19 - Preliminary, Resulted 06/15/19 - Preliminary, Resulted 06/15/19 - Preliminary, Resulted 06/15/19 - Preliminary, Resulted 06/15/19 Gram Stain Evaluation - Final, Resulted 06/15/19 Sputum Culture - Preliminary, Resulted 06/15/19 Sputum Result 1 - Final, Resulted 06/13/19 Urine Culture - Final, Complete 06/13/19 Urine Culture Result 1 (ABEBE) - Final, Complete 06/13/19 Blood Culture - Final, Complete NO GROWTH AFTER 5 DAYS Medications Current Medications Sodium Chloride 1,000 ml @ 1,000 mls/hr Q1H IV Last administered on 06/13/19at 16:56; Start 06/13/19 at 16:12; Stop 06/13/19 at 17:11; Status DC Albuterol/ Ipratropium (Duoneb) 3 ml 1X ONCE NEB Last administered on at 16:31; Start 06/13/19 at 16:15; Stop 06/13/19 at 16:19; Status DC Piperacillin Sod/ Tazobactam Sod 4.5 gm/Sodium Chloride 100 ml @ 200 mls/hr 1X ONCE IV Last administered on 06/13/19at 17:13; Start 06/13/19 at 16:45; Stop 06/13/19 at 17:14; Status DC Vancomycin HCl 250 ml @ 250 mls/hr 1X ONCE IV ; Start 06/13/19 at 16:45; Stop 06/13/19 at 17:44; Status UNV Levofloxacin/ Dextrose 150 ml @ 100 mls/hr 1X ONCE IV Last administered on 06/13/19at 18:48; Start 06/13/19 at 16:45; Stop 06/13/19 at 18:14; Status DC Vancomycin HCl 250 ml @ 250 mls/hr 1X ONCE IV ; Start 06/13/19 at 16:45; Stop 06/13/19 at 17:44; Status UNV Sodium Chloride 1,000 ml @ 1,000 mls/hr 1X ONCE IV Last administered on 06/13/19at 16:56; Start 06/13/19 at 16:45; Stop 06/13/19 at 17:44; Status DC Vancomycin HCl 2 gm/Sodium Chloride 500 ml @ 250 mls/hr 1X ONCE IV Last administered on 06/13/19at 21:15; Start 06/13/19 at 16:45; Stop 06/13/19 at 18:44; Status DC Sodium Chloride 1,000 ml @ 1,000 mls/hr 1X ONCE IV ; Start 06/13/19 at 17:15; Stop 06/13/19 at 18:14; Status DC Sodium Chloride 1,000 ml @ 200 mls/hr Q5H IV Last administered on 06/14/19at 11:51; Start 06/13/19 at 17:13; Stop 06/14/19 at 17:12; Status DC Lorazepam (Ativan Inj) 1 mg 1X ONCE IVP Last administered on 06/13/19at 17:26; Start 06/13/19 at 17:30; Stop 06/13/19 at 17:31; Status DC Lorazepam (Ativan Inj) 2 mg STK-MED ONCE .ROUTE ; Start 06/13/19 at 17:23; Stop 06/13/19 at 17:24; Status DC Norepinephrine Bitartrate 250 ml @ 29.974 mls/ hr 1X ONCE IV Last administered on 06/13/19at 17:47; Start 06/13/19 at 17:45; Stop 06/14/19 at 02:05; Status DC Midazolam HCl 100 ml @ 0 mls/hr 1X ONCE IV Last administered on 06/13/19at 17:54; Start 06/13/19 at 17:45; Stop 06/13/19 at 17:46; Status DC Fentanyl Citrate (Fentanyl 2ml Vial) 100 mcg STK-MED ONCE .ROUTE ; Start 06/13/19 at 18:06; Stop 06/13/19 at 18:06; Status DC Pantoprazole Sodium 80 mg/ Sodium Chloride 100 ml @ 10 mls/hr 1X ONCE IV Last administered on 06/13/19at 20:00; Start 06/13/19 at 18:15; Stop 06/14/19 at 04:14; Status DC Pantoprazole Sodium (PROTONIX VIAL for IV PUSH) 40 mg 1X ONCE IVP ; Start 06/13/19 at 18:15; Stop 06/13/19 at 18:25; Status DC Fentanyl Citrate (Fentanyl 2ml Vial) 25 mcg 1X ONCE IVP Last administered on 06/13/19at 18:24; Start 06/13/19 at 18:15; Stop 06/13/19 at 18:24; Status DC Midazolam HCl (Versed) 5 mg 1X ONCE IV Last administered on 06/13/19at 18:24; Start 06/13/19 at 18:30; Stop 06/13/19 at 18:31; Status DC Dexmedetomidine HCl 400 mcg/ Sodium Chloride 100 ml @ 0 mls/hr CONT PRN IV PER PROTOCOL Last administered on 06/19/19at 08:20; Start 06/13/19 at 18:30 Sodium Chloride 500 ml @ 500 mls/hr 1X PRN PRN IV HYPOTENSION; Start 06/13/19 at 18:30 Atropine Sulfate (ATROPINE 0.5mg SYRINGE) 0.5 mg PRN Q5MIN PRN IV SEE COMMENTS; Start 06/13/19 at 18:30 Etomidate (Amidate) 20 mg 1X ONCE IV Last administered on 06/13/19at 18:47; Start 06/13/19 at 18:45; Stop 06/13/19 at 18:48; Status DC Succinylcholine Chloride (Anectine) 100 mg 1X ONCE IV Last administered on 06/13/19at 18:47; Start 06/13/19 at 18:45; Stop 06/13/19 at 18:48; Status DC Norepinephrine Bitartrate 250 ml @ 30.495 mls/ hr CONT PRN IV SEE I/O RECORD Last administered on 06/13/19at 23:21; Start 06/13/19 at 21:30; Stop 06/14/19 at 00:00; Status DC Dexmedetomidine HCl 400 mcg/ Sodium Chloride 100 ml @ 0 mls/hr CONT PRN IV SEDATION; Start 06/13/19 at 21:30; Status UNV Sodium Chloride 500 ml @ 500 mls/hr 1X PRN PRN IV SEDATION; Start 06/13/19 at 21:30; Status UNV Atropine Sulfate (ATROPINE 0.5mg SYRINGE) 0.5 mg PRN Q5MIN PRN IV SEE COMMENTS; Start 06/13/19 at 21:30; Status UNV Midazolam HCl 100 ml @ 5 mls/hr CONT PRN IV SEE I/O RECORD Last administered on 06/19/19at 00:58; Start 06/13/19 at 21:45 Info (FLU VACCINE SCREEN per RX) 1 each PRN DAILY PRN MC SEE COMMENTS; Start 06/13/19 at 23:45 Norepinephrine Bitartrate 250 ml @ 30.495 mls/ hr CONT PRN IV SEE I/O RECORD; Start 06/13/19 at 23:45; Stop 06/14/19 at 00:00; Status DC Phenylephrine HCl 20 mg/Sodium Chloride 252 ml @ 61.478 mls/ hr CONT PRN IV SEE I/O RECORD; Start 06/14/19 at 00:00; Status UNV Phenylephrine HCl 80 mg/Sodium Chloride 258 ml @ 15.674 mls/ hr CONT PRN IV SE E I/O RECORD Last administered on 06/19/19at 04:47; Start 06/13/19 at 23:45 Norepinephrine Bitartrate 32 mg/ Sodium Chloride 250 ml @ 7.594 mls/ hr CONT PRN IV SEE I/O RECORD Last administered on 06/19/19at 06:17; Start 06/13/19 at 23:45 Sodium Chloride 500 ml @ 500 mls/hr Q1H IV Last administered on 06/14/19at 01:30; Start 06/14/19 at 01:30; Stop 06/14/19 at 02:29; Status DC Sodium Bicarbonate 150 meq/Dextrose 1,150 ml @ 75 mls/hr [id number] IV Last administered on 06/19/19at 02:11; Start 06/14/19 at 02:00; Stop 06/19/19 at 10:13; Status DC Vasopressin 40 unit/Dextrose 102 ml @ 6 mls/hr CONT PRN IV SEE I/O RECORD Last administered on 06/18/19at 23:19; Start 06/14/19 at 02:00 Fentanyl Citrate 30 ml @ 0 mls/hr CONT PRN IV SEE PROTOCOL Last administered on 06/19/19at 08:23; Start 06/14/19 at 02:45 Pantoprazole Sodium 80 mg/ Sodium Chloride 100 ml @ 10 mls/hr Q10H IV Last administered on 06/18/19at 00:05; Start 06/14/19 at 04:00; Stop 06/18/19 at 11:15; Status DC Meropenem 1 gm/ Sodium Chloride 100 ml @ 200 mls/hr Q12HR IV Last administered on 06/16/19at 21:01; Start 06/14/19 at 09:00; Stop 06/17/19 at 08:05; Status DC Micafungin Sodium 100 mg/Dextrose 100 ml @ 100 mls/hr Q24H IV Last administered on 06/18/19at 12:39; Start 06/14/19 at 10:00 Daptomycin 600 mg/ Sodium Chloride 50 ml @ 100 mls/hr Q24H IV Last administered on 06/16/19at 10:49; Start 06/14/19 at 11:00; Stop 06/17/19 at 08:08; Status DC Heparin Sodium (Porcine) (Heparin Sodium) 5,000 unit Q8HRS SQ ; Start 06/14/19 at 14:00; Stop 06/14/19 at 12:12; Status DC Acetaminophen (Tylenol) 650 mg PRN Q6HRS PRN PEG MILD PAIN / TEMP; Start 06/14/19 at 08:45 Acetaminophen/ Codeine Phosphate (Tylenol/Codeine Soln) 5 ml PRN Q6HRS PRN PO MODERATE PAIN; Start 06/14/19 at 08:45 Ondansetron HCl (Zofran) 4 mg PRN Q6HRS PRN IVP NAUSEA/VOMITING; Start 06/14/19 at 08:45 Lidocaine HCl (Buffered Lidocaine 1%) 3 ml STK-MED ONCE .ROUTE ; Start 06/14/19 at 10:45; Stop 06/14/19 at 10:45; Status DC Heparin Sodium (Porcine) (Heparin Sodium) 10,000 unit STK-MED ONCE .ROUTE ; Start 06/14/19 at 10:46; Stop 06/14/19 at 10:46; Status DC Lidocaine HCl (Buffered Lidocaine 1%) 5 ml 1X ONCE INJ Last administered on 06/14/19at 11:23; Start 06/14/19 at 11:15; Stop 06/14/19 at 11:16; Status DC Heparin Sodium/ Dextrose 500 ml @ 0 mls/hr CONT PRN IV PER PROTOCOL Last administered on 06/15/19at 00:50; Start 06/14/19 at 12:30; Stop 06/16/19 at 07:41; Status DC Heparin Sodium (Porcine) (Heparin Sodium) 4,150 unit PRN Q6HRS PRN IV FOR UFH LEVEL LESS THAN 0.2; Start 06/14/19 at 12:30; Stop 06/16/19 at 07:41; Status DC Potassium Chloride 20 meq/ Bicarbonate Dialysis Soln w/ out KCl 5,010 ml @ 1,500 mls/hr Q3H21M IV Last administered on 06/17/19at 00:36; Start 06/14/19 at 14:00; Stop 06/17/19 at 15:51; Status DC Potassium Chloride 20 meq/ Bicarbonate Dialysis Soln w/ out KCl 5,010 ml @ 1,500 mls/hr Q3H21M IV Last administered on 06/17/19at 00:36; Start 06/14/19 at 14:00; Stop 06/17/19 at 15:51; Status DC Potassium Chloride 20 meq/ Bicarbonate Dialysis Soln w/ out KCl 5,010 ml @ 1,500 mls/hr Q3H21M IV Last administered on 06/17/19at 00:36; Start 06/14/19 at 14:00; Stop 06/17/19 at 15:51; Status DC Potassium Bicarbonate (Potassium Effervescent Tablet) 40 meq 1X ONCE GT ; Start 06/15/19 at 08:45; Stop 06/15/19 at 08:46; Status DC Linezolid/Dextrose 300 ml @ 300 mls/hr Q12HR IV Last administered on 06/18/19at 21:11; Start 06/15/19 at 10:00 Potassium Chloride/Water 50 ml @ 50 mls/hr Q1H IV Last administered on 06/15/19at 17:17; Start 06/15/19 at 16:00; Stop 06/15/19 at 17:59; Status DC Albumin Human 500 ml @ 125 mls/hr 1X ONCE IV Last administered on 06/15/19at 16:39; Start 06/15/19 at 16:15; Stop 06/15/19 at 20:14; Status DC Albumin Human 500 ml @ 125 mls/hr 1X ONCE IV Last administered on 06/15/19at 17:17; Start 06/15/19 at 17:15; Stop 06/15/19 at 21:14; Status DC Albumin Human 500 ml @ 125 mls/hr 1X ONCE IV Last administered on 06/16/19at 07:17; Start 06/16/19 at 07:30; Stop 06/16/19 at 11:29; Status DC Sodium Phosphate 20 mmol/Dextrose 256.6667 ml @ 63.158 m... 1X ONCE IV Last administered on 06/16/19at 08:22; Start 06/16/19 at 08:00; Stop 06/16/19 at 12:03; Status DC Albumin Human 250 ml @ 62.5 mls/hr 1X ONCE IV Last administered on 06/16/19at 14:58; Start 06/16/19 at 15:00; Stop 06/16/19 at 18:59; Status DC Daptomycin 600 mg/ Sodium Chloride 50 ml @ 100 mls/hr Q48H IV Last administered on 06/18/19at 13:37; Start 06/18/19 at 11:00 Piperacillin Sod/ Tazobactam Sod 2.25 gm/Sodium Chloride 50 ml @ 100 mls/hr Q8HRS IV Last administered on 06/19/19at 05:41; Start 06/17/19 at 14:00; Stop 06/19/19 at 08:25; Status DC Multi-Ingred Cream/Lotion/Oil/ Oint (Artificial Tears Eye Ointment) 1 cass PRN Q1HR PRN OU DRY EYE Last administered on 06/17/19at 10:55; Start 06/17/19 at 09:15 Potassium Phosphate 13.6 mmol/Dextrose 104.5333 ml @ 52.267 m... Q2H IV Last administered on 06/17/19at 12:43; Start 06/17/19 at 10:00; Stop 06/17/19 at 13:59; Status DC Potassium Phosphate 20 mmol/ Sodium Chloride 256.6667 ml @ 127.5 mls/hr 1X ONCE IV ; Start 06/17/19 at 09:15; Stop 06/17/19 at 11:15; Status UNV Albumin Human 500 ml @ 125 mls/hr 1X ONCE IV ; Start 06/17/19 at 19:30; Stop 06/17/19 at 23:29; Status Cancel Albumin Human 250 ml @ 125 mls/hr Q2H IV Last administered on 06/17/19at 21:50; Start 06/17/19 at 20:00; Stop 06/17/19 at 23:59; Status DC Sodium Chloride 1,000 ml @ 1,000 mls/hr Q1H PRN IV hypotension; Start 06/18/19 at 07:43; Stop 06/18/19 at 13:42; Status DC Sodium Chloride 1,000 ml @ 400 mls/hr Q2H30M PRN IV PATENCY; Start 06/18/19 at 07:43; Stop 06/18/19 at 19:42; Status DC Albumin Human 100 ml @ 100 mls/hr 1X ONCE IV Last administered on 06/18/19at 08:56; Start 06/18/19 at 08:00; Stop 06/18/19 at 08:59; Status DC Albumin Human 200 ml @ 200 mls/hr 1X PRN PRN IV Hypotension; Start 06/18/19 at 08:00; Stop 06/18/19 at 13:59; Status DC Pantoprazole Sodium (PROTONIX VIAL for IV PUSH) 40 mg DAILYAC IVP ; Start 06/19/19 at 07:30 Sodium Chloride 1,000 ml @ 1,000 mls/hr Q1H PRN IV hypotension; Start 06/19/19 at 08:01; Stop 06/19/19 at 14:00 Albumin Human 200 ml @ 200 mls/hr 1X STAT IV Last administered on 06/19/19at 08:32; Start 06/19/19 at 08:01; Stop 06/19/19 at 09:00; Status DC Diphenhydramine HCl (Benadryl) 25 mg 1X PRN PRN IV ITCHING; Start 06/19/19 at 08:15; Stop 06/20/19 at 08:14 Diphenhydramine HCl (Benadryl) 25 mg 1X PRN PRN IV ITCHING; Start 06/19/19 at 08:15; Stop 06/20/19 at 08:14 Sodium Chloride (Normal Saline Flush) 10 ml 1X PRN PRN IV AP catheter pack; Start 06/19/19 at 08:15; Stop 06/20/19 at 08:14 Sodium Chloride (Normal Saline Flush) 10 ml 1X PRN PRN IV SYNTHETIC PLASTERER catheter pack; Start 06/19/19 at 08:15; Stop 06/20/19 at 08:14 Sodium Chloride 1,000 ml @ 400 mls/hr Q2H30M PRN IV PATENCY; Start 06/19/19 at 08:01; Stop 06/19/19 at 20:00 Info (PHARMACY MONITORING -- do not chart) 1 each PRN DAILY PRN MC SEE COMMENTS; Start 06/19/19 at 08:15 Albumin Human 100 ml @ 200 mls/hr 1X PRN PRN IV on dialysis for sbp <100 a; Start 06/19/19 at 08:15 Piperacillin Sod/ Tazobactam Sod 2.25 gm/Sodium Chloride 50 ml @ 100 mls/hr Q6HRS IV ; Start 06/19/19 at 12:00 Metronidazole 100 ml @ 100 mls/hr Q8HRS IV ; Start 06/19/19 at 14:00 Sodium Phosphate 20 mmol/Dextrose 256.6667 ml @ 64.167 m... 1X ONCE IV ; Start 06/19/19 at 10:30; Stop 06/19/19 at 14:29; Status UNV Active Scripts Active Tessalon Perle (Benzonatate) 100 Mg Capsule 100 Mg PO TID PRN Vitals/I & O Vital Sign - Last 24 Hours 06/18/19 06/18/19 06/18/19 06/18/19 11:00 12:00 12:00 12:00 Temp 98.7 98.7 Pulse 91 83 Resp 19 20 B/P (MAP) 120/56 (77) 99/50 (66) Pulse Ox 100 100 O2 Delivery Ventilator Ventilator Mechanical Ventilator 06/18/19 06/18/19 06/18/19 06/18/19 12:13 13:00 14:00 14:05 Pulse 80 85 Resp 20 19 B/P (MAP) 82/53 (63) 117/57 (77) Pulse Ox 100 100 100 99 O2 Delivery Ventilator Ventilator Ventilator Ventilator 06/18/19 06/18/19 06/18/19 06/18/19 14:14 15:00 15:46 15:55 Pulse 88 Resp 19 20 B/P (MAP) 110/50 (70) 108/44 (65) Pulse Ox 98 98 97 O2 Delivery Ventilator Ventilator Ventilator 06/18/19 06/18/19 06/18/19 06/18/19 16:00 16:00 16:00 17:00 Temp 99.5 99.5 Pulse 86 86 Resp 20 19 B/P (MAP) 106/42 (63) 104/46 (65) Pulse Ox 97 97 O2 Delivery Mechanical Ventilator Ventilator Ventilator 06/18/19 06/18/19 06/18/19 06/18/19 18:00 19:00 19:47 20:00 Pulse 87 88 Resp 19 20 B/P (MAP) 100/45 (63) 108/48 (68) Pulse Ox 98 99 97 O2 Delivery Ventilator Ventilator Ventilator Mechanical Ventilator 06/18/19 06/18/19 06/18/19 06/18/19 20:00 20:00 21:00 21:33 Temp 98.9 98.9 Pulse 86 88 Resp 19 20 B/P (MAP) 108/46 (66) 108/48 (68) Pulse Ox 99 99 100 O2 Delivery Ventilator Ventilator Ventilator 06/18/19 06/18/19 06/18/19 06/19/19 22:00 23:00 23:51 00:00 Pulse 88 88 Resp 20 20 B/P (MAP) 112/50 (70) 108/46 (66) Pulse Ox 99 99 O2 Delivery Ventilator Ventilator Mechanical Ventilator 06/19/19 06/19/19 06/19/19 06/19/19 00:00 00:20 00:57 01:00 Temp 98.4 98.4 Pulse 90 91 Resp 20 17 20 B/P (MAP) 126/60 (82) 105/45 (65) Pulse Ox 99 100 99 99 O2 Delivery Ventilator Ventilator Ventilator Ventilator 06/19/19 06/19/19 06/19/19 06/19/19 02:00 03:00 04:00 04:00 Pulse 92 91 Resp 20 20 B/P (MAP) 115/49 (71) 114/51 (72) Pulse Ox 99 99 O2 Delivery Ventilator Ventilator Mechanical Ventilator 06/19/19 06/19/19 06/19/19 06/19/19 04:00 04:36 05:00 06:00 Temp 98.8 98.8 Pulse 91 91 92 Resp 20 20 20 B/P (MAP) 113/49 (70) 117/52 (73) 107/54 (71) Pulse Ox 99 98 99 99 O2 Delivery Ventilator Ventilator Ventilator Ventilator 06/19/19 06/19/19 06/19/19 06/19/19 07:00 08:00 08:00 08:15 Temp 102.6 102.6 Pulse 92 94 Resp 20 20 B/P (MAP) 108/44 (65) 112/46 (68) Pulse Ox 100 100 100 O2 Delivery Ventilator Ventilator Mechanical Ventilator Ventilator 06/19/19 06/19/19 06/19/19 06/19/19 08:19 08:23 09:00 10:00 Pulse 86 87 Resp 20 20 20 20 B/P (MAP) 122/60 (80) 132/66 (88) Pulse Ox 90 98 100 99 O2 Delivery Ventilator Ventilator Ventilator Ventilator 06/19/19 10:11 Resp 20 Pulse Ox 99 O2 Delivery Ventilator Intake and Output 06/18/19 06/18/19 06/19/19 15:00 23:00 07:00 Intake Total 1246 ml 1365 ml 1550 ml Output Total 19 ml 475 ml 337 ml Balance 1227 ml 890 ml 1213 ml WILLEM RESENDIZ MD Jun 19, 2019 10:39
[2019-06-19] MEDS ORDERED: SODIUM PHOSPHATE 20 MMOL in IV DEXTROSE 5% 250 ML IV ONE (11:00)
--- NOTE | 2019-06-19 11:37 | RAD ---
Examination: PORTABLE CHEST 1V History: Respiratory failure Comparison/Correlation: 06/18/2019 Portable Chest X-ray Exam Findings: Portable semiupright frontal view of the chest was obtained. Endotracheal tube terminates 2.8 cm from the guy. Enteric tube is in place. Left internal jugular catheter is overlying the right atrium. Limited pulmonary inflation. Mild left basilar atelectasis is present. Limited pulmonary inflation is noted. Borderline pulmonary vasculature congestion noted. No definite effusion. Impression: Decreased left basilar atelectasis. Improved aeration. Electronically signed by: Gómez Durant MD (06/19/2019 11:34 AM) [facility]
[2019-06-19] MEDS: PANTOPRAZOLE IV PUSH 40 MG VIAL. IVP SCH (11:56)
--- NOTE | 2019-06-19 12:49 | PDOC ---
Objective: Objective: D/w nurse - awaiting KUB w/ concerns for no stool since admission - also plans for tube feeds, had 300cc out of OG overnight. Not a surgical candidate while on pressors, on dialysis. Vital Signs: Vital Signs Date Time Temp Pulse Resp B/P (MAP) Pulse Ox O2 Delivery O2 Flow Rate FiO2 06/19/19 12:00 Mechanical Ventilator 06/19/19 11:54 99 06/19/19 10:11 20 06/19/19 10:00 87 132/66 (88) 06/19/19 08:00 102.6 102.6 Labs: Laboratory Tests Test 06/19/19 05:40 06/19/19 10:10 White Blood Count 30.4 x10^3/uL Red Blood Count 2.84 x10^6/uL Hemoglobin 7.2 g/dL Hematocrit 22.4 % Mean Corpuscular Volume 79 fL Mean Corpuscular Hemoglobin 25 pg Mean Corpuscular Hemoglobin Concent 32 g/dL Red Cell Distribution Width 16.9 % Platelet Count 170 x10^3/uL Neutrophils (%) (Auto) 86 % Lymphocytes (%) (Auto) 5 % Monocytes (%) (Auto) 7 % Eosinophils (%) (Auto) 1 % Basophils (%) (Auto) 1 % Neutrophils # (Auto) 26.1 x10^3/uL Lymphocytes # (Auto) 1.5 x10^3/uL Monocytes # (Auto) 2.2 x10^3/uL Eosinophils # (Auto) 0.4 x10^3/uL Basophils # (Auto) 0.1 x10^3/uL Sodium Level 136 mmol/L Potassium Level 4.1 mmol/L Chloride Level 99 mmol/L Carbon Dioxide Level 29 mmol/L Anion Gap 8 Blood Urea Nitrogen 20 mg/dL Creatinine 2.3 mg/dL Estimated GFR (Cockcroft-Gault) 23.9 Glucose Level 118 mg/dL Calcium Level 8.2 mg/dL Phosphorus Level 2.2 mg/dL Magnesium Level 2.0 mg/dL Creatine Kinase 150 U/L O2 Saturation 98 % Arterial Blood pH 7.48 Arterial Blood pCO2 at Patient Temp 35 mmHg Arterial Blood pO2 at Patient Temp 105 mmHg Arterial Blood HCO3 26 mmol/L Arterial Blood Base Excess 2 mmol/L FiO2 40 GRAM STAIN WHITE BLOOD CELLS Final Many GRAM STAIN EPITHELIAL CELLS Final None seen GRAM STAIN RESULT 1 Preliminary Test not performed Test not performed GRAM STAIN RESULT 2 Preliminary Test not performed GRAM STAIN RESULT 3 Preliminary Test not performed GRAM STAIN RESULT 4 Preliminary Test not performed GRAM STAIN EVALUATION Final Comment This specimen is of good quality and is acceptable for routine bacterial culture. Performed at: - [facility] [address], [place], [place] [id number] Rate Analyst: JEANE Montejo MD, Phone: [phone] SPUTUM CULT RES 1 Final Comment Yeast isolated. Imaging: CXR 06/19 Impression: Decreased left basilar atelectasis. Improved aeration. KUB 06/19 pending PE: GEN: intubated, OG bilious LUNGS: vent HEART: RRR ABD: occasional quiet gurgle - infrequent NEURO/PSYCH: sedated A/P: Sepsis, LLE infection, resp failure, CATY (on HD) Elevated LFTs (worse), coagulopathy, ACD +gastric occult Hepatic steatosis (?cirrhosis) -- Await KUB, continue IV PPI. TRISHA DUVALL Jun 19, 2019 12:49
[2019-06-19] MEDS: MICAFUNGIN 100 MG in IV DEXTROSE 5% 100ML 100 ML IV SCH (12:54)
[2019-06-19] MEDS: LACTULOSE 20 GM/30 ML SOLUTION. PO PRN ×2 (12:55→23:02)
--- NOTE | 2019-06-19 13:18 | PDOC ---
PULMONARY PROGRESS NOTES Subjective sedated on vent, on,, versed, fentanyl, fio2 40%, on, levo, kaur Vitals Vital Signs Date Time Temp Pulse Resp B/P (MAP) Pulse Ox O2 Delivery O2 Flow Rate FiO2 06/19/19 12:00 Mechanical Ventilator 06/19/19 11:54 99 06/19/19 10:11 20 06/19/19 10:00 87 132/66 (88) 06/19/19 08:00 102.6 102.6 Comments ros as mentioned as above discussed w rn other sys otherwise neg sedated on vent HEENT: Other (nc at perrl nose clear orally intubated neck no lad no thyromegaly) Lungs: Other ( basilar crackles dull at bases ) Cardiovascular: S1, S2 Abdomen: Soft, Non-tender, Other (no mass) Extremities: Other (+++ edema, chronic changes, echymosis) Skin: Dry Labs Laboratory Tests Test 06/18/19 05:30 06/18/19 08:00 06/19/19 05:40 06/19/19 10:10 White Blood Count 45.8 x10^3/uL (4.0-11.0) 30.4 x10^3/uL (4.0-11.0) Red Blood Count 3.20 x10^6/uL (3.50-5.40) 2.84 x10^6/uL (3.50-5.40) Hemoglobin 7.9 g/dL (12.0-15.5) 7.2 g/dL (12.0-15.5) Hematocrit 25.0 % (36.0-47.0) 22.4 % (36.0-47.0) Mean Corpuscular Volume 78 fL (79-100) 79 fL (79-100) Mean Corpuscular Hemoglobin 25 pg (25-35) 25 pg (25-35) Mean Corpuscular Hemoglobin Concent 32 g/dL (31-37) 32 g/dL (31-37) Red Cell Distribution Width 17.2 % (11.5-14.5) 16.9 % (11.5-14.5) Platelet Count 223 x10^3/uL (140-400) 170 x10^3/uL (140-400) Neutrophils (%) (Auto) 90 % (31-73) 86 % (31-73) Lymphocytes (%) (Auto) 4 % (24-48) 5 % (24-48) Monocytes (%) (Auto) 5 % (0-9) 7 % (0-9) Eosinophils (%) (Auto) 1 % (0-3) 1 % (0-3) Basophils (%) (Auto) 0 % (0-3) 1 % (0-3) Neutrophils # (Auto) 41.2 x10^3/uL (1.8-7.7) 26.1 x10^3/uL (1.8-7.7) Lymphocytes # (Auto) 1.7 x10^3/uL (1.0-4.8) 1.5 x10^3/uL (1.0-4.8) Monocytes # (Auto) 2.2 x10^3/uL (0.0-1.1) 2.2 x10^3/uL (0.0-1.1) Eosinophils # (Auto) 0.4 x10^3/uL (0.0-0.7) 0.4 x10^3/uL (0.0-0.7) Basophils # (Auto) 0.1 x10^3/uL (0.0-0.2) 0.1 x10^3/uL (0.0-0.2) Sodium Level 137 mmol/L (136-145) 136 mmol/L (136-145) Potassium Level 4.4 mmol/L (3.5-5.1) 4.1 mmol/L (3.5-5.1) Chloride Level 100 mmol/L (98-107) 99 mmol/L (98-107) Carbon Dioxide Level 27 mmol/L (21-32) 29 mmol/L (21-32) Anion Gap 10 (6-14) 8 (6-14) Blood Urea Nitrogen 21 mg/dL (7-20) 20 mg/dL (7-20) Creatinine 2.0 mg/dL (0.6-1.0) 2.3 mg/dL (0.6-1.0) Estimated GFR (Cockcroft-Gault) 28.0 23.9 BUN/Creatinine Ratio 11 (6-20) Glucose Level 100 mg/dL (70-99) 118 mg/dL (70-99) Calcium Level 7.5 mg/dL (8.5-10.1) 8.2 mg/dL (8.5-10.1) Total Bilirubin 6.3 mg/dL (0.2-1.0) Aspartate Amino Transf (AST/SGOT) 89 U/L (15-37) Alanine Aminotransferase (ALT/SGPT) 28 U/L (14-59) Alkaline Phosphatase 515 U/L (46-116) Creatine Kinase 330 U/L (26-192) 150 U/L (26-192) Total Protein 5.3 g/dL (6.4-8.2) Albumin 1.8 g/dL (3.4-5.0) Albumin/Globulin Ratio 0.5 (1.0-1.7) Prothrombin Time 18.0 SEC (11.7-14.0) Prothromb Time International Ratio 1.5 (0.8-1.1) Activated Partial Thromboplast Time 44 SEC (24-38) O2 Saturation 96 % (92-99) 98 % (92-99) Arterial Blood pH 7.42 (7.35-7.45) 7.48 (7.35-7.45) Arterial Blood pCO2 at Patient Temp 43 mmHg (35-46) 35 mmHg (35-46) Arterial Blood pO2 at Patient Temp 77 mmHg (85-108) 105 mmHg (85-108) Arterial Blood HCO3 27 mmol/L (21-28) 26 mmol/L (21-28) Arterial Blood Base Excess 2 mmol/L (-3-3) 2 mmol/L (-3-3) FiO2 40 40 Phosphorus Level 2.2 mg/dL (2.6-4.7) Magnesium Level 2.0 mg/dL (1.8-2.4) Laboratory Tests Test 06/19/19 05:40 06/19/19 10:10 White Blood Count 30.4 x10^3/uL (4.0-11.0) Red Blood Count 2.84 x10^6/uL (3.50-5.40) Hemoglobin 7.2 g/dL (12.0-15.5) Hematocrit 22.4 % (36.0-47.0) Mean Corpuscular Volume 79 fL (79-100) Mean Corpuscular Hemoglobin 25 pg (25-35) Mean Corpuscular Hemoglobin Concent 32 g/dL (31-37) Red Cell Distribution Width 16.9 % (11.5-14.5) Platelet Count 170 x10^3/uL (140-400) Neutrophils (%) (Auto) 86 % (31-73) Lymphocytes (%) (Auto) 5 % (24-48) Monocytes (%) (Auto) 7 % (0-9) Eosinophils (%) (Auto) 1 % (0-3) Basophils (%) (Auto) 1 % (0-3) Neutrophils # (Auto) 26.1 x10^3/uL (1.8-7.7) Lymphocytes # (Auto) 1.5 x10^3/uL (1.0-4.8) Monocytes # (Auto) 2.2 x10^3/uL (0.0-1.1) Eosinophils # (Auto) 0.4 x10^3/uL (0.0-0.7) Basophils # (Auto) 0.1 x10^3/uL (0.0-0.2) Sodium Level 136 mmol/L (136-145) Potassium Level 4.1 mmol/L (3.5-5.1) Chloride Level 99 mmol/L (98-107) Carbon Dioxide Level 29 mmol/L (21-32) Anion Gap 8 (6-14) Blood Urea Nitrogen 20 mg/dL (7-20) Creatinine 2.3 mg/dL (0.6-1.0) Estimated GFR (Cockcroft-Gault) 23.9 Glucose Level 118 mg/dL (70-99) Calcium Level 8.2 mg/dL (8.5-10.1) Phosphorus Level 2.2 mg/dL (2.6-4.7) Magnesium Level 2.0 mg/dL (1.8-2.4) Creatine Kinase 150 U/L (26-192) O2 Saturation 98 % (92-99) Arterial Blood pH 7.48 (7.35-7.45) Arterial Blood pCO2 at Patient Temp 35 mmHg (35-46) Arterial Blood pO2 at Patient Temp 105 mmHg (85-108) Arterial Blood HCO3 26 mmol/L (21-28) Arterial Blood Base Excess 2 mmol/L (-3-3) FiO2 40 Medications Active Scripts Medications Dose Route/Sig Max Daily Dose Days Date Category Jonel Glover (Benzonatate) 100 Mg Capsule 100 Mg PO TID PRN 06/02/19 Rx Comments cxr reviewed 06/19 b lat infilt L>R ett ok, mild improvement on L Impression . IMPRESSION: 1. Acute hypoxemic respiratory failure. 2. Severe metabolic acidosis, improving on crrt., now on HD 3. Septic shock. still on Levo 15 franco, WILL TRY ALBUMIN 4. lower extremity cellulitis and soft tissue infection. 5. Leukocytosis. 6. Acute kidney injury. 7. Shock liver. 8. Positive urine drug screen. 9. Morbid obesity prob kena. 10. abnl cxr Plan . PLAN: 1. We will continue support with multiple pressors to keep map >65.add vasopressin 2. HD per Nephrology, 3. Broad-spectrum antibiotics per ID. The patient is currently on meropenem, daptomycin and micafungin and zyvox 4. cont vent support until more stable, setting reviewed, abg reviewed, titrate down fio2 to keep sat >94% 5. protonix for stress ulcer prophylaxis 6. Gen surg and vascular following 7. not ready for weaning discussed w rn/ ARMANDO HACKETT MD Jun 19, 2019 13:18
--- NOTE | 2019-06-19 15:43 | RAD ---
KUB History: Fever. Distention. Technique: Supine views of the abdomen. Comparison: None. Findings: Paucity of small bowel gas. Air and stool scattered throughout the colon. Enteric tube projecting over the proximal gastric body. Surgical clips right upper quadrant. Impression: 1. Paucity of small bowel gas. Nonobstructed bowel gas pattern. Electronically signed by: Rogelio Michaels DO (06/19/2019 3:40 PM) [facility]
[2019-06-19] MEDS: ACETAMINOPHEN 650 MG/20.3 ML SOLUTION. PEG PRN (23:02)
[2019-06-20] VITALS (32 sets, daily range): BP systolic 66–151; BP diastolic 0–99
[2019-06-20] MEDS: PIPERACILLIN/TAZOBACTAM 2.25 GM in IV NORMAL SALINE 50ML 50 ML IV SCH ×4 (00:50→19:49)
[2019-06-20] MEDS: DEXMEDETOMIDINE 400 MCG in IV NORMAL SALINE 100ML 96 ML IV PRN ×5 (01:01→23:48)
[2019-06-20 05:24] LABS: BASO # 0.1 x10^3/uL (0.0-0.2); BASO % 1 % (0-3); EOS # 0.4 x10^3/uL (0.0-0.7); EOS % 1 % (0-3); HEMOGLOBIN 7.1 g/dL (12.0-15.5); LYMPH # 1.3 x10^3/uL (1.0-4.8); LYMPH % 5 % (24-48); MEAN CORPUSCULAR HEMOGLOBIN 25 pg (25-35); MEAN CORPUSCULAR HGB CONC 32 g/dL (31-37); MEAN CORPUSCULAR VOLUME 78 fL (79-100); MONO # 1.7 x10^3/uL (0.0-1.1); MONO % 7 % (0-9); NEUT # 22.4 x10^3/uL (1.8-7.7); NEUT % 86 % (31-73); PLATELET COUNT 158 x10^3/uL (140-400); RED BLOOD COUNT 2.81 x10^6/uL (3.50-5.40); RED CELL DISTRIBUTION WIDTH 16.5 % (11.5-14.5); WHITE BLOOD COUNT 25.9 x10^3/uL (4.0-11.0)
[2019-06-20 05:44] LABS: PROTHROMBIN TIME PATIENT 24.3 SEC (11.7-14.0)
[2019-06-20 05:59] LABS: ALBUMIN 2.3 g/dL (3.4-5.0); CALCIUM 8.4 mg/dL (8.5-10.1); CREATININE 2.4 mg/dL (0.6-1.0); DIRECT BILIRUBIN 6.7 mg/dL (0.0-0.2); GFR 22.7; POTASSIUM 4.1 mmol/L (3.5-5.1); TOTAL BILIRUBIN 8.4 mg/dL (0.2-1.0); TOTAL PROTEIN 6.2 g/dL (6.4-8.2)
--- NOTE | 2019-06-20 07:12 | PDOC ---
Infectious Disease Note Subjective Subjective Sedated/Intubated ROS ROS unobtainable Vital Sign Vital Signs Vital Signs Date Time Temp Pulse Resp B/P (MAP) Pulse Ox O2 Delivery O2 Flow Rate FiO2 06/20/19 06:00 88 20 133/73 (93) 98 Ventilator 06/20/19 04:00 99.1 99.1 Physical Exam PHYSICAL EXAM GENERAL: Morbidly obese female, sedated and orally intubated. + mitts. HEENT: Pupils equal, reactive, ETT, OGT NECK: Supple. LUNGS: Coarse right side HEART: S1, S2, tachycardia, regular, Distant heart sounds. ABDOMEN: Soft, morbidly obese, Hypoactive bowel sounds. - distended some GENITOURINARY: Gifford in place, EXTREMITIES: Lower extremities edematous, weeping, marked purple discoloration L > R, - improved mottling LLE cooler on skin that is necotic - New RLE bullous lesion DIRECTOR PHARMACOVIGILANCE: Sedated SKIN: No signs generalized rash. + yeast skin folds - improving Temp RIJ/HDC (06/14), LIJ without signs of complications Labs Lab Laboratory Tests Test 06/19/19 10:10 06/20/19 04:45 06/20/19 04:58 O2 Saturation 98 % (92-99) Arterial Blood pH 7.48 (7.35-7.45) Arterial Blood pCO2 at Patient Temp 35 mmHg (35-46) Arterial Blood pO2 at Patient Temp 105 mmHg (85-108) Arterial Blood HCO3 26 mmol/L (21-28) Arterial Blood Base Excess 2 mmol/L (-3-3) FiO2 40 White Blood Count 25.9 x10^3/uL (4.0-11.0) Red Blood Count 2.81 x10^6/uL (3.50-5.40) Hemoglobin 7.1 g/dL (12.0-15.5) Hematocrit 22.0 % (36.0-47.0) Mean Corpuscular Volume 78 fL (79-100) Mean Corpuscular Hemoglobin 25 pg (25-35) Mean Corpuscular Hemoglobin Concent 32 g/dL (31-37) Red Cell Distribution Width 16.5 % (11.5-14.5) Platelet Count 158 x10^3/uL (140-400) Neutrophils (%) (Auto) 86 % (31-73) Lymphocytes (%) (Auto) 5 % (24-48) Monocytes (%) (Auto) 7 % (0-9) Eosinophils (%) (Auto) 1 % (0-3) Basophils (%) (Auto) 1 % (0-3) Neutrophils # (Auto) 22.4 x10^3/uL (1.8-7.7) Lymphocytes # (Auto) 1.3 x10^3/uL (1.0-4.8) Monocytes # (Auto) 1.7 x10^3/uL (0.0-1.1) Eosinophils # (Auto) 0.4 x10^3/uL (0.0-0.7) Basophils # (Auto) 0.1 x10^3/uL (0.0-0.2) Prothrombin Time 24.3 SEC (11.7-14.0) Prothromb Time International Ratio 2.2 (0.8-1.1) Sodium Level 137 mmol/L (136-145) Potassium Level 4.1 mmol/L (3.5-5.1) Chloride Level 98 mmol/L (98-107) Carbon Dioxide Level 28 mmol/L (21-32) Anion Gap 11 (6-14) Blood Urea Nitrogen 20 mg/dL (7-20) Creatinine 2.4 mg/dL (0.6-1.0) Estimated GFR (Cockcroft-Gault) 22.7 Glucose Level 125 mg/dL (70-99) Calcium Level 8.4 mg/dL (8.5-10.1) Phosphorus Level 3.0 mg/dL (2.6-4.7) Magnesium Level 2.0 mg/dL (1.8-2.4) Total Bilirubin 8.4 mg/dL (0.2-1.0) Direct Bilirubin 6.7 mg/dL (0.0-0.2) Aspartate Amino Transf (AST/SGOT) 55 U/L (15-37) Alanine Aminotransferase (ALT/SGPT) 14 U/L (14-59) Alkaline Phosphatase 473 U/L (46-116) Total Protein 6.2 g/dL (6.4-8.2) Albumin 2.3 g/dL (3.4-5.0) Glucose (Fingerstick) 116 mg/dL (70-99) Micro Microbiology 06/13/19 Urine Culture - Final, Complete 06/13/19 Urine Culture Result 1 (ABEBE) - Final, Complete 06/13/19 Blood Culture - Preliminary, Resulted NO GROWTH AFTER 3 DAYS Objective Assessment Fever - curve some better- ? etiology ? constipation - WBC better Coagulaopathy - worsening.- platelets dropping Severe sepsis w/ shock. On 2 pressors - needs increasing per nursing Acute hypoxic respiratory failure with pulmonary infiltrates, intubated. Bilat LE infections Left lower extremity severe skin and soft tissue infection.worse than right ? progression. No surgical plans. No crepitus on palpation either LE. XRAY of Left - no gas Leukocytosis - better Elevated CPK - better Lactic acidosis. (10.8, down to 3.8 now) Acute kidney injury, on CRRT - clotted HD now Severe metabolic acidosis. Hyperbilirubinemia increasing with abnormal liver function tests - some better Substance abuse Morbid obesity. Elevated lipase - corrected Severe Protein Malnutrition Anemia - GI following Plan Plan of Care Check LDH ? lysis with anemia and increasing TB. Check D-dimer and Fibrinogen ? developing DIC F/u blood cults 06/19 D/c'd artline 06/19 Added Flagyl 06/19 Await Bowel function CRRT clotted 06/17- adjusted Abx. D/c'd Meropenem and began Zosyn Cont Dapto - adjust dose and cont micafungin Continue Zyvox for bacterial toxin binding and lung coverage Sputum culture neg so BC neg so far from 06/[address] left leg at this time No surgical plans. Nursing d/c gen surg 06/[address] Verdin 06/19 vascular signed off Previously spoke with [facility] again, pt listed under different name, BC were neg. D/w nursing Critically ill JAY WISE MD Jun 20, 2019 07:12
[2019-06-20 07:49] LABS: BASE EXCESS ABG 4 mmol/L (-3-3); HCO3 ABG 28 mmol/L (21-28); PCO2 ABG 43 mmHg (35-46); PO2 ABG 91 mmHg (85-108); SAT O2 ABG 97 % (92-99)
--- NOTE | 2019-06-20 08:14 | PDOC ---
PROGRESS NOTES Chief Complaint Chief Complaint Septic shock Severe LLE cellulitis Hypoxic Resp failure,on IPPV - intubated on arrival CATY now requiring dialysis Anemia, elevated LFTs and lipase S/p cholecystectomy Obesity - BMI 62.6 +amphetamines Severe metabolic acidosis Pulm infiltrates, recent [facility] - [facility] Black NGT output History of Present Illness History of Present Illness Admitted due to confusion and respiratory distress at home per her mother, she was intubated in ED. Pt was at [facility] - legs looked the same, they were treating her there with IV abx and for meth abuse, she left last week. PT remains intubated, on 2 pressors, morbidly obese, with bullae both legs and discoloration. CRRT initaited too bec of gap met acidosis, clotted catheter. Now on HD this morning, has some hypotension with this 06/19: Fever 102.6F. on IV abx per ID hgb 7.9, CPK 360 - will decrease or hold daptomycin, On ppi IV per GI Still on pressors, renal function holding. Legs are worse right leg now with bullae. Vent settings stable. Hb 7.1, WBC 25 Plan: Repeat cultures, KUB Bowel regimen if no obstruction vent bundle DIC panel D/w ID the potential benefit vs risk of IVIG CC 32 dw mother, bedside Vitals Vitals Vital Signs Date Time Temp Pulse Resp B/P (MAP) Pulse Ox O2 Delivery O2 Flow Rate FiO2 06/20/19 08:00 Mechanical Ventilator 06/20/19 08:00 99.5 90 20 114/62 (79) 100 99.5 Physical Exam Physical Exam GENERAL: Morbidly obese female, sedated and orally intubated. + mitts. HEENT: Pupils equal, reactive, ETT, OGT NECK: Supple. LUNGS: Coarse right side HEART: S1, S2, tachycardia, regular, Distant heart sounds. ABDOMEN: Soft, morbidly obese, Hypoactive bowel sounds. - distended some GENITOURINARY: Gifford in place, EXTREMITIES: Lower extremities edematous, weeping, marked purple discoloration L > R, - improved mottling LLE cooler on skin that is necotic - New RLE bullous lesion [employer]: Sedated SKIN: No signs generalized rash. + yeast skin folds - improving Temp RIJ/HDC (06/14), [facility] without signs of complications General: Other (Intubated sedated) Heart: Regular rate, No murmurs Lungs: Other ( basilar crackles dull at bases ) Abdomen: Normal bowel sounds, Soft Extremities: Other (severe LE edema with skin necrosis and serous drainage) Skin: Other (infected legs. :Left > RT) Labs LABS Laboratory Tests Test 06/19/19 10:10 06/20/19 04:45 06/20/19 04:58 O2 Saturation 98 % (92-99) Arterial Blood pH 7.48 (7.35-7.45) Arterial Blood pCO2 at Patient Temp 35 mmHg (35-46) Arterial Blood pO2 at Patient Temp 105 mmHg (85-108) Arterial Blood HCO3 26 mmol/L (21-28) Arterial Blood Base Excess 2 mmol/L (-3-3) FiO2 40 White Blood Count 25.9 x10^3/uL (4.0-11.0) Red Blood Count 2.81 x10^6/uL (3.50-5.40) Hemoglobin 7.1 g/dL (12.0-15.5) Hematocrit 22.0 % (36.0-47.0) Mean Corpuscular Volume 78 fL (79-100) Mean Corpuscular Hemoglobin 25 pg (25-35) Mean Corpuscular Hemoglobin Concent 32 g/dL (31-37) Red Cell Distribution Width 16.5 % (11.5-14.5) Platelet Count 158 x10^3/uL (140-400) Neutrophils (%) (Auto) 86 % (31-73) Lymphocytes (%) (Auto) 5 % (24-48) Monocytes (%) (Auto) 7 % (0-9) Eosinophils (%) (Auto) 1 % (0-3) Basophils (%) (Auto) 1 % (0-3) Neutrophils # (Auto) 22.4 x10^3/uL (1.8-7.7) Lymphocytes # (Auto) 1.3 x10^3/uL (1.0-4.8) Monocytes # (Auto) 1.7 x10^3/uL (0.0-1.1) Eosinophils # (Auto) 0.4 x10^3/uL (0.0-0.7) Basophils # (Auto) 0.1 x10^3/uL (0.0-0.2) Prothrombin Time 24.3 SEC (11.7-14.0) Prothromb Time International Ratio 2.2 (0.8-1.1) Sodium Level 137 mmol/L (136-145) Potassium Level 4.1 mmol/L (3.5-5.1) Chloride Level 98 mmol/L (98-107) Carbon Dioxide Level 28 mmol/L (21-32) Anion Gap 11 (6-14) Blood Urea Nitrogen 20 mg/dL (7-20) Creatinine 2.4 mg/dL (0.6-1.0) Estimated GFR (Cockcroft-Gault) 22.7 Glucose Level 125 mg/dL (70-99) Calcium Level 8.4 mg/dL (8.5-10.1) Phosphorus Level 3.0 mg/dL (2.6-4.7) Magnesium Level 2.0 mg/dL (1.8-2.4) Total Bilirubin 8.4 mg/dL (0.2-1.0) Direct Bilirubin 6.7 mg/dL (0.0-0.2) Aspartate Amino Transf (AST/SGOT) 55 U/L (15-37) Alanine Aminotransferase (ALT/SGPT) 14 U/L (14-59) Alkaline Phosphatase 473 U/L (46-116) Total Protein 6.2 g/dL (6.4-8.2) Albumin 2.3 g/dL (3.4-5.0) Glucose (Fingerstick) 116 mg/dL (70-99) Assessment and Plan Assessmemt and Plan Problems Medical Problems: (1) Acute respiratory failure Status: Acute (2) Elevated brain natriuretic peptide (BNP) level Status: Acute (3) Elevated d-dimer Status: Acute (4) Elevated lipase Status: Acute (5) Elevated liver function tests Status: Acute (6) GI bleeding Status: Acute (7) Hyperglycemia Status: Acute (8) Hypermagnesuria Status: Acute (9) Hypoalbuminemia Status: Acute (10) Hypokalemia Status: Acute (11) Hyponatremia Status: Acute (12) Lower extremity cellulitis Status: Acute (13) Metabolic acidosis Status: Acute (14) Methamphetamine abuse Status: Acute (15) Morbid obesity with BMI of 60.0-69.9, adult Status: Acute (16) Renal insufficiency Status: Acute (17) Sepsis Status: Acute (18) Severe sepsis Status: Acute Comment Review of Relevant I have reviewed the following items loreta (where applicable) has been applied. Labs Laboratory Tests Test 06/19/19 05:40 06/19/19 10:10 06/20/19 04:45 06/20/19 04:58 White Blood Count 30.4 x10^3/uL (4.0-11.0) 25.9 x10^3/uL (4.0-11.0) Red Blood Count 2.84 x10^6/uL (3.50-5.40) 2.81 x10^6/uL (3.50-5.40) Hemoglobin 7.2 g/dL (12.0-15.5) 7.1 g/dL (12.0-15.5) Hematocrit 22.4 % (36.0-47.0) 22.0 % (36.0-47.0) Mean Corpuscular Volume 79 fL (79-100) 78 fL (79-100) Mean Corpuscular Hemoglobin 25 pg (25-35) 25 pg (25-35) Mean Corpuscular Hemoglobin Concent 32 g/dL (31-37) 32 g/dL (31-37) Red Cell Distribution Width 16.9 % (11.5-14.5) 16.5 % (11.5-14.5) Platelet Count 170 x10^3/uL (140-400) 158 x10^3/uL (140-400) Neutrophils (%) (Auto) 86 % (31-73) 86 % (31-73) Lymphocytes (%) (Auto) 5 % (24-48) 5 % (24-48) Monocytes (%) (Auto) 7 % (0-9) 7 % (0-9) Eosinophils (%) (Auto) 1 % (0-3) 1 % (0-3) Basophils (%) (Auto) 1 % (0-3) 1 % (0-3) Neutrophils # (Auto) 26.1 x10^3/uL (1.8-7.7) 22.4 x10^3/uL (1.8-7.7) Lymphocytes # (Auto) 1.5 x10^3/uL (1.0-4.8) 1.3 x10^3/uL (1.0-4.8) Monocytes # (Auto) 2.2 x10^3/uL (0.0-1.1) 1.7 x10^3/uL (0.0-1.1) Eosinophils # (Auto) 0.4 x10^3/uL (0.0-0.7) 0.4 x10^3/uL (0.0-0.7) Basophils # (Auto) 0.1 x10^3/uL (0.0-0.2) 0.1 x10^3/uL (0.0-0.2) Sodium Level 136 mmol/L (136-145) 137 mmol/L (136-145) Potassium Level 4.1 mmol/L (3.5-5.1) 4.1 mmol/L (3.5-5.1) Chloride Level 99 mmol/L (98-107) 98 mmol/L (98-107) Carbon Dioxide Level 29 mmol/L (21-32) 28 mmol/L (21-32) Anion Gap 8 (6-14) 11 (6-14) Blood Urea Nitrogen 20 mg/dL (7-20) 20 mg/dL (7-20) Creatinine 2.3 mg/dL (0.6-1.0) 2.4 mg/dL (0.6-1.0) Estimated GFR (Cockcroft-Gault) 23.9 22.7 Glucose Level 118 mg/dL (70-99) 125 mg/dL (70-99) Calcium Level 8.2 mg/dL (8.5-10.1) 8.4 mg/dL (8.5-10.1) Phosphorus Level 2.2 mg/dL (2.6-4.7) 3.0 mg/dL (2.6-4.7) Magnesium Level 2.0 mg/dL (1.8-2.4) 2.0 mg/dL (1.8-2.4) Creatine Kinase 150 U/L (26-192) O2 Saturation 98 % (92-99) Arterial Blood pH 7.48 (7.35-7.45) Arterial Blood pCO2 at Patient Temp 35 mmHg (35-46) Arterial Blood pO2 at Patient Temp 105 mmHg (85-108) Arterial Blood HCO3 26 mmol/L (21-28) Arterial Blood Base Excess 2 mmol/L (-3-3) FiO2 40 Prothrombin Time 24.3 SEC (11.7-14.0) Prothromb Time International Ratio 2.2 (0.8-1.1) Total Bilirubin 8.4 mg/dL (0.2-1.0) Direct Bilirubin 6.7 mg/dL (0.0-0.2) Aspartate Amino Transf (AST/SGOT) 55 U/L (15-37) Alanine Aminotransferase (ALT/SGPT) 14 U/L (14-59) Alkaline Phosphatase 473 U/L (46-116) Total Protein 6.2 g/dL (6.4-8.2) Albumin 2.3 g/dL (3.4-5.0) Glucose (Fingerstick) 116 mg/dL (70-99) Laboratory Tests Test 06/19/19 10:10 06/20/19 04:45 06/20/19 04:58 O2 Saturation 98 % (92-99) Arterial Blood pH 7.48 (7.35-7.45) Arterial Blood pCO2 at Patient Temp 35 mmHg (35-46) Arterial Blood pO2 at Patient Temp 105 mmHg (85-108) Arterial Blood HCO3 26 mmol/L (21-28) Arterial Blood Base Excess 2 mmol/L (-3-3) FiO2 40 White Blood Count 25.9 x10^3/uL (4.0-11.0) Red Blood Count 2.81 x10^6/uL (3.50-5.40) Hemoglobin 7.1 g/dL (12.0-15.5) Hematocrit 22.0 % (36.0-47.0) Mean Corpuscular Volume 78 fL (79-100) Mean Corpuscular Hemoglobin 25 pg (25-35) Mean Corpuscular Hemoglobin Concent 32 g/dL (31-37) Red Cell Distribution Width 16.5 % (11.5-14.5) Platelet Count 158 x10^3/uL (140-400) Neutrophils (%) (Auto) 86 % (31-73) Lymphocytes (%) (Auto) 5 % (24-48) Monocytes (%) (Auto) 7 % (0-9) Eosinophils (%) (Auto) 1 % (0-3) Basophils (%) (Auto) 1 % (0-3) Neutrophils # (Auto) 22.4 x10^3/uL (1.8-7.7) Lymphocytes # (Auto) 1.3 x10^3/uL (1.0-4.8) Monocytes # (Auto) 1.7 x10^3/uL (0.0-1.1) Eosinophils # (Auto) 0.4 x10^3/uL (0.0-0.7) Basophils # (Auto) 0.1 x10^3/uL (0.0-0.2) Prothrombin Time 24.3 SEC (11.7-14.0) Prothromb Time International Ratio 2.2 (0.8-1.1) Sodium Level 137 mmol/L (136-145) Potassium Level 4.1 mmol/L (3.5-5.1) Chloride Level 98 mmol/L (98-107) Carbon Dioxide Level 28 mmol/L (21-32) Anion Gap 11 (6-14) Blood Urea Nitrogen 20 mg/dL (7-20) Creatinine 2.4 mg/dL (0.6-1.0) Estimated GFR (Cockcroft-Gault) 22.7 Glucose Level 125 mg/dL (70-99) Calcium Level 8.4 mg/dL (8.5-10.1) Phosphorus Level 3.0 mg/dL (2.6-4.7) Magnesium Level 2.0 mg/dL (1.8-2.4) Total Bilirubin 8.4 mg/dL (0.2-1.0) Direct Bilirubin 6.7 mg/dL (0.0-0.2) Aspartate Amino Transf (AST/SGOT) 55 U/L (15-37) Alanine Aminotransferase (ALT/SGPT) 14 U/L (14-59) Alkaline Phosphatase 473 U/L (46-116) Total Protein 6.2 g/dL (6.4-8.2) Albumin 2.3 g/dL (3.4-5.0) Glucose (Fingerstick) 116 mg/dL (70-99) Microbiology 06/15/19 - Final, Complete 06/15/19 - Final, Complete 06/15/19 Gram Stain Evaluation - Final, Complete 06/15/19 Sputum Culture - Final, Complete 06/15/19 Sputum Result 1 - Final, Complete 06/13/19 Urine Culture - Final, Complete 06/13/19 Urine Culture Result 1 (ABEBE) - Final, Complete 06/13/19 Blood Culture - Final, Complete NO GROWTH AFTER 5 DAYS Medications Current Medications Sodium Chloride 1,000 ml @ 1,000 mls/hr Q1H IV Last administered on 06/13/19at 16:56; Start 06/13/19 at 16:12; Stop 06/13/19 at 17:11; Status DC Albuterol/ Ipratropium (Duoneb) 3 ml 1X ONCE NEB Last administered on 06/13/19at 16:31; Start 06/13/19 at 16:15; Stop 06/13/19 at 16:19; Status DC Piperacillin Sod/ Tazobactam Sod 4.5 gm/Sodium Chloride 100 ml @ 200 mls/hr 1X ONCE IV Last administered on 06/13/19at 17:13; Start 06/13/19 at 16:45; Stop 06/13/19 at 17:14; Status DC Vancomycin HCl 250 ml @ 250 mls/hr 1X ONCE IV ; Start 06/13/19 at 16:45; Stop 06/13/19 at 17:44; Status UNV Levofloxacin/ Dextrose 150 ml @ 100 mls/hr 1X ONCE IV Last administered on 06/13/19at 18:48; Start 06/13/19 at 16:45; Stop 06/13/19 at 18:14; Status DC Vancomycin HCl 250 ml @ 250 mls/hr 1X ONCE IV ; Start 06/13/19 at 16:45; Stop 06/13/19 at 17:44; Status UNV Sodium Chloride 1,000 ml @ 1,000 mls/hr 1X ONCE IV Last administered on 06/13/19at 16:56; Start 06/13/19 at 16:45; Stop 06/13/19 at 17:44; Status DC Vancomycin HCl 2 gm/Sodium Chloride 500 ml @ 250 mls/hr 1X ONCE IV Last administered on 06/13/19at 21:15; Start 06/13/19 at 16:45; Stop 06/13/19 at 18: 44; Status DC Sodium Chloride 1,000 ml @ 1,000 mls/hr 1X ONCE IV ; Start 06/13/19 at 17:15; Stop 06/13/19 at 18:14; Status DC Sodium Chloride 1,000 ml @ 200 mls/hr Q5H IV Last administered on 06/14/19at 11:51; Start 06/13/19 at 17:13; Stop 06/14/19 at 17:12; Status DC Lorazepam (Ativan Inj) 1 mg 1X ONCE IVP Last administered on 06/13/19at 17:26; Start 06/13/19 at 17:30; Stop 06/13/19 at 17:31; Status DC Lorazepam (Ativan Inj) 2 mg STK-MED ONCE .ROUTE ; Start 06/13/19 at 17:23; Stop 06/13/19 at 17:24; Status DC Norepinephrine Bitartrate 250 ml @ 29.974 mls/ hr 1X ONCE IV Last administered on 06/13/19at 17:47; Start 06/13/19 at 17:45; Stop 06/14/19 at 02:05; Status DC Midazolam HCl 100 ml @ 0 mls/hr 1X ONCE IV Last administered on 06/13/19at 17:54; Start 06/13/19 at 17:45; Stop 06/13/19 at 17:46; Status DC Fentanyl Citrate (Fentanyl 2ml Vial) 100 mcg STK-MED ONCE .ROUTE ; Start 06/13/19 at 18:06; Stop 06/13/19 at 18:06; Status DC Pantoprazole Sodium 80 mg/ Sodium Chloride 100 ml @ 10 mls/hr 1X ONCE IV Last administered on 06/13/19at 20:00; Start 06/13/19 at 18:15; Stop 06/14/19 at 04:14; Status DC Pantoprazole Sodium (PROTONIX VIAL for IV PUSH) 40 mg 1X ONCE IVP ; Start 06/13/19 at 18:15; Stop 06/13/19 at 18:25; Status DC Fentanyl Citrate (Fentanyl 2ml Vial) 25 mcg 1X ONCE IVP Last administered on 06/13/19at 18:24; Start 06/13/19 at 18:15; Stop 06/13/19 at 18:24; Status DC Midazolam HCl (Versed) 5 mg 1X ONCE IV Last administered on 06/13/19at 18:24; Start 06/13/19 at 18:30; Stop 06/13/19 at 18:31; Status DC Dexmedetomidine HCl 400 mcg/ Sodium Chloride 100 ml @ 0 mls/hr CONT PRN IV PER PROTOCOL Last administered on 06/20/19at 01:01; Start 06/13/19 at 18:30 Sodium Chloride 500 ml @ 500 mls/hr 1X PRN PRN IV HYPOTENSION; Start 06/13/19 at 18:30 Atropine Sulfate (ATROPINE 0.5mg SYRINGE) 0.5 mg PRN Q5MIN PRN IV SEE COMMENTS; Start 06/13/19 at 18:30 Etomidate (Amidate) 20 mg 1X ONCE IV Last administered on 06/13/19at 18:47; Start 06/13/19 at 18:45; Stop 06/13/19 at 18:48; Status DC Succinylcholine Chloride (Anectine) 100 mg 1X ONCE IV Last administered on 06/13/19at 18:47; Start 06/13/19 at 18:45; Stop 06/13/19 at 18:48; Status DC Norepinephrine Bitartrate 250 ml @ 30.495 mls/ hr CONT PRN IV SEE I/O RECORD Last administered on 06/13/19at 23:21; Start 06/13/19 at 21:30; Stop 06/14/19 at 00:00; Status DC Dexmedetomidine HCl 400 mcg/ Sodium Chloride 100 ml @ 0 mls/hr CONT PRN IV SEDATION; Start 06/13/19 at 21:30; Status UNV Sodium Chloride 500 ml @ 500 mls/hr 1X PRN PRN IV SEDATION; Start 06/13/19 at 21:30; Status UNV Atropine Sulfate (ATROPINE 0.5mg SYRINGE) 0.5 mg PRN Q5MIN PRN IV SEE COMMENTS; Start 06/13/19 at 21:30; Status UNV Midazolam HCl 100 ml @ 5 mls/hr CONT PRN IV SEE I/O RECORD Last administered on 06/19/19at 17:49; Start 06/13/19 at 21:45 Info (FLU VACCINE SCREEN per RX) 1 each PRN DAILY PRN MC SEE COMMENTS; Start 06/13/19 at 23:45 Norepinephrine Bitartrate 250 ml @ 30.495 mls/ hr CONT PRN IV SEE I/O RECORD; Start 06/13/19 at 23:45; Stop 06/14/19 at 00:00; Status DC Phenylephrine HCl 20 mg/Sodium Chloride 252 ml @ 61.478 mls/ hr CONT PRN IV SEE I/O RECORD; Start 06/14/19 at 00:00; Status UNV Phenylephrine HCl 80 mg/Sodium Chloride 258 ml @ 15.674 mls/ hr CONT PRN IV SEE I/O RECORD Last administered on 06/19/19at 04:47; Start 06/13/19 at 23:45 Norepinephrine Bitartrate 32 mg/ Sodium Chloride 250 ml @ 7.594 mls/ hr CONT PRN IV SEE I/O RECORD Last administered on 06/19/19at 06:17; Start 06/13/19 at 23:45 Sodium Chloride 500 ml @ 500 mls/hr Q1H IV Last administered on 06/14/19at 01:30; Start 06/14/19 at 01:30; Stop 06/14/19 at 02:29; Status DC Sodium Bicarbonate 150 meq/Dextrose 1,150 ml @ 75 mls/hr [id number] IV Last administered on 06/19/19at 02:11; Start 06/14/19 at 02:00; Stop 06/19/19 at 10:13; Status DC Vasopressin 40 unit/Dextrose 102 ml @ 6 mls/hr CONT PRN IV SEE I/O RECORD Last administered on 06/18/19at 23:19; Start 06/14/19 at 02:00 Fentanyl Citrate 30 ml @ 0 mls/hr CONT PRN IV SEE PROTOCOL Last administered on 06/20/19at 01:03; Start 06/14/19 at 02:45 Pantoprazole Sodium 80 mg/ Sodium Chloride 100 ml @ 10 mls/hr Q10H IV Last administered on 06/18/19at 00:05; Start 06/14/19 at 04:00; Stop 06/18/19 at 11:15; Status DC Meropenem 1 gm/ Sodium Chloride 100 ml @ 200 mls/hr Q12HR IV Last administered on 06/16/19at 21:01; Start 06/14/19 at 09:00; Stop 06/17/19 at 08:05; Status DC Micafungin Sodium 100 mg/Dextrose 100 ml @ 100 mls/hr Q24H IV Last administered on 06/19/19at 12:54; Start 06/14/19 at 10:00 Daptomycin 600 mg/ Sodium Chloride 50 ml @ 100 mls/hr Q24H IV Last administered on 06/16/19at 10:49; Start 06/14/19 at 11:00; Stop 06/17/19 at 08:08; Status DC Heparin Sodium (Porcine) (Heparin Sodium) 5,000 unit Q8HRS SQ ; Start 06/14/19 at 14:00; Stop 06/14/19 at 12:12; Status DC Acetaminophen (Tylenol) 650 mg PRN Q6HRS PRN PEG MILD PAIN / TEMP Last administered on 06/19/19at 23:02; Start 06/14/19 at 08:45 Acetaminophen/ Codeine Phosphate (Tylenol/Codeine Soln) 5 ml PRN Q6HRS PRN PO MODERATE PAIN; Start 06/14/19 at 08:45 Ondansetron HCl (Zofran) 4 mg PRN Q6HRS PRN IVP NAUSEA/VOMITING; Start 06/14/19 at 08:45 Lidocaine HCl (Buffered Lidocaine 1%) 3 ml STK-MED ONCE .ROUTE ; Start 06/14/19 at 10:45; Stop 06/14/19 at 10:45; Status DC Heparin Sodium (Porcine) (Heparin Sodium) 10,000 unit STK-MED ONCE .ROUTE ; Start 06/14/19 at 10:46; Stop 06/14/19 at 10:46; Status DC Lidocaine HCl (Buffered Lidocaine 1%) 5 ml 1X ONCE INJ Last administered on 06/14/19at 11:23; Start 06/14/19 at 11:15; Stop 06/14/19 at 11:16; Status DC Heparin Sodium/ Dextrose 500 ml @ 0 mls/hr CONT PRN IV PER PROTOCOL Last administered on 06/15/19at 00:50; Start 06/14/19 at 12:30; Stop 06/16/19 at 07:41; Status DC Heparin Sodium (Porcine) (Heparin Sodium) 4,150 unit PRN Q6HRS PRN IV FOR UFH LEVEL LESS THAN 0.2; Start 06/14/19 at 12:30; Stop 06/16/19 at 07:41; Status DC Potassium Chloride 20 meq/ Bicarbonate Dialysis Soln w/ out KCl 5,010 ml @ 1,500 mls/hr Q3H21M IV Last administered on 06/17/19at 00:36; Start 06/14/19 at 14:00; Stop 06/17/19 at 15:51; Status DC Potassium Chloride 20 meq/ Bicarbonate Dialysis Soln w/ out KCl 5,010 ml @ 1,500 mls/hr Q3H21M IV Last administered on 06/17/19at 00:36; Start 06/14/19 at 14:00; Stop 06/17/19 at 15:51; Status DC Potassium Chloride 20 meq/ Bicarbonate Dialysis Soln w/ out KCl 5,010 ml @ 1,500 mls/hr Q3H21M IV Last administered on 06/17/19at 00:36; Start 06/14/19 at 14:00; Stop 06/17/19 at 15:51; Status DC Potassium Bicarbonate (Potassium Effervescent Tablet) 40 meq 1X ONCE GT ; Start 06/15/19 at 08:45; Stop 06/15/19 at 08:46; Status DC Linezolid/Dextrose 300 ml @ 300 mls/hr Q12HR IV Last administered on 06/19/19at 23:02; Start 06/15/19 at 10:00 Potassium Chloride/Water 50 ml @ 50 mls/hr Q1H IV Last administered on 06/15/19at 17:17; Start 06/15/19 at 16:00; Stop 06/15/19 at 17:59; Status DC Albumin Human 500 ml @ 125 mls/hr 1X ONCE IV Last administered on 06/15/19at 16:39; Start 06/15/19 at 16:15; Stop 06/15/19 at 20:14; Status DC Albumin Human 500 ml @ 125 mls/hr 1X ONCE IV Last administered on 06/15/19at 17:17; Start 06/15/19 at 17:15; Stop 06/15/19 at 21:14; Status DC Albumin Human 500 ml @ 125 mls/hr 1X ONCE IV Last administered on 06/16/19at 07:17; Start 06/16/19 at 07:30; Stop 06/16/19 at 11:29; Status DC Sodium Phosphate 20 mmol/Dextrose 256.6667 ml @ 63.158 m... 1X ONCE IV Last administered on 06/16/19at 08:22; Start 06/16/19 at 08:00; Stop 06/16/19 at 12:03; Status DC Albumin Human 250 ml @ 62.5 mls/hr 1X ONCE IV Last administered on 06/16/19at 14:58; Start 06/16/19 at 15:00; Stop 06/16/19 at 18:59; Status DC Daptomycin 600 mg/ Sodium Chloride 50 ml @ 100 mls/hr Q48H IV Last administered on 06/18/19at 13:37; Start 06/18/19 at 11:00 Piperacillin Sod/ Tazobactam Sod 2.25 gm/Sodium Chloride 50 ml @ 100 mls/hr Q8HRS IV Last administered on 06/19/19at 05:41; Start 06/17/19 at 14:00; Stop 06/19/19 at 08:25; Status DC Multi-Ingred Cream/Lotion/Oil/ Oint (Artificial Tears Eye Ointment) 1 cass PRN Q1HR PRN OU DRY EYE Last administered on 06/17/19at 10:55; Start 06/17/19 at 09:15 Potassium Phosphate 13.6 mmol/Dextrose 104.5333 ml @ 52.267 m... Q2H IV Last administered on 06/17/19at 12:43; Start 06/17/19 at 10:00; Stop 06/17/19 at 13:59; Status DC Potassium Phosphate 20 mmol/ Sodium Chloride 256.6667 ml @ 127.5 mls/hr 1X ONCE IV ; Start 06/17/19 at 09:15; Stop 06/17/19 at 11:15; Status UNV Albumin Human 500 ml @ 125 mls/hr 1X ONCE IV ; Start 06/17/19 at 19:30; Stop 06/17/19 at 23:29; Status Cancel Albumin Human 250 ml @ 125 mls/hr Q2H IV Last administered on 06/17/19at 21:50; Start 06/17/19 at 20:00; Stop 06/17/19 at 23:59; Status DC Sodium Chloride 1,000 ml @ 1,000 mls/hr Q1H PRN IV hypotension; Start 06/18/19 at 07:43; Stop 06/18/19 at 13:42; Status DC Sodium Chloride 1,000 ml @ 400 mls/hr Q2H30M PRN IV PATENCY; Start 06/18/19 at 07:43; Stop 06/18/19 at 19:42; Status DC Albumin Human 100 ml @ 100 mls/hr 1X ONCE IV Last administered on 06/18/19at 08:56; Start 06/18/19 at 08:00; Stop 06/18/19 at 08:59; Status DC Albumin Human 200 ml @ 200 mls/hr 1X PRN PRN IV Hypotension; Start 06/18/19 at 08:00; Stop 06/18/19 at 13:59; Status DC Pantoprazole Sodium (PROTONIX VIAL for IV PUSH) 40 mg DAILYAC IVP Last administered on 06/19/19at 11:56; Start 06/19/19 at 07:30 Sodium Chloride 1,000 ml @ 1,000 mls/hr Q1H PRN IV hypotension; Start 06/19/19 at 08:01; Stop 06/19/19 at 14:00; Status DC Albumin Human 200 ml @ 200 mls/hr 1X STAT IV Last administered on 06/19/19at 08:32; Start 06/19/19 at 08:01; Stop 06/19/19 at 09:00; Status DC Diphenhydramine HCl (Benadryl) 25 mg 1X PRN PRN IV ITCHING; Start 06/19/19 at 08:15; Stop 06/20/19 at 08:14; Status DC Diphenhydramine HCl (Benadryl) 25 mg 1X PRN PRN IV ITCHING; Start 06/19/19 at 08:15; Stop 06/20/19 at 08:14; Status DC Sodium Chloride (Normal Saline Flush) 10 ml 1X PRN PRN IV AP catheter pack; Start 06/19/19 at 08:15; Stop 06/20/19 at 08:14; Status DC Sodium Chloride (Normal Saline Flush) 10 ml 1X PRN PRN IV TEARER catheter pack; Start 06/19/19 at 08:15; Stop 06/20/19 at 08:14; Status DC Sodium Chloride 1,000 ml @ 400 mls/hr Q2H30M PRN IV PATENCY; Start 06/19/19 at 08:01; Stop 06/19/19 at 20:00; Status DC Info (PHARMACY MONITORING -- do not chart) 1 each PRN DAILY PRN MC SEE COMMENTS; Start 06/19/19 at 08:15 Albumin Human 100 ml @ 200 mls/hr 1X PRN PRN IV on dialysis for sbp <100 a; Start 06/19/19 at 08:15 Piperacillin Sod/ Tazobactam Sod 2.25 gm/Sodium Chloride 50 ml @ 100 mls/hr Q6HRS IV Last administered on 06/20/19at 05:57; Start 06/19/19 at 12:00 Metronidazole 100 ml @ 100 mls/hr Q8HRS IV Last administered on 06/20/19at 05:58; Start 06/19/19 at 14:00 Sodium Phosphate 20 mmol/Dextrose 256.6667 ml @ 64.167 m... 1X ONCE IV Last administered on 06/19/19at 11:31; Start 06/19/19 at 11:00; Stop 06/19/19 at 14:59; Status DC Lactulose (Lactulose) 20 gm PRN TID PRN PO CONSTIPATION Last administered on 06/19/19at 23:02; Start 06/19/19 at 10:45 Active Scripts Active Tessalon Perle (Benzonatate) 100 Mg Capsule 100 Mg PO TID PRN Vitals/I & O Vital Sign - Last 24 Hours 06/19/19 06/19/19 06/19/19 06/19/19 08:15 08:19 08:23 09:00 Pulse 86 Resp 20 20 20 B/P (MAP) 122/60 (80) Pulse Ox 100 90 98 100 O2 Delivery Ventilator Ventilator Ventilator Ventilator 06/19/19 06/19/19 06/19/19 06/19/19 10:00 10:11 11:00 11:15 Pulse 87 84 82 Resp 20 20 20 B/P (MAP) 132/66 (88) 146/67 (93) 148/72 (97) Pulse Ox 99 99 97 O2 Delivery Ventilator Ventilator Ventilator 06/19/19 06/19/19 06/19/19 06/19/19 11:30 11:45 11:54 12:00 Temp 98.6 98.6 Pulse 80 84 86 Resp 20 B/P (MAP) 126/58 (80) 136/72 (93) 157/78 (104) Pulse Ox 99 94 O2 Delivery Ventilator Ventilator 06/19/19 06/19/19 06/19/19 06/19/19 12:00 12:15 12:30 12:45 Pulse 88 86 82 B/P (MAP) 161/75 (103) 188/114 (138) 149/74 (99) O2 Delivery Mechanical Ventilator 06/19/19 06/19/19 06/19/19 06/19/19 13:00 13:15 13:30 13:45 Pulse 84 84 84 88 Resp 20 B/P (MAP) 170/93 (118) 175/89 (117) 175/93 (120) 181/86 (117) Pulse Ox 100 O2 Delivery Ventilator 06/19/19 06/19/19 06/19/19 06/19/19 13:55 14:00 14:30 14:45 Pulse 90 84 94 Resp 20 B/P (MAP) 171/71 (104) 113/67 (82) 91/59 (70) Pulse Ox 98 100 O2 Delivery Ventilator Ventilator 06/19/19 06/19/19 06/19/19 06/19/19 15:00 15:15 15:30 16:00 Pulse 94 102 90 Resp 20 20 B/P (MAP) 87/53 (64) 124/68 (86) 133/83 (100) Pulse Ox 100 100 O2 Delivery Ventilator Ventilator Mechanical Ventilator 06/19/19 06/19/19 06/19/19 06/19/19 16:00 16:20 16:30 17:00 Temp 99.5 99.5 Pulse 89 89 Resp 20 20 20 B/P (MAP) 99/61 (74) 102/58 (73) Pulse Ox 92 94 99 98 O2 Delivery Ventilator Ventilator Ventilator 06/19/19 06/19/19 06/19/19 06/19/19 17:20 18:00 19:00 20:00 Pulse 87 85 Resp 20 20 20 B/P (MAP) 109/55 (73) 105/55 (72) Pulse Ox 98 100 100 O2 Delivery Ventilator Ventilator Ventilator Mechanical Ventilator 06/19/19 06/19/19 06/19/19 06/19/19 20:00 20:31 21:00 22:00 Temp 101.2 101.2 Pulse 85 85 86 Resp 20 20 20 B/P (MAP) 101/55 (70) 127/55 (79) 111/55 (73) Pulse Ox 100 100 100 100 O2 Delivery Ventilator Ventilator Ventilator Ventilator 06/19/19 06/19/19 06/20/19 06/20/19 23:00 23:59 00:01 00:06 Temp 100.4 99.6 100.4 99.6 Pulse 88 86 Resp 20 20 B/P (MAP) 124/68 (86) 116/55 (75) Pulse Ox 100 100 100 O2 Delivery Ventilator Mechanical Ventilator Ventilator Ventilator 06/20/19 06/20/19 06/20/19 06/20/19 01:00 01:03 01:35 02:00 Pulse 87 Resp 20 20 B/P (MAP) 108/67 (81) Pulse Ox 100 100 100 100 O2 Delivery Ventilator Ventilator Ventilator Ventilator 06/20/19 06/20/19 06/20/19 06/20/19 02:00 03:00 03:22 04:00 Temp 99.1 99.1 Pulse 86 86 84 Resp 20 20 20 B/P (MAP) 109/59 (76) 116/64 (81) 114/67 (83) Pulse Ox 100 100 100 100 O2 Delivery Ventilator Ventilator Ventilator Ventilator 06/20/19 06/20/19 06/20/19 06/20/19 04:00 05:00 05:24 06:00 Pulse 90 88 Resp 20 20 B/P (MAP) 139/74 (95) 133/73 (93) Pulse Ox 100 100 98 O2 Delivery Mechanical Ventilator Ventilator Ventilator Ventilator 06/20/19 06/20/19 06/20/19 06/20/19 07:00 07:38 08:00 08:00 Temp 99.5 99.5 Pulse 85 90 Resp 20 20 B/P (MAP) 128/62 (84) 114/62 (79) Pulse Ox 86 100 100 O2 Delivery Ventilator Ventilator Ventilator Mechanical Ventilator Intake and Output 06/19/19 06/19/19 06/20/19 15:00 23:00 07:00 Intake Total 1508.4 ml 701.93 ml 1289.6 ml Output Total 20 ml 10 ml 20 ml Balance 1488.4 ml 691.93 ml 1269.6 ml WILLEM RESENDIZ MD Jun 20, 2019 08:14
[2019-06-20 08:18] LABS: FIO2 ABG 40%
[2019-06-20] MEDS: PANTOPRAZOLE IV PUSH 40 MG VIAL. IVP SCH (08:24)
[2019-06-20] MEDS: LACTULOSE 20 GM/30 ML SOLUTION. PO PRN ×2 (08:24→16:23)
[2019-06-20 08:45] LABS: % BANDS 8 % (0-9); % EOS 1 % (0-5); % LYMPHS 4 % (24-48); % MONOS 12 % (0-10); % SEGS 75 % (35-66)
[2019-06-20 08:49] LABS: ANISOCYTOSIS SLIGHT; PLT ESTIMATE ADEQUATE (ADEQUATE); TOXIC VACUOLATION PRESENT
[2019-06-20 08:50] LABS: POLYCHROMASIA SLIGHT
[2019-06-20 08:51] LABS: D-DIMER 10.39 ug/mlFEU (0.00-0.50)
--- NOTE | 2019-06-20 08:54 | RAD ---
EXAM: AP View of the chest DATE: 06/20/2019 9:00 AM INDICATION: Respiratory failure COMPARISON: 06/19/2019, 06/18/2019 FINDINGS/ IMPRESSION: Right IJ vascular catheter tip projects over the right atrium. Left IJ vascular catheter tip projects over the proximal SVC. Enteric tube extends beyond the diaphragm tip is not visualized. ET tube tip terminates approximately 4 cm above the guy. Cardiomediastinal silhouette is stable. Bilateral perihilar and lung base airspace opacities are stable. Trace left pleural effusion. No pneumothorax. Electronically signed by: Jan Pantoja MD (06/20/2019 8:51 AM) [id number]
[2019-06-20] MEDS: MICAFUNGIN 100 MG in IV DEXTROSE 5% 100ML 100 ML IV SCH (09:36)
--- NOTE | 2019-06-20 09:56 | PDOC ---
Objective: Objective: D/w nurse - more BS today. Tolerating tube feeds but had 250cc bilious re sidual. Getting lactulose - no stools. Concern for DIC. Vital Signs: Vital Signs Date Time Temp Pulse Resp B/P (MAP) Pulse Ox O2 Delivery O2 Flow Rate FiO2 06/20/19 09:00 86 20 118/64 (82) 100 Ventilator 06/20/19 08:00 99.5 99.5 Labs: Laboratory Tests Test 06/19/19 10:10 06/20/19 04:45 06/20/19 04:58 06/20/19 07:50 O2 Saturation 98 % 97 % Arterial Blood pH 7.48 7.43 Arterial Blood pCO2 at Patient Temp 35 mmHg 43 mmHg Arterial Blood pO2 at Patient Temp 105 mmHg 91 mmHg Arterial Blood HCO3 26 mmol/L 28 mmol/L Arterial Blood Base Excess 2 mmol/L 4 mmol/L FiO2 40 40% White Blood Count 25.9 x10^3/uL Red Blood Count 2.81 x10^6/uL Hemoglobin 7.1 g/dL Hematocrit 22.0 % Mean Corpuscular Volume 78 fL Mean Corpuscular Hemoglobin 25 pg Mean Corpuscular Hemoglobin Concent 32 g/dL Red Cell Distribution Width 16.5 % Platelet Count 158 x10^3/uL Neutrophils (%) (Auto) 86 % Lymphocytes (%) (Auto) 5 % Monocytes (%) (Auto) 7 % Eosinophils (%) (Auto) 1 % Basophils (%) (Auto) 1 % Neutrophils # (Auto) 22.4 x10^3/uL Lymphocytes # (Auto) 1.3 x10^3/uL Monocytes # (Auto) 1.7 x10^3/uL Eosinophils # (Auto) 0.4 x10^3/uL Basophils # (Auto) 0.1 x10^3/uL Segmented Neutrophils % 75 % Band Neutrophils % 8 % Lymphocytes % 4 % Monocytes % 12 % Eosinophils % 1 % Toxic Vacuolation Present Platelet Estimate Adequate Polychromasia Slight Anisocytosis Slight Prothrombin Time 24.3 SEC Prothromb Time International Ratio 2.2 Fibrinogen 480 mg/dL D-Dimer (Janet) 10.39 ug/mlFEU Sodium Level 137 mmol/L Potassium Level 4.1 mmol/L Chloride Level 98 mmol/L Carbon Dioxide Level 28 mmol/L Anion Gap 11 Blood Urea Nitrogen 20 mg/dL Creatinine 2.4 mg/dL Estimated GFR (Cockcroft-Gault) 22.7 Glucose Level 125 mg/dL Calcium Level 8.4 mg/dL Phosphorus Level 3.0 mg/dL Magnesium Level 2.0 mg/dL Total Bilirubin 8.4 mg/dL Direct Bilirubin 6.7 mg/dL Aspartate Amino Transf (AST/SGOT) 55 U/L Alanine Aminotransferase (ALT/SGPT) 14 U/L Alkaline Phosphatase 473 U/L Lactate Dehydrogenase 353 U/L Total Protein 6.2 g/dL Albumin 2.3 g/dL Glucose (Fingerstick) 116 mg/dL BLOOD CULTURE Preliminary NO GROWTH AFTER 1 DAY Imaging: CXR 06/20 IMPRESSION: Right IJ vascular catheter tip projects over the right atrium. Left IJ vascular catheter tip projects over the proximal SVC. Enteric tube extends beyond the diaphragm tip is not visualized. ET tube tip terminates approximately 4 cm above the guy. Cardiomediastinal silhouette is stable. Bilateral perihilar and lung base airspace opacities are stable. Trace left pleural effusion. No pneumothorax. PE: GEN: intubated LUNGS: vent ABD: rare BS, soft, large EXTREMITY: LE infection/blisters/mottling NEURO/PSYCH: sedated A/P: Sepsis, LLE infection, resp failure, CATY Elevated LFTs, coagulopathy, ACD Hepatic steatosis (?cirrhosis) -- Continue same per GI. TRISHA DUVALL Jun 20, 2019 09:56
--- NOTE | 2019-06-20 10:10 | PDOC ---
Renal-Progress Notes Subjective Notes Notes NO CHANGE History of Present Illness Hx of present illness STILL CRITICALLY ILL Vitals Vitals Vital Signs Date Time Temp Pulse Resp B/P (MAP) Pulse Ox O2 Delivery O2 Flow Rate FiO2 06/20/19 09:00 86 20 118/64 (82) 100 Ventilator 06/20/19 08:00 99.5 99.5 Weight Weight [ ] I.O. Intake and Output Intake and Output 06/20/19 07:00 Intake Total 3499.93 ml Output Total 50 ml Balance 3449.93 ml Intake IV Total 2959.93 ml Tube Feeding 440 ml Other 100 ml Output Urine Total 50 ml Labs Labs Laboratory Tests Test 06/19/19 10:10 06/20/19 04:45 06/20/19 04:58 06/20/19 07:50 O2 Saturation 98 % (92-99) 97 % (92-99) Arterial Blood pH 7.48 (7.35-7.45) 7.43 (7.35-7.45) Arterial Blood pCO2 at Patient Temp 35 mmHg (35-46) 43 mmHg (35-46) Arterial Blood pO2 at Patient Temp 105 mmHg (85-108) 91 mmHg (85-108) Arterial Blood HCO3 26 mmol/L (21-28) 28 mmol/L (21-28) Arterial Blood Base Excess 2 mmol/L (-3-3) 4 mmol/L (-3-3) FiO2 40 40% White Blood Count 25.9 x10^3/uL (4.0-11.0) Red Blood Count 2.81 x10^6/uL (3.50-5.40) Hemoglobin 7.1 g/dL (12.0-15.5) Hematocrit 22.0 % (36.0-47.0) Mean Corpuscular Volume 78 fL (79-100) Mean Corpuscular Hemoglobin 25 pg (25-35) Mean Corpuscular Hemoglobin Concent 32 g/dL (31-37) Red Cell Distribution Width 16.5 % (11.5-14.5) Platelet Count 158 x10^3/uL (140-400) Neutrophils (%) (Auto) 86 % (31-73) Lymphocytes (%) (Auto) 5 % (24-48) Monocytes (%) (Auto) 7 % (0-9) Eosinophils (%) (Auto) 1 % (0-3) Basophils (%) (Auto) 1 % (0-3) Neutrophils # (Auto) 22.4 x10^3/uL (1.8-7.7) Lymphocytes # (Auto) 1.3 x10^3/uL (1.0-4.8) Monocytes # (Auto) 1.7 x10^3/uL (0.0-1.1) Eosinophils # (Auto) 0.4 x10^3/uL (0.0-0.7) Basophils # (Auto) 0.1 x10^3/uL (0.0-0.2) Segmented Neutrophils % 75 % (35-66) Band Neutrophils % 8 % (0-9) Lymphocytes % 4 % (24-48) Monocytes % 12 % (0-10) Eosinophils % 1 % (0-5) Toxic Vacuolation Present Platelet Estimate Adequate (ADEQUATE) Polychromasia Slight Anisocytosis Slight Prothrombin Time 24.3 SEC (11.7-14.0) Prothromb Time International Ratio 2.2 (0.8-1.1) Fibrinogen 480 mg/dL (200-440) D-Dimer (Janet) 10.39 ug/mlFEU (0.00-0.50) Sodium Level 137 mmol/L (136-145) Potassium Level 4.1 mmol/L (3.5-5.1) Chloride Level 98 mmol/L (98-107) Carbon Dioxide Level 28 mmol/L (21-32) Anion Gap 11 (6-14) Blood Urea Nitrogen 20 mg/dL (7-20) Creatinine 2.4 mg/dL (0.6-1.0) Estimated GFR (Cockcroft-Gault) 22.7 Glucose Level 125 mg/dL (70-99) Calcium Level 8.4 mg/dL (8.5-10.1) Phosphorus Level 3.0 mg/dL (2.6-4.7) Magnesium Level 2.0 mg/dL (1.8-2.4) Total Bilirubin 8.4 mg/dL (0.2-1.0) Direct Bilirubin 6.7 mg/dL (0.0-0.2) Aspartate Amino Transf (AST/SGOT) 55 U/L (15-37) Alanine Aminotransferase (ALT/SGPT) 14 U/L (14-59) Alkaline Phosphatase 473 U/L (46-116) Lactate Dehydrogenase 353 U/L (81-234) Total Protein 6.2 g/dL (6.4-8.2) Albumin 2.3 g/dL (3.4-5.0) Glucose (Fingerstick) 116 mg/dL (70-99) Micro Micro Microbiology 06/19/19 Blood Culture - Preliminary, Resulted NO GROWTH AFTER 1 DAY 06/15/19 - Final, Complete 06/15/19 - Final, Complete 06/15/19 Gram Stain Evaluation - Final, Complete 06/15/19 Sputum Culture - Final, Complete 06/15/19 Sputum Result 1 - Final, Complete 06/13/19 Urine Culture - Final, Complete 06/13/19 Urine Culture Result 1 (ABEBE) - Final, Complete Review of Systems Constitutional: yes: unresponsive Physical Exam General Appearance: other (SEDATED) Skin: warm Respiratory: decreased breath sounds Heart: S1S2 Abdomen: soft, bowel sounds present Genitourinary: bladder flat Extremities: edema, other (BILATERAL LE CELLULITS AND DRAINING WOUNDS) Neurology: other (SEDATED) Assessment Assessment IMP SEPSIS-MSOF LEUCOCYTOSIS-IMPROVED ACUTE RESP FAILURE ACUTE KIDNEY INJURY BILATERAL LE WOUNDS LACTIC ACIDOSIS-BETTER SUBSTANCE ABUSE HYPOPHOSPHATEMIA-RESOLVED ELEVATED LIVER FUNCTION TESTS PLAN ANTIBIOTICS PRESSORS OFF IVF'S IHD AGAIN TODAY-WILL NEED DAILY HD UF 3.0-3.5 UF TOLERATED WILL GIVE ALBUMIN FOR BP SUPPORT REPLACE PO4 NEEDED WILL CONT SUPPORTIVE CARE POOR PROGNOSIS MILTON PARKER MD Jun 20, 2019 10:10
--- NOTE | 2019-06-20 10:51 | PDOC ---
PULMONARY PROGRESS NOTES Subjective sedated on vent, on,, versed, fentanyl, fio2 40%, on, levo, vasopressin Vitals Vital Signs Date Time Temp Pulse Resp B/P (MAP) Pulse Ox O2 Delivery O2 Flow Rate FiO2 06/20/19 10:00 83 20 115/59 (77) 100 Ventilator 06/20/19 08:00 99.5 99.5 Comments ros as mentioned as above discussed w rn other sys otherwise neg sedated on vent HEENT: Other (nc at perrl nose clear orally intubated neck no lad no thyromegaly) Lungs: Other ( basilar crackles dull at bases ) Cardiovascular: S1, S2 Abdomen: Soft, Non-tender, Other (no mass) Extremities: Other (+++ edema, chronic changes, echymosis, worsening on left leg) Skin: Dry Labs Laboratory Tests Test 06/19/19 05:40 06/19/19 10:10 06/20/19 04:45 06/20/19 04:58 White Blood Count 30.4 x10^3/uL (4.0-11.0) 25.9 x10^3/uL (4.0-11.0) Red Blood Count 2.84 x10^6/uL (3.50-5.40) 2.81 x10^6/uL (3.50-5.40) Hemoglobin 7.2 g/dL (12.0-15.5) 7.1 g/dL (12.0-15.5) Hematocrit 22.4 % (36.0-47.0) 22.0 % (36.0-47.0) Mean Corpuscular Volume 79 fL (79-100) 78 fL (79-100) Mean Corpuscular Hemoglobin 25 pg (25-35) 25 pg (25-35) Mean Corpuscular Hemoglobin Concent 32 g/dL (31-37) 32 g/dL (31-37) Red Cell Distribution Width 16.9 % (11.5-14.5) 16.5 % (11.5-14.5) Platelet Count 170 x10^3/uL (140-400) 158 x10^3/uL (140-400) Neutrophils (%) (Auto) 86 % (31-73) 86 % (31-73) Lymphocytes (%) (Auto) 5 % (24-48) 5 % (24-48) Monocytes (%) (Auto) 7 % (0-9) 7 % (0-9) Eosinophils (%) (Auto) 1 % (0-3) 1 % (0-3) Basophils (%) (Auto) 1 % (0-3) 1 % (0-3) Neutrophils # (Auto) 26.1 x10^3/uL (1.8-7.7) 22.4 x10^3/uL (1.8-7.7) Lymphocytes # (Auto) 1.5 x10^3/uL (1.0-4.8) 1.3 x10^3/uL (1.0-4.8) Monocytes # (Auto) 2.2 x10^3/uL (0.0-1.1) 1.7 x10^3/uL (0.0-1.1) Eosinophils # (Auto) 0.4 x10^3/uL (0.0-0.7) 0.4 x10^3/uL (0.0-0.7) Basophils # (Auto) 0.1 x10^3/uL (0.0-0.2) 0.1 x10^3/uL (0.0-0.2) Sodium Level 136 mmol/L (136-145) 137 mmol/L (136-145) Potassium Level 4.1 mmol/L (3.5-5.1) 4.1 mmol/L (3.5-5.1) Chloride Level 99 mmol/L (98-107) 98 mmol/L (98-107) Carbon Dioxide Level 29 mmol/L (21-32) 28 mmol/L (21-32) Anion Gap 8 (6-14) 11 (6-14) Blood Urea Nitrogen 20 mg/dL (7-20) 20 mg/dL (7-20) Creatinine 2.3 mg/dL (0.6-1.0) 2.4 mg/dL (0.6-1.0) Estimated GFR (Cockcroft-Gault) 23.9 22.7 Glucose Level 118 mg/dL (70-99) 125 mg/dL (70-99) Calcium Level 8.2 mg/dL (8.5-10.1) 8.4 mg/dL (8.5-10.1) Phosphorus Level 2.2 mg/dL (2.6-4.7) 3.0 mg/dL (2.6-4.7) Magnesium Level 2.0 mg/dL (1.8-2.4) 2.0 mg/dL (1.8-2.4) Creatine Kinase 150 U/L (26-192) O2 Saturation 98 % (92-99) Arterial Blood pH 7.48 (7.35-7.45) Arterial Blood pCO2 at Patient Temp 35 mmHg (35-46) Arterial Blood pO2 at Patient Temp 105 mmHg (85-108) Arterial Blood HCO3 26 mmol/L (21-28) Arterial Blood Base Excess 2 mmol/L (-3-3) FiO2 40 Segmented Neutrophils % 75 % (35-66) Band Neutrophils % 8 % (0-9) Lymphocytes % 4 % (24-48) Monocytes % 12 % (0-10) Eosinophils % 1 % (0-5) Toxic Vacuolation Present Platelet Estimate Adequate (ADEQUATE) Polychromasia Slight Anisocytosis Slight Prothrombin Time 24.3 SEC (11.7-14.0) Prothromb Time International Ratio 2.2 (0.8-1.1) Fibrinogen 480 mg/dL (200-440) D-Dimer (Janet) 10.39 ug/mlFEU (0.00-0.50) Total Bilirubin 8.4 mg/dL (0.2-1.0) Direct Bilirubin 6.7 mg/dL (0.0-0.2) Aspartate Amino Transf (AST/SGOT) 55 U/L (15-37) Alanine Aminotransferase (ALT/SGPT) 14 U/L (14-59) Alkaline Phosphatase 473 U/L (46-116) Lactate Dehydrogenase 353 U/L (81-234) Total Protein 6.2 g/dL (6.4-8.2) Albumin 2.3 g/dL (3.4-5.0) Glucose (Fingerstick) 116 mg/dL (70-99) Test 06/20/19 07:50 O2 Saturation 97 % (92-99) Arterial Blood pH 7.43 (7.35-7.45) Arterial Blood pCO2 at Patient Temp 43 mmHg (35-46) Arterial Blood pO2 at Patient Temp 91 mmHg (85-108) Arterial Blood HCO3 28 mmol/L (21-28) Arterial Blood Base Excess 4 mmol/L (-3-3) FiO2 40% Laboratory Tests Test 06/20/19 04:45 06/20/19 04:58 06/20/19 07:50 White Blood Count 25.9 x10^3/uL (4.0-11.0) Red Blood Count 2.81 x10^6/uL (3.50-5.40) Hemoglobin 7.1 g/dL (12.0-15.5) Hematocrit 22.0 % (36.0-47.0) Mean Corpuscular Volume 78 fL (79-100) Mean Corpuscular Hemoglobin 25 pg (25-35) Mean Corpuscular Hemoglobin Concent 32 g/dL (31-37) Red Cell Distribution Width 16.5 % (11.5-14.5) Platelet Count 158 x10^3/uL (140-400) Neutrophils (%) (Auto) 86 % (31-73) Lymphocytes (%) (Auto) 5 % (24-48) Monocytes (%) (Auto) 7 % (0-9) Eosinophils (%) (Auto) 1 % (0-3) Basophils (%) (Auto) 1 % (0-3) Neutrophils # (Auto) 22.4 x10^3/uL (1.8-7.7) Lymphocytes # (Auto) 1.3 x10^3/uL (1.0-4.8) Monocytes # (Auto) 1.7 x10^3/uL (0.0-1.1) Eosinophils # (Auto) 0.4 x10^3/uL (0.0-0.7) Basophils # (Auto) 0.1 x10^3/uL (0.0-0.2) Segmented Neutrophils % 75 % (35-66) Band Neutrophils % 8 % (0-9) Lymphocytes % 4 % (24-48) Monocytes % 12 % (0-10) Eosinophils % 1 % (0-5) Toxic Vacuolation Present Platelet Estimate Adequate (ADEQUATE) Polychromasia Slight Anisocytosis Slight Prothrombin Time 24.3 SEC (11.7-14.0) Prothromb Time International Ratio 2.2 (0.8-1.1) Fibrinogen 480 mg/dL (200-440) D-Dimer (Janet) 10.39 ug/mlFEU (0.00-0.50) Sodium Level 137 mmol/L (136-145) Potassium Level 4.1 mmol/L (3.5-5.1) Chloride Level 98 mmol/L (98-107) Carbon Dioxide Level 28 mmol/L (21-32) Anion Gap 11 (6-14) Blood Urea Nitrogen 20 mg/dL (7-20) Creatinine 2.4 mg/dL (0.6-1.0) Estimated GFR (Cockcroft-Gault) 22.7 Glucose Level 125 mg/dL (70-99) Calcium Level 8.4 mg/dL (8.5-10.1) Phosphorus Level 3.0 mg/dL (2.6-4.7) Magnesium Level 2.0 mg/dL (1.8-2.4) Total Bilirubin 8.4 mg/dL (0.2-1.0) Direct Bilirubin 6.7 mg/dL (0.0-0.2) Aspartate Amino Transf (AST/SGOT) 55 U/L (15-37) Alanine Aminotransferase (ALT/SGPT) 14 U/L (14-59) Alkaline Phosphatase 473 U/L (46-116) Lactate Dehydrogenase 353 U/L (81-234) Total Protein 6.2 g/dL (6.4-8.2) Albumin 2.3 g/dL (3.4-5.0) Glucose (Fingerstick) 116 mg/dL (70-99) O2 Saturation 97 % (92-99) Arterial Blood pH 7.43 (7.35-7.45) Arterial Blood pCO2 at Patient Temp 43 mmHg (35-46) Arterial Blood pO2 at Patient Temp 91 mmHg (85-108) Arterial Blood HCO3 28 mmol/L (21-28) Arterial Blood Base Excess 4 mmol/L (-3-3) FiO2 40% Medications Active Scripts Medications Dose Route/Sig Max Daily Dose Days Date Category Tessalon Perle (Benzonatate) 100 Mg Capsule 100 Mg PO TID PRN 06/02/19 Rx Comments cxr reviewed 06/19 b lat infilt L>R ett ok, mild improvement on L Impression . IMPRESSION: 1. Acute hypoxemic respiratory failure due to septic shock 2. Severe metabolic acidosis, improved on HD 3. Septic shock. still on Levo 15 franco, vasopressin, likely source suspected necrotizing fascitis 4. lower extremity cellulitis and soft tissue infection./ worsening 5. Leukocytosis. 6. Acute kidney injury. 7. Shock liver. 8. Positive urine drug screen. 9. Morbid obesity prob kena. 10. abnl cxr, overall stable Plan . PLAN: 1. We will continue support with multiple pressors to keep map >65.add vasopressin 2. HD per Nephrology, 3. Broad-spectrum antibiotics per ID. 4. cont vent support. setting reviewed, abg reviewed, titrate down fio2 to keep sat >94% 5. protonix for stress ulcer prophylaxis 6. Gen surg and vascular signed off, may need to re-eval reg ? wound debridement. d/w DR Gonzales and Dr Verdin. Surgery to re-eval 7. not ready for weaning till septic shock resolved discussed w rn/ ARMANDO HACKETT MD Jun 20, 2019 10:51
--- NOTE | 2019-06-20 10:59 | NUR ---
SS following up with discharge planning. Pt is self pay pt. HCF[facility] following for self pay status. Pt remains on the vent and is positive for Meth. SS will contact PAT team for assessment when appropriate. SS will continue to follow for discharge planning.
[2019-06-20] MEDS: MIDAZOLAM 100mg/100ml NS BAG 100 ML IV PRN (11:18)
[2019-06-20] MEDS: DAPTOmycin (GENERIC) IVPB 600 MG in IV NORMAL SALINE 50ML 50 ML IV SCH (11:18)
[2019-06-20] MEDS: ACETAMINOPHEN 650 MG/20.3 ML SOLUTION. PEG PRN (12:02)
--- NOTE | 2019-06-20 14:26 | PDOC ---
Provider Note Provider Note Date: 06/20/2019 1424 A long discussion with the patient's mother who was in the room with her in regards to debridement of her left lower extremity where she has a wound with necrotic skin. We discussed that the debridement might offer and unroofing of a attained infection to allow better treatment there were significant risks to the patient including bleeding leaving her with a open wound which needs to be dressed possibly leading to more infection. While the risks were very significant there is a small chance of improvement also allow us to obtain cultures. This was all explained to her family. They wish to proceed with debridement of her left lower extremity. Prognosis remains very grave. CHELSEA EDGE MD Jun 20, 2019 14:26
--- NOTE | 2019-06-20 14:48 | NUR ---
Wound Care: Follow up 06/21/19, Dr. Verdin performing bedside I&D at time of visit.
[2019-06-20] MEDS ORDERED: IV NORMAL SALINE 1000ML BAG 1,000 ML IV PRN ×2 (15:11)
--- NOTE | 2019-06-20 15:12 | PDOC4 ---
Operative Note Operative Note Date: 06/20/2019 Preoperative diagnosis: Sepsis multiorgan system failure lower extremity cellulitis Postoperative diagnosis: Same Procedure: Debridement of left lower extremity wounds Surgeon: Lambert Specimen: Cultures and soft tissue skin and subcutaneous tissue Dictation: Patient is a 39-year-old female is mated to the hospital through the emergency department with sepsis and multisystem organ failure lower extremity cellulitis she is currently on a ventilator with pressors and sedated. Sedation includes fentanyl Versed. The procedure of debridement of lower extremity left side was explained to her family in detail risks benefits were also included bleeding infection. Consent was given. Procedure was performed within the intensive care unit under her current sedation. The left lower extremity was prepped and draped usual sterile fashion is Betadine solution using a 11 blade scalpel the skin and subcutaneous tissue were excised sharply and an area of approximately 15 x 20 cm on the lower extremity there was a wound just above that there was about 10 x 10 cm. This area was also debrided sharply with an 11 blade scalpel removing skin necrotic skin and subcutaneous tissue there was minimal bleeding in the area no purulent material was expressed clear serous fluid. The wounds were dressed with Xeroform 4 x 4's and Kerlix wrap. Patient tolerated procedure well with no change in her vital signs. All sponge instrument needle counts listed as correct. Minimal blood loss 20 mL. CHELSEA EDGE MD Jun 20, 2019 15:12
[2019-06-20] MEDS ORDERED: DIALYSIS PATIENT. MC PRN ×2 (15:15)
[2019-06-20] MEDS ORDERED: ALBUMIN HUMAN 25% 200 ML IV PRN (15:15)
--- NOTE | 2019-06-20 15:19 | NUR ---
dr. vanessa and NEY chopra at bedside to perform I&D procedure. Timeout performed at 1450, first cut started at 1451, cultures and specimen sample taken, xeroform, 4x4s and kerlex placed at 1502.
[2019-06-20] MEDS ORDERED: ALBUMIN HUMAN 25% 100 ML IV ONE (16:04)
[2019-06-20] MEDS: VASOPRESSIN 40 UNIT in IV DEXTROSE 5% 100ML 100 ML IV PRN (16:47)
[2019-06-20] MEDS: NOREPINEPHRINE VIAL 32 MG in IV NORMAL SALINE 250ML IV PRN ×2 (16:48→23:50)
[2019-06-20] MEDS ORDERED: IMMUNE GLOBULIN GAMMA IV ONE ×2 (17:00)
[2019-06-20] MEDS ORDERED: [UNRECOGNIZED DRUG - OTHER] IV ONE ×2 (17:00)
[2019-06-20] MEDS: PHENYLEPHRINE IV PRN ×2 (17:52→22:39)
[2019-06-20] MEDS: NORMAL SALINE IV PRN ×2 (17:52→22:39)
--- NOTE | 2019-06-20 19:18 | NUR ---
Patients BP dropped during dialysis was unable to get a BP reading. Levophed at one point was turned up to 0.5 mcg/kg/min and Jose Carlos added for BP support.
[2019-06-20] MEDS ORDERED: ALBUMIN HUMAN 5% 500 ML IV ONE ×2 (21:30→22:19)
[2019-06-20] MEDS ORDERED: IV NORMAL SALINE 1000ML BAG 1,000 ML IV ONE (21:30)
[2019-06-20 21:55] LABS: BASO # 0.2 x10^3/uL (0.0-0.2); BASO % 0 % (0-3); EOS # 0.3 x10^3/uL (0.0-0.7); EOS % 0 % (0-3); LYMPH % 7 % (24-48); MEAN CORPUSCULAR HEMOGLOBIN 25 pg (25-35); MEAN CORPUSCULAR HGB CONC 30 g/dL (31-37); MEAN CORPUSCULAR VOLUME 84 fL (79-100); MONO # 3.1 x10^3/uL (0.0-1.1); MONO % 5 % (0-9); NEUT # 54.3 x10^3/uL (1.8-7.7); NEUT % 88 % (31-73); PLATELET COUNT 194 x10^3/uL (140-400); RED BLOOD COUNT 2.46 x10^6/uL (3.50-5.40); RED CELL DISTRIBUTION WIDTH 17.3 % (11.5-14.5)
[2019-06-20 21:56] LABS: WHITE BLOOD COUNT 61.9 x10^3/uL (4.0-11.0)
[2019-06-20 21:57] LABS: HEMATOCRIT 20.6 % (36.0-47.0); HEMOGLOBIN 6.1 g/dL (12.0-15.5)
--- NOTE | 2019-06-20 22:12 | NUR ---
Patient severely hypotensive, titrating up pressors. Dr. Whitt notified, received the order to draw a CBC and give 500 cc 5% Albumin and a 1L NS bolus, and may repeat again, and if patient's Hgb/Hct low, defer to surgery or primary. Bolus initiated and anesthesia at bedside to place an arterial line, but unsuccessful. Critical WBC/Hgb/Hct first called to Dr. Verdin, wanted to defer orders to primary. Dr. Castro then notified, received the order to give the Albumin first, then 1 amp bicarb, then 2 units of PRBCs, and may also add low dose dopamine after the blood if necessary.
[2019-06-20] MEDS ORDERED: SODIUM BICARB ADULT 8.4% 50 MEQ/50 ML DISP.SYRIN. IV ONE (22:15)
[2019-06-20 23:10] LABS: % BANDS 28 % (0-9); % EOS 2 % (0-5); % LYMPHS 6 % (24-48); % METAS 1 % (0-0); % MONOS 2 % (0-10); % MYELOS 1 % (0-0); % SEGS 60 % (35-66); ANISOCYTOSIS SLIGHT; PLT ESTIMATE ADEQUATE (ADEQUATE)
[2019-06-20 23:11] LABS: TOXIC VACUOLATION PRESENT
[2019-06-20 23:12] LABS: TOXIC GRANULATION MOD
[2019-06-20 23:13] LABS: HYPOCHROMIA SLIGHT
[2019-06-21 00:15] VITALS: BP 76/0
[2019-06-21] MEDS: PIPERACILLIN/TAZOBACTAM 2.25 GM in IV NORMAL SALINE 50ML 50 ML IV SCH (00:29)
[2019-06-21 00:30] VITALS: BP 74/0
[2019-06-21 00:45] VITALS: BP 78/0
[2019-06-21 01:00] VITALS: BP 80/0
[2019-06-21] MEDS ORDERED: EPINEPHrine SYRINGE 1 MG/10 ML SYRINGE ONE ×2 (01:00→02:53)
[2019-06-21] MEDS ORDERED: AMIODARONE 150 MG/3 ML VIAL ONE (01:00)
[2019-06-21 02:00] VITALS: BP 72/0
[2019-06-21] MEDS ORDERED: ALBUMIN HUMAN 5% 500 ML IV ONE (02:15)
[2019-06-21] MEDS ORDERED: EPINEPHrine 1 MG/ML VIAL ONE (02:52)
[2019-06-21 03:08] LABS: BASO # 0.2 x10^3/uL (0.0-0.2); BASO % 1 % (0-3); EOS # 0.4 x10^3/uL (0.0-0.7); EOS % 1 % (0-3); LYMPH # 5.5 x10^3/uL (1.0-4.8); LYMPH % 12 % (24-48); MEAN CORPUSCULAR HEMOGLOBIN 26 pg (25-35); MEAN CORPUSCULAR HGB CONC 28 g/dL (31-37); MEAN CORPUSCULAR VOLUME 95 fL (79-100); MONO # 1.6 x10^3/uL (0.0-1.1); MONO % 3 % (0-9); NEUT # 37.5 x10^3/uL (1.8-7.7); NEUT % 83 % (31-73); PLATELET COUNT 118 x10^3/uL (140-400); RED BLOOD COUNT 2.07 x10^6/uL (3.50-5.40); RED CELL DISTRIBUTION WIDTH 17.8 % (11.5-14.5)
[2019-06-21 03:10] LABS: WHITE BLOOD COUNT 45.2 x10^3/uL (4.0-11.0)
[2019-06-21 03:11] LABS: HEMATOCRIT 19.7 % (36.0-47.0); HEMOGLOBIN 5.5 g/dL (12.0-15.5)
--- NOTE | 2019-06-21 04:57 | NUR ---
2330-completed transfusing ns bolus x2, then albumin x2. bp cont to be 70/Doppler. 0012- Gave 2 units of PRBC's, no improvement of bp. 0110- Dopamine started 0230 dopamine max at 20mcg/ kg.min, albumin x1 given dressing to left lower leg reinforced. 0300 unable to feel/hear pulse- code called
--- NOTE | 2019-06-21 08:25 | PDOC3 ---
Discharge Summary Visit Information Date of Admission: Jun 13, 2019 Date of Discharge: Jun 21, 2019 Admitting Diagnosis: Acute hypoxic respiratory failure Final Diagnosis Problems Medical Problems: (1) Acute respiratory failure Status: Acute (2) Elevated brain natriuretic peptide (BNP) level Status: Acute (3) Elevated d-dimer Status: Acute (4) Elevated lipase Status: Acute (5) Elevated liver function tests Status: Acute (6) GI bleeding Status: Acute (7) Hyperglycemia Status: Acute (8) Hypermagnesuria Status: Acute (9) Hypoalbuminemia Status: Acute (10) Hypokalemia Status: Acute (11) Hyponatremia Status: Acute (12) Lower extremity cellulitis Status: Acute (13) Metabolic acidosis Status: Acute (14) Methamphetamine abuse Status: Acute (15) Morbid obesity with BMI of 60.0-69.9, adult Status: Acute (16) Renal insufficiency Status: Acute (17) Sepsis Status: Acute (18) Severe sepsis Status: Acute Brief Hospital Course Allergies Allergies Coded Allergies Type Severity Reaction Last Updated Verified No Known Drug Allergies 12/08/13 No Vital Signs Vital Signs Date Time Temp Pulse Resp B/P (MAP) Pulse Ox O2 Delivery O2 Flow Rate FiO2 06/21/19 02:06 97 Ventilator 06/21/19 02:00 94 22 72/0 (24) 06/20/19 23:59 98.9 98.9 06/20/19 21:17 4.0 Lab Results Laboratory Tests Test 06/19/19 10:10 06/20/19 04:45 06/20/19 04:58 06/20/19 07:50 O2 Saturation 98 % (92-99) 97 % (92-99) Arterial Blood pH 7.48 (7.35-7.45) 7.43 (7.35-7.45) Arterial Blood pCO2 at Patient Temp 35 mmHg (35-46) 43 mmHg (35-46) Arterial Blood pO2 at Patient Temp 105 mmHg (85-108) 91 mmHg (85-108) Arterial Blood HCO3 26 mmol/L (21-28) 28 mmol/L (21-28) Arterial Blood Base Excess 2 mmol/L (-3-3) 4 mmol/L (-3-3) FiO2 40 40% White Blood Count 25.9 x10^3/uL (4.0-11.0) Red Blood Count 2.81 x10^6/uL (3.50-5.40) Hemoglobin 7.1 g/dL (12.0-15.5) Hematocrit 22.0 % (36.0-47.0) Mean Corpuscular Volume 78 fL (79-100) Mean Corpuscular Hemoglobin 25 pg (25-35) Mean Corpuscular Hemoglobin Concent 32 g/dL (31-37) Red Cell Distribution Width 16.5 % (11.5-14.5) Platelet Count 158 x10^3/uL (140-400) Neutrophils (%) (Auto) 86 % (31-73) Lymphocytes (%) (Auto) 5 % (24-48) Monocytes (%) (Auto) 7 % (0-9) Eosinophils (%) (Auto) 1 % (0-3) Basophils (%) (Auto) 1 % (0-3) Neutrophils # (Auto) 22.4 x10^3/uL (1.8-7.7) Lymphocytes # (Auto) 1.3 x10^3/uL (1.0-4.8) Monocytes # (Auto) 1.7 x10^3/uL (0.0-1.1) Eosinophils # (Auto) 0.4 x10^3/uL (0.0-0.7) Basophils # (Auto) 0.1 x10^3/uL (0.0-0.2) Segmented Neutrophils % 75 % (35-66) Band Neutrophils % 8 % (0-9) Lymphocytes % 4 % (24-48) Monocytes % 12 % (0-10) Eosinophils % 1 % (0-5) Toxic Vacuolation Present Platelet Estimate Adequate (ADEQUATE) Polychromasia Slight Anisocytosis Slight Prothrombin Time 24.3 SEC (11.7-14.0) Prothromb Time International Ratio 2.2 (0.8-1.1) Fibrinogen 480 mg/dL (200-440) D-Dimer (Janet) 10.39 ug/mlFEU (0.00-0.50) Sodium Level 137 mmol/L (136-145) Potassium Level 4.1 mmol/L (3.5-5.1) Chloride Level 98 mmol/L (98-107) Carbon Dioxide Level 28 mmol/L (21-32) Anion Gap 11 (6-14) Blood Urea Nitrogen 20 mg/dL (7-20) Creatinine 2.4 mg/dL (0.6-1.0) Estimated GFR (Cockcroft-Gault) 22.7 Glucose Level 125 mg/dL (70-99) Calcium Level 8.4 mg/dL (8.5-10.1) Phosphorus Level 3.0 mg/dL (2.6-4.7) Magnesium Level 2.0 mg/dL (1.8-2.4) Total Bilirubin 8.4 mg/dL (0.2-1.0) Direct Bilirubin 6.7 mg/dL (0.0-0.2) Aspartate Amino Transf (AST/SGOT) 55 U/L (15-37) Alanine Aminotransferase (ALT/SGPT) 14 U/L (14-59) Alkaline Phosphatase 473 U/L (46-116) Lactate Dehydrogenase 353 U/L (81-234) Total Protein 6.2 g/dL (6.4-8.2) Albumin 2.3 g/dL (3.4-5.0) Glucose (Fingerstick) 116 mg/dL (70-99) Test 06/20/19 21:30 06/21/19 02:55 White Blood Count 61.9 x10^3/uL (4.0-11.0) 45.2 x10^3/uL (4.0-11.0) Red Blood Count 2.46 x10^6/uL (3.50-5.40) 2.07 x10^6/uL (3.50-5.40) Hemoglobin 6.1 g/dL (12.0-15.5) 5.5 g/dL (12.0-15.5) Hematocrit 20.6 % (36.0-47.0) 19.7 % (36.0-47.0) Mean Corpuscular Volume 84 fL (79-100) 95 fL (79-100) Mean Corpuscular Hemoglobin 25 pg (25-35) 26 pg (25-35) Mean Corpuscular Hemoglobin Concent 30 g/dL (31-37) 28 g/dL (31-37) Red Cell Distribution Width 17.3 % (11.5-14.5) 17.8 % (11.5-14.5) Platelet Count 194 x10^3/uL (140-400) 118 x10^3/uL (140-400) Neutrophils (%) (Auto) 88 % (31-73) 83 % (31-73) Lymphocytes (%) (Auto) 7 % (24-48) 12 % (24-48) Monocytes (%) (Auto) 5 % (0-9) 3 % (0-9) Eosinophils (%) (Auto) 0 % (0-3) 1 % (0-3) Basophils (%) (Auto) 0 % (0-3) 1 % (0-3) Neutrophils # (Auto) 54.3 x10^3/uL (1.8-7.7) 37.5 x10^3/uL (1.8-7.7) Lymphocytes # (Auto) 4.0 x10^3/uL (1.0-4.8) 5.5 x10^3/uL (1.0-4.8) Monocytes # (Auto) 3.1 x10^3/uL (0.0-1.1) 1.6 x10^3/uL (0.0-1.1) Eosinophils # (Auto) 0.3 x10^3/uL (0.0-0.7) 0.4 x10^3/uL (0.0-0.7) Basophils # (Auto) 0.2 x10^3/uL (0.0-0.2) 0.2 x10^3/uL (0.0-0.2) Segmented Neutrophils % 60 % (35-66) Band Neutrophils % 28 % (0-9) Lymphocytes % 6 % (24-48) Monocytes % 2 % (0-10) Eosinophils % 2 % (0-5) Metamyelocytes % 1 % (0-0) Myelocytes % 1 % (0-0) Toxic Granulation Mod Toxic Vacuolation Present Dohle Bodies Present Platelet Estimate Adequate (ADEQUATE) Hypochromasia Slight Anisocytosis Slight Laboratory Tests Test 06/20/19 21:30 06/21/19 02:55 White Blood Count 61.9 x10^3/uL (4.0-11.0) 45.2 x10^3/uL (4.0-11.0) Red Blood Count 2.46 x10^6/uL (3.50-5.40) 2.07 x10^6/uL (3.50-5.40) Hemoglobin 6.1 g/dL (12.0-15.5) 5.5 g/dL (12.0-15.5) Hematocrit 20.6 % (36.0-47.0) 19.7 % (36.0-47.0) Mean Corpuscular Volume 84 fL (79-100) 95 fL (79-100) Mean Corpuscular Hemoglobin 25 pg (25-35) 26 pg (25-35) Mean Corpuscular Hemoglobin Concent 30 g/dL (31-37) 28 g/dL (31-37) Red Cell Distribution Width 17.3 % (11.5-14.5) 17.8 % (11.5-14.5) Platelet Count 194 x10^3/uL (140-400) 118 x10^3/uL (140-400) Neutrophils (%) (Auto) 88 % (31-73) 83 % (31-73) Lymphocytes (%) (Auto) 7 % (24-48) 12 % (24-48) Monocytes (%) (Auto) 5 % (0-9) 3 % (0-9) Eosinophils (%) (Auto) 0 % (0-3) 1 % (0-3) Basophils (%) (Auto) 0 % (0-3) 1 % (0-3) Neutrophils # (Auto) 54.3 x10^3/uL (1.8-7.7) 37.5 x10^3/uL (1.8-7.7) Lymphocytes # (Auto) 4.0 x10^3/uL (1.0-4.8) 5.5 x10^3/uL (1.0-4.8) Monocytes # (Auto) 3.1 x10^3/uL (0.0-1.1) 1.6 x10^3/uL (0.0-1.1) Eosinophils # (Auto) 0.3 x10^3/uL (0.0-0.7) 0.4 x10^3/uL (0.0-0.7) Basophils # (Auto) 0.2 x10^3/uL (0.0-0.2) 0.2 x10^3/uL (0.0-0.2) Segmented Neutrophils % 60 % (35-66) Band Neutrophils % 28 % (0-9) Lymphocytes % 6 % (24-48) Monocytes % 2 % (0-10) Eosinophils % 2 % (0-5) Metamyelocytes % 1 % (0-0) Myelocytes % 1 % (0-0) Toxic Granulation Mod Toxic Vacuolation Present Dohle Bodies Present Platelet Estimate Adequate (ADEQUATE) Hypochromasia Slight Anisocytosis Slight Brief Hospital Course Ms Calvillo is a 39yo morbidly obese female, heavy methamphetamine user admitted due to confusion and respiratory distress at home per her mother, she was i ntubated in ED. Pt was at [facility] - legs looked the same, they were treating her there with IV abx and for meth abuse, she left the week prior to admit at [facility] and went to [facility], also left there. PT remained intubated, on 2 pressors, morbidly obese, with bullae both legs and discoloration. She became progressively worse with ARDS, multiorgan system failure. CRRT initiated too bec of gap met acidosis, clotted catheter. 06/19: Fever 102.6F. on IV abx per ID hgb 7.9, CPK 360 - will decrease or hold daptomycin, On ppi IV per GI for acute GI bleeding. Also seen by Pulmonology, Vascular surgery, general surgery, ID, and nephrology in consultation. Advanced more on pressors, renal function holding with. Legs became worse with bullae. General surgery bedside debrided 06/20 what pathology has shown to be extensive necrotic tissue despite imaging negative for gangrene. She became progressively more hypotensive 06/20-06/21, required 2u PRBC, and arrested around 0300 this morning with no spontaneous respirations or cardiac activity. After all heroic measures family agreed with physician recommendations of futility of further resuscitative efforts. TOD ~0322 Problem list: Septic shock Severe LLE cellulitis Hypoxic Resp failure,on IPPV - intubated on arrival CATY now requiring dialysis Anemia, elevated LFTs and lipase S/p cholecystectomy Obesity - BMI 62.6 +amphetamines Severe metabolic acidosis Pulm infiltrates, recent [facility] - [facility] Black NGT output Discharge Information Condition at Discharge: / Disposition/Orders: Scheduled PRN Benzonatate (Tessalon Perle) 100 Mg Capsule, 100 MG PO TID PRN for COUGH, #15 Prescribed by: KENYA BOYKIN APRN on 06/02/19 1903 Last Action: Reviewed on 06/14/19 0838 by WILLEM SIMMS MD Jun 21, 2019 08:24
--- NOTE | 2019-06-21 10:00 | NUR ---
post mortem care done. body to [facility]. Mother will notify hospitality house supervisor of decision on which home. Mother requested pt soc security # for burial purposes. Given to mother.
[2019-06-21] MEDS ORDERED: DAPTOmycin (GENERIC) IVPB 600 MG in IV NORMAL SALINE 50ML 50 ML IV SCH (16:00)
--- NOTE | 2019-06-25 10:07 | PATHOLOGY ---
[facility] Accession Number: [id number] . 01 Material submitted: . leg - SKIN AND SUBCANTANEOUS TISSUE OF LEFT LOWER EXTREMITY. Modifiers: left, lower . 01 Clinical history: . LLE debridement . 02 Diagnosis: Segments of skin and subcutaneous tissue, left lower extremity, debridement: - Ischemic necrosis and acute inflammation. . (JPM:mm; 06/24/2019) [facility] 06/24/2019 1739 Local . 02 Electronically signed: . Champ Simon MD, Pathologist NPI- [id number] . 01 Gross description: . The specimen is received in formalin, labeled "Rajinder, Teagan, skin and subcutaneous tissue L lower extremity" and consists of multiple segments of zimmerman-kahn wrinkled to necrotic skin and soft tissue measuring 14.8 x 13.5 x 1.6 cm in aggregate. A strategic partnership representative portion is submitted in A1. (SDY; 06/21/2019) SYU/SYU 06/21/2019 1908 Local . 02 Pathologist provided ICD-10: I96, L98.9 . 02 CPT . 679426 Specimen Comment: A courtesy copy of this report has been sent to [phone] Specimen Comment: Report sent to Performed at: [facility] [address], [place], [place] [id number] MD Gee Beasley MD Phone: [phone] Performed at: [facility] [address] [place], [place] [id number] MD Champ Simon MD Phone: [phone]
== END 2019-06-21 03:17 | disposition expired | DRG 853 ==
LOC: ER 15:53 → 1 WEST ICU 16:38
PROVIDERS: ADMIT Internal Medicine; ATTEND Internal Medicine
PROC: 5A1955Z Respiratory Ventilation, Greater than 96 Consecutive Hours (ICD-10-PCS; principal; 2019-06-13)
PROC: 0BH17EZ Insertion of Endotracheal Airway into Trachea, Via Natural or Artificial Opening (ICD-10-PCS; 2019-06-13)
PROC: 02H633Z Insertion of Infusion Device into Right Atrium, Percutaneous Approach (ICD-10-PCS; 2019-06-14)
PROC: B548ZZA Ultrasonography of Superior Vena Cava, Guidance (ICD-10-PCS; 2019-06-14)
PROC: 5A1D90Z Performance of Urinary Filtration, Continuous, Greater than 18 hours Per Day (ICD-10-PCS; 2019-06-15)
PROC: 5A1D90Z Performance of Urinary Filtration, Continuous, Greater than 18 hours Per Day (ICD-10-PCS; 2019-06-16)
PROC: 5A1D90Z Performance of Urinary Filtration, Continuous, Greater than 18 hours Per Day (ICD-10-PCS; 2019-06-17)
PROC: 30233N1 Transfusion of Nonautologous Red Blood Cells into Peripheral Vein, Percutaneous Approach (ICD-10-PCS; 2019-06-18)
PROC: 5A1D90Z Performance of Urinary Filtration, Continuous, Greater than 18 hours Per Day (ICD-10-PCS; 2019-06-18)
PROC: 5A1D90Z Performance of Urinary Filtration, Continuous, Greater than 18 hours Per Day (ICD-10-PCS; 2019-06-19)
PROC: 0JBP0ZZ Excision of Left Lower Leg Subcutaneous Tissue and Fascia, Open Approach (ICD-10-PCS; 2019-06-20)
PROC: 5A1D90Z Performance of Urinary Filtration, Continuous, Greater than 18 hours Per Day (ICD-10-PCS; 2019-06-20)
DX: A41.9 Sepsis, unspecified organism (principal); J18.9 Pneumonia, unspecified organism; J96.01 Acute respiratory failure with hypoxia; R65.21 Severe sepsis with septic shock; K72.00 Acute and subacute hepatic failure without coma; E43 Unspecified severe protein-calorie malnutrition; N18.6 End stage renal disease; E87.2 Acidosis; N17.9 Acute kidney failure, unspecified; R18.8 Other ascites; L03.116 Cellulitis of left lower limb; D68.9 Coagulation defect, unspecified; E87.1 Hypo-osmolality and hyponatremia; I96 Gangrene, not elsewhere classified; J81.1 Chronic pulmonary edema; J98.11 Atelectasis; Z68.44 Body mass index [BMI] 60.0-69.9, adult; T82.898A Other specified complication of vascular prosthetic devices, implants and grafts, initial encounter; E66.01 Morbid (severe) obesity due to excess calories; E87.6 Hypokalemia; D64.9 Anemia, unspecified; E83.39 Other disorders of phosphorus metabolism; F15.10 Other stimulant abuse, uncomplicated; G47.33 Obstructive sleep apnea (adult) (pediatric); K59.00 Constipation, unspecified; K74.60 Unspecified cirrhosis of liver; K76.0 Fatty (change of) liver, not elsewhere classified; Y84.1 Kidney dialysis as the cause of abnormal reaction of the patient, or of later complication, without mention of misadventure at the time of the procedure; Y92.89 Other specified places as the place of occurrence of the external cause; Z90.49 Acquired absence of other specified parts of digestive tract; Z83.3 Family history of diabetes mellitus
CPT/HCPCS: 31500; 36415; 36556; 36600; 51702; 71045; 73590; 74018; 76700; 76937; 80048; 80051; 80053; 80076; 80307; 81001; 82271; 82550; 82607; 82805; 82962; 83540; 83550; 83605; 83615; 83690; 83735; 83880; 84075; 84100; 84484; 85007; 85025; 85027; 85379; 85384; 85520; 85610; 85730; 86704; 86705; 86709; 86803; 86850; 86900; 86901; 86920; 87040; 87070; 87071; 87075; 87086; 87205; 87340; 88305; 93005; 93971; 94002; 94003; 94640; 94760; 96365; 96366; 96368; 96375; 99292; C1892; C9113; J0171; J0282; J0330; J0878; J1265; J1956; J2020; J2060; J2185; J2248; J2250; J2543; J3010; J3370; J3480; J3490; J7030; J7040; J7050; J7620; P9016; P9041; P9045; P9046; 99291-25; G0378